=== PATIENT | male | born 1980 | race Caucasian/White ===

== ENCOUNTER 2016-02-22 19:29 | Inpatient (IN) | payer MEDICAID ==
[~2016-02-22] VITALS: Ht 185.4 cm; Wt 73.0 kg
[2016-02-22 20:27] VITALS: BP 139/97; PULSE 107; RESP 17; TEMP 98.5; O2SAT 98
[2016-02-22 22:38] LABS: HEMATOCRIT 38.1 % (36-54); HEMOGLOBIN 13.4 g/dL (14.0-18.0); MEAN CORPUSCULAR HGB CONC 35 % (32-36)
[2016-02-22 22:42] LABS: ANION GAP 9 (5-15); CALCIUM 8.5 mg/dL (8.4-11.0); CHLORIDE 88 mmol/L (98-107); CREATININE 0.55 mg/dL (0.55-1.30); GLUCOSE 119 mg/dL (70-99); SODIUM SERUM 132 mmol/L (136-145); UREA NITROGEN, BLOOD 2 mg/dL (8-21)
--- NOTE | 2016-02-22 22:45 | NUR ---
Pt ambulatory to bed 5. Report given to RODDY Marie.
[2016-02-22 22:50] LABS: MEAN CORPUSCULAR HEMOGLOBIN 34 pg (27-31); MEAN CORPUSCULAR VOLUME 96 fL (79.0-98.0); PLATELET COUNT (AUTO) 139 K/uL (130-430); RED BLOOD CELL COUNT(AUTO) 3.99 MIL/uL (4.2-6.2); RED CELL DISTRIBUTION WIDTH 22.4 % (9.0-15.0); WHITE BLOOD COUNT (AUTO) 13.4 K/uL (4.8-10.8)
[2016-02-22 22:55] LABS: ALANINE AMINOTRANSFERASE 89 U/L (12-78); ALBUMIN 2.8 g/dL (3.4-4.8); ALCOHOL, BLOOD 102 mg/dL (<10); ASPARTATE AMINOTRANSFERASE 254 U/L (10-37); LIPASE 228 U/L (73-393); TOTAL PROTEIN, SERUM 6.1 g/dL (6.4-8.3)
--- NOTE | 2016-02-22 22:55 | NUR ---
Pt came in for general weakness for the whole day. Pt states he could not walk a 100 feet without getting tired. Pt is nauseous and has been vomitting non stop. Pt has 6/10 body pain and shoots to a 9/10 when he moves. A and O x 4. Pt skins are warm, dry, and jaundiced. Pt is very itchy. Pt placed on cadiac monitor and will continue to monitor. No other injuries or complaints mentioned/noted.
[2016-02-22 23:10] LABS: GFR AFRICAN AMERICAN 217 mL/min (>90)
[2016-02-22 23:13] LABS: POTASSIUM 2.5 mmol/L (3.5-5.1)
[2016-02-22 23:14] LABS: SALICYLATE < 1 mg/dL (3-30)
[2016-02-22] MEDS ORDERED: NACL 0.9% 1,000 ML IV ONE (23:15)
--- NOTE | 2016-02-22 23:15 | NUR ---
ER Dr. Lam at bedside examining patient.
--- NOTE | 2016-02-22 23:30 | NUR ---
Pt meets sepsis protocol. made aware. No changes in orders at this time.
[2016-02-22] MEDS ORDERED: KCL 40 mEq in D5W 1000 mL 1,000 ML IV ONE (23:45)
[2016-02-22] MEDS ORDERED: LACTULOSE 20 GM/30 ML UDC PO ONE (23:45)
[2016-02-22 23:46] LABS: ACETAMINOPHEN < 1 ug/mL (1-30)
[2016-02-22 23:49] LABS: INR 1.6 (0.80-1.20); PROTHROMBIN TIME 17.8 SECS (9.5-12.5)
[2016-02-22 23:51] LABS: BAND % (MANUAL) 3 % (0-6); LYMPHOCYTES % (MANUAL) 15 % (20-46); MONOCYTES % (MANUAL) 17 % (0-11)
[2016-02-22 23:52] LABS: BASOPHILS % (MANUAL) 0 % (0-2); EOSINOPHILS % (MANUAL) 1 % (0-7)
[2016-02-23] VITALS (19 sets, daily range): BP systolic 95–135; BP diastolic 51–85; PULSE 89–111; RESP 15–25; TEMP 97.6–99.4; O2SAT 94–99
--- NOTE | 2016-02-23 | NUR ---
Medication reconciliation completed with information provided by patient. Any prior medication reconciliation on file was reviewed and corrected.
[2016-02-23] MEDS ORDERED: KCL 20 mEq in 100 mL (PREMIX) 200 ML IV ONE (00:08)
[2016-02-23 00:25] LABS: BARBITURATE, URINE NEGATIVE (NEG <=200); BENZODIAZEPINE, URINE NEGATIVE (NEG <=150); CANNABINOID, URINE NEGATIVE (NEG <=50); COCAINE, URINE NEGATIVE (NEG <=150); METHAMPHETAMINES SCREEN,URINE NEGATIVE (NEG <=500); OPIATE, URINE NEGATIVE (NEG <=100); PHENCYCLIDINE SCREEN,URINE NEGATIVE (NEG <=25); UR TRICYCLIC ANTIDEPRESSANTS NEGATIVE (NEG <=300); URINE AMPHETAMINE NEGATIVE (NEG <=500); URINE METHADONE NEGATIVE (NEG <=200); URINE OXYCODONE SCREEN NEGATIVE (NEG <=100); URINE PROPOXYPHENE SCREEN NEGATIVE (NEG <=300)
--- NOTE | 2016-02-23 00:25 | NUR ---
# 18 gauge angiocath placed to R AC. Use of asceptic technique. Opsite placed over site. Blood return noted. Flushed with 10 cc of normal saline. No evidence of infiltration noted. Patient tolerated well.
[2016-02-23] MEDS ORDERED: LORazepam 2 MG/ML VIAL (FOR ER USE) IVP ONE (02:00)
--- NOTE | 2016-02-23 02:25 | NUR ---
Pt is on ICU hold per adalid in ICU. They will follow up when a bed frees up.
--- NOTE | 2016-02-23 03:51 | NUR ---
Patient will be admitted to care of Dr. Mcbride. Admitted to ICU unit. Will go to room 127. Summary report printed. Report given to Karly PEREYRA.
--- NOTE | 2016-02-23 04:00 | NUR ---
ADMIT: Patient admitted to ICU bed 8 transported via gurney by 2 RNs. Patient is alert but lethargic, follows commands then dozes in and out. Breathing even and unlabored. Per report from Frank, patient was given Ativan in ER. IV access on the right ac G 18, patent and intact. No signs of redness or swelling on the IV site. Skin is jaundiced, warm and dry. 2 side rails up and bed in lowest level. Bed brakes locked. Placed call light within reach. All needs met. Will continue to monitor.
--- NOTE | 2016-02-23 06:33 | NUR ---
PT UPDATE: Patient in no acute distress or SOB at this time. Vital signs elevated but stable. BM x 1, loose and greenish in color. All needs met. Placed call light within reach. Will continue to monitor.
--- NOTE | 2016-02-23 07:20 | NUR ---
REPORT: Report given to RODDY Vines.
--- NOTE | 2016-02-23 07:30 | NUR ---
Am assessment: Patient is alert and oriented x4. Patient is on room air no signs of distress noted. IV started to right forearm 20 gauge. Is sinus rhythm on the monitor. Denies any nausea at this time. Is jaundice to sclera and upper chest. Call light in reach. Bed in lowest position. Will continue to monitor. Fall precautions in place.
[2016-02-23] MEDS: FOLIC ACID 1 MG, THIAMINE HCL 100 MG, MAGNESIUM SULFATE 1 GM, MVI 10 ML in NACL 0.9% 1,... IV SCH ×3 (08:00→21:00)
[2016-02-23] MEDS: chlordiazePOXIDE HCL 25 MG CAPSULE PO SCH ×3 (08:54→20:43)
--- NOTE | 2016-02-23 09:18 | NUR ---
Nutrition Update Daniel Scale 18 noted. Pt admitted for acute alcohol intoxication, hepatoencephalopathy. Diet: full liquid BMI: 21.2 kg/m2 RD to follow per nutrition care standards.
--- NOTE | 2016-02-23 10:00 | NUR ---
Update: Patient resting in bed. No signs of distress noted. Will continue to monitor.
--- NOTE | 2016-02-23 13:30 | NUR ---
round: Dr. Mcbride at bedside to examine patient.
--- NOTE | 2016-02-23 14:16 | NUR ---
Called Dr. Mane with a consult(Depression) spoke with Melinda from the exchange
[2016-02-23 14:28] LABS: CREATININE 0.71 mg/dL (0.55-1.30)
[2016-02-23 14:32] LABS: POTASSIUM 2.7 mmol/L (3.5-5.1)
[2016-02-23] MEDS ORDERED: POTASSIUM CHLORIDE 40 MEQ in 0.45% NS 250 ML IV ONE (14:45)
[2016-02-23] MEDS ORDERED: POTASSIUM CHLORIDE 20 MEQ TAB.PRT.SR PO ONE (14:45)
--- NOTE | 2016-02-23 15:50 | NUR ---
MD ROUND: Dr. Craven at bedside to examine patient.
--- NOTE | 2016-02-23 16:30 | NUR ---
Update: Patient is sitting up in bed. No denies any nausea. Call light in reach.
[2016-02-23] MEDS ORDERED: PANTOPRAZOLE SODIUM 40 MG/VIAL (PROTONIX) IVP ONE (17:15)
--- NOTE | 2016-02-23 19:28 | NUR ---
Report: Report given to Heidi PEREYRA.
--- NOTE | 2016-02-23 20:00 | NUR ---
Opening note Pt awake, alert and oriented x 4. Respirations even and unlabored. No distress noted. Skin warm and dry to touch. Skin and sclera jaundice. POC reviewed and discussed with pt. Pt acknowledged understanding. IV to right FA infusing Krider. Denies any pain or discomfort. Bed in lowest position and locked. Upx 2 side rails.
[2016-02-23] MEDS: PENTOXIFYLLINE 400 MG TABLET.SA (TRENtal) PO SCH (20:43)
[2016-02-23] MEDS: LORazepam 2 MG/ML VIAL IVP PRN (21:33)
--- NOTE | 2016-02-23 21:33 | NUR ---
Ativan given Pt restless in bed reports, "feeling anxious and feels uncomfortable." Requests something to help him sleep. Administered Ativan per physician order.
--- NOTE | 2016-02-23 22:00 | NUR ---
Rounds Pt resting in bed with visible chest rise and fall. Easily aroused to verbal or light tactile stimuli. Resume pt care.
[2016-02-24] VITALS (17 sets, daily range): BP systolic 100–125; BP diastolic 54–82; PULSE 82–102; RESP 11–25; TEMP 98.5–99.4; O2SAT 93–100
[2016-02-24] MEDS: FOLIC ACID 1 MG, THIAMINE HCL 100 MG, MAGNESIUM SULFATE 1 GM, MVI 10 ML in NACL 0.9% 1,... IV SCH ×2 (01:37→11:38)
[2016-02-24] MEDS: LORazepam 2 MG/ML VIAL IVP PRN (01:48)
--- NOTE | 2016-02-24 01:48 | NUR ---
Administered Ativan Pt restless in bed, fidgety unable to fall back asleep. ST on the monitor 103. Administered Ativan per physician order. Refer to EMAR.
--- NOTE | 2016-02-24 02:15 | NUR ---
Rounds Pt laying in bed awake, watching television. No distress noted. Ambulated to toilet without difficulty. Resume pt care.
--- NOTE | 2016-02-24 04:00 | NUR ---
Rounds Pt resting in bed with visible chest rise and fall. No distress noted. Anticipated and attended to pt needs. Able to self reposition. Able to make needs known. Resume pt care.
--- NOTE | 2016-02-24 05:00 | NUR ---
CHG Offered bed bath for this AM. Pt declined and stated, "I want to sleep, I'll do it later." Offered to assist with changing linen however, pt declined and stated "I'm sure I don't want to get up now."
--- NOTE | 2016-02-24 06:45 | NUR ---
Closing note Pt resting in bed with visible chest rise and fall. No distress noted. Skin warm and dry to touch. Skin and sclera jaundice. IV to right FA infusing IVF. Denies any pain or discomfort. Bed in lowest position and locked. Upx 2 side rails.
[2016-02-24 07:01] LABS: HEMATOCRIT 31.5 % (36-54); HEMOGLOBIN 11.1 g/dL (14.0-18.0); MEAN CORPUSCULAR HEMOGLOBIN 33 pg (27-31); MEAN CORPUSCULAR HGB CONC 35 % (32-36); MEAN CORPUSCULAR VOLUME 95 fL (79.0-98.0); PLATELET COUNT (AUTO) 115 K/uL (130-430); RED BLOOD CELL COUNT(AUTO) 3.33 MIL/uL (4.2-6.2); RED CELL DISTRIBUTION WIDTH 22.4 % (9.0-15.0)
[2016-02-24 07:06] LABS: WHITE BLOOD COUNT (AUTO) 14.4 K/uL (4.8-10.8)
[2016-02-24 07:13] LABS: ALBUMIN 2.1 g/dL (3.4-4.8); CALCIUM 7.8 mg/dL (8.4-11.0); CREATININE 0.5 mg/dL (0.55-1.30); PHOSPHORUS 1.2 mg/dL (2.7-4.5); POTASSIUM 3.1 mmol/L (3.5-5.1); TOTAL PROTEIN, SERUM 4.9 g/dL (6.4-8.3)
--- NOTE | 2016-02-24 07:15 | NUR ---
Nursing Asleep but arousable. Denies pain nor discomfort. Jaundice to sclera. NO SOB. Safe environment provided. Call light in reach.
--- NOTE | 2016-02-24 07:23 | NUR ---
consult for dr. meyers (dr. silva sales professional) recalled spoke to miguel dialed [phone]
[2016-02-24] MEDS: PENTOXIFYLLINE 400 MG TABLET.SA (TRENtal) PO SCH ×3 (08:06→20:20)
[2016-02-24] MEDS: PANTOPRAZOLE SODIUM 40 MG/VIAL (PROTONIX) IVP SCH (08:06)
[2016-02-24] MEDS: chlordiazePOXIDE HCL 25 MG CAPSULE PO SCH ×3 (08:06→20:20)
[2016-02-24 08:49] LABS: ATYPICAL LYMPHOCYTES % 0 % (0-0); BAND % (MANUAL) 0 % (0-6); EOSINOPHILS % (MANUAL) 1 % (0-7); LYMPHOCYTES % (MANUAL) 13 % (20-46); MONOCYTES % (MANUAL) 14 % (0-11)
[2016-02-24 08:50] LABS: BASOPHILS % (MANUAL) 0 % (0-2)
--- NOTE | 2016-02-24 11:30 | NUR ---
DR. CHAU, DR. CHAU RETURNED CALL REGARDING CONSULT. STATES DR CAMPOS WILL BE ROUNDING AT [place] TODAY.
--- NOTE | 2016-02-24 12:04 | NUR ---
Spoke with Dr. Mcbride Spoke with Dr. Mcbride and made MD aware that pt was complaining of 10/10 burning abdominal pain. Order for Pepcid given. Clarified order for the Banana bag - pt has been on it since 02/12 3:30 am. MD Alanis, jesse. Made aware pt's Potassium = 3.1, order for potassium given. Made MD aware that pt has temp 99.4 and WBC = 14.4, no new order for this. All orders noted and carried. Will help keep pt comfortable.
[2016-02-24] MEDS ORDERED: POTASSIUM CHLORIDE 20 MEQ TAB.PRT.SR PO ONE (12:15)
[2016-02-24] MEDS ORDERED: FAMOTIDINE 20 MG TABLET ONE (12:16)
--- NOTE | 2016-02-24 12:30 | NUR ---
Kvng Andres from Pharmacy said that pt cannot be with Pepcid since pt is already on protonix. Paged Dr. Bianchi to ask for orders for stomach pain.
[2016-02-24] MEDS ORDERED: FAMOTIDINE 20 MG TABLET PO ONE (13:45)
--- NOTE | 2016-02-24 14:14 | NUR ---
Nursing Pt removing monitor leads. Refused at this time. Educated re: risk and benefits.
[2016-02-24] MEDS ORDERED: COMMUNICATION ORDER XX ONE (14:15)
[2016-02-24] MEDS: MAG-AL HYDROX/SIMETH 30 ML UDC PO SCH ×2 (14:43→23:01)
[2016-02-24] MEDS: LIDOCAINE VISCOUS 2%, 15 ML UDC PO SCH ×2 (14:44→23:01)
[2016-02-24] MEDS: BELLADONNA ALKALOIDS/PHENOBARB 5 ML UDC PO SCH ×2 (14:45→23:01)
--- NOTE | 2016-02-24 14:45 | NUR ---
Stomach pain GI cocktail given for 10/10 burning abdominal pain. Will continue to monitor.
--- NOTE | 2016-02-24 15:15 | NUR ---
Transferred to [facility] Given report to RODDY Ba at bedside. Pt no SOB, denies pain/discomfort. Checked all belongings, with pt, and pt verified that he has all belongings with him. No acute distress at this time.
--- NOTE | 2016-02-24 15:30 | NUR ---
Nursing Appears to be asleep at this time. No sign of pain.
--- NOTE | 2016-02-24 16:23 | NUR ---
Transfer to [facility] Spoke with RODDY Ba from [facility] to give report. At this time RN is not ready to receive report. Awaiting RN to call back to give report.
--- NOTE | 2016-02-24 17:15 | NUR ---
INITIAL NOTES RECEIVED PATIENT FROM ICU ACCOMPANIED BY EX GF ALERT,AWAKE,ORIENTED.BREATHING EVEN AND UNLABORED.NO ACUTE DISTRESS.WITH IV SALINE LOCK INTACT AND PATENT;NO SIGNS AND SYMPTOMS OF INFILTRATION.SAFETY AND FALL PRECAUTION KEPT IN PLACE.CALL LIGHT WITHIN REACH.ORIENTED TO ROOM AND UNIT.
--- NOTE | 2016-02-24 18:38 | NUR ---
NOTES SEEN PATIENT AMBULATE TO THE RESTROOM WITHOUT ASSIST;WITH STEADY GAIT
--- NOTE | 2016-02-24 19:00 | NUR ---
NOTES PATIENT ON BED AWAKE.BREATHING EVEN AND UNLABORED.NO ACUTE DISTRESS.IV SALINE LOCK INTACT AND PATENT.SAFETY AND FALL PRECAUTIONS IN PLACE.CALL LIGHT WITHIN REACH.WILL ENDORSE TO NEXT SHIFT ACCORDINGLY
--- NOTE | 2016-02-24 20:05 | NUR ---
Initial Notes Received patient laying in bed with eyes closed, easily aroused to name, alert, oriented, slightly uncooperative to commands during assessment. Patient denies any acute distress or pain at this time. Breathing even and unlabored on room air. IV site patent/clean/dry. Educated patient on use of call light for assistance and fall precautions, patient verbalized understanding but seems uninterested. Fall precautions in place, bed lowest position, side rails up x2, bed alarm in use, room close to nursing station, call light in hand. Will continue to monitor for changes and safety.
[2016-02-24] MEDS ORDERED: FAMOTIDINE 20 MG TABLET PO SCH (21:00)
--- NOTE | 2016-02-24 22:15 | NUR ---
Rounds Patient resting in bed with eyes closed, easily aroused upon nurse entering room. Patient denies any acute distress or pain at this time. Needs addressed. Call light in hand, fall precautions in place. Will continue to monitor for changes and safety.
[2016-02-25] VITALS: BP 102/58; PULSE 68; RESP 17; TEMP 98.6; O2SAT 98
--- NOTE | 2016-02-25 | NUR ---
Rounds Patient resting in bed with eyes closed. No acute distress noted, breathing even and unlabored. Call light in hand, fall precautions in place. Will continue to monitor for changes and safety.
--- NOTE | 2016-02-25 02:00 | NUR ---
Rounds Patient resting in bed with eyes closed, easily aroused. Patient denies any acute distress or pain at this time. Needs addressed. Call light in hand, fall precautions in place. Will continue to monitor.
[2016-02-25 04:03] VITALS: BP 115/71; PULSE 89; RESP 20; TEMP 98; O2SAT 98
[2016-02-25] MEDS: MAG-AL HYDROX/SIMETH 30 ML UDC PO SCH ×4 (05:31→23:29)
[2016-02-25] MEDS: BELLADONNA ALKALOIDS/PHENOBARB 5 ML UDC PO SCH ×4 (05:31→23:30)
[2016-02-25] MEDS: LIDOCAINE VISCOUS 2%, 15 ML UDC PO SCH ×4 (05:31→23:29)
--- NOTE | 2016-02-25 06:46 | NUR ---
Closing Notes Patient resting in bed with eyes closed, easily aroused. Patient denies any acute distress or pain at this time. Breathing even and unlabored. Needs addressed throughout shift. Will continue to monitor for changes and safety, and endorse all patient care/needs to oncoming nurse.
[2016-02-25 07:19] LABS: HEMATOCRIT 33.1 % (36-54); HEMOGLOBIN 11.6 g/dL (14.0-18.0); MEAN CORPUSCULAR HEMOGLOBIN 33 pg (27-31); MEAN CORPUSCULAR HGB CONC 35 % (32-36); MEAN CORPUSCULAR VOLUME 96 fL (79.0-98.0); PLATELET COUNT (AUTO) 116 K/uL (130-430); RED BLOOD CELL COUNT(AUTO) 3.47 MIL/uL (4.2-6.2); WHITE BLOOD COUNT (AUTO) 18.4 K/uL (4.8-10.8)
[2016-02-25 07:30] LABS: CALCIUM 7.8 mg/dL (8.4-11.0); CREATININE 0.59 mg/dL (0.55-1.30)
[2016-02-25 07:45] VITALS: BP 114/68; PULSE 91; RESP 20; TEMP 98.4; O2SAT 98
--- NOTE | 2016-02-25 07:53 | NUR ---
INITIAL NOTES RECEIVED PATIENT ON BED ASLEEP.BREATHING EVEN AND UNLABORED.NO ACUTE DISTRESS.IV SALINE LOCK INTACT AND PATENT;NO SIGNS AND SYMPTOMS OF INFILTRATION.SAFETY AND FALL PRECAUTIONS IN PLACE.CALL LIGHT WITHIN REACH
[2016-02-25] MEDS: PENTOXIFYLLINE 400 MG TABLET.SA (TRENtal) PO SCH ×3 (08:43→21:01)
[2016-02-25] MEDS: chlordiazePOXIDE HCL 25 MG CAPSULE PO SCH ×3 (08:43→21:01)
[2016-02-25] MEDS: PANTOPRAZOLE SODIUM 40 MG/VIAL (PROTONIX) IVP SCH (08:43)
--- NOTE | 2016-02-25 09:20 | NUR ---
PAGED DR. KING REGARDING PATIENT'S LAB RESULTS;AWAITING FOR CALL BACK
[2016-02-25 10:04] LABS: ATYPICAL LYMPHOCYTES % 0 % (0-0); BAND % (MANUAL) 3 % (0-6); BASOPHILS % (MANUAL) 0 % (0-2); EOSINOPHILS % (MANUAL) 2 % (0-7); LYMPHOCYTES % (MANUAL) 11 % (20-46); MONOCYTES % (MANUAL) 15 % (0-11)
--- NOTE | 2016-02-25 11:00 | NUR ---
NOTES DR. KING CAME TO THE UNIT;INFORMED REGARDING PATIENT'S ABNORMAL LAB RESULTS:WBC=18.4,LC=063,POTASSIUM=3.0.AND ALSO PATIENT'S COMPLAIN OF SEVERE ABDOMINAL PAIN WITH ABDOMINAL DISTENTION AND NO BOWEL MOVEMENT FOR 3 DAYS SAID HE NEEDS TO SEE THE PATIENT FIRST
--- NOTE | 2016-02-25 11:21 | NUR ---
MEDS PATIENT REFUSED ORAL MEDS FOR 1200.PER PATIENT ITS MAKING HIS STOMACH HURTS MORE.EXPLAINED RISKS AND BENEFITS;STILL REFUSED.DR. KING MADE AWARE
--- NOTE | 2016-02-25 11:30 | NUR ---
NOTES DR. KING INFORMED REGARDING PATIENT'S REFUSING THE MEDICATION FOR 1200 SAID HE WILL TALK TO THE PATIENT
[2016-02-25 11:37] VITALS: BP 108/62; PULSE 92; RESP 19; TEMP 97.9; O2SAT 96
[2016-02-25] MEDS ORDERED: POTASSIUM CHLORIDE 20 MEQ TAB.PRT.SR PO ONE (12:45)
[2016-02-25] MEDS ORDERED: DIATR MEGLU/DIATRIZ SOD 30 ML SOLUTION PO ONE (13:47)
[2016-02-25] MEDS ORDERED: IOHEXOL 100 ML IV ONE (13:48)
[2016-02-25] MEDS: KCL 20 mEq in D5NS 1000 mL 1,000 ML IV SCH ×2 (14:39→21:04)
[2016-02-25 15:25] VITALS: BP 125/72; PULSE 89; RESP 19; TEMP 97.2; O2SAT 97
--- NOTE | 2016-02-25 15:30 | NUR ---
MEDS NOTES PATIENT IS VOMITING DUE TO THE CONTRAST THAT HE WAS TAKING FOR THE CT OF ABDOMEN;VOMITUS IS WHITE WITH YELLOWISH FOOD PARTICLES;MODERATE IN AMOUNT;REFUSED TO TAKE ORAL MEDS DUE AT 1500 AT THIS TIME.
--- NOTE | 2016-02-25 15:54 | NUR ---
NOTES PATIENT CAME BACK FROM RADIOLOGY DEPART
--- NOTE | 2016-02-25 17:58 | NUR ---
PAGED DR. KING REGARDING PATIENT'S CT OF ABDOMEN RESULT;AWAITING FOR CALL BACK
--- NOTE | 2016-02-25 18:05 | NUR ---
MD DR. KING CALLED BACK;INFORMED REGARDING RESULT OF CT SCAN;WITH ORDERS FOR FLAGYL 500 MG IV Q 8H AND DULCOLAX SUPP. 1 [place] DAILY ;CARRIED OUT
--- NOTE | 2016-02-25 18:50 | NUR ---
CLOSING NOTES PATIENT ON BED AWAKE.BREATHING EVEN AND UNLABORED.NO ACUTE DISTRESS.IVF INFUSING WELL;NO SIGNS AND SYMPTOMS OF INFILTRATION.SAFETY AND FALL PRECAUTIONS IN PLACE.CALL LIGHT WITHIN REACH.WILL ENDORSE TO NEXT SHIFT ACCORDINGLY
[2016-02-25] MEDS ORDERED: BISACODYL 10 MG/SUPPOSITORY RC ONE (19:15)
[2016-02-25 20:00] VITALS: BP 119/78; PULSE 90; RESP 18; TEMP 98.8; O2SAT 97
--- NOTE | 2016-02-25 20:00 | NUR ---
Initial Notes Received patient laying in bed, awake, alert, oriented. Patient denies any acute distress or pain. Breathing even and unlabored on room air. Vital signs stable. IV site patent/clean/dry. Patient refusing ordered Dulcolax suppository, states he doesn't want it. Educated patient on medication, patient continue to refuse. Educated patient on use of call light for assistance and fall precautions, patient verbalized understanding. Call light in hand, will continue to monitor for changes and safety.
[2016-02-25] MEDS ORDERED: metroNIDAZOLE 500 mg/NS 200 ML IV ONE (20:59)
[2016-02-25] MEDS: metroNIDAZOLE 500 mg/NS 100 ML IV SCH (21:02)
--- NOTE | 2016-02-25 22:14 | NUR ---
Rounds Rounds Patient resting in bed with eyes closed, easily aroused upon nurse entering room. Patient denies any acute distress or pain at this time. Breathing even and unlabored. IV site patent/clean/dry. Needs addressed. Call light in hand, fall precautions in place. Will continue to monitor for changes and safety.
--- NOTE | 2016-02-25 23:44 | NUR ---
Rounds Patient resting in bed, awake, watching TV. Patient denies any acute distress or pain at this time. Breathing even and unlabored. IV site patent/clean/dry. Needs addressed. Call light in hand, fall precautions in place. Will continue to monitor for changes and safety.
[2016-02-26] VITALS (7 sets, daily range): BP systolic 100–140; BP diastolic 58–82; PULSE 62–92; RESP 15–19; TEMP 96.6–98.6; O2SAT 93–98
[2016-02-26] MEDS: LORazepam 2 MG/ML VIAL IVP PRN
--- NOTE | 2016-02-26 04:10 | NUR ---
Rounds Patient resting in bed with eyes closed, easily aroused. Patient denies any acute distress or pain at this time. Breathing even and unlabored. Patient denies any needs. Call light in hand, fall precautions in place. Will continue to monitor.
[2016-02-26] MEDS: LIDOCAINE VISCOUS 2%, 15 ML UDC PO SCH ×4 (05:07→23:50)
[2016-02-26] MEDS: MAG-AL HYDROX/SIMETH 30 ML UDC PO SCH ×4 (05:07→23:50)
[2016-02-26] MEDS: BELLADONNA ALKALOIDS/PHENOBARB 5 ML UDC PO SCH ×4 (05:07→19:27)
[2016-02-26] MEDS: metroNIDAZOLE 500 mg/NS 100 ML IV SCH ×3 (05:08→21:32)
--- NOTE | 2016-02-26 06:29 | NUR ---
Closing Notes Patient resting in bed with eyes closed, easily aroused to name. Patient denies any acute distress or pain at this time. Breathing even and unlabored. IV site patent/clean/dry. Needs addressed throughout shift. Call light in hand, fall precautions in place. Will continue to monitor for changes and safety, and endorse all patient care/needs to oncoming nurse.
--- NOTE | 2016-02-26 07:35 | NUR ---
initial notes rec patient awake alert in bed with hob elevated. ivf infusing well on the r forearm and intact. no s/s of infiltration noted. no acute distress noted. resp easy and unlabored. ambulates with min assists to the br at intervals. bed alrm is on. will ocntinue to monitor patient.
[2016-02-26 07:40] LABS: HEMATOCRIT 30.4 % (36-54); HEMOGLOBIN 10.6 g/dL (14.0-18.0); MEAN CORPUSCULAR HEMOGLOBIN 33 pg (27-31); MEAN CORPUSCULAR HGB CONC 35 % (32-36); MEAN CORPUSCULAR VOLUME 96 fL (79.0-98.0); PLATELET COUNT (AUTO) 122 K/uL (130-430); RED BLOOD CELL COUNT(AUTO) 3.17 MIL/uL (4.2-6.2); RED CELL DISTRIBUTION WIDTH 23.7 % (9.0-15.0)
[2016-02-26 07:50] LABS: CALCIUM 7.8 mg/dL (8.4-11.0); CREATININE 0.57 mg/dL (0.55-1.30); PHOSPHORUS 1.6 mg/dL (2.7-4.5); POTASSIUM 3.1 mmol/L (3.5-5.1)
[2016-02-26] MEDS: PENTOXIFYLLINE 400 MG TABLET.SA (TRENtal) PO SCH ×3 (08:19→21:31)
[2016-02-26] MEDS: chlordiazePOXIDE HCL 25 MG CAPSULE PO SCH ×3 (08:19→21:31)
[2016-02-26] MEDS: PANTOPRAZOLE SODIUM 40 MG/VIAL (PROTONIX) IVP SCH (08:19)
[2016-02-26] MEDS: BISACODYL 10 MG/SUPPOSITORY RC SCH (08:20)
--- NOTE | 2016-02-26 10:00 | NUR ---
rounds due meds were given. no acute distress.
[2016-02-26 11:10] LABS: ATYPICAL LYMPHOCYTES % 3 % (0-0); BAND % (MANUAL) 3 % (0-6); LYMPHOCYTES % (MANUAL) 9 % (20-46)
[2016-02-26 11:11] LABS: BASOPHILS % (MANUAL) 0 % (0-2); EOSINOPHILS % (MANUAL) 1 % (0-7); MONOCYTES % (MANUAL) 8 % (0-11)
[2016-02-26] MEDS ORDERED: POTASSIUM CHLORIDE 20 MEQ TAB.PRT.SR PO ONE (11:30)
--- NOTE | 2016-02-26 12:00 | NUR ---
rounds assisted to the br with min assists and and jose well. no acute distress.
--- NOTE | 2016-02-26 14:00 | NUR ---
rounds sleeping and refused to be disturbed. no c/o pain.
[2016-02-26] MEDS ORDERED: MILK OF MAGNESIA 30 ML UDC PO ONE (15:00)
--- NOTE | 2016-02-26 16:00 | NUR ---
rounds seen by dr alamo and with orders. sleeps at intervals.
[2016-02-26] MEDS: KCL 20 mEq in D5NS 1000 mL 1,000 ML IV SCH (16:08)
[2016-02-26] MEDS ORDERED: POTASSIUM CHLORIDE 40 MEQ in NS 250 ML IV ONE (16:15)
--- NOTE | 2016-02-26 18:30 | NUR ---
ROUNDS DUE MEDS OFFERED AND REFUSED. FAMILY IN THE ROOM WITH PATIENT. NO SOB NOTED.
--- NOTE | 2016-02-26 19:30 | NUR ---
Bedside shift report at this time. Patient is stable. Sleeping with a friend. Easy to arouse.
--- NOTE | 2016-02-26 21:38 | NUR ---
PM assessment done at this time. Patient is feeling very weak at this time. NO SOB. Vitals stable. HR 92, 98.6 temp, 115/58, 97% on RA. Laying with a friend in bed. ADministered all medications. RFA IV patent. K-rider and flagyl infusing at this time.
--- NOTE | 2016-02-26 23:45 | NUR ---
Administered medications at this time. Patient is asleep, easy to arouse. Visitor is leaving at this time.
--- NOTE | 2016-02-27 00:24 | NUR ---
Notified patient that he is no longer to have anything by mouth. Removed all liquids from bedside. Patient asleep, easy to arouse. Stable
--- NOTE | 2016-02-27 01:20 | NUR ---
ROUNDS: Patient asleep easy to arouse. Stable.
--- NOTE | 2016-02-27 02:20 | NUR ---
Patient asleep. Stable.
[2016-02-27 04:00] VITALS: BP 107/51; PULSE 81; RESP 16; TEMP 90.7
--- NOTE | 2016-02-27 04:03 | NUR ---
Patient continues to sleep. RR 16. Stable. No distress.
[2016-02-27] MEDS: LIDOCAINE VISCOUS 2%, 15 ML UDC PO SCH ×4 (06:00→23:58)
[2016-02-27] MEDS: MAG-AL HYDROX/SIMETH 30 ML UDC PO SCH ×4 (06:00→23:58)
[2016-02-27] MEDS: BELLADONNA ALKALOIDS/PHENOBARB 5 ML UDC PO SCH ×5 (06:00→23:58)
[2016-02-27] MEDS: metroNIDAZOLE 500 mg/NS 100 ML IV SCH ×3 (06:13→22:17)
--- NOTE | 2016-02-27 06:39 | NUR ---
Patient had bowel movement this AM. soft/large/brown. Vitals stable.
[2016-02-27 07:35] LABS: HEMATOCRIT 29.7 % (36-54); HEMOGLOBIN 10.2 g/dL (14.0-18.0); MEAN CORPUSCULAR HEMOGLOBIN 33 pg (27-31); MEAN CORPUSCULAR HGB CONC 34 % (32-36); MEAN CORPUSCULAR VOLUME 96 fL (79.0-98.0); PLATELET COUNT (AUTO) 113 K/uL (130-430); RED CELL DISTRIBUTION WIDTH 24.8 % (9.0-15.0); WHITE BLOOD COUNT (AUTO) 18.8 K/uL (4.8-10.8)
[2016-02-27 07:44] LABS: ALBUMIN 1.9 g/dL (3.4-4.8); CALCIUM 7.9 mg/dL (8.4-11.0); CREATININE 0.6 mg/dL (0.55-1.30); POTASSIUM 3.2 mmol/L (3.5-5.1); TOTAL PROTEIN, SERUM 4.7 g/dL (6.4-8.3)
[2016-02-27 08:00] VITALS: BP 110/50; PULSE 82; RESP 18; TEMP 98; O2SAT 98
[2016-02-27 08:18] LABS: BAND % (MANUAL) 9 % (0-6); BASOPHILS % (MANUAL) 0 % (0-2); EOSINOPHILS % (MANUAL) 0 % (0-7); LYMPHOCYTES % (MANUAL) 4 % (20-46); MONOCYTES % (MANUAL) 3 % (0-11)
[2016-02-27] MEDS: PANTOPRAZOLE SODIUM 40 MG/VIAL (PROTONIX) IVP SCH (08:22)
--- NOTE | 2016-02-27 08:27 | NUR ---
initial notes rec patient asleep but arousable to stimuli.ivf infusing well on the r forearm. no infiltration noted. npo maintained for kub this am. resp easy and unlabored. ambulates with min assists to the br. bed in low position and side rails up and locked. bed alarm on and will continue to monitor patient. rachana from xray here and picked up patient for kub via wheelchair.
[2016-02-27] MEDS: BISACODYL 10 MG/SUPPOSITORY RC SCH (09:00)
[2016-02-27] MEDS: chlordiazePOXIDE HCL 25 MG CAPSULE PO SCH ×3 (10:24→20:29)
[2016-02-27] MEDS: PENTOXIFYLLINE 400 MG TABLET.SA (TRENtal) PO SCH ×3 (10:24→20:29)
--- NOTE | 2016-02-27 10:36 | NUR ---
rounds seen by dr dennis and aware of the bilirubin. due meds were given.
[2016-02-27] MEDS ORDERED: MINERAL OIL 30 ML UDC PO ONE (12:00)
[2016-02-27] MEDS: KCL 20 mEq in D5NS 1000 mL 1,000 ML IV SCH ×2 (12:19→15:00)
[2016-02-27 12:22] VITALS: BP 114/74; PULSE 56; RESP 16; TEMP 97; O2SAT 100
--- NOTE | 2016-02-27 12:27 | NUR ---
rounds pt was taken to the shower room and had a good bath. was aasisted back to his room. due meds for 12 noon were offered and ready to be given but refused. stated will checked how his body react since he feels better right now as quoted.
[2016-02-27] MEDS ORDERED: POTASSIUM CHLORIDE 40 MEQ in NS 250 ML IV ONE (13:30)
--- NOTE | 2016-02-27 14:00 | NUR ---
rounds sleeping at this time. no sob noted.
--- NOTE | 2016-02-27 15:05 | NUR ---
rounds seen by dr carrasquillo and with orders. due meds given as ordered otherwise asleep. no acute distress noted.
--- NOTE | 2016-02-27 16:00 | NUR ---
rounds ambulates to the br with steady gait. no sob noted.
[2016-02-27 16:05] VITALS: BP 120/71; PULSE 90; RESP 18; TEMP 98.2; O2SAT 97
--- NOTE | 2016-02-27 18:30 | NUR ---
closing notes took the 1800 meds . stable needs attended. able to ambulate to the br with steady gait. no sob noted..call light within reached.
--- NOTE | 2016-02-27 19:50 | NUR ---
RN ROUNDS PATIENT RESTING QUIETLY IN BED, NO DISTRESS NOTED, VITALS STABLE, DENIES ANY PAIN AT THIS TIME, IV LINE TO RIGHT FOREARM INTACT AND PATENT, K RIDER AND IVF INFUSING AT THIS TIME, POC DISCUSSED, COMPLIANT, ORIENTED TO USE CALL LIGHT FOR NURSE ASSISTANCE, SAFETY MEASURES IN PLACE, WILL CONTINUE TO MONITOR.
[2016-02-27 20:00] VITALS: BP 129/78; PULSE 98; RESP 20; TEMP 98.8; O2SAT 100
--- NOTE | 2016-02-27 21:30 | NUR ---
RN ROUNDS PATIENT AWAKE, DENIES ANY PAIN OR DISCOMFORT, DUE MEDICATIONS ADMINISTERED, EDUCATION PROVIDED ABOUT MEDICATIONS, SAFETY MEASURES IN PLACE, CALL LIGHT WITHIN REACH, WILL CONTINUE TO MONITOR.
--- NOTE | 2016-02-28 00:09 | NUR ---
RN ROUNDS PATIENT AWAKE AND SITTING UP IN BED, VITALS STABLE. DUE MEDICATIONS ADMINISTERED, EDUCATION PROVIDED ABOUT MEDICATIONS, VERBALIZED UNDERSTANDING. IVF INFUSING, SAFETY AND FALL MEASURES IN PLACE, CALL LIGHT REMAINS WITHIN REACH, WILL CONTINUE TO MONITOR.
[2016-02-28] MEDS: KCL 20 mEq in D5NS 1000 mL 1,000 ML IV SCH ×3 (00:41→16:52)
[2016-02-28 00:58] VITALS: BP 123/72; PULSE 88; RESP 15; TEMP 99.2; O2SAT 97
--- NOTE | 2016-02-28 02:48 | NUR ---
RN ROUNDS PATIENT AWAKE, AMBULATED TO BATHROOM, STEADY GAIT NOTED. IVF INFUSING, SAFETY AND FALL MEASURES IN PLACE, CALL LIGHT REMAINS WITHIN REACH, WILL CONTINUE TO MONITOR.
[2016-02-28 04:21] VITALS: BP 118/72; PULSE 91; RESP 16; TEMP 97.6; O2SAT 96
--- NOTE | 2016-02-28 04:45 | NUR ---
RN ROUNDS PATIENT RESTING QUIETLY, VITAL SIGNS STABLE, SAFETY AND FALL MEASURES IN PLACE, CALL LIGHT REMAINS WITHIN REACH, WILL CONTINUE TO MONITOR.
[2016-02-28] MEDS: metroNIDAZOLE 500 mg/NS 100 ML IV SCH ×3 (05:30→21:38)
[2016-02-28] MEDS: LIDOCAINE VISCOUS 2%, 15 ML UDC PO SCH ×4 (05:35→23:34)
[2016-02-28] MEDS: MAG-AL HYDROX/SIMETH 30 ML UDC PO SCH ×4 (05:35→23:34)
[2016-02-28] MEDS: BELLADONNA ALKALOIDS/PHENOBARB 5 ML UDC PO SCH ×4 (05:35→23:34)
--- NOTE | 2016-02-28 06:40 | NUR ---
RN ROUNDS PATIENT RESTING QUIETLY IN BED. IN STABLE CONDITION. DUE ANTIBIOTICS ADMINISTERED. REFUSED AM MEDICATIONS. STATES HE FEELS OK AT THIS TIME. PATIENT NEEDS ATTENDED TO. FALL AND SAFETY MEASURES MAINTAINED THROUGH OUT THE SHIFT, HOURLY ROUNDS MADE, WILL CONTINUE TO MONITOR UNTIL REPORT GIVEN TO AM NURSE.
[2016-02-28 08:00] VITALS: BP 123/69; PULSE 92; RESP 17; TEMP 97.4; O2SAT 97
--- NOTE | 2016-02-28 08:00 | NUR ---
INITIAL NOTES PT IN BE AWAKE, ALERT AND ORIENTED. ASKING IF HE IS IN PAIN. PT STATED NOT TO ASK HIM AGAIN ABOUT PAIN. ABDOMEN IS DISTENDED. IVF INFUSING WELL. NO ACUTE DISTRESS NOTED. AMBULATE TO THE BATHROOM WITH MIN ASSIST. SAFETY PRECAUTION OBSERVED. ENC. TO CALL FOR HELP NEEDED. PT DID NOT ANSWER BACK. WILL MONITOR.
[2016-02-28] MEDS: PANTOPRAZOLE SODIUM 40 MG/VIAL (PROTONIX) IVP SCH (08:37)
[2016-02-28] MEDS: chlordiazePOXIDE HCL 25 MG CAPSULE PO SCH ×3 (08:38→21:00)
[2016-02-28] MEDS: PENTOXIFYLLINE 400 MG TABLET.SA (TRENtal) PO SCH ×3 (08:38→21:38)
[2016-02-28 08:39] LABS: ALBUMIN 1.7 g/dL (3.4-4.8); BILIRUBIN,DIRECT 23.7 mg/dL (0.0-0.3); TOTAL PROTEIN, SERUM 4.6 g/dL (6.4-8.3)
[2016-02-28 08:54] LABS: TOTAL BILIRUBIN 27.7 mg/dL (0.0-1.0)
[2016-02-28] MEDS: MINERAL OIL 30 ML UDC PO SCH (09:00)
[2016-02-28] MEDS: BISACODYL 10 MG/SUPPOSITORY RC SCH (09:00)
--- NOTE | 2016-02-28 10:00 | NUR ---
REFUSED MEDS PT REFUSES DULCOLAX AND MINERAL OIL. PT STATED SHE IS BEEN HAVING BOWEL MOVEMENT.
--- NOTE | 2016-02-28 11:00 | NUR ---
SPOKE TO DR. KING ON THE PHONE AND STATED TO CALL THE GI FOR THE DIET.
--- NOTE | 2016-02-28 11:30 | NUR ---
PAGED PAGED GI DOCTOR RE: PT WANTS TO ADVANCE HIS DIET. PT STATED THAT SHE IS BEEN ON CLEAR LIQUID FOR A LONG TIME.
[2016-02-28 12:00] VITALS: BP 124/80; PULSE 77; RESP 17; TEMP 97.6; O2SAT 97
--- NOTE | 2016-02-28 12:15 | NUR ---
MEDS IN BED RESTING, WITH EYES CLOSED. REFUSING TO TAKE HIS 12 O'CLOCK MEDS AT THIS TIME. LUNCH TRAY GIVEN
--- NOTE | 2016-02-28 13:00 | NUR ---
MD CALLED SPOKE TO DR. GARG AND MADE AWARE OF LAB RESULTS, ALSO PT WANTS TO ADVANCE HIS DIET. PT REFUSES HIS MEDS. NO NEW ORDER AT THIS TIME.
--- NOTE | 2016-02-28 14:40 | NUR ---
REFUSE MEDS PT REFUSED THE TRENTAL AND LIBRIUM MEDICATIONS. EDUCATING PT THE USE AND IMPORTANCE OF MEDICATIONS BUT REFUSED TO LISTEN AT THIS TIME.
[2016-02-28 15:01] VITALS: Ht 185.4 cm; Wt 73.0 kg
--- NOTE | 2016-02-28 15:55 | NUR ---
Social Service Note: CAMPUS SECURITY DIRECTOR met with pt at bedside to discuss discharge plan. Pt states that he is homeless; pt has been staying near the [employer]. 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 Pt reports a heavy history of alcohol use for past 20 years; pt states that he started drinking at 14 years old, a 6 pack a day. Pt states that most recently he has been drinking 4 bottles of vodka a day. Pt states that his goal is to "stay sober"; pt does not appear to be very motivated to stay sober. Pt states that he sometimes stays with friends or his ex-girlfriend. Pt states that upon discharge he is not sure where he will go at this time. [facility] has provided pt with: homeless resources, cold weather shelters, substance abuse treatment programs, and outpatient mental health resources. [facility] has placed homeless waiver in chart. CAMPUS SECURITY DIRECTOR will remain available for support and will follow up as needed.
--- NOTE | 2016-02-28 18:55 | NUR ---
NOTES IN BED, PT UPSET BECAUSE OF HIS DIET. PT WANTS TO CHANGE HIS GI DOCTOR AND WANTS TO TALK TO MEDICAL UNDERWRITER. MEDICAL UNDERWRITER MADE AWARE. IVF INFUSING WELL. PT STATED, HE HAS SOME GAS AND LOOSE STOOLS. NO ACUTE DISTRESS NOTED. ALL NEEDS MEET. WILL ENDORSE
--- NOTE | 2016-02-28 19:15 | NUR ---
INITIAL NOTE: BEDSIDE REPORT RECEIVED FROM KENDAL MANZANARES RN IN SBAR FORMAT. PATIENT IN NO DISTRESS. IVF RUNNING ORDERED. PLAN OF CARE DISCUSSED WITH PATIENT. CALL LIGHT WITHIN REACH. SAFETY PRECAUTIONS IN PLACE. WILL CONTINUE TO MONITOR.
[2016-02-28 20:00] VITALS: BP 124/65; PULSE 89; RESP 16; TEMP 98.6; O2SAT 99
--- NOTE | 2016-02-28 21:30 | NUR ---
ROUNDS: PATIENT IN NO DISTRESS. GIRLFRIEND AT THE BEDSIDE. WILL CONTINUE TO MONITOR.
--- NOTE | 2016-02-28 23:37 | NUR ---
ROUNDS: PATIENT RESTING IN NO DISTRESS. DENIES PAIN OR DISCOMFORT AT THIS TIME. WILL CONTINUE TO MONITOR.
[2016-02-29 00:30] VITALS: BP 111/67; PULSE 86; RESP 18; TEMP 99; O2SAT 96
--- NOTE | 2016-02-29 01:15 | NUR ---
ROUNDS: PATIENT SOILED HIS UNDERWEAR, PROVIDED PATIENT WITH PANTS, GOWN, AND SOME WIPES. PATIENT IN NO DISTRESS. WILL CONTINUE TO MONITOR.
[2016-02-29] MEDS: KCL 20 mEq in D5NS 1000 mL 1,000 ML IV SCH ×2 (02:57→21:01)
--- NOTE | 2016-02-29 03:40 | NUR ---
ROUNDS: PATIENT RESTING IN NO DISTRESS. WILL CONTINUE TO MONITOR.
[2016-02-29 04:31] VITALS: BP 118/71; PULSE 86; RESP 16; TEMP 99; O2SAT 96
--- NOTE | 2016-02-29 04:46 | NUR ---
ROUNDS: PATIENT RESTING IN NO DISTRESS. WILL CONTINUE TO MONITOR.
[2016-02-29] MEDS: metroNIDAZOLE 500 mg/NS 100 ML IV SCH ×3 (05:01→21:01)
[2016-02-29] MEDS: BELLADONNA ALKALOIDS/PHENOBARB 5 ML UDC PO SCH ×3 (05:07→17:58)
[2016-02-29] MEDS: LIDOCAINE VISCOUS 2%, 15 ML UDC PO SCH ×3 (05:07→17:58)
[2016-02-29] MEDS: MAG-AL HYDROX/SIMETH 30 ML UDC PO SCH ×3 (05:07→17:58)
--- NOTE | 2016-02-29 06:22 | NUR ---
CLOSING NOTE: PATIENT RESTING IN NO DISTRESS. VITAL SIGNS REMAINED STABLE THROUGHOUT SHIFT. IVF RUNNING ORDERED. WILL ENDORSE CARE TO THE DAY SHIFT NURSE.
[2016-02-29 07:26] LABS: HEMATOCRIT 30.9 % (36-54); HEMOGLOBIN 10.4 g/dL (14.0-18.0); MEAN CORPUSCULAR HEMOGLOBIN 33 pg (27-31); MEAN CORPUSCULAR HGB CONC 34 % (32-36); MEAN CORPUSCULAR VOLUME 96 fL (79.0-98.0); PLATELET COUNT (AUTO) 131 K/uL (130-430); RED BLOOD CELL COUNT(AUTO) 3.21 MIL/uL (4.2-6.2); RED CELL DISTRIBUTION WIDTH 25.2 % (9.0-15.0)
[2016-02-29 07:33] LABS: INR 2.2 (0.80-1.20); PROTHROMBIN TIME 25.1 SECS (9.5-12.5)
--- NOTE | 2016-02-29 07:50 | NUR ---
INITIAL NOTES PT IN BED AWAKE, ALERT AND ORIENTED. DENIES ANY PAIN OR DISCOMFORT. IVF INFUSING WELL. REFUSED TO ASSESS HIS ABDOMEN BUT ITS BEEN DISTENDED. ON ROOM AIR. DENIES ANY SHORTNESS OF BREATH. AMBULATE TO THE BATHROOM WITH STEADY GAIT. SAFETY PRECAUTION OBSERVED. CALL LIGHT IN REACH. ENC. TO CALL FOR HELP NEEDED. WILL MONITOR
[2016-02-29 08:00] VITALS: BP 127/71; PULSE 81; RESP 17; TEMP 97.8; O2SAT 97
--- NOTE | 2016-02-29 08:02 | NUR ---
BREAKFAST PT HAS NO BREAKFAST. RE ORDERED TRAY FOR BREAKFAST.
[2016-02-29 08:13] LABS: ALBUMIN 1.8 g/dL (3.4-4.8); CREATININE 0.72 mg/dL (0.55-1.30)
--- NOTE | 2016-02-29 08:30 | NUR ---
REFUSED REFUSED BREAKFAST AT THIS TIME.
--- NOTE | 2016-02-29 08:52 | NUR ---
STOOL SAMPLE. PT IS HAVING LOOSE STOOL. TRYING TO GET STOOL SAMPLE FOR C DIFF PER PROTOCOL. PT REFUSING, PT STATED THAT HE ALWAYS HAS LOOSE STOOL FOR A LONG TIME.
--- NOTE | 2016-02-29 08:52 | NUR ---
AM MEDS PT REFUSED ALL HIS ORAL MEDS. PT ONLY WANTS ME TO GIVE HIS ANTIBIOTICS
[2016-02-29] MEDS: PENTOXIFYLLINE 400 MG TABLET.SA (TRENtal) PO SCH ×3 (09:00→21:01)
[2016-02-29] MEDS: BISACODYL 10 MG/SUPPOSITORY RC SCH (09:00)
[2016-02-29] MEDS: MINERAL OIL 30 ML UDC PO SCH (09:00)
[2016-02-29] MEDS: chlordiazePOXIDE HCL 25 MG CAPSULE PO SCH ×3 (09:00→21:04)
[2016-02-29] MEDS: PANTOPRAZOLE SODIUM 40 MG/VIAL (PROTONIX) IVP SCH (09:05)
[2016-02-29 09:10] LABS: POTASSIUM 2.6 mmol/L (3.5-5.1); TOTAL BILIRUBIN 30.2 mg/dL (0.0-1.0)
--- NOTE | 2016-02-29 09:20 | NUR ---
CRITICAL LABS PAGED DR. KING RE: CRITICAL LABS RESULT.
--- NOTE | 2016-02-29 09:24 | NUR ---
MD ROUNDS DR. POON HERE AND SEEN PT AT BEDSIDE.
--- NOTE | 2016-02-29 09:35 | NUR ---
MD CALLED SPOKE TO DR. KING AND MADE AWARE OF LABS RESULT. NEW ORDER RECEIVED.
[2016-02-29] MEDS ORDERED: POTASSIUM CHLORIDE 20 MEQ TAB.PRT.SR PO ONE (09:45)
--- NOTE | 2016-02-29 09:56 | NUR ---
Consult : Dr Jay office called, spoke to Yoly at the office
[2016-02-29] MEDS ORDERED: POTASSIUM CHLORIDE 40 MEQ in NS 250 ML IV ONE (10:30)
--- NOTE | 2016-02-29 11:00 | NUR ---
MD ROUNDS SEEN BY DR. ALEXANDER AT BEDSIDE.
[2016-02-29 11:51] LABS: ATYPICAL LYMPHOCYTES % 6 % (0-0); BAND % (MANUAL) 15 % (0-6); BASOPHILS % (MANUAL) 0 % (0-2); EOSINOPHILS % (MANUAL) 0 % (0-7); LYMPHOCYTES % (MANUAL) 5 % (20-46); MONOCYTES % (MANUAL) 6 % (0-11)
--- NOTE | 2016-02-29 12:47 | NUR ---
ROUNDS EATING HIS LUNCH AT THIS TIME. DENIES ANY PAIN OR DISCOMFORT. PT DOES NOT SEEMS UPSET AFTER HEY ADVANCED HIS DIET.
--- NOTE | 2016-02-29 13:00 | NUR ---
STOOL FOR C DIFF DR. ALEXANDER ORDERED FOR STOOL C DIFF. MADE PT AWARE THAT WE NEED STOOL SAMPLE
[2016-02-29] MEDS: NS IV SCH (13:58)
[2016-02-29] MEDS: GENTAMICIN SULFATE IV SCH (13:58)
--- NOTE | 2016-02-29 14:33 | NUR ---
ROUNDS PT IN BED RESTING, DENIES ANY PAIN OR DISCOMFORT. NO DISTRESS NOTED.
[2016-02-29 16:09] VITALS: BP 108/71; PULSE 80; RESP 17; TEMP 98.1; O2SAT 100
--- NOTE | 2016-02-29 16:10 | NUR ---
SHOWER PT HAD SHOWER. WALKING IN THE HALLWAY WITH HIS FRIEND AT THIS TIME.
--- NOTE | 2016-02-29 18:46 | NUR ---
CLOSING NOTES PT IN BED AWAKE, FRIEND AT BEDSIDE. DENIES ANY PAIN OR DISCOMFORT. ALL NEEDS MEET. WILL ENDORSE
--- NOTE | 2016-02-29 19:55 | NUR ---
PM SHIFT ASSESSMENT RECEIVED PATIENT AWAKE, RESTING QUIETLY IN BED, NO DISTRESS NOTED, VITALS STABLE, DENIES ANY PAIN AT THIS TIME, IV LINE TO RIGHT FOREARM INTACT AND PATENT, IVF INFUSING AT THIS TIME, POC DISCUSSED WITH PATIENT AND FRIEND AT BEDSIDE, BOTH COMPLIANT, ORIENTED TO USE CALL LIGHT FOR NURSE ASSISTANCE, SAFETY MEASURES IN PLACE, WILL CONTINUE TO MONITOR.
[2016-02-29 20:00] VITALS: BP 115/71; PULSE 94; RESP 21; TEMP 98.3; O2SAT 97
--- NOTE | 2016-02-29 21:35 | NUR ---
RN ROUNDS PATIENT'S DUE MEDICATIONS ADMINISTERED, TOLERATED WELL. DENIES ANY PAIN AT THIS TIME, PATIENT AMBULATED TO BATHROOM EARLIER, STEADY GAIT NOTED, REMINDED HIM WE NEED A STOOL SAMPLE FOR C DIFF, COMPLIANT AND VERBALIZED UNDERSTANDING.
--- NOTE | 2016-02-29 23:35 | NUR ---
RN ROUNDS PATIENT SITTING UP IN BED, STATES HIS FACE FEELS HOT, NO TEMPERATURE NOTED. ICE PACKS GIVEN. PATIENT IN NO DISTRESS. CALL LIGHT REMAINS WITHIN REACH, WILL CONTINUE TO MONITOR.
[2016-03-01] VITALS (7 sets, daily range): BP systolic 113–132; BP diastolic 67–84; PULSE 74–87; RESP 16–22; TEMP 97.6–98.1; O2SAT 96–100
--- NOTE | 2016-03-01 00:35 | NUR ---
RN ROUNDS PATIENT RESTING QUIETLY IN BED, DENIES ANY PAIN OR DISCOMFORT AT THIS TIME, VITAL STABLE. SAFETY MEASURES IN PLACE, CALL LIGHT WITHIN REACH, WILL CONTINUE TO MONITOR.
--- NOTE | 2016-03-01 02:04 | NUR ---
RN ROUNDS PATIENT AWAKE, NO DISTRESS NOTED, DENIES ANY PAIN AT THIS TIME, IVF ONGOING, SAFETY MEASURES IN PLACE CALL LIGHT WITHIN REACH, WILL CONTINUE TO MONITOR.
--- NOTE | 2016-03-01 04:18 | NUR ---
RN ROUNDS PATIENT AWAKE AND SITTING UP IN BED, NO DISTRESS NOTED, DENIES ANY PAIN AT THIS TIME, STATES HE HAVEN'T HAD A BOWEL MOVEMENT FOR C DIFF SAMPLE. IV LINE INTACT AND PATENT, IVF ONGOING, VITALS STABLE. SAFETY MEASURES IN PLACE CALL LIGHT WITHIN REACH, WILL CONTINUE TO MONITOR.
[2016-03-01] MEDS: metroNIDAZOLE 500 mg/NS 100 ML IV SCH ×3 (05:33→21:07)
[2016-03-01] MEDS: BELLADONNA ALKALOIDS/PHENOBARB 5 ML UDC PO SCH ×4 (06:00→18:00)
[2016-03-01] MEDS: LIDOCAINE VISCOUS 2%, 15 ML UDC PO SCH ×4 (06:00→18:00)
[2016-03-01] MEDS: MAG-AL HYDROX/SIMETH 30 ML UDC PO SCH ×4 (06:00→18:00)
--- NOTE | 2016-03-01 06:25 | NUR ---
RN ROUNDS PATIENT RESTING QUIETLY IN BED. NO DISTRESS NOTED. DUE ANTIBIOTICS ADMINISTERED. REFUSED AM MEDICATIONS. IV LINE INTACT AND PATENT, NO SIGNS OF INFILTRATION, IVF INFUSING. PATIENT NEEDS ATTENDED TO. FALL AND SAFETY MEASURES MAINTAINED THROUGH OUT THE SHIFT, HOURLY ROUNDS MADE, WILL CONTINUE TO MONITOR UNTIL REPORT GIVEN TO AM NURSE.
--- NOTE | 2016-03-01 07:20 | NUR ---
AM ROUNDS PATIENT RESTING IN BED, AWAKE, ALERT AND ORIENTED X4, DENIES PAIN, ASSESSMENT COMPLETE AT THIS TIME, EDUCATED THE PATIENT COMMERCIAL DRONE PILOT LIGHT SYSTEM AND TO CALL FOR ANY ASSISTANCE, PATIENT VERBALIZED UNDERSTANDING AT THIS TIME, CALL LIGHT PLACED IN THE PATIENT'S HAND, BED IN LOWEST POSITION, TWO SIDE RAILS UP, BED ALARM ON, FALL PRECAUTIONS IN PLACE, BED CLOSE TO NURSE'S STATION.
[2016-03-01 08:26] LABS: HEMOGLOBIN 10.2 g/dL (14.0-18.0); MEAN CORPUSCULAR HEMOGLOBIN 34 pg (27-31); MEAN CORPUSCULAR HGB CONC 35 % (32-36); MEAN CORPUSCULAR VOLUME 96 fL (79.0-98.0); PLATELET COUNT (AUTO) 126 K/uL (130-430); RED BLOOD CELL COUNT(AUTO) 3.01 MIL/uL (4.2-6.2); RED CELL DISTRIBUTION WIDTH 25.1 % (9.0-15.0)
[2016-03-01 08:31] LABS: WHITE BLOOD COUNT (AUTO) 22.8 K/uL (4.8-10.8)
[2016-03-01 08:36] LABS: INR 2.3 (0.80-1.20); PROTHROMBIN TIME 25.7 SECS (9.5-12.5)
[2016-03-01 08:49] LABS: ALBUMIN 1.8 g/dL (3.4-4.8); BILIRUBIN,DIRECT 24.6 mg/dL (0.0-0.3); GENTAMICIN,RANDOM 1.2 ug/mL
[2016-03-01] MEDS: BISACODYL 10 MG/SUPPOSITORY RC SCH (09:00)
[2016-03-01] MEDS: chlordiazePOXIDE HCL 25 MG CAPSULE PO SCH ×3 (09:00→21:03)
[2016-03-01] MEDS: KCL 20 mEq in D5NS 1000 mL 1,000 ML IV SCH ×2 (09:00→19:00)
[2016-03-01] MEDS: PENTOXIFYLLINE 400 MG TABLET.SA (TRENtal) PO SCH ×3 (09:00→21:04)
--- NOTE | 2016-03-01 09:00 | NUR ---
RN ROUNDS PATIENT RESTING IN BED, AWAKE, ALERT, DENIES PAIN, EDUCATED THE PATIENT ON MEDICATIONS AND POTENTIAL SIDE EFFECTS, PATIENT VERBALIZED UNDERSTANDING AT THIS TIME AND TOLERATED WELL, NO OTHER NEEDS AT THIS TIME, BED IN LOWEST POSITION, TWO SIDE RAILS UP, BED ALARM ON, CALL LIGHT IN THE PATIENT'S HAND, FALL PRECAUTIONS IN PLACE.
[2016-03-01] MEDS: PANTOPRAZOLE SODIUM 40 MG/VIAL (PROTONIX) IVP SCH (09:01)
[2016-03-01] MEDS: MINERAL OIL 30 ML UDC PO SCH (09:01)
[2016-03-01 09:03] LABS: CREATININE 1.29 mg/dL (0.55-1.30)
[2016-03-01 09:23] LABS: BAND % (MANUAL) 5 % (0-6); LYMPHOCYTES % (MANUAL) 6 % (20-46)
[2016-03-01 09:24] LABS: BASOPHILS % (MANUAL) 0 % (0-2); EOSINOPHILS % (MANUAL) 2 % (0-7); MONOCYTES % (MANUAL) 18 % (0-11)
[2016-03-01 09:31] LABS: POTASSIUM 2.9 mmol/L (3.5-5.1); TOTAL BILIRUBIN 29.5 mg/dL (0.0-1.0)
--- NOTE | 2016-03-01 10:05 | NUR ---
CALLED ATTENDING , DR KING, RE: CRITIC[facility]S. SPOKE TO OFFICE
[2016-03-01] MEDS ORDERED: POTASSIUM CHLORIDE 20 MEQ TAB.PRT.SR PO ONE (11:00)
[2016-03-01] MEDS ORDERED: POTASSIUM CHLORIDE 40 MEQ in NS 250 ML IV ONE (11:00)
--- NOTE | 2016-03-01 11:30 | NUR ---
RN ROUNDS PATIENT RESTING IN BED, AWAKE, ALERT, EDUCATED THE PATIENT ON NEED FOR POTASSIUM REPLACEMENT BY MOUTH AND IV AND POTENTIAL SIDE EFFECTS, PATIENT VERBALIZED UNDERSTANDING AND TOLERATED PO MEDICATION WELL, IV POTASSIUM HUNG AND INFUSING AT THIS TIME, IV SITE IS PATENT, NO SIGNS OF INFILTRATION, NO OTHER NEEDS AT THIS TIME, BED IN LOWEST POSITION, TWO SIDE RAILS UP, FALL PRECAUTIONS IN PLACE, BED CLOSE TO NURSE'S STATION, CALL LIGHT IN THE PATIENT'S HAND.
[2016-03-01] MEDS: GENTAMICIN SULFATE IV SCH (12:30)
[2016-03-01] MEDS: NS IV SCH (12:30)
--- NOTE | 2016-03-01 12:37 | NUR ---
RODDY ROUNDS PATIENT RESTING IN BED, DENIES PAIN, K RIDER RUNNING AT THIS TIME, AND IV ANTIBIOTIC HUNG AT THIS TIME, PATIENT HAS NO OTHER NEEDS AT THIS TIME, BED IN LOWEST POSITION, TWO SIDE RAILS UP, FALL PRECAUTIONS IN PLACE, CALL LIGHT IS NEXT TO THE PATIENT'S HAND. Addendum: 03/01/16 at 1238 by Mike Sarkar RN K RIDER RATE DECREASED TO REDUCE DISCOMFORT.
--- NOTE | 2016-03-01 13:56 | NUR ---
Nutrition F/U Admitting Diagnosis Acute alcohol intoxication, hepatoencephalopathy, alcoholic liver Dz Past Medical History Alcohol dependency, possible depression. Pt also admitted w/ abd pain, N/V, and gastritis per MD notes. Pertinent Medications gentamicin/NaCl IVF, gentamicin per pharmacy, mineral oil, dulcolax suppository, mylanta, protonix IV, ativan Current Diet Order Mechanical soft Height (Feet) 6 feet Height (Inches) 1.00 inches Weight (Pounds) 161 pounds (admission wt; no significant weight changes noted) Weight (Calculated Kilograms) 73.495996 kilograms Patient Weight 73.028 kg Body Mass Index 21.24 kg/m2 (normal) [place]/Adjusted Body Weight IBW: 184 lb, 84 kg. 87% of IBW Estimated Needs 8645-9559 kcal/day (25-30 kcal/kg IBW for gradual wt gain) Grams of Protein per Day 67-84 gm/day (0.8-1 gm/kg IBW for gradual wt gain) Fluid Intake Goal 2-2.5 L/day (1 ml/kcal/day for maintenance) Pertinent Labs Tbili 29.5 H (increased), AST 135 H (improved), ALP 276 H (increased) Na 137 (WNL), K 2.9 L (decreased), BUN 8 WNL (improved), ALB 1.8 L (improved), WBC 22.8 H (increased), Hgb 10.2 L, Hct 29 L (decreased), eGFR 67 L Other Subjective Data Pt seen resting in bed at time of RD assessment. Able to engage in verbal interview. Pt appeared adequately nourished for height and jaundiced. Pt has advanced to mechanical soft diet and reports appetite fine. Reports bloating. BM x1 per pt, loose stool. No reports of n/v/c. Pt reports that he hasn't eaten 3x/day in the last 5 months; likely r/t Hx of homelessness. fall intern/RD offered additional foods for snacks; pt declined. Per EMR: I/O: 1200/0 (+1200 ml) per 12 hours. BM x4 02/29/16. PO intakes 100% x2 records. Abdomen is soft, non-distended, active bowel sounds. Daniel score 19, jaundice, no open wounds noted. Per RN: pt is on potassium replacement therapy. Current diet is appropriate in meeting estimated nutrient requirements. DPt seems to be tolerating diet. Pt declined nutrition education at this time. Problem, Etiology, Signs/Symptoms Inadequate nutritional intakes related to maintenance as evidenced by lack of nutritional quality while on clear liquid diet and Hx of alcohol dependency. *no longer applicable GI complications related to possible Hx of alcohol dependency and alcoholic liver disease as evidenced by K 2.9, Tbili 29.5, Hgb 10.2, and pt report of loose bowel movements and bloating. Expected Outcomes or Goals - Monitor advancement of diet, appetite, and PO intakes w/ goal of pt meeting at least 75% of estimated nutritional needs, labs trending WNL, normal GI function, and skin integrity/weight maintenance. Dietitian Recommendations * Continue mechanical soft diet per MD. Follow Up Moderate Risk: F/U in 3-5 days Addendum: 03/01/16 at [address] I have read and approve of computer science intern's note.
--- NOTE | 2016-03-01 14:54 | NUR ---
RN ROUNDS PATIENT RESTING IN BED, DENIES PAIN AT THIS TIME, EDUCATED THE PATIENT ON ALL MEDICATIONS AND POTENTIAL SIDE EFFECTS, PATIENT VERBALIZED UNDERSTANDING AND TOLERATED BY MOUTH MEDICATIONS WELL, IV ANTIBIOTIC HUNG AND INFUSING WELL, IV SITE IS PATENT NO SIGNS OF INFILTRATION AT THIS TIME, NO OTHER NEEDS AT THIS TIME, BED IN LOWEST POSITION, TWO SIDE RAILS UP, CALL LIGHT IN THE PATIENT'S HAND, FALL PRECAUTIONS IN PLACE.
--- NOTE | 2016-03-01 16:00 | NUR ---
DR KING ROUNDS HERE TO SEE THE PATIENT, WILL FOLLOW UP WITH ANY NEW ORDERS.
--- NOTE | 2016-03-01 16:00 | NUR ---
RN ROUNDS PATIENT RESTING IN BED, IV PUMP ALARM SOUNDING AT THIS TIME, DENIES PAIN, NO OTHER NEEDS AT THIS TIME, BED IN LOWEST POSITION, TWO SIDE RAILS UP, CALL LIGHT IN THE PATIENT'S HAND, FALL PRECAUTIONS IN PLACE.
--- NOTE | 2016-03-01 18:03 | NUR ---
RN ROUNDS PATIENT OUT OF BED TO RESTROOM AT THIS TIME, STEADY GAIT, PATIENT DENIES PAIN, NO OTHER NEEDS AT THIS TIME, BED IN LOWEST POSITION, TWO SIDE RAILS UP, FALL PRECAUTIONS IN PLACE, CALL LIGHT IN THE PATIENT'S HAND, FALL PRECAUTIONS IN PLACE.
--- NOTE | 2016-03-01 18:49 | NUR ---
CLOSING NOTES PATIENT RESTING IN BED, EYES CLOSED, BREATHING IS EVEN AND UNLABORED, NO SIGNS OF DISTRESS AT THIS TIME, ALL NEEDS MET, BED IN LOWEST POSITION, TWO SIDE RAILS UP, FALL PRECAUTIONS IN PLACE, CALL LIGHT NEXT TO THE PATIENT'S HAND, WILL ENDORSE REPORT TO NOC SHIFT NURSE.
[2016-03-01] MEDS: VANCOMYCIN HCL 125 MG CAPSULE PO SCH (21:04)
[2016-03-02] VITALS (7 sets, daily range): BP systolic 104–132; BP diastolic 60–78; PULSE 61–87; RESP 17–20; TEMP 96.4–98.5; O2SAT 96–97
[2016-03-02] MEDS: LORazepam 2 MG/ML VIAL IVP PRN (02:48)
[2016-03-02] MEDS: KCL 20 mEq in D5NS 1000 mL 1,000 ML IV SCH ×2 (05:32→19:49)
[2016-03-02] MEDS: metroNIDAZOLE 500 mg/NS 100 ML IV SCH ×3 (05:33→23:15)
[2016-03-02] MEDS: LIDOCAINE VISCOUS 2%, 15 ML UDC PO SCH ×4 (05:35→18:00)
[2016-03-02] MEDS: BELLADONNA ALKALOIDS/PHENOBARB 5 ML UDC PO SCH ×4 (05:35→18:00)
[2016-03-02] MEDS: MAG-AL HYDROX/SIMETH 30 ML UDC PO SCH ×4 (05:35→18:00)
[2016-03-02 05:54] LABS: BASOPHILS % (AUTO) 0.2 % (0.0-2.0); EOSINOPHILS # (AUTO) 0.1 K/uL (0.0-0.4); EOSINOPHILS % (AUTO) 0.5 % (0.0-4.0); HEMATOCRIT 27.6 % (36-54); HEMOGLOBIN 9.5 g/dL (14.0-18.0); LYMPHOCYTES # (AUTO) 1.6 K/uL (1.0-5.5); LYMPHOCYTES % (AUTO) 7.8 % (20.5-51.5); MEAN CORPUSCULAR HEMOGLOBIN 34 pg (27-31); MEAN CORPUSCULAR HGB CONC 34 % (32-36); MEAN CORPUSCULAR VOLUME 98 fL (79.0-98.0); MONOCYTES # (AUTO) 1.9 K/uL (0.0-1.0); NEUTROPHILS % (AUTO) 82.5 % (40.0-70.0); PLATELET COUNT (AUTO) 114 K/uL (130-430); RED BLOOD CELL COUNT(AUTO) 2.83 MIL/uL (4.2-6.2); RED CELL DISTRIBUTION WIDTH 25.4 % (9.0-15.0); WHITE BLOOD COUNT (AUTO) 20.6 K/uL (4.8-10.8)
[2016-03-02 06:05] LABS: CREATININE 2.05 mg/dL (0.55-1.30); PHOSPHORUS 2.8 mg/dL (2.7-4.5)
[2016-03-02 06:13] LABS: POTASSIUM 2.9 mmol/L (3.5-5.1)
--- NOTE | 2016-03-02 07:40 | NUR ---
OPENING NOTES Received patient in bed. PT is lethargic. Complaining of abdominal comfort that comes and goes. All other needs met. Will continue to monitor
[2016-03-02] MEDS ORDERED: KCL 40 mEq in 100 mL (PREMIX) 100 ML IV ONE (07:45)
[2016-03-02] MEDS ORDERED: POTASSIUM CHLORIDE 20 MEQ TAB.PRT.SR PO ONE (07:45)
[2016-03-02] MEDS: chlordiazePOXIDE HCL 25 MG CAPSULE PO SCH ×3 (08:31→22:30)
[2016-03-02] MEDS: PENTOXIFYLLINE 400 MG TABLET.SA (TRENtal) PO SCH ×3 (08:31→22:30)
[2016-03-02] MEDS: VANCOMYCIN HCL 125 MG CAPSULE PO SCH ×4 (08:31→22:30)
--- NOTE | 2016-03-02 09:45 | NUR ---
UPDATE AM medication given, Tolerated well.
--- NOTE | 2016-03-02 11:45 | NUR ---
UPDATE Pt is resting in bed watching television. Will continue to monitor
[2016-03-02] MEDS: NS IV SCH (12:13)
[2016-03-02] MEDS: GENTAMICIN SULFATE IV SCH (12:13)
--- NOTE | 2016-03-02 13:14 | NUR ---
MEDICATION REFUSAL Pt is refusing medication. States that they upset his stomach. Educated the patient on the medication Vancomycin and the reason that it needed to be taken. The patient still refused. Will continue to monitor.
--- NOTE | 2016-03-02 13:45 | NUR ---
UPDATE Pt is resting in bed watching television. Pt is still refusing to take oral medication. Will continue to monitor.
--- NOTE | 2016-03-02 14:41 | NUR ---
NEPHROLOGY CONSULT Spoke with Connie regarding request for consultation with Dr. Ashby ([phone]) for reason: ARF. Dr. Cabrales is currently construction checker.
--- NOTE | 2016-03-02 15:28 | NUR ---
PATIENT RESTING: Patient resting quietly. No acute distress noted. Vital signs within normal range. Will continue to monitor
--- NOTE | 2016-03-02 19:00 | NUR ---
SEEN BY LOAN SPECIALIST LEAD JAVA SOFTWARE ENGINEER.
--- NOTE | 2016-03-02 19:10 | NUR ---
CLOSING Pt is in stable condition. Will endorse to the next shift.
[2016-03-02] MEDS: ALBUMIN HUMAN 25% 50 ML IV SCH (19:45)
--- NOTE | 2016-03-02 20:05 | NUR ---
INITIAL NOTES. PATIENT ALERT ORIENTED X4. AMBULATORY TO BATHROOM. IVF INFUSING WELL. BOTH SCLERAE AND GENERALIZED JAUNDICE. DENIES PAIN ,HAD N/V EARLIER PER PATIENT.SAFETY /FALL PRECAUTION IN PROCESS. NO SEIZURE. NO S/S ETOH WITHDRAWAL.ADMITS HAS LOOSE STOOL. WILL MONITOR CLOSELY.
--- NOTE | 2016-03-02 21:50 | NUR ---
REFUSES ALL PO MEDS .STATED IT MAKES HIS STOMACH UPSET AND CAUSES NAUSEA/VOMITING.
--- NOTE | 2016-03-02 23:00 | NUR ---
SEEN INSIDE BATHROOM HAVING BM .
[2016-03-03 00:16] VITALS: BP 109/65; PULSE 88; RESP 18; TEMP 97.8; O2SAT 97
[2016-03-03] MEDS: ALBUMIN HUMAN 25% 50 ML IV SCH ×2 (01:16→05:49)
--- NOTE | 2016-03-03 02:00 | NUR ---
RESTING WITH EYES CLOSE. NO DISTRESS.
[2016-03-03 04:10] VITALS: BP 111/68; PULSE 85; RESP 16; TEMP 97.7; O2SAT 98
--- NOTE | 2016-03-03 05:00 | NUR ---
PATIENT SAVED URINE SAMPLE INSTRUCTED, SENT TO LAB. HAD STOOL. B.
[2016-03-03] MEDS: KCL 20 mEq in D5NS 1000 mL 1,000 ML IV SCH ×3 (05:48→16:17)
[2016-03-03] MEDS: BELLADONNA ALKALOIDS/PHENOBARB 5 ML UDC PO SCH ×5 (05:53→23:07)
[2016-03-03] MEDS: metroNIDAZOLE 500 mg/NS 100 ML IV SCH ×3 (05:53→21:07)
[2016-03-03] MEDS: LIDOCAINE VISCOUS 2%, 15 ML UDC PO SCH ×5 (05:53→23:07)
[2016-03-03] MEDS: MAG-AL HYDROX/SIMETH 30 ML UDC PO SCH ×5 (05:54→23:07)
--- NOTE | 2016-03-03 07:00 | NUR ---
CLOSING: ALL NEEDS WERE ATTENDED.NO CARDIOPULMONARY DISTRESS HOURLY ROUNDS DONE. REMINDED ON FALL PRECAUTION. WITH UNDERSTANDING.
[2016-03-03 07:34] LABS: BASOPHILS # (AUTO) 0.3 K/uL (0.0-0.2); BASOPHILS % (AUTO) 1.4 % (0.0-2.0); EOSINOPHILS # (AUTO) 0.2 K/uL (0.0-0.4); HEMATOCRIT 25.7 % (36-54); HEMOGLOBIN 9.1 g/dL (14.0-18.0); LYMPHOCYTES # (AUTO) 1.1 K/uL (1.0-5.5); LYMPHOCYTES % (AUTO) 5.4 % (20.5-51.5); MEAN CORPUSCULAR HEMOGLOBIN 35 pg (27-31); MEAN CORPUSCULAR HGB CONC 35 % (32-36); MEAN CORPUSCULAR VOLUME 98 fL (79.0-98.0); MONOCYTES # (AUTO) 1.5 K/uL (0.0-1.0); MONOCYTES % (AUTO) 7.7 % (1.7-9.3); NEUTROPHILS # (AUTO) 16.8 K/uL (1.8-7.7); NEUTROPHILS % (AUTO) 84.5 % (40.0-70.0); PLATELET COUNT (AUTO) 111 K/uL (130-430); RED BLOOD CELL COUNT(AUTO) 2.62 MIL/uL (4.2-6.2); RED CELL DISTRIBUTION WIDTH 25.1 % (9.0-15.0); WHITE BLOOD COUNT (AUTO) 19.9 K/uL (4.8-10.8)
[2016-03-03 08:00] LABS: CALCIUM 8.2 mg/dL (8.4-11.0); CREATININE 3.04 mg/dL (0.55-1.30); PHOSPHORUS 2.5 mg/dL (2.7-4.5); POTASSIUM 3.2 mmol/L (3.5-5.1)
--- NOTE | 2016-03-03 08:00 | NUR ---
AM INITIAL NOTES PT AAOX4 WITH COMPLAINTS OF MILD ABDOMINAL PAIN WITH SUDDEN MOVEMENT. NO SOB, DIFFICULTY BREATHING OR DISTRESS NOTED. PATIENT IS VERY JAUNDICED IN COLOR. REFUSED TO EAT BREAKFAST. STATES "I WILL JUST DRINK MY HOT COCOA." ENCOURAGED TO EAT BUT CONTINUES TO REFUSE. EDUCATED ABOUT SAFETY AND FALL RISK PRECAUTIONS. ENCOURAGED TO CALL FOR ASSISTANCE. CALL LIGHT WITHIN REACH. WILL MONITOR.
[2016-03-03 08:09] VITALS: BP 127/78; PULSE 83; RESP 20; TEMP 99; O2SAT 98
[2016-03-03] MEDS: VANCOMYCIN HCL 125 MG CAPSULE PO SCH ×4 (09:00→21:00)
[2016-03-03] MEDS: chlordiazePOXIDE HCL 25 MG CAPSULE PO SCH ×2 (09:00→15:00)
[2016-03-03] MEDS: PENTOXIFYLLINE 400 MG TABLET.SA (TRENtal) PO SCH ×3 (09:00→21:00)
--- NOTE | 2016-03-03 09:15 | NUR ---
REFUSED MEDS PT REFUSED 0900 SCHEDULED MEDICATIONS. STATES "I WILL NOT TAKE ANY ORAL MEDICATIONS UNLESS IT WILL HELP MY LIVER AND KIDNEYS GET BETTER." EDUCATED ABOUT IMPORTANCE OF MEDICATIONS. PT CONTINUES TO REFUSE.
--- NOTE | 2016-03-03 10:00 | NUR ---
ROUNDS PT ASLEEP. NO SIGNS OF FACIAL GRIMACING FOR PAIN OR DISCOMFORT. NO DISTRESS NOTED. CALL LIGHT WITHIN REACH. WILL MONITOR.
[2016-03-03] MEDS ORDERED: POTASSIUM CHLORIDE 20 MEQ TAB.PRT.SR PO ONE (11:00)
--- NOTE | 2016-03-03 11:37 | NUR ---
DR. SCOTTY HUDSON INSIDE ROOM ASSESSING PATIENT. PLAN OF CARE DISCUSSED.
[2016-03-03 12:00] VITALS: BP 127/81; PULSE 87; RESP 16; TEMP 98.6; O2SAT 93
--- NOTE | 2016-03-03 12:00 | NUR ---
LUNCH PT REFUSED TO EAT LUNCH BUT JUST DRANK JUICE. COMPLAINTS OF MILD ABDOMINAL PAIN WITH MOVEMENT. NO DISTRESS NOTED. STATES HE WANTS TO WALK AROUND LATER BECAUSE HE FEELS BORED. ENCOURAGED TO CALL FOR ASSISTANCE. CALL LIGHT WITHIN REACH. WILL MONITOR.
--- NOTE | 2016-03-03 12:49 | NUR ---
DR. MICHAEL HUDSON INSIDE ROOM ASSESSING PATIENT.
--- NOTE | 2016-03-03 13:14 | NUR ---
REFUSED MED PT REFUSED SOME 1200 SCHEDULED MEDICATIONS. STATES "THOSE ARE NOT IMPORTANT MEDICATIONS." EDUCATED IMPORTANCE OF MEDICATIONS. PT GOT IRRITATED AND CONTINUED TO REFUSE MEDICATIONS.
--- NOTE | 2016-03-03 14:00 | NUR ---
ROUNDS PT WALKING IN HALLWAY. NO COMPLAINTS OF PAIN OR DISCOMFORT AT THIS TIME. NO DISTRESS NOTED. WILL MONITOR.
[2016-03-03 16:00] VITALS: BP 132/78; PULSE 92; RESP 18; TEMP 99.6; O2SAT 96
--- NOTE | 2016-03-03 16:00 | NUR ---
ROUNDS PT ASLEEP. NO SIGNIFICANT CHANGES NOTED. CALL LIGHT WITHIN REACH. WILL MONITOR.
--- NOTE | 2016-03-03 17:37 | NUR ---
REFUSED MEDS PT REFUSED SCHEDULED 1700 AND 1800 ORAL MEDICATIONS. EDUCATED ABOUT IMPORTANCE OF MEDICATIONS. PT CONTINUES TO REFUSE. CHARGE NURSE, ZACH MADE AWARE.
--- NOTE | 2016-03-03 18:30 | NUR ---
CLOSING NOTES PT ASLEEP. NO SIGNIFICANT CHANGES NOTED. WILL ENDORSE CARE TO INCOMING NURSE.
[2016-03-03 20:32] VITALS: BP 134/79; PULSE 89; RESP 18; TEMP 98.2; O2SAT 96
--- NOTE | 2016-03-03 21:00 | NUR ---
Patient Refuse 2100 medications , did explain importance of MD orders " Patient Refuse meds / .
--- NOTE | 2016-03-03 23:10 | NUR ---
Patient awake alert ambulatory assist to rest room no SOB noted back to bed tolerated / .
--- NOTE | 2016-03-03 23:11 | NUR ---
Hourly Rounding patient alert & awake this hour / .
[2016-03-04] VITALS: BP 127/71; PULSE 100; RESP 17; TEMP 99.2; O2SAT 96
[2016-03-04] MEDS: KCL 20 mEq in D5NS 1000 mL 1,000 ML IV SCH ×3 (01:38→21:40)
--- NOTE | 2016-03-04 01:41 | NUR ---
SAFETY measures patient resting this hour , call aldana with patient / .
[2016-03-04 04:00] VITALS: BP 128/80; PULSE 88; RESP 17; TEMP 98.2; O2SAT 97
--- NOTE | 2016-03-04 04:14 | NUR ---
Patient awake assist out of bed to rest room , ambulatory safety measures taken & helpful .
[2016-03-04] MEDS: LIDOCAINE VISCOUS 2%, 15 ML UDC PO SCH ×3 (05:58→18:00)
[2016-03-04] MEDS: BELLADONNA ALKALOIDS/PHENOBARB 5 ML UDC PO SCH ×3 (05:58→18:00)
[2016-03-04] MEDS: MAG-AL HYDROX/SIMETH 30 ML UDC PO SCH ×3 (05:58→18:00)
--- NOTE | 2016-03-04 06:00 | NUR ---
Patient Refusing po medication again for 0600 AM , verbalize he dont take Pills / .
[2016-03-04] MEDS: metroNIDAZOLE 500 mg/NS 100 ML IV SCH ×3 (06:36→21:40)
[2016-03-04 07:57] LABS: HEMATOCRIT 25.9 % (36-54); HEMOGLOBIN 9.3 g/dL (14.0-18.0); INR 1.8 (0.80-1.20); MEAN CORPUSCULAR HEMOGLOBIN 35 pg (27-31); MEAN CORPUSCULAR HGB CONC 36 % (32-36); MEAN CORPUSCULAR VOLUME 99 fL (79.0-98.0); PLATELET COUNT (AUTO) 113 K/uL (130-430); PROTHROMBIN TIME 20.2 SECS (9.5-12.5); RED BLOOD CELL COUNT(AUTO) 2.62 MIL/uL (4.2-6.2)
[2016-03-04 07:59] LABS: WHITE BLOOD COUNT (AUTO) 23.2 K/uL (4.8-10.8)
--- NOTE | 2016-03-04 08:00 | NUR ---
AM INITIAL NOTES PT AAOX4 WITH COMPLAINTS OF MILD ABDOMINAL PAIN WITH SUDDEN MOVEMENT. NO SOB, DIFFICULTY BREATHING OR DISTRESS NOTED. PATIENT IS VERY JAUNDICED IN COLOR. ABDOMEN APPEARS DISTENDED. EDUCATED ABOUT SAFETY AND FALL RISK PRECAUTIONS. REFUSED TO HAVE BED ALARM ARMED. ENCOURAGED TO CALL FOR ASSISTANCE. CALL LIGHT WITHIN REACH. WILL MONITOR.
[2016-03-04 08:15] VITALS: BP 126/73; PULSE 87; RESP 18; TEMP 98.2; O2SAT 99
[2016-03-04 08:33] LABS: ALBUMIN 1.9 g/dL (3.4-4.8); CALCIUM 8.2 mg/dL (8.4-11.0); CREATININE 3.56 mg/dL (0.55-1.30); POTASSIUM 3.3 mmol/L (3.5-5.1); TOTAL PROTEIN, SERUM 4.8 g/dL (6.4-8.3)
[2016-03-04] MEDS: PENTOXIFYLLINE 400 MG TABLET.SA (TRENtal) PO SCH ×2 (09:00→15:00)
[2016-03-04 09:29] LABS: TOTAL BILIRUBIN 31.9 mg/dL (0.0-1.0)
[2016-03-04] MEDS: VANCOMYCIN HCL 125 MG CAPSULE PO SCH ×4 (09:44→21:38)
--- NOTE | 2016-03-04 10:00 | NUR ---
SHOWER PT TOOK A SHOWER. NO COMPLAINTS OF PAIN OR DISCOMFORT. NO DISTRESS NOTED. ENCOURAGED TO CALL FOR ASSISTANCE AND PULL CALL [place] WHILE INSIDE BATHROOM. ASSISTED BACK TO ROOM AND KEPT COMFORTABLE. CALL LIGHT WITHIN REACH. WILL MONITOR.
[2016-03-04 10:22] LABS: ATYPICAL LYMPHOCYTES % 0 % (0-0); BAND % (MANUAL) 8 % (0-6); BASOPHILS % (MANUAL) 0 % (0-2); EOSINOPHILS % (MANUAL) 2 % (0-7); LYMPHOCYTES % (MANUAL) 7 % (20-46); MONOCYTES % (MANUAL) 7 % (0-11)
[2016-03-04 12:22] VITALS: BP 127/81; PULSE 92; RESP 18; TEMP 98.1; O2SAT 98
--- NOTE | 2016-03-04 12:30 | NUR ---
AMBULATE TO [place] PT AMBULATED TO [place] TAKING HIS TRAY WITH HIM. CHARGE NURSE, LB AND DIRECTOR, NAHID MADE AWARE.
--- NOTE | 2016-03-04 12:45 | NUR ---
WHEELED BACK PT WHEELED FROM [place] BACK TO HIS ROOM BY SECURITY. PATIENT WAS INFORMED THAT HE IS NOT ALLOWED TO EAT IN THE [place] FOR SAFETY AND HOSPITAL POLICY REASONS.
--- NOTE | 2016-03-04 14:00 | NUR ---
ROUNDS PT ASLEEP. NO SIGNS OF FACIAL GRIMACING FOR PAIN OR DISCOMFORT. NO DISTRESS NOTED. CALL LIGHT WITHIN REACH. WILL MONITOR.
--- NOTE | 2016-03-04 15:05 | NUR ---
REFUSED MED PT REFUSED 1500 SCHEDULED MEDICATION.
--- NOTE | 2016-03-04 16:00 | NUR ---
AMBULATE PT AMBULATING IN HALLWAY. STATES HE FEELS BORED INSIDE THE ROOM. COMPLAINTS OF HEMORRHOID PAIN. INFORMED PATIENT WE WILL INFORM DR. KING WHEN HE DOES HIS ROUNDS. NO DISTRESS NOTED.
[2016-03-04] MEDS ORDERED: PHYTONADIONE 5 MG TABLET PO ONE (16:45)
--- NOTE | 2016-03-04 18:30 | NUR ---
CLOSING NOTES PT ASLEEP. NO SIGNIFICANT CHANGES NOTED. WILL ENDORSE CARE TO INCOMING NURSE.
[2016-03-04 20:00] VITALS: BP 115/65; PULSE 85; RESP 18; TEMP 99.1; O2SAT 65
--- NOTE | 2016-03-04 20:05 | NUR ---
OPENING ASSESSMENT ALERT/ORIENTED, ANGRY AND ANXIOUS @ TIMES. DIDN'T WANT NURSE ASSIST WHEN AMBULATING TO BATHROOM. SHOUTED @ NURSE AND STATED GET OUT OF MY WAY. REFUSED BED ALARM. TOLERATING FLUIDS WELL. STATES HE HAS LOOSE STOOLS. REFUSED BEDSIDE COMMODE. ABDOMEN IS DISTENDED. CALL LIGHT WITHIN EASY ACCESS. INFORMED PATIENT TO CALL NURSE FOR ALL NEEDS AND NOT TO GET OUT OF BED WITHOUT ASSIST. .
--- NOTE | 2016-03-04 22:05 | NUR ---
ROUNDS NO CHANGES. SLEEPING INTERMITTENTLY.
--- NOTE | 2016-03-05 00:15 | NUR ---
REFUSED MEDS. PATIENT REFUSED PO. MEDS DUE @ THIS TIME.
--- NOTE | 2016-03-05 02:25 | NUR ---
ROUNDS PT. ASSISTED WITH CHANGING HIS PANTS. REFUSED GOWN TOP. PUT ON HIS OWN PERSONAL T-SHIRT.
[2016-03-05 04:00] VITALS: BP 119/68; PULSE 90; RESP 18; TEMP 98.9; O2SAT 98
--- NOTE | 2016-03-05 04:10 | NUR ---
PATIENT RESTING: Patient resting quietly. No acute distress noted. Vital signs within normal range.
[2016-03-05] MEDS: metroNIDAZOLE 500 mg/NS 100 ML IV SCH ×3 (05:02→21:48)
[2016-03-05] MEDS: KCL 20 mEq in D5NS 1000 mL 1,000 ML IV SCH ×3 (05:02→23:53)
[2016-03-05] MEDS: LIDOCAINE VISCOUS 2%, 15 ML UDC PO SCH ×5 (05:03→23:57)
[2016-03-05] MEDS: BELLADONNA ALKALOIDS/PHENOBARB 5 ML UDC PO SCH ×5 (05:03→23:57)
[2016-03-05] MEDS: MAG-AL HYDROX/SIMETH 30 ML UDC PO SCH ×5 (05:03→23:57)
--- NOTE | 2016-03-05 06:30 | NUR ---
CLOSING NOTES PT. APPEARS ASLEEP @ THIS TIME. REFUSING BED ALARM AND ASSIST TO BATHROOM . NO SEIZURES NOTED. CALL LIGHT WITHIN EASY ACCESS.FALL RISK. INFORMED PATIENT TO CALL NURSE FOR ALL NEEDS AND WHEN GETTING OUT OF BED.
[2016-03-05 06:51] LABS: HEMATOCRIT 28.8 % (36-54); HEMOGLOBIN 10.2 g/dL (14.0-18.0); MEAN CORPUSCULAR HEMOGLOBIN 36 pg (27-31); MEAN CORPUSCULAR HGB CONC 35 % (32-36); MEAN CORPUSCULAR VOLUME 101 fL (79.0-98.0); PLATELET COUNT (AUTO) 125 K/uL (130-430); RED BLOOD CELL COUNT(AUTO) 2.85 MIL/uL (4.2-6.2); RED CELL DISTRIBUTION WIDTH 23.8 % (9.0-15.0)
[2016-03-05 07:25] LABS: WHITE BLOOD COUNT (AUTO) 24.3 K/uL (4.8-10.8)
[2016-03-05 07:41] LABS: INR 1.7 (0.80-1.20); PROTHROMBIN TIME 18.9 SECS (9.5-12.5)
--- NOTE | 2016-03-05 08:00 | NUR ---
Initial note Pt sitting in bed resting, easy to arouse, a/o x4, patient appears anxious and is uncooperative, refuses bed alarm, reminded to ask for assistance to get out of bed, skin is jaundice, sclera of eyes are jaundice, patient complains of abdominal discomfort and several loose stools, IV to left forearm 20g infusing fluids at 100ml/hr, has Bedside commode encouraged to use it, pt reoriented to use of call light, call light within reach, bed in low position, side rails up x2, will follow up.
[2016-03-05 08:24] VITALS: BP 121/75; PULSE 86; RESP 18; TEMP 98.8
[2016-03-05] MEDS: PENTOXIFYLLINE 400 MG TABLET.SA (TRENtal) PO SCH (09:00)
--- NOTE | 2016-03-05 09:00 | NUR ---
Pt refused trental, educated pt regarding its use to increase blood flow especially when he is in bed for long periods of time, pt still refused. Pt agreed to take Vancomycin capsule. Addendum: 03/05/16 at 1256 by Bernie Vivas RN Pt also refused to be connected to IV Fluid stating that he wanted to walk around for a bit and did not want to walk with IV pole, educated regarding need for the fluids. Pt still refused and stated maybe later.
[2016-03-05 09:27] LABS: ATYPICAL LYMPHOCYTES % 0 % (0-0); BAND % (MANUAL) 4 % (0-6); BASOPHILS % (MANUAL) 0 % (0-2); EOSINOPHILS % (MANUAL) 3 % (0-7); LYMPHOCYTES % (MANUAL) 4 % (20-46); MONOCYTES % (MANUAL) 7 % (0-11)
[2016-03-05 09:28] LABS: CALCIUM 8.6 mg/dL (8.4-11.0); POTASSIUM 3.1 mmol/L (3.5-5.1)
[2016-03-05 09:29] LABS: BILIRUBIN,DIRECT 27.2 mg/dL (0.0-0.3); CREATININE 3.79 mg/dL (0.55-1.30); TOTAL BILIRUBIN 34.5 mg/dL (0.0-1.0)
--- NOTE | 2016-03-05 09:30 | NUR ---
IV Fluids Pt still refuse to be connected to IV fluids, "states you have to have working organs for medications to be effective". Explained the importance of replenishing his fluids due to how much he is voiding and BMs, pt still refused stated "later" .
[2016-03-05 09:31] LABS: TOTAL PROTEIN, SERUM 5.3 g/dL (6.4-8.3)
[2016-03-05] MEDS: VANCOMYCIN HCL 125 MG CAPSULE PO SCH ×4 (09:37→20:33)
[2016-03-05 12:39] VITALS: BP 123/77; PULSE 83; RESP 16; TEMP 98.2; O2SAT 99
--- NOTE | 2016-03-05 12:44 | NUR ---
Pt refused medications Pt refused all medications scheduled for this time, except the Vancomycin capsule. Educated regarding the use of the scheduled medications to decrease stomach discomfort, patient stated that the medication has not helped since he has been in hospital and refused. Walked outside to read.
--- NOTE | 2016-03-05 13:00 | NUR ---
IV Fluids Pt agreed to be IV Fluids, IV patent and infusing at 100ml/hr
--- NOTE | 2016-03-05 14:50 | NUR ---
Rounds Pt resting with fluids infusing at this time. Pt denies any needs at this time. Call light in reach.
--- NOTE | 2016-03-05 16:06 | NUR ---
paged dr Isma de la rosa.
[2016-03-05 16:48] VITALS: BP 125/71; PULSE 83; RESP 17; TEMP 98; O2SAT 98
--- NOTE | 2016-03-05 17:16 | NUR ---
Medication pass Pt took all medications for this time frame, IV infusing, pt sitting up in bed, bed alarm off per pt refusal, bed in low position, side rails up x2, will follow up.
--- NOTE | 2016-03-05 17:30 | NUR ---
DR FAJARDO MAKING ROUNDS, SPOKE WITH PATIENT
[2016-03-05] MEDS ORDERED: PHYTONADIONE 10 MG/ML AMP SUBCUT ONE (17:45)
[2016-03-05] MEDS ORDERED: PHYTONADIONE 5 MG TABLET PO ONE (17:45)
--- NOTE | 2016-03-05 18:38 | NUR ---
ROUNDS PT RESTING WITH FRIEND VISITING AT BEDSIDE. CALL LIGHT IN REACH. DENIES ANY NEED.
--- NOTE | 2016-03-05 18:52 | NUR ---
DR KING MAKING ROUNDS
--- NOTE | 2016-03-05 18:54 | NUR ---
CLOSING NOTE PT IN BED, FRIEND AT BEDSIDE, PATIENT COOPERATIVE, ABDOMEN DISTENDED, IV INFUSING, SKIN JAUNDICE, SCLERA OF EYES JAUNDICE, PT REFUSES BED ALARM, BED IN LOW POSITION, SIDE RAILS UP X2, CALL LIGHT WITHIN REACH, WILL GIVE REPORT TO ONCOMING NURSE.
[2016-03-05] MEDS ORDERED: POTASSIUM CHLORIDE 20 MEQ TAB.PRT.SR PO ONE (19:00)
[2016-03-05 20:00] VITALS: BP 116/64; PULSE 85; RESP 18; TEMP 99.3; O2SAT 99
--- NOTE | 2016-03-05 20:00 | NUR ---
PM Shift Assessment Received patient sitting up in bed, AAO x4, no acute distress noted, friend is at the bedside. Assessment complete, vital signs stable, no complain of pain at this time. IV noted to right forearm, IV fluids infusing well, no redness or swelling noted to IV site. Plan of care discussed with patient, he verbalized understanding. Patient is verbally able to make needs known and encouraged to do so. Education provided to call for assistance out of bed, he verbalized understanding, refusing bed alarm at this time. Call light is within reach, all fall and safety precautions in place, will continue to monitor for change in patient status.
--- NOTE | 2016-03-05 22:28 | NUR ---
RN Rounds Patient is resting quietly in bed, no acute distress noted, friend is at the bedside. Scheduled medications were administered as ordered per MD, patient tolerated well. Call light is within reach, all fall and safety precautions in place, will continue to monitor.
--- NOTE | 2016-03-06 00:19 | NUR ---
RN Rounds Patient is sleeping but easily arousable, no acute distress noted. Vital signs stable, no complain of pain at this time. Patient refused GI cocktail at this time, IV fluids infusing well. Reminded to call for assistance if he needs to get out of bed, he verbalized understanding. Call light is within reach, all fall and safety precautions in place, will continue to monitor.
[2016-03-06 00:27] VITALS: BP 109/64; PULSE 90; RESP 20; TEMP 98.8; O2SAT 99
--- NOTE | 2016-03-06 02:35 | NUR ---
RN Rounds Patient is sleeping, respirations are even and unlabored, no acute distress noted. IV fluids infusing well. No non-verbal signs of pain noted at this time. Call light is within reach, all fall and safety precautions in place, will continue to monitor.
[2016-03-06 04:20] VITALS: BP 113/69; PULSE 88; RESP 21; TEMP 97.5; O2SAT 98
--- NOTE | 2016-03-06 04:24 | NUR ---
RN Rounds Patient is sleeping but easily arousable, no acute distress noted. Assisted patient to restroom and safely back to bed, IV fluids infusing well. Call light is within reach, all fall and safety precautions in place, will continue to monitor.
[2016-03-06] MEDS: metroNIDAZOLE 500 mg/NS 100 ML IV SCH ×2 (05:22→13:54)
[2016-03-06] MEDS: BELLADONNA ALKALOIDS/PHENOBARB 5 ML UDC PO SCH ×3 (05:22→18:00)
[2016-03-06] MEDS: MAG-AL HYDROX/SIMETH 30 ML UDC PO SCH ×3 (05:23→18:00)
[2016-03-06] MEDS: LIDOCAINE VISCOUS 2%, 15 ML UDC PO SCH ×3 (05:23→18:00)
--- NOTE | 2016-03-06 07:32 | NUR ---
RN Rounds Patient is sleeping, respirations are even and unlabored, no acute distress noted. Patient is stable, all needs met throughout shift. SBAR report was endorsed to AM nurse at bedside.
[2016-03-06 07:34] LABS: INR 1.5 (0.80-1.20); PROTHROMBIN TIME 16.1 SECS (9.5-12.5)
[2016-03-06 07:35] LABS: HEMATOCRIT 26.1 % (36-54); HEMOGLOBIN 9.2 g/dL (14.0-18.0); MEAN CORPUSCULAR HEMOGLOBIN 36 pg (27-31); MEAN CORPUSCULAR HGB CONC 35 % (32-36); MEAN CORPUSCULAR VOLUME 102 fL (79.0-98.0); PLATELET COUNT (AUTO) 119 K/uL (130-430); RED BLOOD CELL COUNT(AUTO) 2.55 MIL/uL (4.2-6.2); RED CELL DISTRIBUTION WIDTH 22.1 % (9.0-15.0)
[2016-03-06 07:54] LABS: ALBUMIN 1.8 g/dL (3.4-4.8); CALCIUM 8.2 mg/dL (8.4-11.0); CREATININE 3.83 mg/dL (0.55-1.30); POTASSIUM 3.6 mmol/L (3.5-5.1); TOTAL PROTEIN, SERUM 4.9 g/dL (6.4-8.3)
[2016-03-06 08:00] LABS: TOTAL BILIRUBIN 30.6 mg/dL (0.0-1.0)
[2016-03-06 08:28] VITALS: BP 115/77; PULSE 89; RESP 20; TEMP 97.8; O2SAT 98
[2016-03-06] MEDS: PENTOXIFYLLINE 400 MG TABLET.SA (TRENtal) PO SCH (09:00)
[2016-03-06] MEDS: VANCOMYCIN HCL 125 MG CAPSULE PO SCH ×4 (09:00→20:19)
--- NOTE | 2016-03-06 09:13 | NUR ---
Patient refusing many items this am including vital signs and IV fluids. Allowed play writer to take after many trips back to room. Also would not allow to reconnect IV until takes shower. Patient wanted juice for breakfast. Provided patient juice for his tray.
--- NOTE | 2016-03-06 09:16 | NUR ---
Call from Uncle of patient, Russell, who mentions dialysis for patient. Wants to speak with social worker assistant before noon. Says that he overheard patient would receive dialysis. Noted no orders however, typewriter ribbon winder would check if providers had discussed with patient.
[2016-03-06 09:40] LABS: ATYPICAL LYMPHOCYTES % 0 % (0-0); BAND % (MANUAL) 11 % (0-6); BASOPHILS % (MANUAL) 0 % (0-2); EOSINOPHILS % (MANUAL) 0 % (0-7); LYMPHOCYTES % (MANUAL) 7 % (20-46); MONOCYTES % (MANUAL) 8 % (0-11)
--- NOTE | 2016-03-06 10:00 | NUR ---
ROUNDS TO PATIENT. NEEDS MET AT THIS TIME. WILL CONTINUE TO MONITOR. PATIENT SAYS HE WANTS TO SHOWER AND LEAVE HIM ALONE HE WILL TAKE A LONG TIME.
--- NOTE | 2016-03-06 11:44 | NUR ---
LIDAR SCIENTIST NOTE: Per request of pt's Nurse, Nathan, JAYLENE called and spoke with pt's Uncle, Russell ([phone]). Pt's uncle inquired about possible dialysis for pt. Pt's uncle states that he spoke with pt's Doctor and the Doctor states that pt may need dialysis. LOCKSMITH HELPER informed pt's uncle that if the Doctor writes an order for pt, the Case Management staff will assist with the order as needed. Pt's uncle did not express any other needs or concerns at this time. Supervisor Roller Printing will continue to remain available and follow up as needed.
[2016-03-06 11:57] VITALS: BP 104/54; PULSE 86; RESP 17; TEMP 98.7; O2SAT 99
--- NOTE | 2016-03-06 12:00 | NUR ---
PATIENT MD ROUNDS. PATIENT LEFT BUILDING AND DID NOT TELL NURSE. SECURITY CHAVEZ AND SHOLA BROUGHT PATIENT BACK TO ROOM.
[2016-03-06] MEDS: KCL 20 mEq in D5NS 1000 mL 1,000 ML IV SCH ×2 (13:19→20:21)
--- NOTE | 2016-03-06 14:00 | NUR ---
ROUNDS TO PATIENT. NEEDS MET AT THIS TIME.
--- NOTE | 2016-03-06 16:00 | NUR ---
ANTIBIOTIC COMPLETE. IV FLUID BAG CHANGE RUNNING WELL. NEEDS MET AT THIS TIME.
[2016-03-06 16:44] VITALS: BP 112/71; PULSE 93; RESP 17; TEMP 99.6; O2SAT 98
--- NOTE | 2016-03-06 18:05 | NUR ---
ROUNDS TO PATIENT. RESTING AT THIS TIME. NEEDS MET.
--- NOTE | 2016-03-06 18:31 | NUR ---
PATIENT SAYS HE DOES NOT WANT IV FLUIDS AT THIS TIME. REQUESTS HEP LOCK.
[2016-03-06 19:04] VITALS: BP 114/62; PULSE 87; RESP 19; TEMP 98.4; O2SAT 99
--- NOTE | 2016-03-06 19:04 | NUR ---
Rounds Pt is awake @ this time.Provided cranberry juice as requested.Call light within reach,will cont to monitor.
--- NOTE | 2016-03-06 19:04 | NUR ---
INITIAL NOTES Recvd pt in bed a/a/o x3 with @ bedside.No c/o pain and no sob noted.v/s 1114/62,98.4,87,19,99% RA.IV noted to R f/a g20 no infiltrate and with good blood return.All extremities are strong,ambulates with supervision.Discussed plan of care with pt and verbalized understanding.Call light within reach,will cont to monitor.
--- NOTE | 2016-03-06 21:04 | NUR ---
Rounds Pt is wake @ this time,no c/o pain and no respi distress noted.Call light within reach,will cont to monitor.
--- NOTE | 2016-03-06 23:04 | NUR ---
Pt is awake refused his IV ABT @ 10PM.explained to pt risk and benefits but insisted to refused.Respected pt's decision.Call light within reach,will cont to monitor.
--- NOTE | 2016-03-07 | NUR ---
Pt refused iv abt and po medications.Explained to pt risk and benefits 2x but still refused.respected pt's decision.
[2016-03-07] MEDS: metroNIDAZOLE 500 mg/NS 100 ML IV SCH ×4 (01:19→21:28)
--- NOTE | 2016-03-07 02:04 | NUR ---
ROUNDS PT IS SLEEPING COMFORTABLY @ THIS TIME.NO C/O PAIN AND NO SOB NOTED.CALL LIGHT WITHIN REACH,WILL CONT TO MONITOR.
[2016-03-07] MEDS: KCL 20 mEq in D5NS 1000 mL 1,000 ML IV SCH (03:00)
--- NOTE | 2016-03-07 03:04 | NUR ---
ROUNDS PT IS SLEEPING COMFORTABLY @ THIS TIME.NO C/O PAIN AND NO RESPI DISTRESS NOTED.CALL LIGHT WITHIN REACH,WILL CONT TO MONITOR.
--- NOTE | 2016-03-07 05:04 | NUR ---
ROUNDS PT IS ASLEEP@ THIS TIME.NO S/S PAIN AND NO SOB NOTED.CALL LIGHT WITHIN REACH,WILL CONT TO MONITOR.
[2016-03-07] MEDS: BELLADONNA ALKALOIDS/PHENOBARB 5 ML UDC PO SCH ×2 (06:00)
[2016-03-07] MEDS: LIDOCAINE VISCOUS 2%, 15 ML UDC PO SCH ×4 (06:00→18:00)
[2016-03-07] MEDS: MAG-AL HYDROX/SIMETH 30 ML UDC PO SCH ×4 (06:15→18:00)
--- NOTE | 2016-03-07 06:16 | NUR ---
PT REFUSED ALL 0600 MEDS.EXPLAINED TO PT RISK AND BENEFITS BUT ANGRILY REFUSED AND WAS TOLD TO LEAVE THE ROOM.RESPECTED PT DECISION.WILL CONT TO MONITOR.
[2016-03-07 07:20] LABS: HEMATOCRIT 25.5 % (36-54); MEAN CORPUSCULAR HEMOGLOBIN 36 pg (27-31); MEAN CORPUSCULAR HGB CONC 35 % (32-36); MEAN CORPUSCULAR VOLUME 102 fL (79.0-98.0); PLATELET COUNT (AUTO) 123 K/uL (130-430); RED BLOOD CELL COUNT(AUTO) 2.49 MIL/uL (4.2-6.2); RED CELL DISTRIBUTION WIDTH 21.4 % (9.0-15.0); WHITE BLOOD COUNT (AUTO) 22.9 K/uL (4.8-10.8)
[2016-03-07 07:25] LABS: INR 1.3 (0.80-1.20); PROTHROMBIN TIME 14.4 SECS (9.5-12.5)
--- NOTE | 2016-03-07 07:36 | NUR ---
FINAL NOTES PT IS AWAKE WAITING FOR BREAKFAST @ THIS TIME.NO S/S OF PAIN AND NO SOB NOTED.V/S ARE WNL.PT WAS NOT COMPLIANT AND CONTINUE TO REFUSED MEDS.ALL NEEDS MET AND ANTICIPATED BY NOC NURSES.CALL LIGHT WITHIN REACH,ENDORSED
[2016-03-07 07:44] LABS: ALBUMIN 1.8 g/dL (3.4-4.8); BILIRUBIN,DIRECT 22.7 mg/dL (0.0-0.3); CALCIUM 8.1 mg/dL (8.4-11.0); CREATININE 3.72 mg/dL (0.55-1.30); POTASSIUM 3.9 mmol/L (3.5-5.1)
[2016-03-07 08:00] VITALS: BP 111/69; PULSE 81; RESP 18; TEMP 98.2; O2SAT 98
--- NOTE | 2016-03-07 08:14 | NUR ---
Patient refuses am vital signs. Refuses am medication. Tolerated breakfast well. Says stomach feels distended.
[2016-03-07 08:35] LABS: TOTAL BILIRUBIN 29.8 mg/dL (0.0-1.0)
[2016-03-07] MEDS: VANCOMYCIN HCL 125 MG CAPSULE PO SCH ×4 (09:00→21:00)
[2016-03-07] MEDS: PENTOXIFYLLINE 400 MG TABLET.SA (TRENtal) PO SCH (09:00)
[2016-03-07] MEDS: SODIUM BICARBONATE 8.4% JECT 50 MEQ/50 ML SYRINGE IVP SCH ×3 (10:25→21:00)
--- NOTE | 2016-03-07 11:00 | NUR ---
ROUNDS TO PATIENT BEDSIDE. NEEDS MET AT THIS TIME.
[2016-03-07 11:40] LABS: ATYPICAL LYMPHOCYTES % 3 % (0-0); BAND % (MANUAL) 17 % (0-6); BASOPHILS % (MANUAL) 0 % (0-2); EOSINOPHILS % (MANUAL) 1 % (0-7); LYMPHOCYTES % (MANUAL) 4 % (20-46); MONOCYTES % (MANUAL) 6 % (0-11)
[2016-03-07] MEDS: FOLIC ACID 1 MG, THIAMINE HCL 100 MG, MAGNESIUM SULFATE 1 GM, MVI 10 ML in NACL 0.9% 1,... IV SCH (13:00)
--- NOTE | 2016-03-07 13:00 | NUR ---
ROUNDS TO PATIENT. REFUSED LUNCH. TOOK SHOWER AT THIS TIME INDEPENDENTLY.
--- NOTE | 2016-03-07 15:00 | NUR ---
ROUNDS TO PATIENT. COMPLETE ABDOMINAL PARACENTISIS WITH A TOTAL OF 1 LITER OF FLUID OUT. IV SITE NO LONGER WORKING.
[2016-03-07 16:00] VITALS: BP 104/64; PULSE 82; RESP 18; TEMP 98.3; O2SAT 99
--- NOTE | 2016-03-07 16:56 | NUR ---
Nutrition F/U Admitting Diagnosis Acute alcohol intoxication, hepatoencephalopathy, alcoholic liver Dz Past Medical History Alcohol dependency, possible depression. Pt also admitted w/ abd pain, N/V, and gastritis per MD notes. Pertinent Medications folic acid/thiamin/magnesium sulfate/MVI/minerals/NaCl IV, sodium bicarbonate, vancomycin HCl, [place] Current Diet Order Mechanical soft Height (Feet) 6 feet Height (Inches) 1.00 inches Weight (Pounds) 161 pounds (admission wt; no significant weight changes noted) Weight (Calculated Kilograms) 73.025013 kilograms Patient Weight 73.028 kg Body Mass Index 21.24 kg/m2 (normal) [place]/Adjusted Body Weight IBW: 184 lb, 84 kg. 87% of IBW Estimated Needs 4701-9805 kcal/day (25-30 kcal/kg IBW for gradual wt gain) Grams of Protein per Day 67-84 gm/day (0.8-1 gm/kg IBW for gradual wt gain) Fluid Intake Goal 2-2.5 L/day (1 ml/kcal/day for maintenance) Pertinent Labs Tbili 29.8 H, AST 88 H, ALP 192 H, K 3.9 WNL (improved), BUN 32 H, ALB 1.8 L, WBC 22.9 H, Hgb 9 L, Hct 25.5 L, eGFR 20 L Other Subjective Data Per RN notes, pt tolerated breakfast well, and pt voiced that stomach feels distended. Per EMR, PO Intakes: 53% average x15 meals, x2 refusals. Abd is distended w/ active bowel sounds. Last BM x11 03/06/16. Daniel scale: 22; jaundiced. I/O: 2300/0 (+2300 ml) per 12 hours. Current diet is appropriate to meet estimated nutrient requirements. Pt seems to be tolerating diet. Pt declined nutrition education. Problem, Etiology, Signs/Symptoms Inadequate nutritional intakes related to maintenance as evidenced by lack of nutritional quality while on clear liquid diet and Hx of alcohol dependency. *no longer applicable GI complications related to possible Hx of alcohol dependency and alcoholic liver disease as evidenced by K 2.9, Tbili 29.5, Hgb 10.2, and pt report of loose bowel movements and bloating. Expected Outcomes or Goals - Monitor advancement of diet, appetite, and PO intakes w/ goal of pt meeting at least 75% of estimated nutritional needs, labs trending WNL, normal GI function, and skin integrity/weight maintenance. Dietitian Recommendations * Continue mechanical soft diet per MD. Follow Up Moderate Risk: F/U in 3-5 days
--- NOTE | 2016-03-07 17:00 | NUR ---
PATIENT CONFUSION NOTED WHEN TALKING TO SUTURE WINDER HAND. SPEAKING ABOUT A WARRANT FOR HIS ARREST AND HAVING FEARFUL THOUGHTS AT THIS TIME.
--- NOTE | 2016-03-07 19:30 | NUR ---
HANDOFF REPORT AT BEDSIDE WITH NOC NURSE. PATIENT WITH INTACT IV AND INFUSING BANANA BAG FLUIDS. BICARB REFUSED BECAUSE OF ICE FEELING UPON ADMIN.
--- NOTE | 2016-03-07 19:35 | NUR ---
OPENING NOTE Late entry due to pt. care. Pt. and bedside report rec'd from day shift nurse. Pt. is AAO x 4 and resting in bed, watching tv. No s/s of acute distress. Safety measures in place. Safety measures explained to pt. and encouraged pt. to use call light for assistance. Pt. verbalized understanding and refused bed alarm to be turned off and stated "It hasn't been on since I've been here and I get up to go to the bathroom so I don't want it." Will continue to monitor.
[2016-03-07 20:00] VITALS: BP 115/75; PULSE 87; RESP 16; TEMP 98; O2SAT 92
--- NOTE | 2016-03-07 22:00 | NUR ---
REFUSING DUE MEDS Late entry due to pt. care. Pt. refusing Sodium Bicarbonate IVP and Vancomycin PO. Educated pt. regarding medication but pt. stated "I'm not going to have it, that Sodium Bicarb one is the thick one right? No thanks, it makes me sick. I'll take the antibiotic that goes through my IV but I don't want the pill." Will continue to monitor.
[2016-03-08] VITALS (7 sets, daily range): BP systolic 105–138; BP diastolic 55–78; PULSE 57–111; RESP 16–18; TEMP 97–98.4; O2SAT 97–99
--- NOTE | 2016-03-08 00:03 | NUR ---
REFUSING MEDICATION Explanation of medications with pt., but pt. refusing medications because "it makes me worse!." Safety measures in place. Refusing bed alarm. Encouraged pt. to use call light for assistance. Will cont. to monitor.
[2016-03-08 00:07] LABS: BF APPEARANCE UNSPUN CLEAR (CLEAR); BODY FLUID SOURCE/ TYPE PARACENTESIS; SOURCE/TYPE ,BODY FLUID PARACENTESIS
[2016-03-08 00:08] LABS: APPEARANCE,SPUN,BODY FLUID CLEAR (CLEAR); BODY FLUID COLOR YELLOW (LT YELLOW); BODY FLUID TOTAL VOLUME 900 mL; NEUTROPHIL, BODY FLUID 10 %; RBC, BODY FLUID 11 /uL; WBC, BODY FLUID 29 /uL
[2016-03-08 00:09] LABS: EOSINOPHIL, BODY FLUID 0 %; LYMPHOCYTES, BODY FLUID 10 %; MONOCYTES,BODY FLUID 80 %
--- NOTE | 2016-03-08 01:52 | NUR ---
ROUNDS Pt. is resting quietly in bed with eyes closed. Respirations are even and unlabored with visible chest rise and fall. No s/s of acute distress. Safety measures in place. Will continue to monitor.
--- NOTE | 2016-03-08 04:26 | NUR ---
REQUESTED WATER Pt. requested hot water; explained to him to take precautions. Pt. verbalized understanding and requested for IV line to be removed at this time for him to use the bathroom. Pt. denies any pain or discomfort at this time. Safety measures in place. Pt. cont. to refuse bed alarm. Will cont. to monitor.
[2016-03-08] MEDS: metroNIDAZOLE 500 mg/NS 100 ML IV SCH ×2 (05:35→21:13)
[2016-03-08] MEDS: MAG-AL HYDROX/SIMETH 30 ML UDC PO SCH ×4 (05:36→18:00)
[2016-03-08] MEDS: LIDOCAINE VISCOUS 2%, 15 ML UDC PO SCH ×4 (05:36→18:00)
--- NOTE | 2016-03-08 05:45 | NUR ---
REFUSED DUE MEDS Educated pt. regarding medications; Pt. refused due meds and stated "I don't want those, I want to talk to my doctor after I get my breakfast in me. I don't know how much poison is going in me." Pt. is also refusing his IV fluids; I encouraged him that it's almost finished infusing but he continued to state "Well I don't want to be connected anymore, I could trip and fall with that thing and !" Will make charge nurse, RODDY Austin also aware. Will cont. to monitor.
[2016-03-08 07:14] LABS: BASOPHILS # (AUTO) 0.2 K/uL (0.0-0.2); EOSINOPHILS # (AUTO) 0.2 K/uL (0.0-0.4); HEMATOCRIT 24.4 % (36-54); HEMOGLOBIN 8.5 g/dL (14.0-18.0); LYMPHOCYTES # (AUTO) 1.5 K/uL (1.0-5.5); LYMPHOCYTES % (AUTO) 6.2 % (20.5-51.5); MEAN CORPUSCULAR HEMOGLOBIN 36 pg (27-31); MEAN CORPUSCULAR HGB CONC 35 % (32-36); MEAN CORPUSCULAR VOLUME 104 fL (79.0-98.0); MONOCYTES # (AUTO) 1.7 K/uL (0.0-1.0); MONOCYTES % (AUTO) 6.7 % (1.7-9.3); NEUTROPHILS # (AUTO) 21.3 K/uL (1.8-7.7); NEUTROPHILS % (AUTO) 85.1 % (40.0-70.0); PLATELET COUNT (AUTO) 136 K/uL (130-430); RED BLOOD CELL COUNT(AUTO) 2.35 MIL/uL (4.2-6.2); RED CELL DISTRIBUTION WIDTH 19.8 % (9.0-15.0); WHITE BLOOD COUNT (AUTO) 24.9 K/uL (4.8-10.8)
[2016-03-08 07:22] LABS: INR 1.3 (0.80-1.20); PROTHROMBIN TIME 13.8 SECS (9.5-12.5)
[2016-03-08 07:47] LABS: ALBUMIN 1.7 g/dL (3.4-4.8); BILIRUBIN,DIRECT 22.3 mg/dL (0.0-0.3); CALCIUM 8.2 mg/dL (8.4-11.0); CREATININE 3.92 mg/dL (0.55-1.30); POTASSIUM 3.4 mmol/L (3.5-5.1); TOTAL PROTEIN, SERUM 4.8 g/dL (6.4-8.3)
--- NOTE | 2016-03-08 07:56 | NUR ---
CLOSING NOTES Pt. and report given to day shift nurse. Reported to RODDY Ji that pt. is requested to speak to MD when making rounds and that pt. is refusing medications. All needs met throughout shift. Pt. is stable with no s/s of acute distress. Safety measures in place. Endorsed care to day shift nurse.
[2016-03-08 08:00] LABS: TOTAL BILIRUBIN 26.8 mg/dL (0.0-1.0)
--- NOTE | 2016-03-08 08:00 | NUR ---
Opening Notes Patient A/O x4. Respirations even and unlabored. Abdomen distended, no discomfort to light touch. IV access patent. Skin and eyes jaundiced. Fall and safety precautions in place. Use of call light reviewed with patient. Bed in lowest and locked position.
[2016-03-08] MEDS: SODIUM BICARBONATE 8.4% JECT 50 MEQ/50 ML SYRINGE IVP SCH ×3 (09:00→21:00)
[2016-03-08] MEDS: PENTOXIFYLLINE 400 MG TABLET.SA (TRENtal) PO SCH (09:00)
[2016-03-08 10:00] LABS: BODY FLUID GLUCOSE 109 mg/dL; BODY FLUID TOTAL PROTEIN 0.6 g/dL
--- NOTE | 2016-03-08 10:00 | NUR ---
Notes Patient refusing all medications. Educated patient on importance to continue taking medications as prescribed in order to provide maximum health benefits. Patient still refused. Will continue to encourage to take medications as ordered.
--- NOTE | 2016-03-08 12:15 | NUR ---
Notes Assisted patient to restroom. Gait steady, but slight discomfort noted due to edematous bilateral lower extremities. Encouraged patient to call for assistance every time he needs to get up. Patient agreed.
[2016-03-08] MEDS: FOLIC ACID 1 MG, THIAMINE HCL 100 MG, MAGNESIUM SULFATE 1 GM, MVI 10 ML in NACL 0.9% 1,... IV SCH (13:45)
--- NOTE | 2016-03-08 18:00 | NUR ---
Notes Provided a second chair for patient's visitors. No acute distress noted.
--- NOTE | 2016-03-08 19:30 | NUR ---
Closing Note Patient needs met throughout shift. Hourly rounds completed. Patient remained free from injury. Patient care endorsed to oncoming shift nurse.
--- NOTE | 2016-03-08 19:37 | NUR ---
OPENING NOTE Pt. and bedside report received from day shift nurse. Pt. is resting quietly in bed with no s/s of acute distress. Respirations even and unlabored with visible chest rise and fall. IV fluids infusing as ordered. Safety measures in place. Bed alarm is off as requested by pt. Call light to right hand. Will continue to monitor.
[2016-03-08] MEDS ORDERED: POTASSIUM CHLORIDE 20 MEQ TAB.PRT.SR PO ONE (20:00)
[2016-03-08] MEDS: VANCOMYCIN HCL 125 MG CAPSULE PO SCH (21:00)
--- NOTE | 2016-03-08 22:00 | NUR ---
DUE MEDS Late entry due to pt. care. Pt. refusing medications; educated pt. regarding the need for potassium replacement as ordered for his potassium level this morning; pt. agreed but refused the rest of the medications and stated that he is "very frustrated that you guys keep giving me medications and I don't want it." Respirations are even and unlabored with visible chest rise and fall. No s/s of acute distress. Safety measures in place. Pt. refusing bed alarm at this time. Call light to right hand. Will continue to monitor.
--- NOTE | 2016-03-08 23:42 | NUR ---
REQUESTED CHICKEN BROTH Pt. is awake and requested chicken broth.
--- NOTE | 2016-03-09 00:30 | NUR ---
REFUSING DUE MEDS Late entry due to pt. care. Educated pt. regarding due medication but he is refusing them. Will continue to encourage pt. but does not appear motivated to learn due to disease process. Will cont. to encourage and monitor.
[2016-03-09 01:07] VITALS: BP 107/65; PULSE 86; RESP 17; TEMP 98.1; O2SAT 97
--- NOTE | 2016-03-09 01:15 | NUR ---
SHOWER Pt. requested to take a shower. Assisted pt. to shower/bathroom. He wanted to "let the water run down my back, it calms me down." Charge nurse, Ofelia RN also aware. Pt. tolerated well with no c/o dizziness. Assisted pt. back to bed and changed pt.'s bed linen. No s/s of acute distress. Safety measures in place. Encouraged pt. to use call light and turn bed alarm on for safety but still continues to refuse it. Will cont. to monitor.
--- NOTE | 2016-03-09 02:28 | NUR ---
ROUNDS Pt. is resting quietly in bed with eyes closed. Respirations are even and unlabored with visible chest rise and fall. No s/s of acute distress. Safety measures in place. Call light to right hand. Will continue to monitor.
[2016-03-09 04:00] VITALS: BP 114/75; PULSE 80; RESP 17; TEMP 96.9; O2SAT 98
--- NOTE | 2016-03-09 04:22 | NUR ---
ICE WATER Pt. requested ice water. Pt. denies any other needs at this time. Safety measures in place. Will cont. to monitor.
[2016-03-09] MEDS: MAG-AL HYDROX/SIMETH 30 ML UDC PO SCH ×4 (05:24→18:00)
[2016-03-09] MEDS: LIDOCAINE VISCOUS 2%, 15 ML UDC PO SCH ×4 (05:24→18:00)
[2016-03-09] MEDS: metroNIDAZOLE 500 mg/NS 100 ML IV SCH ×4 (05:24→23:05)
--- NOTE | 2016-03-09 05:54 | NUR ---
REFUSING MEDS Pt. refusing due meds. Denies any other needs at this time. Safety measures in place. Will continue to monitor.
[2016-03-09 06:38] LABS: BASOPHILS # (AUTO) 0.2 K/uL (0.0-0.2); BASOPHILS % (AUTO) 0.9 % (0.0-2.0); EOSINOPHILS # (AUTO) 0.2 K/uL (0.0-0.4); EOSINOPHILS % (AUTO) 0.8 % (0.0-4.0); HEMATOCRIT 23.6 % (36-54); HEMOGLOBIN 8.4 g/dL (14.0-18.0); LYMPHOCYTES % (AUTO) 7.9 % (20.5-51.5); MEAN CORPUSCULAR HEMOGLOBIN 37 pg (27-31); MEAN CORPUSCULAR HGB CONC 35 % (32-36); MEAN CORPUSCULAR VOLUME 105 fL (79.0-98.0); MONOCYTES # (AUTO) 0.9 K/uL (0.0-1.0); MONOCYTES % (AUTO) 3.5 % (1.7-9.3); NEUTROPHILS # (AUTO) 22.1 K/uL (1.8-7.7); PLATELET COUNT (AUTO) 153 K/uL (130-430); RED BLOOD CELL COUNT(AUTO) 2.25 MIL/uL (4.2-6.2); RED CELL DISTRIBUTION WIDTH 18.5 % (9.0-15.0); WHITE BLOOD COUNT (AUTO) 25.4 K/uL (4.8-10.8)
[2016-03-09 06:51] LABS: ALBUMIN 1.6 g/dL (3.4-4.8); CALCIUM 8.1 mg/dL (8.4-11.0); CREATININE 4.16 mg/dL (0.55-1.30); POTASSIUM 3.2 mmol/L (3.5-5.1); TOTAL PROTEIN, SERUM 4.9 g/dL (6.4-8.3)
[2016-03-09 07:00] LABS: NEUTROPHILS % (AUTO) 86.9 % (40.0-70.0)
[2016-03-09 07:10] LABS: TOTAL BILIRUBIN 24.8 mg/dL (0.0-1.0)
--- NOTE | 2016-03-09 07:30 | NUR ---
AM ROUNDS PATIENT RESTING IN BED, AWAKE, ALERT AND ORIENTED X4, DENIES PAIN, ASSESSMENT COMPLETE AT THIS TIME, EDUCATED THE PATIENT AGRICULTURAL PRODUCE PACKER LIGHT SYSTEM AND TO CALL FOR ANY ASSISTANCE, PATIENT VERBALIZED UNDERSTANDING AT THIS TIME, CALL LIGHT PLACED IN THE PATIENT'S HAND, BED IN LOWEST POSITION, TWO SIDE RAILS UP, PATIENT REFUSES BED ALARM, IS AMBULATORY WITH STEADY GAIT, FALL PRECAUTIONS IN PLACE, BED CLOSE TO NURSE'S STATION.
[2016-03-09] MEDS: PENTOXIFYLLINE 400 MG TABLET.SA (TRENtal) PO SCH (09:00)
[2016-03-09] MEDS: SODIUM BICARBONATE 8.4% JECT 50 MEQ/50 ML SYRINGE IVP SCH ×3 (09:00→21:00)
[2016-03-09] MEDS: VANCOMYCIN HCL 125 MG CAPSULE PO SCH ×4 (09:00→22:43)
--- NOTE | 2016-03-09 09:00 | NUR ---
RN ROUNDS PATIENT RESTING IN BED, AWAKE, ALERT, DENIES PAIN, EDUCATED THE PATIENT ON MEDICATIONS AND POTENTIAL SIDE EFFECTS, PATIENT VERBALIZED UNDERSTANDING AND REFUSED MEDICATIONS AT THIS TIME, EDUCATION GIVEN AND BENEFITS OF MEDICATION, NO OTHER NEEDS AT THIS TIME, BED IN LOWEST POSITION, TWO SIDE RAILS UP, BED ALARM ON, CALL LIGHT IN THE PATIENT'S HAND, FALL PRECAUTIONS IN PLACE.
--- NOTE | 2016-03-09 10:53 | NUR ---
RN ROUNDS PATIENT STATING THAT HE IS GOING OUTSIDE TO SIT IN THE SUN, EDUCATED THE PATIENT THAT NURSE OR CAREER CENTER ADVISOR NEEDS TO BE PRESENT WITH THE PATIENT FOR SAFETY, NURSE ESCORTED PATIENT OUTSIDE, PATIENT IS AMBULATORY WITH STEADY GAIT AT THIS TIME, NURSE ESCORTED THE PATIENT BACK TO PATIENT ROOM, STABLE CONDITION AT THIS TIME, DENIES PAIN, CALL LIGHT PLACED IN THE PATIENTS' HAND, BED IN LOWEST POSITION, TWO SIDE RAILS UP, PATIENT REFUSES BED ALARM, FALL PRECAUTIONS IN PLACE.
--- NOTE | 2016-03-09 12:12 | NUR ---
RN ROUNDS PATIENT RESTING IN BED, EYES CLOSED, BREATHING IS EVEN AND UNLABORED, NO SIGNS OF DISTRESS AT THIS TIME, BED IN LOWEST POSITION, TWO SIDE RAILS UP, FALL PRECAUTIONS IN PLACE, CALL LIGHT NEXT TO THE PATIENT'S HAND.
[2016-03-09 12:23] VITALS: BP 119/65; PULSE 82; RESP 16; TEMP 97.9; O2SAT 95
[2016-03-09] MEDS: FOLIC ACID 1 MG, THIAMINE HCL 100 MG, MAGNESIUM SULFATE 1 GM, MVI 10 ML in NACL 0.9% 1,... IV SCH ×2 (13:00→23:27)
--- NOTE | 2016-03-09 13:06 | NUR ---
RN ROUNDS PATIENT RESTING IN BED, ASKING FOR A CUP OF ICE, ICE GIVEN, PATIENT REFUSING IV FLUID MEDICATION AT THIS TIME, EDUCATED THE PATIENT ON BENEFIT OF THIS MEDICATION, PATIENT STILL REFUSED, PATIENT DENIES PAIN, NO OTHER NEEDS AT THIS TIME, BED IN LOWEST POSITION, TWO SIDE RAILS UP, CALL LIGHT NEXT TO THE PATIENT'S HAND, PATIENT IS STILL REFUSING BED ALARM AT THIS TIME.
[2016-03-09] MEDS ORDERED: POTASSIUM CHLORIDE 20 MEQ TAB.PRT.SR PO ONE (14:00)
--- NOTE | 2016-03-09 14:33 | NUR ---
RN ROUNDS PATIENT RESTING IN BED, AWAKE, DENIES PAIN AT THIS TIME, EDUCATED THE PATIENT ON NEED FOR POTASSIUM REPLACEMENT, PATIENT VERBALIZED UNDERSTANDING AT THIS TIME AND TOLERATED WELL, NO OTHER NEEDS AT THIS TIME, BED IN LOWEST POSITION, TWO SIDE RAILS UP, CALL LIGHT IN THE PATIENT'S HAND, FALL PRECAUTIONS IN PLACE, PATIENT REFUSES BED ALARM.
[2016-03-09 16:00] VITALS: BP 119/73; PULSE 89; RESP 21; TEMP 100.1; O2SAT 98
--- NOTE | 2016-03-09 16:05 | NUR ---
RN ROUNDS PATIENT RESTING IN BED, EYES CLOSED, BREATHING IS EVEN AND UNLABORED, NO SIGNS OF DISTRESS AT THIS TIME, BED IN LOWEST POSITION, TWO SIDE RAILS UP, FALL PRECAUTIONS IN PLACE, CALL LIGHT NEXT TO THE PATIENT'S HAND, PATIENT STILL REFUSING BED ALARM.
--- NOTE | 2016-03-09 16:59 | NUR ---
FEVER NOTIFIED BY HOWARD JARRETT THAT THE PATIENT HAS A TEMPERATURE OF 101.1 AT THIS TIME, PAGED DR KING FOR ORDERS.
--- NOTE | 2016-03-09 17:03 | NUR ---
DR KING CALL BACK ORDERS RECEIVED FOR MEDICATION AND STATED TO NOTIFY DR BALTAZAR.
[2016-03-09] MEDS ORDERED: ACETAMINOPHEN 325 MG TABLET PO PRN (17:15)
--- NOTE | 2016-03-09 17:45 | NUR ---
PATIENT OUT BED PATIENT OUT OF BED DID NOT NOTIFY NURSE OR PIPE ORGAN MECHANIC, PATIENT STATED HE WENT TO [place] TO GET MORE CHICKEN BROTH, EDUCATED THE PATIENT TO CALL FOR ASSISTANCE, AND PATIENTS ARE NOT ALLOWED IN THE [place] TO PREVENT INFECTION, PATIENT VERBALIZED UNDERSTANDING AT THIS TIME.
--- NOTE | 2016-03-09 18:15 | NUR ---
REFUSED TYLENOL PATIENT REFUSED TYLENOL EVEN THOUGH HE HAS A FEVER AT THIS TIME, EDUCATED THE PATIENT ON BENEFITS OF THIS MEDICATION AND PATIENT VERBALIZED UNDERSTANDING AND STILL REFUSED.
--- NOTE | 2016-03-09 18:27 | NUR ---
CLOSING NOTES PATIENT RESTING IN BED, DENIES PAIN, ALL NEEDS MET, NO CALL BACK YET FROM DR BALTAZAR, WILL ENDORSE FULL REPORT TO [facility] SHIFT NURSE. Addendum: 03/09/16 at 1828 by Mike Sarkar RN NO OTHER NEEDS AT THIS TIME, BED IN LOWEST POSITION, TWO SIDE RAILS UP, FALL PRECAUTIONS IN PLACE, CALL LIGHT NEXT TO THE PATIENT'S HAND, PATIENT STILL REFUSING BED ALARM AT THIS TIME.
[2016-03-09 20:00] VITALS: PULSE 88; RESP 20; TEMP 98.8; O2SAT 100
--- NOTE | 2016-03-09 20:00 | NUR ---
ASSESSMENT Pt alert/oriented to self, place and time. Abdomen firm and distended. Pt c/o. abdominal discomfort but will not take medication. Saline lock present left hand 22ga site with swelling. IV site discontinued. Swelling present bilateral lower extremities (non pitting). Pt ambulatory.
[2016-03-09] MEDS ORDERED: POTASSIUM CHLORIDE 40 MEQ in NS 250 ML IV ONE (21:45)
--- NOTE | 2016-03-09 22:45 | NUR ---
IV IV site in left hand with swelling, site discontinued. IV restarted after one attempt in left forearm with 20 ga angiocath. IV fluids resumed.
[2016-03-10 01:42] VITALS: BP 111/72; PULSE 89; RESP 18; TEMP 97; O2SAT 98
--- NOTE | 2016-03-10 02:00 | NUR ---
PAIN Pt c/o abdominal pain, but refuses to take pain medication ordered.
[2016-03-10 03:50] VITALS: BP 110/73; PULSE 94; RESP 18; TEMP 97.4; O2SAT 98
[2016-03-10] MEDS: metroNIDAZOLE 500 mg/NS 100 ML IV SCH ×3 (06:00→22:00)
[2016-03-10] MEDS: LIDOCAINE VISCOUS 2%, 15 ML UDC PO SCH ×4 (06:00→17:00)
[2016-03-10] MEDS: MAG-AL HYDROX/SIMETH 30 ML UDC PO SCH ×4 (06:00→17:01)
--- NOTE | 2016-03-10 06:00 | NUR ---
ASSESSMENT Pt requested to be disconnected from IVF, and refused morning IV antibiotics. Pt was importance of continuing IVF and medications, he continue to refuse medications.
[2016-03-10 06:40] LABS: HEMATOCRIT 25.2 % (36-54); HEMOGLOBIN 8.7 g/dL (14.0-18.0); MEAN CORPUSCULAR HEMOGLOBIN 37 pg (27-31); MEAN CORPUSCULAR HGB CONC 35 % (32-36); MEAN CORPUSCULAR VOLUME 106 fL (79.0-98.0); PLATELET COUNT (AUTO) 172 K/uL (130-430); RED BLOOD CELL COUNT(AUTO) 2.37 MIL/uL (4.2-6.2); RED CELL DISTRIBUTION WIDTH 17.9 % (9.0-15.0)
[2016-03-10 07:21] LABS: ALBUMIN 1.7 g/dL (3.4-4.8); CALCIUM 8.2 mg/dL (8.4-11.0); CREATININE 4.38 mg/dL (0.55-1.30); POTASSIUM 3.5 mmol/L (3.5-5.1); TOTAL PROTEIN, SERUM 5.1 g/dL (6.4-8.3)
--- NOTE | 2016-03-10 07:30 | NUR ---
AM ROUNDS PATIENT RESTING IN BED, AWAKE, ALERT AND ORIENTED X4, DENIES PAIN, ASSESSMENT COMPLETE AT THIS TIME, EDUCATED THE PATIENT FRANCHISE SALES DIRECTOR LIGHT SYSTEM AND TO CALL FOR ANY ASSISTANCE, PATIENT VERBALIZED UNDERSTANDING AT THIS TIME, CALL LIGHT PLACED IN THE PATIENT'S HAND, BED IN LOWEST POSITION, TWO SIDE RAILS UP, PATIENT REFUSES BED ALARM, IS AMBULATORY WITH STEADY GAIT, FALL PRECAUTIONS IN PLACE, BED CLOSE TO NURSE'S STATION.
--- NOTE | 2016-03-10 07:48 | NUR ---
DR LUCAS ROUNDS HERE TO SEE THE PATIENT, WILL FOLLOW UP WITH ANY NEW ORDERS.
[2016-03-10 08:07] VITALS: BP 116/71; PULSE 86; RESP 16; TEMP 98; O2SAT 98
[2016-03-10 08:47] LABS: BAND % (MANUAL) 9 % (0-6); BASOPHILS % (MANUAL) 0 % (0-2); EOSINOPHILS % (MANUAL) 2 % (0-7); LYMPHOCYTES % (MANUAL) 6 % (20-46); METAMYELOCYTES % 1 % (0-0); MONOCYTES % (MANUAL) 5 % (0-11)
[2016-03-10] MEDS: VANCOMYCIN HCL 125 MG CAPSULE PO SCH ×4 (09:00→20:56)
[2016-03-10] MEDS: SODIUM BICARBONATE 8.4% JECT 50 MEQ/50 ML SYRINGE IVP SCH ×3 (09:00→20:56)
[2016-03-10] MEDS: PENTOXIFYLLINE 400 MG TABLET.SA (TRENtal) PO SCH (09:00)
--- NOTE | 2016-03-10 09:30 | NUR ---
RN ROUNDS PATIENT RESTING IN BED, EDUCATED THE PATIENT ON MEDICATIONS AND BENEFITS OF TAKING MEDICATIONS, PATIENT STATES THE DOCTOR TOLD HIM HE DOESN'T HAVE TO TAKE SOME OF THE MEDICATIONS ANYMORE, INFORMED THE PATIENT THAT ORDERS ARE NOT PRESENT AT THIS TIME TO DISCONTINUE THE MEDICATIONS, PATIENT VERBALIZED UNDERSTANDING AND STILL REFUSED THAT THIS TIME, BED IN LOWEST POSITION, TWO SIDE RAILS UP, CALL LIGHT NEXT TO THE PATIENT'S HAND, FALL PRECAUTIONS IN PLACE, PATIENT REFUSES BED ALARM, BED CLOSE TO NURSE'S STATION.
--- NOTE | 2016-03-10 10:30 | NUR ---
NOTE PATIENT STATES HE WOULD LIKE TO GO OUTSIDE HE PLEASES, NOTIFIED THE CHARGE NURSE AND CHARGE NURSE STATED PATIENT MAY GO LONG HE INFORMS NURSING STAFF AND THAT HE ONLY GOES OUTSIDE FOR 15-20 MINUTES MAXIMUM, CHARGE NURSE TO NOTIFY THE PATIENT.
[2016-03-10 12:00] VITALS: BP 117/63; PULSE 88; RESP 21; TEMP 98.4; O2SAT 99
--- NOTE | 2016-03-10 12:55 | NUR ---
RN ROUNDS PATIENT RESTING IN BED, REQUESTING PARTICULAR ITEMS FROM DIETARY, ASSISTED THE PATIENT, PATIENT ASLO REFUSING MEDICATIONS AT THIS TIME, EDUCATED THE PATIENT ON BENEFITS OF THESE MEDICATIONS AT THIS TIME, PATIENT STILL REFUSED, NO OTHER NEEDS AT THIS TIME, BED IN LOWEST POSITION, TWO SIDE RAILS UP, FALL PRECAUTIONS IN PLACE, CALL LIGHT NEXT TO THE PATIENT'S HAND.
--- NOTE | 2016-03-10 14:20 | NUR ---
RN ROUNDS PATIENT RESTING IN BED, AWAKE, PATIENT REFUSING IV ANTIBIOTIC AT THIS TIME, EDUCATED THE PATIENT ON BENEFITS OF THIS MEDICATION AND RISK FOR NOT TAKING MEDICATION, PATIENT VERBALIZED UNDERSTANDING AT THIS TIME, STILL REFUSED, NO OTHER NEEDS AT THIS TIME, BED IN LOWEST POSITION, TWO SIDE RAILS UP, FALL PRECAUTIONS IN PLACE, CALL LIGHT NEXT TO THE PATIENT.
--- NOTE | 2016-03-10 15:01 | NUR ---
DR NEWSOME (NEPHRO) HERE TO SEE THE PATIENT AT THIS TIME, WILL FOLLOW UP WITH ANY NEW ORDERS.
[2016-03-10 15:26] VITALS: BP 112/73; PULSE 82; RESP 19; TEMP 97; O2SAT 99
--- NOTE | 2016-03-10 16:43 | NUR ---
RN ROUNDS PATIENT RESTING IN BED, DENIES PAIN, ASKING FOR ICE WATER, ICE WATER GIVEN, NO OTHER NEEDS AT THIS TIME, BED IN LOWEST POSITION, TWO SIDE RAILS UP, FALL PRECAUTIONS IN PLACE, CALL LIGHT NEXT TO THE PATIENT'S HAND.
--- NOTE | 2016-03-10 17:30 | NUR ---
RN ROUNDS PATIENT RESTING IN BED, PATIENT REFUSED 1700 AND 1800 MEDICATIONS AT THIS TIME, EDUCATED THE PATIENT BENEFITS OF MEDICATION AND RISKS OF REFUSING AT THIS TIME, PATIENT VERBALIZED UNDERSTANDING AND STILL REFUSED, NO OTHER NEEDS AT THIS TIME, BED IN LOWEST POSITION, TWO SIDE RAILS UP, FALL PRECAUTIONS IN PLACE, CALL LIGHT NEXT TO THE PATIENT'S HAND, PATIENT STILL REFUSING BED ALARM.
--- NOTE | 2016-03-10 18:19 | NUR ---
CLOSING NOTES PATIENT RESTING IN BED, AWAKE, DENIES PAIN, ALL NEEDS MET, BED IN LOWEST POSITION, TWO SIDE RAILS UP, CALL LIGHT NEXT TO THE PATIENT'S HAND, FALL PRECAUTIONS IN PLACE, VISITORS AT THE BEDSIDE AT THIS TIME, WILL ENDORSE REPORT TO NOC SHIFT NURSE.
--- NOTE | 2016-03-10 19:20 | NUR ---
INITIAL NOTE: BEDSIDE REPORT RECEIVED MARIEL SHAVER RN IN SB[place] FORMAT. PATIENT IN NO DISTRESS, FRIENDS AT THE BEDSIDE. PLAN OF CARE DISCUSSED WITH PATIENT. CALL LIGHT WITHIN REACH. SAFETY PRECAUTIONS IN PLACE. ADVISED PATIENT TO CALL FOR ASSISTANCE OUT OF BED. WILL CONTINUE TO MONITOR.
[2016-03-10 20:00] VITALS: BP 102/66; PULSE 92; RESP 16; TEMP 99.5; O2SAT 97
--- NOTE | 2016-03-10 22:30 | NUR ---
IV LEAKING: IV FOUND TO BE LEAKING, DISCONTINUED IV. PATIENT REFUSED TO HAVE IV REINSERTED, AND REFUSED IV ANTIBIOTIC. EDUCATED THE PATIENT ON THE IMPORTANCE OF CONTINUING ANTIBIOTIC THERAPY, BUT PATIENT STILL REFUSED. WILL CONTINUE TO MONITOR.
--- NOTE | 2016-03-10 23:00 | NUR ---
VOMITING: PATIENT FOUND SITTING ON CHAIR IN THE BATHROOM AND EMESIS NOTED IN THE SINK. PATIENT DENIES NAUSEA, BUT VERBALIZES THAT HE HAS BEEN COUGHING, WHICH MAKES HIM VOMIT. PATIENT REFUSED TO GO BACK TO BED AT THIS TIME.
--- NOTE | 2016-03-10 23:20 | NUR ---
PATIENT CRAWLING ON FLOOR: WALKED INTO THE ROOM AND FOUND PATIENT CRAWLING ON THE FLOOR. PATIENT WAS TOLD ON MANY OCCASIONS TO CALL FOR ASSISTANCE OUT OF BED. PATIENT DENIES HAVING FALLEN, BUT VERBALIZED THAT HE FEELS WEAK TO GET UP AND WALK BACK TO BED. AN ATTEMPT TO HELP PATIENT BACK UP ON HIS FEET WAS MADE BY LEO PERERYA AND MYSELF, BUT PATIENT REFUSED THE HELP AND CONTINUED CRAWLING BACK TO BED. ONCE PATIENT WAS BY THE BED LEO POWERS, AND MYSELF HELPED PATIENT UP IN BED. PATIENT NOTED TO BE COUGHING, AND EMESIS NOTED IN THE SINK. WILL CALL MD TO NOTIFY. WILL CONTINUE TO MONITOR.
--- NOTE | 2016-03-10 23:30 | NUR ---
PAGE WENT OUT TO DR. KING.
--- NOTE | 2016-03-10 23:52 | NUR ---
MD COMMUNICATION: NOTIFIED MD THAT PATIENT FOUND ON FLOOR CRAWLING, NO INJURIES NOTED. ALSO NOTIFIED MD THAT PATIENT IS COUGHING, WHICH IS MAKING HIM VOMIT. PER DOCTOR, START XOPENEX VIA NEB. NO CHEST XRAYS AT THIS TIME. WILL CARRY OUT ORDERS.
--- NOTE | 2016-03-10 23:55 | NUR ---
PATIENT GOT OUT OF BED: BED ALARM SOUND HEARD COMING FROM PATIENT'S ROOM. PATIENT FOUND WALKING TO THE BATHROOM. REPEATEDLY ADVISED THAT HE NEEDS TO CALL FOR ASSISTANCE OUT OF BED, HE REFUSES. WAITED FOR PATIENT OUTSIDE THE BATHROOM AND ASSISTED BACK TO BED. WILL CONTINUE TO MONITOR.
[2016-03-11] VITALS (7 sets, daily range): BP systolic 100–132; BP diastolic 50–82; PULSE 70–123; RESP 16–19; TEMP 97.8–103.5; O2SAT 92–99
[2016-03-11] MEDS: LevALBUTEROL HCL 1.25 MG/0.5 ML *CONC.* VIAL.NEB (XOPENEX CONC.) INH SCH ×4 (01:50→19:00)
--- NOTE | 2016-03-11 01:51 | NUR ---
ROUNDS: PATIENT RESTING IN NO DISTRESS. RT AT THE BEDSIDE ADMINISTERING BREATHING TREATMENT. WILL CONTINUE TO MONITOR.
--- NOTE | 2016-03-11 03:41 | NUR ---
ROUNDS: PATIENT IN NO DISTRESS. PATIENT CONTINUES TO REFUSE IV PLACEMENT. EDUCATED ON THE REASON FOR IV PLACEMENT. WILL CONTINUE TO MONITOR.
--- NOTE | 2016-03-11 04:00 | NUR ---
OUT OF BED: BED ALAR HEARD COMING FROM PATIENT'S ROOM. PATIENT OUT OF BED GOING TO THE BATHROOM. RE-EDUCATED PATIENT ON THE IMPORTANCE TO CALL FOR ASSISTANCE OUT OF BED. WAITED FOR PATIENT TO COME OUT OF THE BATHROOM AND ASSISTED PATIENT BACK TO BED. WILL CONTINUE TO MONITOR.
--- NOTE | 2016-03-11 05:16 | NUR ---
OUT OF BED: BED ALAR HEARD COMING FROM PATIENT'S ROOM. PATIENT OUT OF BED GOING TO THE BATHROOM. EDUCATED PATIENT MULTIPLE TIMES ON THE IMPORTANCE TO CALL FOR ASSISTANCE OUT OF BED. WAITED FOR PATIENT TO COME OUT OF THE BATHROOM AND ASSISTED PATIENT BACK TO BED. WILL CONTINUE TO MONITOR.
[2016-03-11] MEDS: metroNIDAZOLE 500 mg/NS 100 ML IV SCH ×3 (06:00→22:00)
[2016-03-11] MEDS: MAG-AL HYDROX/SIMETH 30 ML UDC PO SCH ×4 (06:00→18:00)
[2016-03-11] MEDS: LIDOCAINE VISCOUS 2%, 15 ML UDC PO SCH ×4 (06:00→18:00)
--- NOTE | 2016-03-11 06:28 | NUR ---
REFUSED IV PLACEMENT: PATIENT CONTINUES TO REFUSE IV PLACEMENT. UNABLE TO ADMINISTER IV ANTIBIOTIC. PATIENT ALSO REFUSED HIS OTHER MORNING MEDS. EDUCATED ON THE IMPORTANCE TO CONTINUE ANTIBIOTIC THERAPY. WILL CONTINUE TO MONITOR.
--- NOTE | 2016-03-11 06:40 | NUR ---
CLOSING NOTE: PATIENT IN NO DISTRESS. VITAL SIGNS REMAINED STABLE THROUGHOUT SHIFT. PATIENT EDUCATED ON MANY OCCASIONS TO CALL FOR ASSISTANCE OUT OF BED, BED ALARM ON. WILL ENDORSE CARE TO THE DAY SHIFT NURSE.
--- NOTE | 2016-03-11 06:49 | NUR ---
PATIENT REQUESTING TO TAKE A SHOWER: NOTIFIED PATIENT THAT WE ARE CHANGING SHIFT AND IT WOULD BE BEST FOR HIM TO WAIT UNTIL AFTER WE ARE DONE DOING SO. PATIENT IS WEAK AND IS UNSAFE TO LEAVE UNATTENDED.
--- NOTE | 2016-03-11 08:00 | NUR ---
OPENING NOTE RECEIVED REPORT FROM NIGHT NURSE, PATIENT IS RESTING COMFORTABLY IN BED WITH NO NOTED DISTRESS, DISCOMFORT OR SOB. BED IS IN LOWEST POSITION AND IS EDUCATED NOT TO GET UP WITHOUT ASSISTANCE. CALL LIGHT IS WITHIN REACH AND WILL CONTINUE TO MONITOR.
[2016-03-11] MEDS: PENTOXIFYLLINE 400 MG TABLET.SA (TRENtal) PO SCH (09:00)
[2016-03-11] MEDS: VANCOMYCIN HCL 125 MG CAPSULE PO SCH ×4 (09:00→21:07)
[2016-03-11] MEDS: SODIUM BICARBONATE 8.4% JECT 50 MEQ/50 ML SYRINGE IVP SCH ×3 (09:00→21:00)
--- NOTE | 2016-03-11 09:00 | NUR ---
NOTE PATIENT REFUSED TO TAKE MEDICATIONS, I EDUCATED THE PATIENT THAT THEY ARE NEEDED TO HELP HIM AND HE STATED THAT HE HAS A COUGH AND NEEDS AN X RAY BECAUSE HE MIGHT HAVE PNA. I ASKED IF I COULD START AN IV AND THE PATIENT SAID NO BECAUSE IT IS JUST GOING TO GET BAD IN 4 HOURS. I INFORMED THE PATIENT THAT HE HAS ATB THAT COULD HELP IF HE HAD PNA AND HE STATED THAT HE DID NOT WANT THEM. DR KING IS AWARE.
--- NOTE | 2016-03-11 09:35 | NUR ---
NOTE SPOKE TO DR KING BECAUSE PATIENT WAS COMPLAINING OF COUGH AND NEW ORDER FOR ROBITUSSIN 10ML PO Q6HRS PRN WAS NOTED AND CARRIED OUT. GAVE REPORT TO YI WHO WILL BE THE NURSE NOW.
--- NOTE | 2016-03-11 09:40 | NUR ---
ASSUMPTION OF CARE RECEIVED PATIENT SOUND ASLEEP. NO SIGNS OF FACIAL GRIMACING FOR PAIN OR DISCOMFORT. NO DISTRESS NOTED. PT HAS NO IV LINE. CALL LIGHT WITHIN REACH. WILL MONITOR.
--- NOTE | 2016-03-11 10:55 | NUR ---
PEDRITO PT COMPLAINTS OF CONSTANT COUGHING AND WANTS MEDICATION. MEDICATED WITH ROBITUSSIN.
--- NOTE | 2016-03-11 11:30 | NUR ---
ROUNDS PT AWAKE RESTING IN BED COMPLAINTS OF HAVING DIFFICULTY BREATHING. PT VERY IRRITABLE AND IMPATIENT. TRIED TO REPOSITION BUT STATES HE ALREADY DID WHAT HE CAN TO BE COMFORTABLE. OFFERED TO PLACE O2 VIA NASAL CANULA @ 2L. PT AGREED. PT REFUSED TO HAVE NEW IV PUT IN. WILL MONITOR.
--- NOTE | 2016-03-11 12:46 | NUR ---
REFUSED TO EAT PT ASLEEP BUT EASILY AWAKENED. REFUSED TO EAT AND STATES HE DOES NOT LIKE THE SMELL OF FOOD AND HAS NO APPETITE. NO DISTRESS NOTED. ENCOURAGED TO CALL FOR ASSISTANCE. WILL MONITOR.
[2016-03-11] MEDS: FOLIC ACID 1 MG, THIAMINE HCL 100 MG, MAGNESIUM SULFATE 1 GM, MVI 10 ML in NACL 0.9% 1,... IV SCH (13:00)
--- NOTE | 2016-03-11 14:00 | NUR ---
DR. FERNANDO HUDSON DOING ROUNDS. PLAN OF CARE DISCUSSED WITH PATIENT.
--- NOTE | 2016-03-11 14:30 | NUR ---
RESTING PT ASLEEP. NO SIGNIFICANT CHANGES NOTED. CALL LIGHT WITHIN REACH. WILL MONITOR.
[2016-03-11 15:46] LABS: INR 1.3 (0.80-1.20); PROTHROMBIN TIME 13.9 SECS (9.5-12.5)
--- NOTE | 2016-03-11 16:30 | NUR ---
ROUNDS PT ASLEEP. NO SIGNS OF FACIAL GRIMACING FOR PAIN OR DISCOMFORT. NO DISTRESS NOTED. CALL LIGHT WITHIN REACH. WILL MONITOR.
--- NOTE | 2016-03-11 18:30 | NUR ---
CLOSING NOTES PT ASLEEP BUT EASILY AWAKENED. REFUSED TO EAT DINNER AT THIS TIME. STATES HE IS NOT HUNGRY AND HAS NO APPETITE. ENCOURAGED TO EAT OR DRINK. PT UNCERTAIN ABOUT HAVING PICC LINE PLACED. NO CONSENT HAS BEEN SIGNED. ENCOURAGED TO CALL FOR ASSISTANCE. WILL ENDORSE CARE TO INCOMING NURSE.
--- NOTE | 2016-03-11 19:45 | NUR ---
initial nursing notes: Patient in bed. Patient is covered with blanket from head to toe. Patient does not want to answer any assessment questions at this time. Will come back to reassess patient.
--- NOTE | 2016-03-11 21:43 | NUR ---
nursing rounds: Notified Dr. Mcbride regarding patient's fever, Temp.= 103.5. Tylenol PO PRN provide. No new orders from
--- NOTE | 2016-03-11 22:15 | NUR ---
nursing rounds: Rechecked patient's Temp.= 100.2. Tylenol PO effective. Will continue to monitor patient's temperature.
--- NOTE | 2016-03-12 00:15 | NUR ---
nursing rounds: Patient is sleeping in bed. No shortness of breath noted.
[2016-03-12] MEDS: LevALBUTEROL HCL 1.25 MG/0.5 ML *CONC.* VIAL.NEB (XOPENEX CONC.) INH SCH ×4 (00:24→19:00)
[2016-03-12 01:49] VITALS: BP 126/63; PULSE 111; RESP 18; TEMP 99; O2SAT 94
--- NOTE | 2016-03-12 02:15 | NUR ---
nursing rounds: Patient is asleep in bed. No falls and no injuries noted.
--- NOTE | 2016-03-12 04:15 | NUR ---
nursing rounds: Patient is asleep in bed.
[2016-03-12 04:47] VITALS: BP 136/67; PULSE 101; RESP 17; TEMP 98.7; O2SAT 95
--- NOTE | 2016-03-12 06:15 | NUR ---
nursing rounds: Patient is resting in bed.
--- NOTE | 2016-03-12 08:00 | NUR ---
OPENING NOTE: RECEIVED REPORT FROM NIGHT NURSE. PATIENT IS RESTING COMFORTABLY IN BED. NO S/S OF DISTRESS OR SOB. PATIENT IS ALERT AND ORIENTED, ABLE TO EXPRESS NEEDS, AND ASK FOR ASSISTANCE. PATIENT REFUSED VITAL SIGNS AND ASSESSMENT BEING DONE AT THE MOMENT. WILL TRY AGAIN LATER. CALL LIGHT IN REACH, BED IN LOWEST POSITION, AND WILL CONTINUE TO MONITOR.
--- NOTE | 2016-03-12 08:02 | NUR ---
closing nursing notes: Patient calmly resting in bed. Patient is in no acute respiratory distress. No episodes of fall and no injuries throughout the film processing shift supervisor. Provided nursing report to incoming morning shift nurse at patient's bedside.
[2016-03-12] MEDS: PENTOXIFYLLINE 400 MG TABLET.SA (TRENtal) PO SCH (09:00)
[2016-03-12] MEDS: VANCOMYCIN HCL 125 MG CAPSULE PO SCH ×4 (09:00→21:12)
[2016-03-12] MEDS: SODIUM BICARBONATE 8.4% JECT 50 MEQ/50 ML SYRINGE IVP SCH ×3 (09:00→21:00)
--- NOTE | 2016-03-12 09:56 | NUR ---
NOTE: PATIENT IS STILL SLEEPING. PATIENT REFUSED TO TAKE AM MEDICATIONS. PATIENT EDUCATION ON MEDICATIONS AND IMPORTANCE OF ANTIBIOTIC BUT PATIENT STATES HE DOES NOT WANT THEM AND WANTS TO KEEP SLEEPING. PATIENT STILL REFUSING VITAL SIGNS AT THIS POINT.
--- NOTE | 2016-03-12 10:39 | NUR ---
Surgical consult Order received for a consult with Dr Alas for Dannie placement. Spoke with Dr Alas, he stated to have the consent signed. Updated charge nurse.
[2016-03-12] MEDS: MAG-AL HYDROX/SIMETH 30 ML UDC PO SCH ×3 (12:00→18:00)
[2016-03-12] MEDS: LIDOCAINE VISCOUS 2%, 15 ML UDC PO SCH ×3 (12:00→18:00)
--- NOTE | 2016-03-12 12:00 | NUR ---
NOTE: PATIENT IS RESTING COMFORTABLY IN BED. NO S/S OF DISTRESS OR SOB. PATIENT IS ALERT AND ORIENTED, ABLE TO EXPRESS NEEDS, AND ASK FOR ASSISTANCE. CALL LIGHT IN REACH, BED IN LOWEST POSITION, AND WILL CONTINUE TO MONITOR.
[2016-03-12 12:17] VITALS: BP 89/55; PULSE 99; RESP 16; TEMP 97.2; O2SAT 96
[2016-03-12 12:45] VITALS: BP 119/71; PULSE 99
[2016-03-12] MEDS: FOLIC ACID 1 MG, THIAMINE HCL 100 MG, MAGNESIUM SULFATE 1 GM, MVI 10 ML in NACL 0.9% 1,... IV SCH (13:00)
[2016-03-12] MEDS: metroNIDAZOLE 500 mg/NS 100 ML IV SCH ×2 (14:00→21:14)
[2016-03-12] MEDS ORDERED: HEPARIN SODIUM,PORCINE 5000 UNITS/ML VIAL MC ONE (15:30)
--- NOTE | 2016-03-12 16:10 | NUR ---
DR. OLMSTEAD PROCEDURE DR. OLMSTEAD IN TO SEE PATIENT. EARLE CATH. PORT PLACEMENT WAS DONE AT BEDSIDE. RN ASSISTED. STERILE PROCEDURE FOLLOWED. PATIENT TOLERATED WELL.
--- NOTE | 2016-03-12 17:07 | NUR ---
Nutrition F/U Admitting Diagnosis Acute alcohol intoxication, hepatoencephalopathy, alcoholic liver Dz Past Medical History Alcohol dependency, possible depression. Pt also admitted w/ abd pain, N/V, and gastritis per MD notes. Pertinent Medications folic acid/thiamin/magnesium sulfate/MVI/minerals/NaCl IV, sodium bicarbonate, vancomycin HCl, [place] Current Diet Order Mechanical soft, Boost Plus TID Height (Feet) 6 feet Height (Inches) 1.00 inches Weight (Pounds) 161 pounds (admission wt; no significant weight changes noted) Weight (Calculated Kilograms) 73.217776 kilograms Patient Weight 73.028 kg Body Mass Index 21.24 kg/m2 (normal) [place]/Adjusted Body Weight IBW: 184 lb, 84 kg. 87% of IBW Estimated Needs 9141-0364 kcal/day (25-30 kcal/kg IBW for gradual wt gain) Grams of Protein per Day 67-84 gm/day (0.8-1 gm/kg IBW for gradual wt gain) Fluid Intake Goal 2-2.5 L/day (1 ml/kcal/day for maintenance) Pertinent Labs Tbili 25 H (improved), AST 89 H, ALP 170 H (improved), BUN 36 H, ALB 1.7 L, WBC 26.8 H, Hgb 8.7 L, Hct 25.2 L, eGFR 16 L, Na 134 L, CRE 4.38 H Other Subjective Data Physical: Pt seen resting in bed at time of RD assessment. Pt appeared thin. Bedscale weight reads 180 lb, which pt reports is his UBW. GI: Pt reports diarrhea, multiple BMs of loose/watery stool today. Pt also reports vomiting. Per EMR abdomen is distended. PO: Pt reports poor appetite for the past 4 days and vomiting after eating. PO intakes average 51% x9 meals. Previously requested mostly liquid foods on trays d/t vomiting. Pt has been getting Boost Plus TID, but has not tried drinking them. Pt reports no problems chewing/swallowing. Current diet is appropriate to meet estimated nutritional requirements, but pt is not tolerating well. Integumentary: Per EMR, Daniel score 18, jaundiced. No other skin issues noted. Plans/Procedures: Dannie catheter placement today and dialysis. Problem, Etiology, Signs/Symptoms Inadequate nutritional intakes related to maintenance as evidenced by lack of nutritional quality while on clear liquid diet and Hx of alcohol dependency. *no longer applicable GI complications related to possible Hx of alcohol dependency and alcoholic liver disease as evidenced by Tbili 25, Hgb 8.7, and pt report of loose bowel movements and vomiting. Expected Outcomes or Goals - Monitor advancement of diet, appetite, and PO intakes w/ goal of pt meeting at least 75% of estimated nutritional needs, labs trending WNL, normal GI function, and skin integrity/weight maintenance. Dietitian Recommendations * Continue mechanical soft diet per MD. * Continue Boost Plus TID, which provides an additional 1080 kcal and 42 g of protein per day. Follow Up Moderate Risk: F/U in 3-5 days
[2016-03-12 17:08] VITALS: BP 108/65; PULSE 76; RESP 18; TEMP 97.6; O2SAT 91
--- NOTE | 2016-03-12 18:49 | NUR ---
CLOSING NOTE: PATIENT IS RECEIVING DIALYSIS. NO S/S OF DISTRESS OR SOB. PATIENT IS ALERT AND ORIENTED, ABLE TO EXPRESS NEEDS, AND ASK FOR ASSISTANCE. CALL LIGHT IN REACH, BED IN LOWEST POSITION, AND WILL GIVE REPORT TO NIGHT NURSE.
--- NOTE | 2016-03-12 19:36 | NUR ---
OPENING NOTE Pt. and bedside report received from day shift nurse. Pt. is awake and resting in bed receiving hemodialysis at this time; dialysis nurse, Claire at bedside. Pt. denies any needs at this time. Plan of care discussed. Safety measures in place. Educated pt. on how to use call light for assistance. Pt. refusing bed alarm at this time, will continue to encourage. Will continue to monitor.
[2016-03-12 20:00] VITALS: BP 107/78; PULSE 108; RESP 20; TEMP 97; O2SAT 92
--- NOTE | 2016-03-12 20:20 | NUR ---
PAGED/SPOKE TO DR. ALAS Reported to Dr. Alas that pt.'s aliya cath site is bleeding profusely after being reinforced with dressing by Dialysis nurse. Dr. Alas ordered for 2lb sandbag to be placed and for pressure to be applied continuously for 10 minutes and for stat PT with INR/PTT labs to be drawn. Will carry out.
--- NOTE | 2016-03-12 21:00 | NUR ---
2LB SANDBAG Late entry due to pt. care. 2 (1lb) sandbags obtained from [facility]. Pt. was encouraged to place them to stop bleeding from left chest central line site but pt. refused. Charge nurse, RODYD White also continued to encourage pt. but he still refused after being educated about its importance. Pt. states "I don't care!" Will continue to encourage and monitor.
[2016-03-12 21:55] LABS: HEMATOCRIT 24.3 % (36-54); HEMOGLOBIN 8.4 g/dL (14.0-18.0); MEAN CORPUSCULAR HEMOGLOBIN 36 pg (27-31); MEAN CORPUSCULAR HGB CONC 35 % (32-36); MEAN CORPUSCULAR VOLUME 105 fL (79.0-98.0); PLATELET COUNT (AUTO) 218 K/uL (130-430); RED BLOOD CELL COUNT(AUTO) 2.32 MIL/uL (4.2-6.2); RED CELL DISTRIBUTION WIDTH 17.2 % (9.0-15.0)
[2016-03-12 22:06] LABS: INR 1.5 (0.80-1.20); PROTHROMBIN TIME 16.8 SECS (9.5-12.5)
[2016-03-12 22:07] LABS: ALBUMIN 1.5 g/dL (3.4-4.8); CALCIUM 7.7 mg/dL (8.4-11.0); CREATININE 4.5 mg/dL (0.55-1.30); POTASSIUM 3.5 mmol/L (3.5-5.1); TOTAL PROTEIN, SERUM 4.8 g/dL (6.4-8.3)
[2016-03-12 22:09] LABS: WHITE BLOOD COUNT (AUTO) 33.3 K/uL (4.8-10.8)
[2016-03-12 22:19] LABS: ATYPICAL LYMPHOCYTES % 0 % (0-0); BAND % (MANUAL) 3 % (0-6); BASOPHILS % (MANUAL) 0 % (0-2); EOSINOPHILS % (MANUAL) 0 % (0-7); LYMPHOCYTES % (MANUAL) 4 % (20-46); MONOCYTES % (MANUAL) 6 % (0-11)
[2016-03-12 22:37] LABS: TOTAL BILIRUBIN 22.3 mg/dL (0.0-1.0)
--- NOTE | 2016-03-12 22:43 | NUR ---
REPORTED CRITICAL LABS/SEPSIS RISK TO DR. ASHBY Late entry due to pt. care. Reported critical lab values of WBC 33.3 and Total Bili 22.3; including PT 16.8, INR 1.5, PTT 61.1 and that pt. meets sepsis protocol. Dr. Ashby ordered stat lactic acids to be drawn if pt. complies. He also asked if pt. was on antibiotics; I reported that pt. is but has had a history of refusing them. Charge nurse, RODDY White also made aware.
--- NOTE | 2016-03-12 23:46 | NUR ---
SPOKE TO DR. ALAS Spoke to Dr. Alas to report that pt. is refusing 2lb weights to be applied to left chest central line site. I also reported to Dr. Alas that constant encouragement has been done including, charge nurse, RODDY White, but pt. is noncompliant and shouting "NO! I've been through alot today and I want to lay on my side." I also reported recent PT 16.8, INR 1.5, PTT 61.[address] Alas gave no new orders. Will cont. to monitor. pt.
--- NOTE | 2016-03-12 23:57 | NUR ---
LACTIC ACID Spoke to Patti from lab who stated pt. refused for his lactic acid to be drawn.
[2016-03-13] VITALS (7 sets, daily range): BP systolic 92–114; BP diastolic 55–75; PULSE 93–104; RESP 14–22; TEMP 97–98.9; O2SAT 90–98
--- NOTE | 2016-03-13 00:01 | NUR ---
REFUSAL pt refused to check his vital signs@ 12 midnight. RODDY Dover is aware.
--- NOTE | 2016-03-13 00:17 | NUR ---
VITAL SIGNS Pt. is refusing to have his vital signs taken by MANAGER ER. Will continue to encourage.
--- NOTE | 2016-03-13 00:34 | NUR ---
ENCOURAGED VITAL SIGNS/REFUSED DUE MEDS Encouraged pt. to have vital signs taken, he said "OK man! just hurry up! it's so fucking cold" Vital signs stable. See chart. Pt. still refusing 2lb sandbag weights to be placed on left chest central line site, educated pt. that he will continue bleeding and I asked if I can at least change the dressing but he stated "NO! I don't fucking care. I hate this place." Educated and encouraged pt. on due medications but he is refusing. Pt. coughing and was offered PRN medication for cough but he stated he wanted a snack instead. Safety measures in place. Call light to right hand. Pt. refusing bed alarm as well. Will continue to monitor.
[2016-03-13] MEDS: LevALBUTEROL HCL 1.25 MG/0.5 ML *CONC.* VIAL.NEB (XOPENEX CONC.) INH SCH ×4 (01:00→19:00)
--- NOTE | 2016-03-13 02:51 | NUR ---
ROUNDS/ASSISTED PT. TO VOID Hourly rounds done; encouraged pt. to place 2lb sandbag weights on left chest central line site but pt. still refusing; stated he needed to get up and use the bathroom. Assisted pt. to bathroom to void; his gait steady and denies any dizziness at this time. Pt. requested warm blankets. Safety measures in place. Will continue to monitor.
--- NOTE | 2016-03-13 04:25 | NUR ---
PICC LINE - PENDING INSERTION Late entry due to pt. care. Charge nurse, RODDY White reported to me that PICC line nurse, Ramirez, , called and said pt. will need clearance from buffer copper. Will follow up.
--- NOTE | 2016-03-13 05:11 | NUR ---
ASSISTED PT. TO BATHROOM TO VOID/[facility] CALLED Assisted pt. to bathroom to void; gait is steady with no s/s of acute distress, pt. denies any dizziness. [facility] called for roll of toilet paper. Will cont. to monitor.
[2016-03-13] MEDS: metroNIDAZOLE 500 mg/NS 100 ML IV SCH ×3 (05:40→21:32)
[2016-03-13] MEDS: LIDOCAINE VISCOUS 2%, 15 ML UDC PO SCH ×4 (05:40→18:00)
[2016-03-13] MEDS: MAG-AL HYDROX/SIMETH 30 ML UDC PO SCH ×4 (05:41→18:00)
--- NOTE | 2016-03-13 06:12 | NUR ---
LAB/ROUNDS Encouraged pt. to have AM labs drawn; he agreed. I also educated significance of cleaning the dried blood/dressing on his upper chest from central line but he stated "I just had my labs drawn and my blood pressure checked! I need to rest!" Will continue to encourage.
--- NOTE | 2016-03-13 06:42 | NUR ---
CLOSING NOTES Due meds not administered due to pt. refusal; respirations are even and unlabored with visible chest rise and fall. No s/s of acute distress. All needs met throughout shift. Dressing to left chest and dried blood not cleaned also due to pt. refusal even after numerous attempts of encouragement and education. Safety measures in place. Will endorse care to oncoming day shift nurse.
[2016-03-13 07:27] LABS: INR 1.4 (0.80-1.20); PROTHROMBIN TIME 15.6 SECS (9.5-12.5)
--- NOTE | 2016-03-13 07:30 | NUR ---
initial notes: pt on bed. awake, alert and oriented. refused dressing changed. no i.v. access. call light within reach. report given at bedside.
[2016-03-13 07:52] LABS: ALBUMIN 1.4 g/dL (3.4-4.8); BILIRUBIN,DIRECT 17.9 mg/dL (0.0-0.3); TOTAL PROTEIN, SERUM 4.6 g/dL (6.4-8.3)
[2016-03-13 08:08] LABS: TOTAL BILIRUBIN 20.7 mg/dL (0.0-1.0)
[2016-03-13] MEDS: SODIUM BICARBONATE 8.4% JECT 50 MEQ/50 ML SYRINGE IVP SCH ×3 (09:00→20:43)
[2016-03-13] MEDS: PENTOXIFYLLINE 400 MG TABLET.SA (TRENtal) PO SCH (09:12)
[2016-03-13] MEDS: VANCOMYCIN HCL 125 MG CAPSULE PO SCH ×4 (09:13→20:40)
--- NOTE | 2016-03-13 09:16 | NUR ---
med pass; medication given thru P.O. patient compliant. No I.V. access. Still waiting for PICC line to be in placed.
--- NOTE | 2016-03-13 10:16 | NUR ---
Sandra rounds: seen by Dr. Ashby.
--- NOTE | 2016-03-13 10:30 | NUR ---
PICC line: per Dr. Ashby placing picc line will increase the bleeding.
--- NOTE | 2016-03-13 10:40 | NUR ---
rounds: pt requested to go out, went out with escort.
[2016-03-13] MEDS: FOLIC ACID 1 MG, THIAMINE HCL 100 MG, MAGNESIUM SULFATE 1 GM, MVI 10 ML in NACL 0.9% 1,... IV SCH (12:11)
--- NOTE | 2016-03-13 12:12 | NUR ---
medication: pt refused medication. refused dressing changed or reinforce dressing.
--- NOTE | 2016-03-13 13:27 | NUR ---
rounds: pt on bed resting. no SOB observed.
--- NOTE | 2016-03-13 17:00 | NUR ---
rounds: pt on bed. angry and refused other medication. He said he will only take the vancomycin and given to him.
--- NOTE | 2016-03-13 19:30 | NUR ---
INITIAL NOTES; Pt is a/ox4, resting in bed. Vital signs 98.7,20, 103/62,93,V2DOD=75% R/A. Pt is c/o generalized pain, 10 out 10. Asked if want to ask MD for a stronger pain medication. Quinthon site is saturated with old blood stained and pt refused to changed and to be touch- DR. Mcbride is informed and awared-no further order this time. Pt stated that he doesn't want to and refused to ask MD for pain medication this time. No IV access-pt refused and Md awares. Lung sounds clear throughout except diminished sawyer lower lobes. Abdomen soft & distended, bs present. Sawyer lower pedis present upon palp. All safety measures in place. Fall precaution in place. All safety measures in place. Discussed poc,all safety measures, or if experiencing chest pain, pain,sob, or any acute distress to use call light for assistance, pt verbalized understanding. Call light w/in reach. Continue to monitor pt.
--- NOTE | 2016-03-13 20:41 | NUR ---
NOTES; ASKED PT IF WANT TO GET ANTIBOTIC OR IVPB MECIATION VIA QUINTHON CATH ADN WILL ASK DR. FAJARDO FOR QUINTHON CATH ACCESS. PT YELLED AND STATED, ''I DON'T WANT ANYTHING EXCEPT VANCOMYCIN PO AND GET OUT OFF HERE!"" PT REFUSED TO RECEIVE IVPB OR ANYTHING IV-DR. KING IS INFORMED AND AWARED AT NURSES'S STATION-NO FURTHER ORDER THIS TIME. - All safety measures in place. Fall precaution in place. All safety measures in place. . Call light w/in reach. Continue to monitor pt.
--- NOTE | 2016-03-13 22:06 | NUR ---
ROUNDS; -Pt is resting in bed. Asked pt if okay and needs anything. Pt verbalized,"no" this time. No s/s any acute distress noted. All safety measures in place. Fall precaution in place. All safety measures in place. . Call light w/in reach. Continue to monitor
--- NOTE | 2016-03-13 22:53 | NUR ---
NOTES; PT IS SCREAMING,YELLING,AGITATING. -PT is screaming, yelling, agitating because he wanted a window to open at night. Told pt that we don't open window. Offered if patient is too hot or too cold, can call security to adjust the temperature. Patient yelled and cuzzing bad words. Charge Nurse and House House awared and attended at patient's room explained the rules and regulation of hospital policies, pt is not happy with the responses that Production Staff Worker-Zackary. Room seem warmer inside the room. Told security to adjust temperature little cool.
[2016-03-14 00:42] VITALS: BP 98/68; PULSE 91; RESP 19; TEMP 98.2; O2SAT 98
[2016-03-14] MEDS: LevALBUTEROL HCL 1.25 MG/0.5 ML *CONC.* VIAL.NEB (XOPENEX CONC.) INH SCH ×4 (00:45→19:00)
--- NOTE | 2016-03-14 02:13 | NUR ---
MD ZHANG CALLED GI DOCTOR AT [phone]SIDHOM BALES [facility] EDUCATION DIRECTOR.
--- NOTE | 2016-03-14 02:16 | NUR ---
NOTES; NOTIFIED DR. GARG REGARDING PT VOMITED DARK GROUND COFFEE EMESIS 2 LITER -VITAL SIGNS 98.1, 20, 99/67,105,N2MOC=67% R/A. Pt just returned from bathroom vomited dark ground coffee emesis 2 Liter. Keep pt NPO, protonix 80mg iv bolus now, then continue protonix drip 8mg/hr; Sandostatin bolus now, then Sandostatin drip @ 50mcg/hr; STAT CBC, and CBC q 6 hrs (if H/H is less than 7.5, then transfuse 2 units PRBC), and EGD consent per . Dr. Duffy informed and awared that pt refused any IV or IVPB. stated,"If he doesn't want it, then it's his problem."
[2016-03-14] MEDS ORDERED: OCTREOTIDE ACETATE 100 MCG/ML AMP IV ONE (02:30)
[2016-03-14] MEDS ORDERED: PANTOPRAZOLE SODIUM 40 MG in NS 50 ML IV SCH (02:30)
[2016-03-14] MEDS ORDERED: PANTOPRAZOLE SODIUM 80 MG in NS 100 ML IV ONE (02:30)
[2016-03-14] MEDS: OCTREOTIDE ACETATE 1,250 MCG in NS 243.75 ML IV SCH (02:30)
--- NOTE | 2016-03-14 02:50 | NUR ---
NOTES: PT REFUSED ALL DR. FERNÁNDEZ' ORDERS AFTER EXPLAINED RISKS/ BENEFITS OF BLEEDING, MEDICATIONS, LAB TEST, DIET STATUS, AND WHAT PROCEDURE THAT MD ORDERED MENTIONED EARLIER NOTES. -PT REFUSED, SCREAMED, AND CUSSED BAD WORDS TO NURSES AND SINGLE RESOURCE BOSS.
--- NOTE | 2016-03-14 02:50 | NUR ---
ADDITIONAL NOTES; -AGAIN ASKED PT IF WANT TO USE QUINTHON CATH FOR BLOOD DRAW (CBC), MEDICATIONS DRIP, THEN WILL PAGE MD TO GET AN ORDER TO ACCESS. PT YELLED AND SAID, ''YOU JUST CALLED ME,''RETARD AND STUPID! DON'T WANT TO,GET OUT OFF HERE!"" PT REFUSED TO RECEIVE ALL DR. FERNÁNDEZ'S ORDERS EVEN AFTER EXPLAINED RISKS/BENEFITS OF MEDICATIONS, NPO STATUS, AND LAB DRAW ORDERS. WILL ATTEMPT TO TALK AND ENCOURAGE AGAIN AND WILL NOTIFY MD IN AM IF PT WILL REFUSE.
[2016-03-14] MEDS: metroNIDAZOLE 500 mg/NS 100 ML IV SCH ×3 (06:00→22:00)
[2016-03-14] MEDS: LIDOCAINE VISCOUS 2%, 15 ML UDC PO SCH ×4 (06:00→18:00)
[2016-03-14] MEDS: MAG-AL HYDROX/SIMETH 30 ML UDC PO SCH ×4 (06:00→18:00)
--- NOTE | 2016-03-14 06:21 | NUR ---
ADDITIONAL NOTES; -ASKED PT IF WANT TO USE QUINTHON CATH FOR BLOOD DRAW (CBC), MEDICATIONS DRIP, THEN WILL PAGE MD TO GET AN ORDER TO ACCESS. PT YELLED AND SAID, ''I DON'T WANT TO,GET OUT OFF HERE!"" PT REFUSED TO RECEIVE ALL DR. FERNÁNDEZ'S ORDERS EVEN AFTER EXPLAINED RISKS/BENEFITS OF MEDICATIONS, NPO STATUS, AND LAB DRAW ORDERS.
--- NOTE | 2016-03-14 06:21 | NUR ---
NOTES; Paged Dr. Fernández to inform pt that refused all his previous orders. Now, waiting for MD to return callback -Pt is still refused to follow Dr. Craven's previous orders with attempted x2 with encouragement and again explained risks and benefits of NPO status, protonix 80mg drip, Sandostatin drip, lab draw for CBC, and EGD procedure. Pt yelled and cuzzed with many uses of bad words. He said,'' We don't know how to start IV and he won't let us do it." I told him that he doesn't give us a chance to start IV. Patient just started to scream and yell again. I told patient that I will inform Dr. Craven that he refused everything. He yelled," I have the right to refuse anything I want and give me the f----- water now!" Addendum: 03/14/16 at 0639 by Sagar Salas RN CORRECTION- PAGED DR. FERNÁNDEZ TO INFORM THAT PT REFUSED ALL PREVIOUS ORDERS.
--- NOTE | 2016-03-14 06:45 | NUR ---
NOTES; Notified Dr. Duffy that pt refused all his previous orders-no further order per md.
[2016-03-14] MEDS: PANTOPRAZOLE SODIUM 40 MG in NS 50 ML IV SCH ×4 (07:04→22:04)
--- NOTE | 2016-03-14 07:20 | NUR ---
initial notes: pt on bed sleeping. no distress noted. no i.v. access. refused to be npo for the EDG. call light within reach.
--- NOTE | 2016-03-14 07:25 | NUR ---
CLOSING NOTES; Pt is resting in bed. Pt refused all orders from Dr. Duffy and Dr. Craven is informed and awared. Quinthon site left chest wall-is saturated with old blood stained and pt refused to change drsg. Fall precaution in place. All safety measures in place. Call light w/in reach. Pt will have dialysis today and supervisor feed house is informed and awared.
[2016-03-14 08:00] VITALS: BP 96/65; PULSE 99; RESP 18; TEMP 98.4; O2SAT 95
[2016-03-14 08:47] LABS: MEAN CORPUSCULAR HEMOGLOBIN 37 pg (27-31); MEAN CORPUSCULAR HGB CONC 35 % (32-36); MEAN CORPUSCULAR VOLUME 105 fL (79.0-98.0); PLATELET COUNT (AUTO) 181 K/uL (130-430); RED BLOOD CELL COUNT(AUTO) 2.03 MIL/uL (4.2-6.2); RED CELL DISTRIBUTION WIDTH 16.7 % (9.0-15.0); WHITE BLOOD COUNT (AUTO) 24.8 K/uL (4.8-10.8)
[2016-03-14] MEDS: PENTOXIFYLLINE 400 MG TABLET.SA (TRENtal) PO SCH (09:00)
[2016-03-14] MEDS: SODIUM BICARBONATE 8.4% JECT 50 MEQ/50 ML SYRINGE IVP SCH ×3 (09:00→21:00)
[2016-03-14 09:10] LABS: HEPATITIS A AB, IgM Negative (Negative); HEPATITIS B CORE AB, IgM Negative (Negative); HEPATITIS B SURFACE AG Negative (Negative)
[2016-03-14] MEDS: VANCOMYCIN HCL 125 MG CAPSULE PO SCH (09:11)
--- NOTE | 2016-03-14 09:18 | NUR ---
med pass: refused medication except for vancomycin.
[2016-03-14 09:41] LABS: HEMATOCRIT 21.2 % (36-54); HEMOGLOBIN 7.4 g/dL (14.0-18.0)
--- NOTE | 2016-03-14 09:59 | NUR ---
Social Service Note: ASSISTANT CORPORATION COUNSEL received a call from pt's uncleRussell ([phone]); ASSISTANT [employer]PORATION COUNSEL allowed pt's uncle to express concerns and ask questions; ASSISTANT [employer]ATION COUNSEL validated pt's uncle's concerns and answered questions as appropriate. Pt's uncle states that he will speak with pt and encourage pt to comply with treatments as ordered by physicians. ASSISTANT [employer]ATION COUNSEL will remain available for support and will follow up as needed.
[2016-03-14 10:31] LABS: BAND % (MANUAL) 10 % (0-6); BASOPHILS % (MANUAL) 0 % (0-2); EOSINOPHILS % (MANUAL) 0 % (0-7); LYMPHOCYTES % (MANUAL) 7 % (20-46); MONOCYTES % (MANUAL) 3 % (0-11)
[2016-03-14 12:24] LABS: CALCIUM 7.4 mg/dL (8.4-11.0); CREATININE 6.65 mg/dL (0.55-1.30)
[2016-03-14 12:34] LABS: ALBUMIN 1.4 g/dL (3.4-4.8); TOTAL PROTEIN, SERUM 4.5 g/dL (6.4-8.3)
[2016-03-14 12:39] VITALS: BP 91/55; PULSE 94; RESP 17; TEMP 98.3; O2SAT 99
[2016-03-14 12:39] LABS: POTASSIUM 2.9 mmol/L (3.5-5.1)
[2016-03-14 12:42] LABS: TOTAL BILIRUBIN 19.6 mg/dL (0.0-1.0)
[2016-03-14] MEDS: FOLIC ACID 1 MG, THIAMINE HCL 100 MG, MAGNESIUM SULFATE 1 GM, MVI 10 ML in NACL 0.9% 1,... IV SCH (13:00)
--- NOTE | 2016-03-14 13:00 | NUR ---
blood transfusion: pt on dialysis and blood transfusion done with dialysis nurse.
--- NOTE | 2016-03-14 15:13 | NUR ---
rounds: pt still on dialysis.
[2016-03-14 16:00] VITALS: BP 104/98; PULSE 109; RESP 18; TEMP 98.8; O2SAT 98
--- NOTE | 2016-03-14 17:00 | NUR ---
medication: pt refused medication.
--- NOTE | 2016-03-14 18:30 | NUR ---
closing notes" pt on bed with friend at bedside. no distress noted. call light within reach. report will bed given to incoming nurse.
[2016-03-14 19:45] VITALS: BP 136/84; PULSE 105; RESP 18; TEMP 98.4; O2SAT 94
[2016-03-14] MEDS ORDERED: POTASSIUM CHLORIDE 40 MEQ in NS 250 ML IV ONE (20:00)
--- NOTE | 2016-03-14 20:00 | NUR ---
NOTES; PT is in bed, lying in supine position. Pt appeared to be jaundiced. No acute distress noted. Vital signs stable, afebrile. Denies any SOB. Bruised noted to the left upper arm. Abdomen big, and distended with hyperactive bowel sounds. Dannie cath to the left chest wall with dressing clean,dry, and intact. Pt has no iv assess. Dr mejias at nurses station informed. MD stated " i know". 2+ edema to Sawyer lower ext. Pedal pulses palpable. Pt refused legs to be elevated. Pt refused his back side to be assessed. Pt is noncompliant. Pt refused bed alarm and 3 side rails to raised up. Pt only agree on x2 side rails to be raised up. Informed pt about the importance of 3X side rails to be raised up and bed alarm. Pt stated " i don't F care". Bed locked and in low position. Side rails up x2 per Pt request. call light for within reach. Pt refused to hear the teaching of the use of call light. charge nurse and RN covering informed. Call light w/in reach. Continue to monitor pt.
[2016-03-14] MEDS ORDERED: POTASSIUM CHLORIDE 20 MEQ TAB.PRT.SR PO ONE (20:30)
--- NOTE | 2016-03-14 21:30 | NUR ---
NOTES; ORDERED POTASSIUM 40 K-DUR 2 TABS PO ADMINISTERED.
--- NOTE | 2016-03-15 00:03 | NUR ---
REFUSAL pt refused the midnight vital signs. pt stated that he doesn't want his vital signs to be checked. MICHAEL Lozano is aware.
[2016-03-15] MEDS: LevALBUTEROL HCL 1.25 MG/0.5 ML *CONC.* VIAL.NEB (XOPENEX CONC.) INH SCH ×4 (01:00→19:00)
--- NOTE | 2016-03-15 01:30 | NUR ---
NOTES; PT REFUSED ORDERED CBC LAB DRAW. TRIED TO EXPLAIN THE IMPORTANCE THE CBC DRAW. PT STATED " I DON'T WANT TO F HERE ANY THING".
[2016-03-15] MEDS: OCTREOTIDE ACETATE 1,250 MCG in NS 243.75 ML IV SCH (02:30)
[2016-03-15] MEDS: PANTOPRAZOLE SODIUM 40 MG in NS 50 ML IV SCH ×2 (03:04→21:55)
--- NOTE | 2016-03-15 04:00 | NUR ---
NOTES; PT IS RESTING QUIETLY, RESPIRATION EVEN AND UNLABORED. CALL LIGHT WITHIN REACH.
--- NOTE | 2016-03-15 04:55 | NUR ---
REFUSAL When I asked the pt, if I can check his vital signs @ 4 a.m., pt said "no". pt also said when I asked if how many times did he go to the bathroom, pt said "642". I reported it to IMCHAEL Lozano. MICHAEL Lozano went to the pt room and asked the pt again, how many times did he go to the bathroom, pt said "everytime he goes to the bathroom, he pass out from front and back".
--- NOTE | 2016-03-15 06:50 | NUR ---
NOTES; IN BED RESTING QUIETLY, RESPIRATION EVEN AND UNLABORED. CALL LIGHT WITHIN REACH. PT IS NONCOMPLIANT. DENIES ANY PAIN AT THIS TIME. CALL LIGHT WITHIN REACH.
--- NOTE | 2016-03-15 07:00 | NUR ---
HANDOFF REPORT. NOC NURSE NOTES REFUSAL OF LABS AFTER PRBC ADMINISTRATION. ALLOWING PATIENT INDEPENDENCE. ENCOURAGING EXPRESSION OF FEELING.
[2016-03-15 07:17] LABS: INR 1.1 (0.80-1.20); PROTHROMBIN TIME 12.1 SECS (9.5-12.5)
[2016-03-15 07:20] LABS: HEMATOCRIT 25.6 % (36-54); HEMOGLOBIN 8.9 g/dL (14.0-18.0); MEAN CORPUSCULAR HEMOGLOBIN 34 pg (27-31); MEAN CORPUSCULAR HGB CONC 35 % (32-36); MEAN CORPUSCULAR VOLUME 98 fL (79.0-98.0); PLATELET COUNT (AUTO) 135 K/uL (130-430); RED BLOOD CELL COUNT(AUTO) 2.62 MIL/uL (4.2-6.2); RED CELL DISTRIBUTION WIDTH 20.7 % (9.0-15.0)
[2016-03-15 07:24] LABS: WHITE BLOOD COUNT (AUTO) 22.8 K/uL (4.8-10.8)
[2016-03-15 07:40] VITALS: BP 136/84; PULSE 91
[2016-03-15 07:43] LABS: ALBUMIN 1.4 g/dL (3.4-4.8); BILIRUBIN,DIRECT 13.5 mg/dL (0.0-0.3); CALCIUM 7.7 mg/dL (8.4-11.0); CREATININE 5.24 mg/dL (0.55-1.30); POTASSIUM 3.1 mmol/L (3.5-5.1); TOTAL PROTEIN, SERUM 4.9 g/dL (6.4-8.3)
--- NOTE | 2016-03-15 09:00 | NUR ---
ROUNDS TO PATIENT. DECLINES MEDS, VITAL SIGNS, ASSESSMENT.
[2016-03-15 09:43] LABS: ATYPICAL LYMPHOCYTES % 0 % (0-0); BAND % (MANUAL) 7 % (0-6); BASOPHILS % (MANUAL) 0 % (0-2); EOSINOPHILS % (MANUAL) 2 % (0-7); LYMPHOCYTES % (MANUAL) 6 % (20-46); MONOCYTES % (MANUAL) 6 % (0-11)
--- NOTE | 2016-03-15 11:00 | NUR ---
ROUNDS TO PATIENT. DECLINES NEEDS AT THIS TIME. SAYS HE DOES NOT WANT TO BATHE. SAYS CATHETER IS NOT SUPPOSED TO GET WET.
--- NOTE | 2016-03-15 12:55 | NUR ---
Nutrition Update Daniel Scale 18 noted. Pt admitted for acute alcohol intoxity, hepatoencephalopathy. Diet: mechanical soft BMI: 21.2 kg/m2 RD to follow per nutrition care standards.
--- NOTE | 2016-03-15 14:09 | NUR ---
VITAL SIGNS PT REFUSED TO HAVE HIS 1200 VITAL SIGNS TAKEN.
[2016-03-15] MEDS ORDERED: POTASSIUM CHLORIDE 20 MEQ TAB.PRT.SR PO ONE (14:15)
--- NOTE | 2016-03-15 14:15 | NUR ---
NON ADMIN POTASSIUM, PATIENT REFUSED MED.
--- NOTE | 2016-03-15 16:21 | NUR ---
REFUSAL PT REFUSED TO HAVE HIS 1600 V/S TAKEN.
--- NOTE | 2016-03-15 18:49 | NUR ---
PATIENT IN BED TODAY. DECLINES NEEDS AT THIS TIME.
[2016-03-15 20:00] VITALS: BP 113/73; PULSE 73; RESP 18; TEMP 97.8; O2SAT 98
--- NOTE | 2016-03-15 20:00 | NUR ---
NOTES; PT is awake, in bed. family at bedside with good support. Pt is jaundiced. No acute distress noted. Vital signs stable, afebrile. Denies any SOB. Bruised noted to the left upper arm. Abdomen big, and distended with hyperactive bowel sounds. Dannie cath to the left chest wall with dressing clean,dry, and intact. Pt has no iv assess. 2+ edema to Sawyer lower ext. Pedal pulses palpable. Pt refused legs to be elevated. Pt refused his back side to be assessed. Pt is noncompliant. Pt refused bed alarm, 3 side rails to raised up. Pt only agree on x2 side rails to be raised up. Informed pt about the importance of 3X side rails to be raised up and bed alarm. Pt stated pt still refused. . Bed locked and in low position. Side rails up x2 per Pt request. call light for within reach. Pt refused to hear the teaching of the use of call light. charge nurse and RN covering informed. Call light w/in reach. Continue to monitor pt.
[2016-03-15] MEDS: SODIUM BICARBONATE 8.4% JECT 50 MEQ/50 ML SYRINGE IVP SCH (21:00)
[2016-03-15] MEDS: metroNIDAZOLE 500 mg/NS 100 ML IV SCH (21:55)
--- NOTE | 2016-03-15 22:00 | NUR ---
NOTES; PT REFUSED ALL SCHEDULED MEDICATION, PT REFUSED IV INSERTION;
[2016-03-15 23:55] VITALS: BP 114/68; PULSE 87; RESP 20; TEMP 97.6; O2SAT 96
[2016-03-16] MEDS: LevALBUTEROL HCL 1.25 MG/0.5 ML *CONC.* VIAL.NEB (XOPENEX CONC.) INH SCH ×3 (00:05→13:00)
--- NOTE | 2016-03-16 00:10 | NUR ---
NOTES; PT IS RESTING QUIETLY, RESPIRATION EVEN AND UNLABORED. CALL LIGHT WITHIN REACH. BED LOCKED AND IN LOW POSITION, SIDE RAILS UP X2 PER PT REQUEST.
--- NOTE | 2016-03-16 02:00 | NUR ---
NOTES; PT IS RESTING QUIETLY, RESPIRATION EVEN AND UNLABORED. CALL LIGHT WITHIN REACH.
[2016-03-16] MEDS: OCTREOTIDE ACETATE 1,250 MCG in NS 243.75 ML IV SCH (02:30)
--- NOTE | 2016-03-16 04:00 | NUR ---
NOTES; PT IS RESTING QUIETLY, RESPIRATION EVEN AND UNLABORED. CALL LIGHT WITHIN REACH.
[2016-03-16] MEDS: PANTOPRAZOLE SODIUM 40 MG in NS 50 ML IV SCH ×4 (04:04→19:04)
[2016-03-16 04:29] VITALS: BP 118/68; PULSE 65; RESP 20; TEMP 98.4; O2SAT 96
[2016-03-16] MEDS: LIDOCAINE VISCOUS 2%, 15 ML UDC PO SCH ×4 (06:00→18:00)
[2016-03-16] MEDS: metroNIDAZOLE 500 mg/NS 100 ML IV SCH ×3 (06:00→21:56)
[2016-03-16] MEDS: MAG-AL HYDROX/SIMETH 30 ML UDC PO SCH ×5 (06:00→18:07)
--- NOTE | 2016-03-16 06:50 | NUR ---
NOTES; IN BED, RESTING QUIETLY, RESPIRATION EVEN AND UNLABORED. CALL LIGHT WITHIN REACH. PT IS NONCOMPLIANT. REFUSED ALMOST EVERYTHING . DENIES ANY PAIN AT THIS TIME. CALL LIGHT WITHIN REACH.
[2016-03-16 07:31] LABS: WHITE BLOOD COUNT (AUTO) 22.3 K/uL (4.8-10.8)
[2016-03-16 07:32] LABS: HEMATOCRIT 23.8 % (36-54); HEMOGLOBIN 8.4 g/dL (14.0-18.0); MEAN CORPUSCULAR HEMOGLOBIN 35 pg (27-31); MEAN CORPUSCULAR HGB CONC 35 % (32-36); MEAN CORPUSCULAR VOLUME 99 fL (79.0-98.0); PLATELET COUNT (AUTO) 114 K/uL (130-430); RED CELL DISTRIBUTION WIDTH 20.5 % (9.0-15.0)
--- NOTE | 2016-03-16 08:00 | NUR ---
OPENING NOTE: RECEIVED REPORT FROM NIGHT NURSE. PATIENT IS RESTING COMFORTABLY IN BED. NO S/S OF DISTRESS OR SOB. PATIENT IS ALERT AND ORIENTED, ABLE TO EXPRESS NEEDS, AND ASK FOR ASSISTANCE. PATIENT REFUSED VITAL SIGNS AT THIS TIME. CALL LIGHT IN REACH, BED IN LOWEST POSITION, AND WILL CONTINUE TO MONITOR.
[2016-03-16 08:49] LABS: BAND % (MANUAL) 8 % (0-6); BASOPHILS % (MANUAL) 0 % (0-2); EOSINOPHILS % (MANUAL) 1 % (0-7); LYMPHOCYTES % (MANUAL) 1 % (20-46); METAMYELOCYTES % 1 % (0-0); MONOCYTES % (MANUAL) 2 % (0-11)
[2016-03-16] MEDS: SODIUM BICARBONATE 8.4% JECT 50 MEQ/50 ML SYRINGE IVP SCH ×3 (09:00→21:00)
[2016-03-16] MEDS: PENTOXIFYLLINE 400 MG TABLET.SA (TRENtal) PO SCH (09:00)
--- NOTE | 2016-03-16 10:00 | NUR ---
NOTE: PATIENT IS RESTING COMFORTABLY IN BED. NO S/S OF DISTRESS OR SOB. PATIENT IS ALERT AND ORIENTED, ABLE TO EXPRESS NEEDS, AND ASK FOR ASSISTANCE. PATIENT REFUSED ALL AM MEDS. PATIENT IS NONCOMPLIANT. CALL LIGHT IN REACH, BED IN LOWEST POSITION, AND WILL CONTINUE TO MONITOR.
[2016-03-16 12:00] VITALS: BP 110/79; PULSE 96; RESP 18; TEMP 98.1; O2SAT 98
[2016-03-16] MEDS: FOLIC ACID 1 MG, THIAMINE HCL 100 MG, MAGNESIUM SULFATE 1 GM, MVI 10 ML in NACL 0.9% 1,... IV SCH (13:00)
--- NOTE | 2016-03-16 16:00 | NUR ---
NOTE: PATIENT IS RESTING COMFORTABLY IN BED. NO S/S OF DISTRESS OR SOB. PATIENT IS AWAKE AND ALERT. FAMILY AT BEDSIDE. CALL LIGHT IN REACH, BED IN LOWEST POSITION, AND WILL CONTINUE TO MONITOR.
[2016-03-16 17:20] VITALS: BP 106/75; PULSE 98; RESP 18; TEMP 96.4; O2SAT 99
--- NOTE | 2016-03-16 18:27 | NUR ---
CLOSING NOTE: PATIENT IS RESTING COMFORTABLY IN BED. NO S/S OF DISTRESS OR SOB. PATIENT IS ALERT AND ORIENTED. PATIENT WAS NONCOMPLIANT WITH MEDICATIONS ALL DAY. THE ONLY THING HE WILL TAKE IS MYLANTA. CALL LIGHT IN REACH, BED IN LOWEST POSITION, AND WILL GIVE REPORT TO NIGHT NURSE.
--- NOTE | 2016-03-16 19:55 | NUR ---
NOTES; PT is awake, in bed. family at bedside with good support. Pt is jaundiced. No acute distress noted. Vital signs stable, afebrile. Denies any SOB. Bruised noted to the left upper arm. Abdomen big, and distended with hyperactive bowel sounds. Dannie cath to the left chest wall with dressing clean,dry, and intact. Pt has no iv assess. 2+ edema to Sawyer lower ext. Pedal pulses palpable. Pt refused legs to be elevated. Pt refused his back side to be assessed. Pt is noncompliant. Pt refused bed alarm, 3 side rails to raised up. Pt only agree on x2 side rails to be raised up. Informed pt about the importance of 3X side rails to be raised up and bed alarm. pt still refused. . Bed locked and in low position. Side rails up x2 per Pt request. call light within reach. Pt refused to hear the teaching of the use of call light. charge nurse and RN covering informed. Call light w/in reach. Continue to monitor pt.
--- NOTE | 2016-03-16 21:30 | NUR ---
NOTES; DIALYSIS STARTED BY CHAUNCEY PEREYRA AT BEDSIDE . PT IS A/A/O X4. BP 107/74, HR 95, TEMP 99.2, AFEBRILE. WILL CONTINUE TO MONITOR.
--- NOTE | 2016-03-16 22:50 | NUR ---
NOTES; DIALYSIS ON GOING. NO ACUTE DISTRESS NOTED. DIALYSIS NURSE AT BEDSIDE AT ALL TIMES.
[2016-03-16 23:52] VITALS: BP 111/69; PULSE 95; RESP 18; TEMP 97; O2SAT 98
[2016-03-17] MEDS: PANTOPRAZOLE SODIUM 40 MG in NS 50 ML IV SCH ×5 (00:04→22:56)
--- NOTE | 2016-03-17 00:37 | NUR ---
NOTES; DIALYSIS IS COMPLETED, 2000ML OUT PUT. BP 109/73, HR 99. WHEN NURSE ASKED PT IS HE WAS IN PAIN. PT STATED " LEAVE ME THE FUCK ALONE". WILL CHECK ON PT.
--- NOTE | 2016-03-17 02:00 | NUR ---
NOTES; PT IS RESTING QUIETLY, RESPIRATION EVEN AND UNLABORED. CALL LIGHT WITHIN REACH.
[2016-03-17] MEDS: OCTREOTIDE ACETATE 1,250 MCG in NS 243.75 ML IV SCH (02:30)
--- NOTE | 2016-03-17 04:00 | NUR ---
NOTES; PT IS RESTING QUIETLY, RESPIRATION EVEN AND UNLABORED. CALL LIGHT WITHIN REACH.
[2016-03-17 04:55] VITALS: BP 111/70; PULSE 92; RESP 18; TEMP 98.8; O2SAT 96
[2016-03-17] MEDS: MAG-AL HYDROX/SIMETH 30 ML UDC PO SCH ×5 (06:00→22:59)
[2016-03-17] MEDS: metroNIDAZOLE 500 mg/NS 100 ML IV SCH ×3 (06:00→22:00)
[2016-03-17] MEDS: LIDOCAINE VISCOUS 2%, 15 ML UDC PO SCH ×5 (06:00→22:59)
[2016-03-17 06:28] LABS: HEMATOCRIT 25.3 % (36-54); HEMOGLOBIN 8.8 g/dL (14.0-18.0); MEAN CORPUSCULAR HEMOGLOBIN 34 pg (27-31); MEAN CORPUSCULAR HGB CONC 35 % (32-36); MEAN CORPUSCULAR VOLUME 99 fL (79.0-98.0); PLATELET COUNT (AUTO) 108 K/uL (130-430); RED BLOOD CELL COUNT(AUTO) 2.57 MIL/uL (4.2-6.2); RED CELL DISTRIBUTION WIDTH 19.8 % (9.0-15.0); WHITE BLOOD COUNT (AUTO) 21.6 K/uL (4.8-10.8)
[2016-03-17 06:59] LABS: ALBUMIN 1.5 g/dL (3.4-4.8); CALCIUM 7.9 mg/dL (8.4-11.0); CREATININE 5.06 mg/dL (0.55-1.30); TOTAL BILIRUBIN 14.4 mg/dL (0.0-1.0); TOTAL PROTEIN, SERUM 5.1 g/dL (6.4-8.3)
--- NOTE | 2016-03-17 07:14 | NUR ---
NOTES; PT IS RESTING QUIETLY, RESPIRATION EVEN AND UNLABORED. CALL LIGHT WITHIN REACH.
[2016-03-17 07:18] LABS: POTASSIUM 2.8 mmol/L (3.5-5.1)
[2016-03-17 08:19] VITALS: BP 111/70; PULSE 90
[2016-03-17] MEDS: LevALBUTEROL HCL 1.25 MG/0.5 ML *CONC.* VIAL.NEB (XOPENEX CONC.) INH SCH ×3 (08:19→19:00)
[2016-03-17 08:27] LABS: ATYPICAL LYMPHOCYTES % 2 % (0-0); BAND % (MANUAL) 2 % (0-6); LYMPHOCYTES % (MANUAL) 4 % (20-46)
[2016-03-17 08:28] LABS: BASOPHILS % (MANUAL) 0 % (0-2); EOSINOPHILS % (MANUAL) 0 % (0-7)
[2016-03-17] MEDS: SODIUM BICARBONATE 8.4% JECT 50 MEQ/50 ML SYRINGE IVP SCH ×3 (09:00→21:00)
--- NOTE | 2016-03-17 09:00 | NUR ---
Patient resting quietly in bed. He does refuse vs this morning, and refuses IV, and some blood drawls. No co on initial assessment. He is jaundice, He does not allow for complete physical assessment. Jose Rafael Bowser RN
[2016-03-17] MEDS: PENTOXIFYLLINE 400 MG TABLET.SA (TRENtal) PO SCH (10:27)
[2016-03-17 12:00] VITALS: BP 100/70; PULSE 87; RESP 20; TEMP 97.8; O2SAT 100
[2016-03-17] MEDS ORDERED: POTASSIUM CHLORIDE 20 MEQ TAB.PRT.SR PO ONE ×2 (12:30→18:00)
--- NOTE | 2016-03-17 13:00 | NUR ---
Patient only eats small part of lunch, less than 25%. He says that he does not like most of the food here. He does request some other food from the public service officer. Jose Rafael Bowser RN
[2016-03-17] MEDS: FOLIC ACID 1 MG, THIAMINE HCL 100 MG, MAGNESIUM SULFATE 1 GM, MVI 10 ML in NACL 0.9% 1,... IV SCH (13:01)
--- NOTE | 2016-03-17 18:00 | NUR ---
Patient taking PO meds mylanta every six hours, and does take his potassium supplement two times today per do. He does refuse some care, and usually rather have the asset analyst taking care of his personal needs. He is pleasant, yet will refuse care at times. Jose Rafael Bowser RN
[2016-03-17 20:32] VITALS: BP 112/68; PULSE 82; RESP 20; TEMP 97.5; O2SAT 96
--- NOTE | 2016-03-17 21:15 | NUR ---
Patient awake alert ambulating , verbally indicative fall measures implemented / .
--- NOTE | 2016-03-17 22:25 | NUR ---
patient Refuse IV re - insertion MD DR Mcbride aware / .
--- NOTE | 2016-03-17 23:39 | NUR ---
Patient REFUSE po medications / .
--- NOTE | 2016-03-17 23:40 | NUR ---
Patient resting this hour call aldana with patient frequent visual monitor for safety / .
--- NOTE | 2016-03-18 00:45 | NUR ---
REFUSAL PT REFUSED TO HAVE HIS MIDNIGHT V/S TAKEN. RODDY Lopez is aware.
[2016-03-18] MEDS: LevALBUTEROL HCL 1.25 MG/0.5 ML *CONC.* VIAL.NEB (XOPENEX CONC.) INH SCH ×4 (01:00→19:00)
[2016-03-18] MEDS: PANTOPRAZOLE SODIUM 40 MG in NS 50 ML IV SCH ×5 (01:04→21:04)
--- NOTE | 2016-03-18 02:11 | NUR ---
Patient awake alert this hour Refusing bedside care no acute distress noted / .
[2016-03-18] MEDS: OCTREOTIDE ACETATE 1,250 MCG in NS 243.75 ML IV SCH (02:13)
--- NOTE | 2016-03-18 05:00 | NUR ---
REFUSAL When asked if I can check his vital signs@ 4 a.m. , pt stated "no". RODDY Lopez is aware.
--- NOTE | 2016-03-18 05:42 | NUR ---
Refuse IV Re Insertion DR Mcbride aware / .
--- NOTE | 2016-03-18 05:43 | NUR ---
Patient Refuse AM medications awake & alert this hour / .
[2016-03-18] MEDS: metroNIDAZOLE 500 mg/NS 100 ML IV SCH ×3 (05:44→21:37)
[2016-03-18] MEDS: LIDOCAINE VISCOUS 2%, 15 ML UDC PO SCH ×3 (05:44→18:00)
[2016-03-18] MEDS: MAG-AL HYDROX/SIMETH 30 ML UDC PO SCH ×3 (05:45→18:00)
[2016-03-18 07:25] LABS: CREATININE 5.84 mg/dL (0.55-1.30)
[2016-03-18 07:32] LABS: HEMATOCRIT 24.3 % (36-54); HEMOGLOBIN 8.5 g/dL (14.0-18.0); MEAN CORPUSCULAR HEMOGLOBIN 35 pg (27-31); MEAN CORPUSCULAR HGB CONC 35 % (32-36); MEAN CORPUSCULAR VOLUME 100 fL (79.0-98.0); PLATELET COUNT (AUTO) 109 K/uL (130-430); RED BLOOD CELL COUNT(AUTO) 2.45 MIL/uL (4.2-6.2); RED CELL DISTRIBUTION WIDTH 19.7 % (9.0-15.0)
[2016-03-18 07:54] LABS: WHITE BLOOD COUNT (AUTO) 19.1 K/uL (4.8-10.8)
--- NOTE | 2016-03-18 08:10 | NUR ---
INITIAL NOTES RECEIVED PATIENT ON BED AWAKE.BREATHING EVEN AND UNLABORED.NO ACUTE DISTRESS.NO IV LINE.SAFETY AND FALL PRECAUTIONS IN PLACE.CALL LIGHT WITHIN REACH
--- NOTE | 2016-03-18 08:40 | NUR ---
NOTES PATIENT REFUSED VITAL SIGNS TAKING STATED "NO NOT RIGHT NOW".TRIED TO CONVINCE AND EXPLAINED RISKS AND BENEFITS;STILL REFUSED
[2016-03-18] MEDS: SODIUM BICARBONATE 8.4% JECT 50 MEQ/50 ML SYRINGE IVP SCH ×3 (09:00→21:00)
[2016-03-18] MEDS: PENTOXIFYLLINE 400 MG TABLET.SA (TRENtal) PO SCH (09:00)
--- NOTE | 2016-03-18 09:05 | NUR ---
NOTES PATIENT REFUSES DUE MEDS STATED "I DON'T WANT TO TAKE ANY MEDS".EXPLAINED RISKS AND BENEFITS STILL REFUSED
--- NOTE | 2016-03-18 10:20 | NUR ---
NOTES UNABLE TO CONVINCE IV RE-INSERTION.EXPLAINED RISKS AND BENEFITS STILL REFUSED STATED "NO I DON'T WANT WANT IT"
[2016-03-18 10:27] LABS: ATYPICAL LYMPHOCYTES % 0 % (0-0); BAND % (MANUAL) 5 % (0-6); BASOPHILS % (MANUAL) 0 % (0-2); EOSINOPHILS % (MANUAL) 0 % (0-7); LYMPHOCYTES % (MANUAL) 9 % (20-46); MONOCYTES % (MANUAL) 2 % (0-11)
--- NOTE | 2016-03-18 10:44 | NUR ---
bertha informed patient that i will assess Bertha catheter. Pt verbalized " Not now, maybe later. "
[2016-03-18] MEDS: FOLIC ACID 1 MG, THIAMINE HCL 100 MG, MAGNESIUM SULFATE 1 GM, MVI 10 ML in NACL 0.9% 1,... IV SCH (13:01)
[2016-03-18] MEDS ORDERED: POTASSIUM CHLORIDE 20 MEQ TAB.PRT.SR PO ONE (15:00)
--- NOTE | 2016-03-18 15:51 | NUR ---
Nutrition F/U Admitting Diagnosis Acute alcohol intoxication, hepatoencephalopathy, alcoholic liver Dz Past Medical History Alcohol dependency, possible depression. Pt also admitted w/ abd pain, N/V, and gastritis per MD notes. Pertinent Medications folic acid/thiamin/magnesium sulfate/MVI/minerals/NaCl IV, sodium bicarbonate, vancomycin HCl, mylanta Current Diet Order Mechanical soft x4 days Height (Feet) 6 feet Height (Inches) 1.00 inches Weight (Pounds) 161 pounds (admission wt; no significant weight changes noted) Weight (Calculated Kilograms) 73.567441 kilograms Patient Weight 73.028 kg Body Mass Index 21.24 kg/m2 (normal) [place]/Adjusted Body Weight IBW: 184 lb, 84 kg. 87% of IBW Estimated Needs 4582-8675 kcal/day (25-30 kcal/kg IBW for gradual wt gain) Grams of Protein per Day 101-118 gm/day (1.2-1.4 gm/kg IBW for dialysis) Fluid Intake Goal Per MD for dialysis status Pertinent Labs BUN 36 H, K 3 L, WBC 19.1 H, Hgb 8.5 L, Hct 24.3 L, eGFR 12 L, Na 135 L, CRE 5.84 H 03/17/16: Tbili 14.4 H (improved), AST 251 H, ALP 135 H (improved), ALB 1.5 L, Other Subjective Data Physical: Pt seen resting in bed while covered in blankets, appears jaundiced Appetite: ate well at breakfast, reports eating close to 100% of eggs and [place] toast; 39% average PO intakes x12 meals, x2 refusals; pt reports that he has been receiving Boost Plus, and drinks them at breakfast some times GI: reports heart burn and emesis x1 after breakfast, and continues w/ ongoing diarrhea; emesis: 2000 ml 03/14/16 Integumentary: Daniel scale: 22; jaundiced Plans/Procedures: N/A Pt is not meeting optimal nutritional needs. Pt declined nutrition education at previous RD visit. Problem, Etiology, Signs/Symptoms Inadequate nutritional intakes related to maintenance as evidenced by lack of nutritional quality while on clear liquid diet and Hx of alcohol dependency. *no longer applicable GI complications related to possible Hx of alcohol dependency and alcoholic liver disease as evidenced by Tbili 14.4, Hgb 8.5, and pt report of loose bowel movements and vomiting. Expected Outcomes or Goals - Monitor advancement of diet, appetite, and PO intakes w/ goal of pt meeting at least 75% of estimated nutritional needs, labs trending WNL, normal GI function, and skin integrity/weight maintenance. Dietitian Recommendations * Recommend mechanical soft diet, Boost Plus TID (additional 1080 kcal/day and 42 gm of protein/day) Follow Up Moderate Risk: F/U in 3-5 days
--- NOTE | 2016-03-18 18:15 | NUR ---
NOTES PATIENT NOTED WITH EPISODES OF NONPRODUCTIVE COUGH Addendum: 03/18/16 at 1910 by Jesenia Cary RN REFUSED ASSESSMENT.NO SOB
--- NOTE | 2016-03-18 19:00 | NUR ---
CLOSING NOTES PATIENT ON BED AWAKE.BREATHING EVEN AND UNLABORED.NO ACUTE DISTRESS.NO IV SITE.SAFETY AND FALL PRECAUTIONS IN PLACE.CALL LIGHT WITHIN REACH.WILL ENDORSE TO NEXT SHIFT ACCORDINGLY
--- NOTE | 2016-03-18 19:30 | NUR ---
initial nursing notes: Patient is awake. Patient refuses to be assessed. Patient covers himself with blanket. Encouraged patient to call for assistance as needed. Reminded patient regarding proper use of call light when asking for assistance.
--- NOTE | 2016-03-18 21:50 | NUR ---
nursing rounds: Patient refuses to take medications. Explained to patient the actions of the medications.
--- NOTE | 2016-03-18 23:50 | NUR ---
nursing rounds: Patient is awake. Patient denies of having pain.
[2016-03-19] VITALS: BP 107/64; PULSE 84; RESP 17; TEMP 98.9; O2SAT 98
[2016-03-19] MEDS: LevALBUTEROL HCL 1.25 MG/0.5 ML *CONC.* VIAL.NEB (XOPENEX CONC.) INH SCH ×4 (01:00→19:00)
--- NOTE | 2016-03-19 01:50 | NUR ---
nursing rounds: Patient sleeping in bed. No shortness of breath noted.
[2016-03-19] MEDS: PANTOPRAZOLE SODIUM 40 MG in NS 50 ML IV SCH ×5 (02:04→22:04)
[2016-03-19] MEDS: OCTREOTIDE ACETATE 1,250 MCG in NS 243.75 ML IV SCH (02:20)
--- NOTE | 2016-03-19 03:50 | NUR ---
nursing rounds: Patient calmly resting in bed. Patient has no respiratory distress.
[2016-03-19] MEDS: metroNIDAZOLE 500 mg/NS 100 ML IV SCH ×3 (05:29→22:00)
[2016-03-19] MEDS: LIDOCAINE VISCOUS 2%, 15 ML UDC PO SCH ×4 (05:30→17:42)
[2016-03-19] MEDS: MAG-AL HYDROX/SIMETH 30 ML UDC PO SCH ×4 (05:30→17:42)
--- NOTE | 2016-03-19 05:50 | NUR ---
nursing rounds: Patient sleeping in bed. No falls and no injuries noted.
--- NOTE | 2016-03-19 07:26 | NUR ---
closing nursing notes: Patient calmly resting in bed. Patient is in no acute respiratory distress. No episodes of fall and no injuries throughout the maintenance technician 2nd shift. Provided nursing report to incoming morning shift nurse at patient's bedside.
--- NOTE | 2016-03-19 07:39 | NUR ---
INITIAL NOTES RECEIVED PATIENT ON BED ASLEEP.BREATHING EVEN AND UNLABORED.NO IV LINE.PATIENT REFUSED RE-INSERTION.MD AWARE.SAFETY AND FALL PRECAUTIONS IN PLACE.CALL LIGHT WITHIN REACH
--- NOTE | 2016-03-19 08:45 | NUR ---
NOTES OFFERED 9 AM MEDS BUT REFUSED.EXPLAINED RISKS AND BENEFITS;STILL REFUSED STATED "I DON'T WANT TO TAKE ANY OF THOSE CRAP"
[2016-03-19] MEDS: PENTOXIFYLLINE 400 MG TABLET.SA (TRENtal) PO SCH (09:00)
[2016-03-19] MEDS: SODIUM BICARBONATE 8.4% JECT 50 MEQ/50 ML SYRINGE IVP SCH ×3 (09:00→21:00)
[2016-03-19 09:07] LABS: ALBUMIN 1.7 g/dL (3.4-4.8); BILIRUBIN,DIRECT 12.7 mg/dL (0.0-0.3); TOTAL PROTEIN, SERUM 6.2 g/dL (6.4-8.3)
[2016-03-19 09:10] LABS: TOTAL BILIRUBIN 15.7 mg/dL (0.0-1.0)
--- NOTE | 2016-03-19 09:25 | NUR ---
NOTES CHECKED PATIENT;WITH COMPLAIN OF HEADACHE;REFUSED ASSESSMENT;OFFERED TYLENOL BUT REFUSED STATED "I NEED SOMETHING TO MAKE ME SLEEP MAN ,EVERYTHING HERE IS CRAP".LOOKS UPSET REFUSED TO ANSWER MORE QUESTIONS AND ASKED THE NURSE TO LEAVE
[2016-03-19 11:32] VITALS: BP 111/63; PULSE 81; RESP 19; TEMP 97.7; O2SAT 99
--- NOTE | 2016-03-19 12:35 | NUR ---
NOTES ABLE TO EAT WELL AT LUNCH TIME.NO ACUTE DISTRESS
[2016-03-19] MEDS: FOLIC ACID 1 MG, THIAMINE HCL 100 MG, MAGNESIUM SULFATE 1 GM, MVI 10 ML in NACL 0.9% 1,... IV SCH (13:01)
--- NOTE | 2016-03-19 14:50 | NUR ---
NOTES PATIENT ON BED AWAKE;STABLE
--- NOTE | 2016-03-19 16:45 | NUR ---
NOTES DR. FAJARDO CAME AND EXAMINED THE PATIENT;WITH ORDER FOR ANOTHER HEMODIALYSIS TOMORROW;CARRIED OUT
[2016-03-19] MEDS: EPOETIN ALFA 10,000 UNITS/ML VIAL SUBCUT SCH (17:42)
--- NOTE | 2016-03-19 19:00 | NUR ---
CLOSING NOTES PATIENT ON BED AWAKE.BREATHING EVEN AND UNLABORED.NO ACUTE DISTRESS.NO IV SITE.SAFETY AND FALL PRECAUTIONS IN PLACE.CALL LIGHT WITHIN REACH.WILL ENDORSE TO NEXT SHIFT ACCORDINGLY
[2016-03-19 20:30] VITALS: BP 116/79; PULSE 88; RESP 17; TEMP 99; O2SAT 96
--- NOTE | 2016-03-19 20:30 | NUR ---
OPENING NOTE PATIENT IS A/OX4. BREATHING IS NON LABORED. NO SIGNS OF DISTRESS. NO IV ACCESS. IV ACCESS WAS SUGGESTED TO THE PATIENT. PATIENT WAS EDUCATED ON THE IMPORTANCE OF HAVING IV ACCESS. PATIENT REFUSED. VITAL SIGNS ARE STABLE. EARLE CATH IS NOTED AND IS CLEAN DRY AND INTACT. PATIENT INSTRUCTED TO CALL FOR ASSISTANCE. PATIENT REFUSED BED ALARM. CALL LIGHT IS WITHIN REACH. SAFETY MEASURES ARE IN PLACE. WILL CONTINUE TO MONITOR.
--- NOTE | 2016-03-19 21:30 | NUR ---
PATIENT REFUSED MEDICATION 2100 AND 2200 MEDICATION COULD NOT BED ADMINISTERED. PATIENT HAS NO IV ACCESS AND PATIENT REFUSED TO HAVE IV ACCESS INSERT.PATIENT WAS EDUCATED ON THE IMPORTANCE OF MEDICATION AND IV ACCESS. PATIENT REFUSED.
--- NOTE | 2016-03-19 23:00 | NUR ---
ROUNDS PATIENT IS IN BED SLEEPING. NO SIGNS OF DISTRESS. BREATHING IS NON LABORED. CALL LIGHT IS WITHIN REACH. PATIENT REFUSED BED ALARM. WILL CONTINUE TO MONITOR.
--- NOTE | 2016-03-20 00:15 | NUR ---
PATIENT REFUSED ALL 0000 MEDICATIONS. PATIENT WAS EDUCATED ON THE MEDICATION. PATIENT REFUSED.
[2016-03-20] MEDS: LevALBUTEROL HCL 1.25 MG/0.5 ML *CONC.* VIAL.NEB (XOPENEX CONC.) INH SCH ×4 (00:33→19:00)
--- NOTE | 2016-03-20 02:00 | NUR ---
PATIENT REFUSED 0230 MEDICATIONS. PATIENT REFUSED IV ACCESS. PATIENT EDUCATED THE IMPORTANCE OF MEDICATION AND IV ACCESS. PATIENT REFUSED.
[2016-03-20] MEDS: OCTREOTIDE ACETATE 1,250 MCG in NS 243.75 ML IV SCH (02:30)
[2016-03-20] MEDS: PANTOPRAZOLE SODIUM 40 MG in NS 50 ML IV SCH ×3 (03:04→13:04)
--- NOTE | 2016-03-20 03:30 | NUR ---
SPOKE TO MANAGER RESIDENTIAL REGARDING PATIENT'S HEMODIALYSIS SCHEDULED FOR 03-20-2016 AT 0600. MANAGER RESIDENTIAL STATED THAT DR. FAJARDO NEEDS TO GET APPROVAL FROM DR. BRANDEN COE TO THE FACT THAT PATIENT HAD HEMODIALYSIS ON 03-19-2016. WILL CALL DR. FAJARDO AND INFORM HIM.
--- NOTE | 2016-03-20 05:10 | NUR ---
ROUNDS PATIENT IS IN SLEEPING. NO SIGNS OF DISTRESS. BREATHING IS NON LABORED. WILL CONTINUE TO MONITOR.
[2016-03-20] MEDS: LIDOCAINE VISCOUS 2%, 15 ML UDC PO SCH ×4 (06:00→18:00)
[2016-03-20] MEDS: metroNIDAZOLE 500 mg/NS 100 ML IV SCH (06:00)
[2016-03-20] MEDS: MAG-AL HYDROX/SIMETH 30 ML UDC PO SCH ×3 (06:00→11:52)
--- NOTE | 2016-03-20 06:07 | NUR ---
PATIENT REFUSED ALL 0600 MEDICATION. PATIENT WAS EDUCATED ON THE MEDICATIONS. PATIENT REFUSED.
--- NOTE | 2016-03-20 07:00 | NUR ---
SPOKE TO DOCTOR FAJARDO REGARDING PATIENT HEMODIALYSIS SCHEDULE FOR TODAY. STATED THAT HEMODIALYSIS ORDER FOR TODAY WAS PUT INPUTTED INCORRECTLY. STATED TO CANCEL CURRENT ORDER AND THAT HE WILL INPUT NEW ORDER.
--- NOTE | 2016-03-20 07:25 | NUR ---
rn notes: patient is aaox 4 has left permacath/bertha cath in placed for dialysis. refused to have vitals signs taken. he said i am stable. no fever and no pain. physical assessment refused too. call lights within reach. safety measures maintained. informed patient to call for assistance. no dialysis schedule today.
--- NOTE | 2016-03-20 08:05 | NUR ---
CLOSING NOTES PATIENT IS IN BED WATCHING TV AND EATING. NO SIGNS OF DISTRESS. BREATHING IS NON LABORED. SAFETY MEASURES ARE IN PLACE. REPORT GIVEN TO MORNING NURSE.
--- NOTE | 2016-03-20 08:19 | NUR ---
REFUSED TO HAVE VITAL SIGNS TAKEN. REFUSED OTHER PROCEDURE TO BE DONE.
[2016-03-20] MEDS: SODIUM BICARBONATE 8.4% JECT 50 MEQ/50 ML SYRINGE IVP SCH ×2 (09:00→15:00)
[2016-03-20] MEDS: PENTOXIFYLLINE 400 MG TABLET.SA (TRENtal) PO SCH (09:00)
--- NOTE | 2016-03-20 09:00 | NUR ---
watching tv. no pain nor distress noted.
[2016-03-20 09:11] LABS: INR 1.1 (0.80-1.20); PROTHROMBIN TIME 12.3 SECS (9.5-12.5)
[2016-03-20 09:20] LABS: ALBUMIN 1.6 g/dL (3.4-4.8); BILIRUBIN,DIRECT 10.1 mg/dL (0.0-0.3); TOTAL BILIRUBIN 12.5 mg/dL (0.0-1.0); TOTAL PROTEIN, SERUM 5.5 g/dL (6.4-8.3)
--- NOTE | 2016-03-20 10:00 | NUR ---
has due meds but refused. aware.
--- NOTE | 2016-03-20 11:00 | NUR ---
no dialysis scheduled today. it should be for tomorrow.
--- NOTE | 2016-03-20 12:00 | NUR ---
had lunch. no pain nor distress noted.
[2016-03-20 13:00] VITALS: BP 116/79; PULSE 88
[2016-03-20] MEDS: FOLIC ACID 1 MG, THIAMINE HCL 100 MG, MAGNESIUM SULFATE 1 GM, MVI 10 ML in NACL 0.9% 1,... IV SCH (13:01)
--- NOTE | 2016-03-20 14:00 | NUR ---
watching tv. stable no pain. said get out of my room. i dont need you.
--- NOTE | 2016-03-20 16:00 | NUR ---
sleep most of the time. no pain nor distress noted.
--- NOTE | 2016-03-20 18:00 | NUR ---
had eaten dinner. no pain nor distress noted.
--- NOTE | 2016-03-20 19:25 | NUR ---
sbar report given to incoming nurse Ignacio Murguia
--- NOTE | 2016-03-20 19:30 | NUR ---
notes received the pt from the day nurse,pt refusing vs and said get the f..... out.
--- NOTE | 2016-03-20 21:51 | NUR ---
notes pt sleeping, call light within reach.
--- NOTE | 2016-03-20 23:30 | NUR ---
notes pt sleeping,call light within reach.continue to monitor.
--- NOTE | 2016-03-21 00:14 | NUR ---
notes pt refusing mylanta.
[2016-03-21] MEDS: LevALBUTEROL HCL 1.25 MG/0.5 ML *CONC.* VIAL.NEB (XOPENEX CONC.) INH SCH ×4 (01:00→19:00)
--- NOTE | 2016-03-21 01:13 | NUR ---
notes pt sleeping,call light within reach.continue to monitor
[2016-03-21] MEDS: OCTREOTIDE ACETATE 1,250 MCG in NS 243.75 ML IV SCH (02:30)
--- NOTE | 2016-03-21 03:19 | NUR ---
notes pt remains asleep.no distress noted.continue to monitor.
--- NOTE | 2016-03-21 05:10 | NUR ---
notes pt remains asleep call light within reach.continue to monitor.
[2016-03-21] MEDS: MAG-AL HYDROX/SIMETH 30 ML UDC PO SCH ×3 (05:30→12:00)
--- NOTE | 2016-03-21 06:12 | NUR ---
closing notes pt remains asleep,will endorse the care of the pt to the day nurse.
--- NOTE | 2016-03-21 07:25 | NUR ---
rn notes: patient is aaox 4. but refused to hav vitals signs taken. and assess the left bertha cath in placed.
--- NOTE | 2016-03-21 07:30 | NUR ---
rn notes: patient is stable no pain nor distress noted, but refused to be bothered at this time. call lights within reach. safety measures maintained. informed to call for assistance.
--- NOTE | 2016-03-21 08:00 | NUR ---
refused vital signs taken. refused to assists on adls.
[2016-03-21] MEDS: PENTOXIFYLLINE 400 MG TABLET.SA (TRENtal) PO SCH (09:00)
--- NOTE | 2016-03-21 09:00 | NUR ---
refused to eat and said later and later.
--- NOTE | 2016-03-21 10:00 | NUR ---
refused to take medication as ordered.
--- NOTE | 2016-03-21 12:00 | NUR ---
pt refused 1200 v/s. Rn is notified and aware. pt stated that he was going to have dialysis today so get it from them.
--- NOTE | 2016-03-21 15:00 | NUR ---
refused to talked to the family members.
--- NOTE | 2016-03-21 15:34 | NUR ---
INFORMED PATIENT REGARDING THE DIALYSIS NURSE WILL COME AT 1900PM [facility].
--- NOTE | 2016-03-21 16:34 | NUR ---
PT REFUSED 1600 V/S RN IS NOTIFIED AND AWARE.
[2016-03-21] MEDS: EPOETIN ALFA 10,000 UNITS/ML VIAL SUBCUT SCH (17:00)
--- NOTE | 2016-03-21 18:08 | NUR ---
Dr Ashby came and informed RODDY Harmon. no available nurse to do tonite. so he ordered dialysis tomorrow. please follow up.
--- NOTE | 2016-03-21 18:20 | NUR ---
refused any assistance.
--- NOTE | 2016-03-21 19:20 | NUR ---
sbar report given to incoming nurse Ignacio RODRIGUEZ
--- NOTE | 2016-03-21 19:30 | NUR ---
notes received the pt from the day nurse.pt sleeping was awaken for vs but refused.call light within reach safety measures in progress.continue to monitor.
--- NOTE | 2016-03-21 21:41 | NUR ---
notes pt got up to the bathroom then back to bed with no complaints.
--- NOTE | 2016-03-21 22:12 | NUR ---
notes pt standing at the nurses station asking to go to the v[facility] [employer],security called to take the pt.
--- NOTE | 2016-03-21 23:30 | NUR ---
notes pt sleeping call light within reach.continue to monitor.
[2016-03-22] MEDS: LevALBUTEROL HCL 1.25 MG/0.5 ML *CONC.* VIAL.NEB (XOPENEX CONC.) INH SCH (01:00)
--- NOTE | 2016-03-22 01:29 | NUR ---
notes pt remains asleep,no distress notes continue to monitor.
--- NOTE | 2016-03-22 03:20 | NUR ---
notes pt remains asleep,call light within reach.continue to monitor.
--- NOTE | 2016-03-22 06:22 | NUR ---
closing notes pt remains asleep,call light within reach.will endorse the care of the pt to the day nurse.
--- NOTE | 2016-03-22 07:20 | NUR ---
rn notes: patient is aaox 4. refused vital signs taken. has central line bertha cath with pigtail. dry/intact. refused to be assessed. call lights within reach safety measures maintained. informed patient to call for assistance. still all over jaundiced. no iv access noted.
[2016-03-22 07:22] LABS: HEMATOCRIT 23.1 % (36-54); MEAN CORPUSCULAR HEMOGLOBIN 35 pg (27-31); MEAN CORPUSCULAR HGB CONC 35 % (32-36); MEAN CORPUSCULAR VOLUME 101 fL (79.0-98.0); PLATELET COUNT (AUTO) 141 K/uL (130-430)
[2016-03-22 07:24] LABS: ALBUMIN 1.5 g/dL (3.4-4.8); CREATININE 5.65 mg/dL (0.55-1.30); TOTAL BILIRUBIN 10.8 mg/dL (0.0-1.0); TOTAL PROTEIN, SERUM 5.3 g/dL (6.4-8.3)
[2016-03-22 07:48] LABS: WHITE BLOOD COUNT (AUTO) 18.5 K/uL (4.8-10.8)
[2016-03-22] MEDS: PENTOXIFYLLINE 400 MG TABLET.SA (TRENtal) PO SCH (09:00)
--- NOTE | 2016-03-22 09:00 | NUR ---
refused medication due. assists on adls. but still refused.
--- NOTE | 2016-03-22 10:15 | NUR ---
DIALYSIS STARTED AT THIS TIME. REFUSED FOR ANY ASSISTANCE NOW.
[2016-03-22 11:24] LABS: ATYPICAL LYMPHOCYTES % 0 % (0-0); BAND % (MANUAL) 2 % (0-6); BASOPHILS % (MANUAL) 0 % (0-2); EOSINOPHILS % (MANUAL) 2 % (0-7); LYMPHOCYTES % (MANUAL) 7 % (20-46); MONOCYTES % (MANUAL) 6 % (0-11)
--- NOTE | 2016-03-22 12:00 | NUR ---
requested to have popsicle. called the kitchen
[2016-03-22 12:50] VITALS: BP 113/72; PULSE 86; RESP 17
--- NOTE | 2016-03-22 14:00 | NUR ---
dialysis output is 2 liters total. patient is stable.
[2016-03-22] MEDS ORDERED: POTASSIUM CHLORIDE 20 MEQ TAB.PRT.SR PO ONE (15:30)
--- NOTE | 2016-03-22 16:00 | NUR ---
watching tv. no pain nor distress noted.
--- NOTE | 2016-03-22 17:12 | NUR ---
PATIENT TOOK K DUR 40 MEQ PO WITH WATER. ASSISTS
--- NOTE | 2016-03-22 18:00 | NUR ---
refused to have assistance. but stable. still jaundiced.
[2016-03-22 19:10] VITALS: BP 114/69; PULSE 73; RESP 18; TEMP 98; O2SAT 100
--- NOTE | 2016-03-22 19:10 | NUR ---
INITIAL NOTES RECVD PT IN BED,A/A/X4 WITH LADY FRIEND @ BEDSIDE.V/S 114/69,98.0,73,19,100%RA.NOTED EARLE CATH TO L CHEST WITH GOOD BLOOD RETURN.ALL EXTREMITIES ARE STRONG,AMBULATORY.DISCUSSED PLAN OF CARE WITH PT AND VERBALIZED UNDERSTANDING.CALL LIGHT WITHIN REACH,WILL CONT TO MONITOR.
--- NOTE | 2016-03-22 19:30 | NUR ---
sbar report given to incoming nurse John Rn for Ramón Stapleton
[2016-03-22] MEDS: SODIUM BICARBONATE 8.4% JECT 50 MEQ/50 ML SYRINGE IVP SCH (21:00)
--- NOTE | 2016-03-22 21:10 | NUR ---
ROUNDS PT SLEEPING AND REFUSED ALL DUE MEDS.HE SAID "DONT DISTURB ME".RESPECTED PT'S REQUEST.
--- NOTE | 2016-03-22 23:10 | NUR ---
ROUNDS PT IS SLEEPING @ THIS TIME.NO S/S OF PAIN AND NO RESPI DISTRESS NOTED.CALL LIGHT WITHIN REACH,WILL CONT TO MONITOR.
--- NOTE | 2016-03-23 01:10 | NUR ---
ROUNDS PT IS SLEEPING COMFORTABLY @ THIS TIME.NO S/S OF PAIN AND NO RESPI DISTRESS NOTED.CALL LIGHT WITHIN REACH,WILL CONT TO MONITOR.
--- NOTE | 2016-03-23 02:48 | NUR ---
ROUNDS PT IS SLEEPING @ THIS TIME.NO S/S OF PAIN AND NO RESPI DISTRESS NOTED.CALL LIGHT WITHIN REACH,WILL CONT TO MONITOR.
--- NOTE | 2016-03-23 02:51 | NUR ---
ROUNDS PT IS SLEEPING @ THIS TIME.NO C/O PAIN AND NO SOB NOTED.CALL LIGHT WITHIN REACH,WILL CONT OT MONITOR.
--- NOTE | 2016-03-23 03:10 | NUR ---
ROUNDS PT IS SLEEPING COMFORTABLY@ THIS TIME.NO S/S OF PAIN AND NO RESPI DISTRESS NOTED.CALL LIGHT WITHIN REACH,WILL CONT TO MONITOR.
--- NOTE | 2016-03-23 03:10 | NUR ---
ROUNDS PT IS SLEEPING COMFORTABLY @ THIS TIME.NO S/S OF PAIN AND NO RESPI DISTRESS NOTED.CALL LIGHT WITHIN REACH,WILL CONT TO MONITOR.
--- NOTE | 2016-03-23 05:10 | NUR ---
ROUNDS PT IS SLEEPING @ THIS TIME.NO S/S OF PAIN AND NO RESPI DISTRESS NOTED.CALL LIGHT WITHIN REACH,WILL CONT TO MONITOR.
--- NOTE | 2016-03-23 06:54 | NUR ---
FINAL NOTES PT IS SLEEPING @ THIS TIME.PT REFUSED ALL MEDS DURING NOC SHIFT.PT REQUESTED NOT TO BE BOTHERED AND ASKED NURSES TO "LEAVE ME ALONE".RESPECTED PT'S DECISION.V/S ARE WNL.ALL NEEDS MET AND ANTICIPATED BY [facility] NURSES.CALL LIGHT WITHIN REACH,WILL CONT TO MONITOR.
[2016-03-23] MEDS: LevALBUTEROL HCL 1.25 MG/0.5 ML *CONC.* VIAL.NEB (XOPENEX CONC.) INH SCH ×3 (07:00→19:00)
--- NOTE | 2016-03-23 08:05 | NUR ---
INITIAL NOTES RECEIVED PATIENT ON BED ASLEEP.BREATHING EVEN AND UNLABORED.NO ACUTE DISTRESS.WITH EARLE CATH INTACT;REFUSED ASSESSMENT OF THE SITE.SAFETY AND FALL PRECAUTIONS IN PLACE.CALL LIGHT WITHIN REACH
--- NOTE | 2016-03-23 08:30 | NUR ---
NOTES PATIENT ON BED AWAKE;REFUSED VITAL SIGNS AND PHYSICAL ASSESSMENT STATED "I DON"T WANT IT RIGHT NOW" WITH AN ANGRY FACE
[2016-03-23] MEDS: SODIUM BICARBONATE 8.4% JECT 50 MEQ/50 ML SYRINGE IVP SCH ×3 (09:00→21:00)
[2016-03-23] MEDS: PENTOXIFYLLINE 400 MG TABLET.SA (TRENtal) PO SCH (09:00)
[2016-03-23] MEDS: POTASSIUM CHLORIDE 20 MEQ TAB.PRT.SR PO SCH (09:00)
--- NOTE | 2016-03-23 09:02 | NUR ---
NOTES OFFERED DUE MEDS;REFUSED;EXPLAINED RISKS AND BENEFITS STILL REFUSED
[2016-03-23 11:45] VITALS: BP 114/69; PULSE 73
--- NOTE | 2016-03-23 12:45 | NUR ---
NOTES PATIENT ON BED EATING;WITH GOOD APPETITE
--- NOTE | 2016-03-23 15:39 | NUR ---
Nutrition F/U Admitting Diagnosis Acute alcohol intoxication, hepatoencephalopathy, alcoholic liver Dz Per operative notes 03/12/16: post-op diagnoses: acute renal failure, cirrhosis of the liver, ascites, hyperbilirubinemia Past Medical History Alcohol dependency, possible depression. Pt also admitted w/ abd pain, N/V, and gastritis per MD notes. Pertinent Medications folic acid/thiamin/magnesium sulfate/MVI/minerals/NaCl IV, sodium bicarbonate, mylanta, K-Dur, procrit, pantoprazol Na/NaCl, octreotide acetate/Na Cl Current Diet Order Mechanical soft, Boost Plus TID Height (Feet) 6 feet Height (Inches) 1.00 inches Weight (Pounds) 161 pounds (admission wt); 03/18/16: no significant weight changes noted; 03/23/16: bed scale read 158.5 lbs, noted 2.5 lb loss); noted pt underwent paracentesis on 03/12/16; wt may be inflated d/t fluids Weight (Calculated Kilograms) 73.416068 kilograms Patient Weight 73.028 kg Body Mass Index 21.24 kg/m2 [place]/Adjusted Body Weight IBW: 184 lb, 84 kg. 87% of IBW Estimated Needs (modified) 2087 kcal/day (BEE x 1.2 for liver cirrhosis) Grams of Protein per Day 101-118 gm/day (1.2-1.4 gm/kg IBW for dialysis) Fluid Intake Goal Per MD for acute renal failure Pertinent Labs 03/22/16: WBC 18.5 H, H/H 8 L/23.1 L, K 3.0 L, BUN 33 H, CRE 5.65 H, eGFR 12 L, tbili 10.8 H, AST 166 H, ALT 94 H, ALP 254 H, ALB 1.5 L, Na 139 WNL (improved) Other Subjective Data Patient seen resting in bed at time of visit, covered in blankets and refusing to engage in verbal interview. Per RN, pt has been unwilling to talk to other staff as well. RN stated that pt has a good appetite and has still been eating his meals, but was unaware if pt has been drinking Boost Plus supplements. RN stated that pt has not complained of nausea and was unsure if pt has had BM yet today. No planned procedures today. Noted per operative notes 03/12/16: post-op diagnoses: acute renal failure, cirrhosis of the liver, ascites, hyperbilirubinemia. Per EMR, average PO intake is 37% x 5 days (noted pt refused meal x 3). Daniel scale: 18 (03/22/16); jaundiced. I/Os (03/23/16): 800/0 (+800 ml); 1 BM recorded yesterday. Noted no records of emesis since 03/14/16. Pt is not yet meeting optimal nutritional requirements. Recommend encouraging PO intakes as tolerated. Noted pt is receiving Boost Plus TID with meals, providing additional 1080 kcal and 42 gm protein daily. Recommend consideration of Novasource Renal oral supplement BID instead of Boost for more renal-friendly option (would provide 950 kcals and 43 gm protein daily). RD left note with recommendations for MD to sign. Pt declined nutrition education at previous RD visit. Problem, Etiology, Signs/Symptoms (modified) Altered GI function related to liver cirrhosis as evidenced by abnormal tbili lab values and liver enzymes, post-op diagnosis, and pt reports of loose bowel movements and vomiting. Expected Outcomes or Goals - Monitor advancement of diet, appetite, and PO intakes w/ goal of pt meeting at least 75% of estimated nutritional needs, labs trending WNL, normal GI function, and skin integrity/weight maintenance. Dietitian Recommendations * Continue mechanical soft diet, Boost Plus TID * Recommend Novasource Renal oral supplement BID (instead of Boost) * Encourage PO intakes as tolerated Follow Up Moderate Risk: F/U in 3-5 days
--- NOTE | 2016-03-23 17:00 | NUR ---
NOTES CHECKED PATIENT;ASKED IF HE NEEDS SOMETHING STATED "PLEASE LEAVE AND DON'T BOTHER ME" WITH AN ANGRY TONE
--- NOTE | 2016-03-23 18:44 | NUR ---
CLOSING NOTES PATIENT ON BED AWAKE WATCHING T.V.BREATHING EVEN AND UNLABORED.NO ACUTE DISTRESS.EARLE CATH INTACT.SAFETY AND FALL PRECAUTIONS IN PLACE.CALL LIGHT WITHIN REACH.WILL ENDORSE TO NEXT SHIFT ACCORDINGLY
--- NOTE | 2016-03-23 19:10 | NUR ---
INITIAL NOTES RECVD PT IN BED,A/A/X3.REFUSED HIS V/S TAKEN.NOTED EARLE CATH TO L CHEST WITH GOOD BLOOD RETURN.ALL EXTREMITIES ARE STRONG,AMBULATORY.DISCUSSED PLAN OF CARE WITH PT AND VERBALIZED UNDERSTANDING.CALL LIGHT WITHIN REACH,WILL CONT TO MONITOR.
--- NOTE | 2016-03-23 21:10 | NUR ---
Rounds Pt is sleeping @ this time.No s/s of any pain and no sob noted.Call light within reach,will cont to monitor.
--- NOTE | 2016-03-23 21:50 | NUR ---
PT REFUSED Na bicarb,explained risk and benefits.
--- NOTE | 2016-03-23 23:10 | NUR ---
ROUNDS PT IS SLEEPING @ THIS TIME.NO C/O PAIN AND NO SOB NOTED.CALL LIGHT WITHIN REACH,WILL CONT OT MONITOR.
--- NOTE | 2016-03-24 01:10 | NUR ---
ROUNDS PT IS COMFORTABLY SLEEPING @ THIS TIME.NO S/S OF PAIN AND NO DISTRESS NOTED.CALL LIGHT WITHIN REACH,WILL CONT TO MONITOR.
[2016-03-24] MEDS: LevALBUTEROL HCL 1.25 MG/0.5 ML *CONC.* VIAL.NEB (XOPENEX CONC.) INH SCH ×4 (01:30→19:35)
--- NOTE | 2016-03-24 03:10 | NUR ---
ROUNDS PT IS SLEEPING @ THIS TIME.NO C/O PAIN AND NO SOB NOTED.CALL LIGHT WITHIN REACH,WILL CONT TO MONITOR.
--- NOTE | 2016-03-24 05:10 | NUR ---
ROUNDS PT SLEPT ALL NIGHT.REFUSED ALL MEDS AND V/S CHECK."DONT BOTHER ME" HE ANGRILY SAID.RESPECTED PT'S DECISION.
--- NOTE | 2016-03-24 06:56 | NUR ---
FINAL NOTES PT IS SLEEPING @ THIS TIME.NO C/O PAIN AND NO DISTRESS NOTED.V/S ARE WNL.ALL NEEDS MET AND ANTICIPATED BY NOC NURSES.CALL LIGHT WITHIN REACH,WILL CONT TO MONITOR.
--- NOTE | 2016-03-24 07:57 | NUR ---
INITIAL NOTES RECEIVED PATIENT ON BED ASLEEP.BREATHING EVEN AND UNLABORED.NO ACUTE DISTRESS.EARLE CATH INTACT.SAFETY AND FALL PRECAUTIONS IN PLACE.CALL LIGHT WITHIN REACH
[2016-03-24] MEDS: POTASSIUM CHLORIDE 20 MEQ TAB.PRT.SR PO SCH (09:00)
[2016-03-24] MEDS: SODIUM BICARBONATE 8.4% JECT 50 MEQ/50 ML SYRINGE IVP SCH ×2 (09:00→15:00)
[2016-03-24] MEDS: PENTOXIFYLLINE 400 MG TABLET.SA (TRENtal) PO SCH (09:00)
--- NOTE | 2016-03-24 09:07 | NUR ---
NOTES OFFERED DUE MEDS;REFUSED STATED "I DON'T WANT IT".EXPLAINED RISKS AND BENEFITS STATED "I WILL CALL YOU IF I WANT TO TAKE IT LATER".ALSO REFUSED ASSESSMENT
--- NOTE | 2016-03-24 11:30 | NUR ---
NOTES SEEN PATIENT AMBULATING IN THE HALLWAY;TOLERATING ACTIVITY WELL
--- NOTE | 2016-03-24 14:55 | NUR ---
NOTES CHECKED PATIENT;ASLEEP.NO ACUTE DISTRESS
[2016-03-24] MEDS: EPOETIN ALFA 10,000 UNITS/ML VIAL SUBCUT SCH (17:00)
--- NOTE | 2016-03-24 18:09 | NUR ---
NOTES PATIENT ON BED AWAKE EATING.BREATHING EVEN AND UNLABORED.NO ACUTE DISTRESS.EARLE CATH INTACT.SAFETY AND FALL PRECAUTIONS IN PLACE.CALL LIGHT WITHIN REACH.WILL ENDORSE TO NEXT SHIFT ACCORDINGLY
--- NOTE | 2016-03-24 20:00 | NUR ---
INITIAL NOTES; Pt is resting in bed. Pt refused to assessment including take Vital signs even after explaining risks/benefits of taking Vital signs and assessment, pt is still refused. Fall precaution in place. All safety measures in place. PT refused to be discuss poc,pt yelled and swore,"Get ...out of here and leave me alone!" Call light w/in reach. Continue to monitor pt.
--- NOTE | 2016-03-24 20:50 | NUR ---
DR. KING IS INFORMED AND AWARED THAT PT REFUSED EVERYTHING INCLUDING VITAL SIGNS, NO FURTHER ORDER PER
--- NOTE | 2016-03-25 04:26 | NUR ---
ROUNDS; -Pt is resting. No s/s any acute distress noted. All safety measures in place. Fall precaution in place. All safety measures in place. . Call light w/in reach. Continue to monitor pt.
--- NOTE | 2016-03-25 06:56 | NUR ---
CLOSING NOTES; -Pt is resting in bed. No s/s any acute distress noted. Refused assessment, all Vital signs, and lab draws entire shift. Fall precaution in place. All safety measures in place. Call light w/in reach.
[2016-03-25 07:32] LABS: HEMATOCRIT 25.6 % (36-54); HEMOGLOBIN 8.6 g/dL (14.0-18.0); MEAN CORPUSCULAR HEMOGLOBIN 33 pg (27-31); MEAN CORPUSCULAR HGB CONC 34 % (32-36); MEAN CORPUSCULAR VOLUME 100 fL (79.0-98.0); PLATELET COUNT (AUTO) 143 K/uL (130-430); RED BLOOD CELL COUNT(AUTO) 2.57 MIL/uL (4.2-6.2); RED CELL DISTRIBUTION WIDTH 16.9 % (9.0-15.0); WHITE BLOOD COUNT (AUTO) 17.2 K/uL (4.8-10.8)
[2016-03-25 07:57] LABS: BAND % (MANUAL) 0 % (0-6); BASOPHILS % (MANUAL) 0 % (0-2); EOSINOPHILS % (MANUAL) 1 % (0-7); LYMPHOCYTES % (MANUAL) 5 % (20-46); MONOCYTES % (MANUAL) 3 % (0-11)
[2016-03-25 08:01] LABS: ALBUMIN 1.5 g/dL (3.4-4.8); CALCIUM 8.1 mg/dL (8.4-11.0); CREATININE 5.01 mg/dL (0.55-1.30); POTASSIUM 3.3 mmol/L (3.5-5.1); TOTAL BILIRUBIN 9.3 mg/dL (0.0-1.0); TOTAL PROTEIN, SERUM 5.5 g/dL (6.4-8.3)
--- NOTE | 2016-03-25 08:09 | NUR ---
OPENING NOTE RECEIVED REPORT FROM NIGHT NURSE, PATIENT IS RESTING COMFORTABLY IN BED WITH NO COMPLAINTS OF PAIN, NO NOTED DISTRESS, DISCOMFORT OR SOB. PATIENT IS ALERT AND ORIENTED AND ABLE TO COMMUNICATE NEEDS TO STAFF. PATIENT IS AMBULATORY. BED IS IN LOWEST POSITION AND CALL LIGHT IS WITHIN REACH AND WILL CONTINUE TO MONITOR. PATIENT REFUSED VITAL SIGNS.
[2016-03-25] MEDS: PENTOXIFYLLINE 400 MG TABLET.SA (TRENtal) PO SCH (09:00)
[2016-03-25] MEDS: POTASSIUM CHLORIDE 20 MEQ TAB.PRT.SR PO SCH (09:00)
--- NOTE | 2016-03-25 10:28 | NUR ---
NOTE PATIENT IS RESTING IN BED COMFORTABLY WITH NO COMPLAINTS OF PAIN, NO NOTED DISTRESS, DISCOMFORT OR SOB. PATIENT REFUSED ALL MEDICATIONS THIS AM, WAS EDUCATED THAT HE NEEDS MEDICATIONS AND HE STILL REFUSED. CALL LIGHT IS WITHIN REACH AND WILL CONTINUE TO MONITOR.
--- NOTE | 2016-03-25 12:08 | NUR ---
NOTE PATIENT IS RESTING COMFORTABLY IN BED WITH NO COMPLAINTS OF PAIN, NO NOTED DISTRESS, DISCOMFORT OR SOB. BED IS IN LOWEST POSITION AND CALL LIGHT IS WITHIN REACH AND WILL CONTINUE TO MONITOR.
--- NOTE | 2016-03-25 14:49 | NUR ---
NOTE PATIENT IS RESTING COMFORTABLY IN BED WITH NO COMPLAINTS OF PAIN, NO NOTED DISTRESS, DISCOMFORT OR SOB. BED IS IN LOWEST POSITION AND CALL LIGHT IS WITHIN REACH. WILL CONTINUE TO MONITOR.
[2016-03-25] MEDS ORDERED: POTASSIUM CHLORIDE 20 MEQ TAB.PRT.SR PO ONE (16:00)
--- NOTE | 2016-03-25 16:19 | NUR ---
NOTE PATIENT IS RESTING IN BED COMFORTABLY WITH NO COMPLAINTS OF PAIN, NO NOTED DISTRESS, DISCOMFORT OR SOB. DR KING WAS HERE TO SEE THE PATIENT AND IS AWARE THAT THE PATIENT CONTINUES TO REFUSE EVERYTHING. CALL LIGHT IS WITHIN REACH AND WILL CONTINUE TO MONITOR.
--- NOTE | 2016-03-25 18:33 | NUR ---
CLOSING NOTE PATIENT IS RESTING IN BED COMFORTABLY WITH NO COMPLAINTS OF PAIN, NO NOTED DISTRESS, DISCOMFORT OR SOB. PATIENT IS RECEIVING DIALYSIS RIGHT NOW. CALL LIGHT IS WITHIN REACH AND WILL GIVE REPORT TO NIGHT NURSE.
[2016-03-25] MEDS: LevALBUTEROL HCL 1.25 MG/0.5 ML *CONC.* VIAL.NEB (XOPENEX CONC.) INH SCH (19:00)
--- NOTE | 2016-03-25 19:40 | NUR ---
INITIAL NOTES; Dialysis is in progress, Nubia-biochemical development engineer is at bedside with patient Pt is resting in bed. Pt denies any pain,sob, or acute distress this time. Visitor is at bedside with patient. Fall precaution in place. All safety measures in place. Call light w/in reach. Continue to monitor pt.
--- NOTE | 2016-03-25 21:00 | NUR ---
Hemodialysis Completed-Removed 1.6 Liter -Pt refused to Vital signs and to perfume assessment. Pt is resting in bed. Pt denies any pain,sob, or acute distress this time. Fall precaution in place. All safety measures in place. Call light w/in reach. Continue to monitor pt
--- NOTE | 2016-03-25 21:39 | NUR ---
NOTES; -Pt walked out and heading to quiet room. Attempted to tell pt not go there, pt is noncompliance and unable to stop pt from going to quiet room this time. Luis Antonio PEREYRA informed and awared.
--- NOTE | 2016-03-25 21:43 | NUR ---
NOTES; PT JUST RETURNED FROM QUIET ROOM TO HIS OWN ROOM.
[2016-03-25 23:56] VITALS: BP 142/80; PULSE 74; RESP 18; TEMP 99.2; O2SAT 100
[2016-03-26] MEDS: LevALBUTEROL HCL 1.25 MG/0.5 ML *CONC.* VIAL.NEB (XOPENEX CONC.) INH SCH ×2 (00:40→19:00)
--- NOTE | 2016-03-26 04:08 | NUR ---
ROUNDS; Pt is resting in bed. No s/s any pain,sob,or any acute distress noted. Fall precaution in place. All safety measures in place. Call light w/in reach. Continue to monitor pt.
--- NOTE | 2016-03-26 06:45 | NUR ---
CLOSING NOTES; -Pt is resting in bed. No s/s any acute distress noted. Refused assessment and all Vital signs entire shift. Fall precaution in place. All safety measures in place. Call light w/in reach.
[2016-03-26 08:29] VITALS: RESP 18
--- NOTE | 2016-03-26 08:35 | NUR ---
Pt in room in bed resting @ this time pt refused V/S @ this respiration are 18 Bpm nurse continue to monitor pt for comfort & safety
--- NOTE | 2016-03-26 09:00 | NUR ---
Patient awake and alert but refused to be examined, vitals sign and said his ok ill tell you if there is something wrong with me , you go out and let me sleep.
--- NOTE | 2016-03-26 10:00 | NUR ---
pt off the unit @ this time
[2016-03-26] MEDS: POTASSIUM CHLORIDE 20 MEQ TAB.PRT.SR PO SCH (10:41)
[2016-03-26] MEDS: PENTOXIFYLLINE 400 MG TABLET.SA (TRENtal) PO SCH (10:41)
--- NOTE | 2016-03-26 12:20 | NUR ---
Pt in room in bed awake @ this time pt denies any pain or discomfort @ this time time nurse continue to monitor pt
--- NOTE | 2016-03-26 14:00 | NUR ---
Pt awake @ this time pacing the unit nurse continue to monitor pt
--- NOTE | 2016-03-26 15:30 | NUR ---
ROUNDS Patient refused to be touch , physical examination , vitals sign even after explaining the need but still refused.
--- NOTE | 2016-03-26 16:00 | NUR ---
pt in room in bed resting @ this time pt denies any pain @ this time
[2016-03-26] MEDS: EPOETIN ALFA 10,000 UNITS/ML VIAL SUBCUT SCH (17:00)
--- NOTE | 2016-03-26 18:20 | NUR ---
Pt alert orientate this shift pt refused 1700 medication pt took AM medication pt refused V/S this time pt pt remain isolated & appear to show signs of depression nurse continue to monitor pt
--- NOTE | 2016-03-26 19:40 | NUR ---
INITIAL NOTES; Pt is resting in bed. Pt refused to assessment including take Vital signs even after explaining risks/benefits of taking Vital signs and assessment, pt is still refused. Fall precaution in place. All safety measures in place. Call light w/in reach. Continue to monitor pt.
--- NOTE | 2016-03-26 23:36 | NUR ---
ROUNDS; -Pt is resting. No s/s any acute distress noted. Refused to have Susan- MEDICARE INTERVIEWER taking Vital Signs. All safety measures in place. Fall precaution in place. All safety measures in place. . Call light w/in reach. Continue to monitor pt.
--- NOTE | 2016-03-27 00:10 | NUR ---
REFUSAL PT REFUSED TO HAVE HIS MIDNIGHT V/S TAKEN. RODDY Mosley is aware.
[2016-03-27] MEDS: LevALBUTEROL HCL 1.25 MG/0.5 ML *CONC.* VIAL.NEB (XOPENEX CONC.) INH SCH ×4 (01:00→20:00)
--- NOTE | 2016-03-27 01:52 | NUR ---
ROUNDS; -Pt is resting. No s/s any acute distress noted. Refused to have Susan- HEDDLER TIER taking Vital Signs. All safety measures in place. Fall precaution in place. All safety measures in place. . Call light w/in reach. Continue to monitor pt.
--- NOTE | 2016-03-27 03:43 | NUR ---
ROUNDS; -Pt is resting. No s/s any acute distress noted. All safety measures in place. Fall precaution in place. All safety measures in place.. Call light w/in reach. Continue to monitor pt.
--- NOTE | 2016-03-27 07:25 | NUR ---
rn notes: patient is aaox 4. but refused to have vitals signs taken. and refused to assessed bertha cath on the left chest. assists on adls. but refused other things to be done to the patient. call lights within reach. safety measures maintained. informed patient to call for assistance. refused to have physical assessment to be done at this time.
--- NOTE | 2016-03-27 07:30 | NUR ---
still jaundiced all over. no pain noted
--- NOTE | 2016-03-27 08:00 | NUR ---
refused some adls. at this time.
[2016-03-27] MEDS: PENTOXIFYLLINE 400 MG TABLET.SA (TRENtal) PO SCH (09:00)
[2016-03-27] MEDS: POTASSIUM CHLORIDE 20 MEQ TAB.PRT.SR PO SCH (09:00)
--- NOTE | 2016-03-27 09:43 | NUR ---
refused due medication said later. after dialysis
--- NOTE | 2016-03-27 10:30 | NUR ---
walks on the hallway. no pain nor distress noted.
[2016-03-27 11:29] VITALS: BP 106/68; PULSE 83; RESP 19; TEMP 98.9; O2SAT 97
[2016-03-27 11:49] LABS: HEMATOCRIT 25.7 % (36-54); HEMOGLOBIN 8.7 g/dL (14.0-18.0); MEAN CORPUSCULAR HEMOGLOBIN 34 pg (27-31); MEAN CORPUSCULAR HGB CONC 34 % (32-36); MEAN CORPUSCULAR VOLUME 101 fL (79.0-98.0); PLATELET COUNT (AUTO) 133 K/uL (130-430); RED BLOOD CELL COUNT(AUTO) 2.55 MIL/uL (4.2-6.2); RED CELL DISTRIBUTION WIDTH 16.4 % (9.0-15.0); WHITE BLOOD COUNT (AUTO) 14.4 K/uL (4.8-10.8)
[2016-03-27 11:58] LABS: INR 1.1 (0.80-1.20); PROTHROMBIN TIME 11.7 SECS (9.5-12.5)
[2016-03-27 12:00] LABS: ALBUMIN 1.7 g/dL (3.4-4.8); BILIRUBIN,DIRECT 6.8 mg/dL (0.0-0.3); CALCIUM 7.7 mg/dL (8.4-11.0); CREATININE 4.36 mg/dL (0.55-1.30); TOTAL BILIRUBIN 8.4 mg/dL (0.0-1.0); TOTAL PROTEIN, SERUM 5.8 g/dL (6.4-8.3)
--- NOTE | 2016-03-27 12:00 | NUR ---
vitals signs taken by edd perrin
--- NOTE | 2016-03-27 12:00 | NUR ---
resting at this time. stable.
[2016-03-27 13:00] VITALS: BP 106/68; PULSE 83
[2016-03-27 13:08] LABS: ATYPICAL LYMPHOCYTES % 0 % (0-0); BAND % (MANUAL) 0 % (0-6); BASOPHILS % (MANUAL) 0 % (0-2); EOSINOPHILS % (MANUAL) 1 % (0-7); LYMPHOCYTES % (MANUAL) 8 % (20-46); MONOCYTES % (MANUAL) 12 % (0-11)
--- NOTE | 2016-03-27 13:28 | NUR ---
had lunch. no distress noted.
--- NOTE | 2016-03-27 15:44 | NUR ---
awaiting for dialysis to come and do the procedure.
--- NOTE | 2016-03-27 16:19 | NUR ---
Social Service Note: SIGNAL MAINTENANCE TECHNICIAN met with pt at bedside per CM Director's request; pt's [facility] was un-active; pt states that he has met with [employer] enrollment eligibility representative to re-instate [employer]. SIGNAL MAINTENANCE TECHNICIAN spoke with pt about Social Security benefits; pt states that [employer] enrollment eligibility representative did discuss with pt about social security. SIGNAL MAINTENANCE TECHNICIAN encouraged pt to make phone calls to social security; SIGNAL MAINTENANCE TECHNICIAN offered to bring in a lap top for pt to use to apply for benefits; pt states that he can use his cell phone to complete the application. SIGNAL MAINTENANCE TECHNICIAN encouraged pt to reach out to SIGNAL MAINTENANCE TECHNICIAN should pt need further assistance with applying for benefits. SIGNAL MAINTENANCE TECHNICIAN spoke with pt about discharge plans; pt states that he has no where to go at this time; SIGNAL MAINTENANCE TECHNICIAN spoke with pt about SNF, sober living, and jail placements. Pt states that he will think about it. SIGNAL MAINTENANCE TECHNICIAN will follow up with pt as needed.
--- NOTE | 2016-03-27 16:30 | NUR ---
informed Reynaldo nursing pump servicer supervisor regarding dialysis schedule for today. will follow up.
--- NOTE | 2016-03-27 17:00 | NUR ---
informed charge nurse cely gong regarding dialysis procedure.
--- NOTE | 2016-03-27 18:32 | NUR ---
eating dinner at this time.
--- NOTE | 2016-03-27 18:41 | NUR ---
informed patient regarding dialysis tonite. dialysis nurse is in [facility] unit.
--- NOTE | 2016-03-27 19:31 | NUR ---
sbar report given to incoming nurse Jesus PEREYRA
--- NOTE | 2016-03-27 20:00 | NUR ---
Initial Notes Received patient laying in bed, awake, alert, oriented, watching TV. Patient seems irritable, and uncooperative at times. Patient denies any acute distress or pain at this time. Breathing even and unlabored on room air. Patient allowing nurse to perform only limited physical assessment. Educated patient on use of call light for assistance and fall precautions, patient verbalized understanding. Call light in hand, will continue to monitor.
--- NOTE | 2016-03-27 21:00 | NUR ---
Patient Refusing Ordered Medication Patient refusing all ordered medication. Attempted to educate patient on importance of medication, patient became hostile saying "I don't take any of them!" Patient in no acute distress. Will continue to monitor.
--- NOTE | 2016-03-27 22:25 | NUR ---
Patient Refusing Ordered Dialysis For Tonight Patient refusing ordered hemodialysis ordered for tonight, stating he wants it done in the morning. Paged Dr. Ashby; Dr Cabrales called back, covering for Isma, doctor made aware. Patient in no distress. Will continue to monitor.
--- NOTE | 2016-03-28 | NUR ---
Rounds Patient resting in bed with eyes closed, easily aroused upon nurse entering room. Patient continue to refuse ordered medication, stating he doesn't want to take any medication tonight. Patient denies any acute distress or pain. Breathing is even and unlabored. Call light in hand, will continue to monitor.
[2016-03-28] MEDS: LevALBUTEROL HCL 1.25 MG/0.5 ML *CONC.* VIAL.NEB (XOPENEX CONC.) INH SCH ×3 (01:00→13:00)
--- NOTE | 2016-03-28 02:00 | NUR ---
Rounds Patient resting in bed with eyes closed. No acute distress noted, breathing even and unlabored. Call light in hand, will continue to monitor for changes and safety.
--- NOTE | 2016-03-28 04:15 | NUR ---
Rounds Patient resting in bed with eyes closed. No acute distress noted, breathing even and unlabored. Call light in hand, will continue to monitor.
--- NOTE | 2016-03-28 06:25 | NUR ---
Closing Notes Patient laying in bed with eyes closed, easily aroused. Patient denies any acute distress or pain at this time. Breathing even and unlabored. Patient continue to refuse morning ordered medication. Patient continue to refuse vital signs. Needs addressed throughout shift. Call light in hand, fall precautions in place. Will continue to monitor for changes and safety, and endorse all patient care/needs to oncoming nurse.
--- NOTE | 2016-03-28 07:25 | NUR ---
rn notes: patient is aaox 4. afebrile vss stable. and documented. agreed to have vitals signs taken. assists on adls. has bertha cath on the left chest. refused to have it assessed. call lights within reach. safety measures maintained. informed patient to call for assistance. has iv access on the left ac #20. will continue to monitor patients status.
[2016-03-28 07:50] VITALS: BP 113/78; PULSE 64; RESP 18; TEMP 98.4; O2SAT 94
[2016-03-28] MEDS: POTASSIUM CHLORIDE 20 MEQ TAB.PRT.SR PO SCH (09:00)
--- NOTE | 2016-03-28 09:00 | NUR ---
still asleep at this time. refuses any help at this time.
--- NOTE | 2016-03-28 10:00 | NUR ---
refused medication due. wants ice chips
--- NOTE | 2016-03-28 11:55 | NUR ---
having dialysis procedure. but called Dr Ashby. megan dialysis nurse okay to use
[2016-03-28] MEDS ORDERED: ALTEPLASE 2 MG VIAL MC ONE ×2 (12:00→12:15)
[2016-03-28 12:41] VITALS: BP 114/76; PULSE 89; RESP 16; TEMP 98; O2SAT 96
--- NOTE | 2016-03-28 13:46 | NUR ---
DR FAJRADO IS AWARE NO DIALYSIS CATH NOT WORKING.
[2016-03-28] MEDS: PENTOXIFYLLINE 400 MG TABLET.SA (TRENtal) PO SCH (13:59)
--- NOTE | 2016-03-28 14:01 | NUR ---
DR BARBOSA AWARE TO USED EARLE CATH ON FRIDAY DIALYSIS. PATIENT TOOK KDUR PO AND TRENTAL TABLET WITH WATER.
--- NOTE | 2016-03-28 15:00 | NUR ---
afebrile. vitals signs stable. bp is 117/68. temp 98. heart rate is 85. O2 sat is 95%. no sob noted.
--- NOTE | 2016-03-28 15:00 | NUR ---
patient becomes short of breath after the dialysis procedure. placed on 3lnc of oxygen. O2 sat is 88%. and afterwards O2 sat goes up to 95%. verbalized i feel better. and he removed the oxygen.
--- NOTE | 2016-03-28 16:00 | NUR ---
Dr Ashby came and informed regarding the patient wants to take shower and without covering the bertha cath. informed patient that it is very important to cover for prevention of infection. but refused to be covered. " said will cover it by himself.
[2016-03-28 16:16] VITALS: BP 137/91; PULSE 99; RESP 17; TEMP 98.6; O2SAT 97
[2016-03-28] MEDS: EPOETIN ALFA 10,000 UNITS/ML VIAL SUBCUT SCH (17:00)
--- NOTE | 2016-03-28 18:00 | NUR ---
had eaten dinner. stable no pain nor distress noted.
--- NOTE | 2016-03-28 19:30 | NUR ---
sbar report given to incoming nurse Jesus Stapleton
--- NOTE | 2016-03-28 20:00 | NUR ---
Initial Notes Received patient resting in bed with eyes closed, easily aroused. Patient hostile and uncooperative, yelling at nurse that he does not want his vitals taken and refusing physical assessment. Nurse requested to assess Dannie's dressing, patient refused. Patient stated he did not shower earlier and dressing is still clean/dry. Patient denies any acute distress or pain. Breathing even and unlabored on room air. Patient able to ambulate without assistance. Attempted to educate patient operations processor light for assistance and fall precautions, patient refused. Call light in hand, will continue to monitor.
--- NOTE | 2016-03-28 21:00 | NUR ---
Patient Refusing Ordered Medication Patient refusing ordered medication when offered. Attempted to educate patient on importance of medication and compliance, patient refused, yelling, "I don't want it! Get out of my room!". Patient in no apparent distress, will continue to monitor.
--- NOTE | 2016-03-28 22:00 | NUR ---
Rounds Patient resting in bed. Patient continue to be irritable. Patient denies any distress or pain. Breathing even and unlabored. States he wants to be left alone.
--- NOTE | 2016-03-29 | NUR ---
Rounds Patient resting in bed with eyes closed. No distress noted, breathing even and unlabored. Will continue to monitor.
--- NOTE | 2016-03-29 02:00 | NUR ---
Rounds Patient resting in bed with eyes closed. No distress noted, breathing even and unlabored. Will continue to monitor.
--- NOTE | 2016-03-29 04:00 | NUR ---
Rounds Patient resting in bed with eyes closed. Breathing even and unlabored, no distress noted. Call light in hand, fall precautions in place. Will continue to monitor.
--- NOTE | 2016-03-29 06:22 | NUR ---
Closing Notes Patient resting in bed with eyes closed, easily aroused to name. Patient denies any acute distress or pain. Breathing even and unlabored. Patient continue to refuse ordered medication. Needs addressed throughout shift. Call light in hand, fall precautions in place. Will continue to monitor for changes and safety, and endorse all patient care/needs to oncoming nurse.
[2016-03-29] MEDS: LevALBUTEROL HCL 1.25 MG/0.5 ML *CONC.* VIAL.NEB (XOPENEX CONC.) INH SCH ×2 (07:00→14:00)
--- NOTE | 2016-03-29 07:24 | NUR ---
Patient took shower 2 days ago. Afterward refused dialysis. Upon dialysis attempt in am patient catheter was non functional. Flushed with activase and possible for dialysis today.
[2016-03-29 08:05] VITALS: BP 125/84; RESP 18; TEMP 97.3; O2SAT 100
--- NOTE | 2016-03-29 09:00 | NUR ---
Rounds by student, Aisha, at this time.
[2016-03-29] MEDS: PENTOXIFYLLINE 400 MG TABLET.SA (TRENtal) PO SCH (10:04)
[2016-03-29] MEDS: PANTOPRAZOLE SODIUM 40 MG TAB PO SCH (10:05)
[2016-03-29] MEDS: POTASSIUM CHLORIDE 20 MEQ TAB.PRT.SR PO SCH (10:05)
--- NOTE | 2016-03-29 11:00 | NUR ---
Rounds by student nurse. Needs met for patient.
--- NOTE | 2016-03-29 11:54 | NUR ---
DISCHARGE PLANNING Spoke with Kyrie in admitting at [facility] facility unable to accept patient that is non-compliant with plan of care for group home placement. ROOSEVELT Galindo made aware.
[2016-03-29 12:35] VITALS: BP 121/80; PULSE 88; RESP 16; TEMP 97.8; O2SAT 99
--- NOTE | 2016-03-29 12:59 | NUR ---
Social Service Note: IT SECURITY MANAGER met with pt at bedside; pt states that he has not yet contacted social security; IT SECURITY MANAGER asked if pt needed assistance; pt stated no that he would do it on his own. Pt states that there have been "problems with his dialysis site" and pt has not had energy to call social security. IT SECURITY MANAGER encouraged pt to complete social security application and reach out to IT SECURITY MANAGER should he need assistance.
--- NOTE | 2016-03-29 15:00 | NUR ---
Rounds to noc nurse. Patient needs addressed. Nephrology rounds by Doctor Ashby.
[2016-03-29 16:10] VITALS: BP 122/74; PULSE 75; RESP 18; TEMP 98.6; O2SAT 100
--- NOTE | 2016-03-29 17:00 | NUR ---
Patient pending dialysis. Denies needs at this time.
--- NOTE | 2016-03-29 19:26 | NUR ---
Handoff report for noc nurse.
--- NOTE | 2016-03-29 19:35 | NUR ---
initial nursing notes: Patient is awake. Patient is covered with blanket. Patient refuses to be assessed. Will come back to obtain patient's vital signs.
[2016-03-29 20:39] VITALS: BP 109/69; PULSE 76; RESP 15; TEMP 97.3; O2SAT 99
--- NOTE | 2016-03-29 21:35 | NUR ---
nursing rounds: Patient is awake. Able to obtain patient's vital signs. Patient still refuses to be assessed.
--- NOTE | 2016-03-29 23:35 | NUR ---
nursing rounds: Patient is asleep in bed. Patient has no shortness of breath.
--- NOTE | 2016-03-30 01:35 | NUR ---
nursing rounds: Patient is sleeping in bed. Patient has no respiratory distress.
--- NOTE | 2016-03-30 03:35 | NUR ---
nursing rounds: Patient calmly resting in bed. No episode of falls and no injuries noted.
--- NOTE | 2016-03-30 05:35 | NUR ---
nursing rounds: Patient is sleeping in bed. Patient has no shortness of breath.
[2016-03-30] MEDS: LevALBUTEROL HCL 1.25 MG/0.5 ML *CONC.* VIAL.NEB (XOPENEX CONC.) INH SCH ×3 (07:00→19:00)
--- NOTE | 2016-03-30 07:28 | NUR ---
closing nursing notes: Patient is awake, alert and oriented X 4. Patient is ambulatory. Patient is in no acute respiratory distress. No episodes of fall and no injuries throughout the assistant spa director. Provided nursing report to incoming morning shift nurse, RODDY Evans, at patient's bedside.
--- NOTE | 2016-03-30 08:00 | NUR ---
Patient refuses am vital signs. Eating breakfast. Says, "No I'm fine."
[2016-03-30] MEDS: POTASSIUM CHLORIDE 20 MEQ TAB.PRT.SR PO SCH (08:24)
[2016-03-30] MEDS: PANTOPRAZOLE SODIUM 40 MG TAB PO SCH (08:24)
[2016-03-30] MEDS: PENTOXIFYLLINE 400 MG TABLET.SA (TRENtal) PO SCH (08:24)
[2016-03-30 09:24] LABS: ALBUMIN 1.6 g/dL (3.4-4.8); CALCIUM 7.5 mg/dL (8.4-11.0); CREATININE 3.89 mg/dL (0.55-1.30); POTASSIUM 3.3 mmol/L (3.5-5.1); TOTAL BILIRUBIN 6.2 mg/dL (0.0-1.0); TOTAL PROTEIN, SERUM 5.6 g/dL (6.4-8.3)
[2016-03-30 09:25] LABS: HEMATOCRIT 23.1 % (36-54); HEMOGLOBIN 7.7 g/dL (14.0-18.0); MEAN CORPUSCULAR HEMOGLOBIN 33 pg (27-31); MEAN CORPUSCULAR HGB CONC 34 % (32-36); MEAN CORPUSCULAR VOLUME 100 fL (79.0-98.0); PLATELET COUNT (AUTO) 109 K/uL (130-430); RED BLOOD CELL COUNT(AUTO) 2.32 MIL/uL (4.2-6.2); RED CELL DISTRIBUTION WIDTH 15.2 % (9.0-15.0); WHITE BLOOD COUNT (AUTO) 5.2 K/uL (4.8-10.8)
[2016-03-30 09:28] LABS: BAND % (MANUAL) 2 % (0-6); BASOPHILS % (MANUAL) 0 % (0-2); EOSINOPHILS % (MANUAL) 1 % (0-7); LYMPHOCYTES % (MANUAL) 19 % (20-46); MONOCYTES % (MANUAL) 2 % (0-11)
--- NOTE | 2016-03-30 10:00 | NUR ---
Patient labwork resulted from dialysis nurse draw and underwriter delivery. Within normal limits. Patient says he would be willing to take erythropoetin injection.
--- NOTE | 2016-03-30 12:14 | NUR ---
Patient finishing round of dialysis. Nurses requesting central line kit. Patient not in system. Removed kit for patient.
[2016-03-30] MEDS: EPOETIN ALFA 10,000 UNITS/ML VIAL SUBCUT SCH (12:53)
--- NOTE | 2016-03-30 12:54 | NUR ---
Attempt to give patient procrit. Says, "No I dont want anything right now. "
--- NOTE | 2016-03-30 14:23 | NUR ---
Nutrition F/U Admitting Diagnosis Acute alcohol intoxication, hepatoencephalopathy, alcoholic liver Dz Per operative notes 03/12/16: post-op diagnoses: acute renal failure, cirrhosis of the liver, ascites, hyperbilirubinemia Past Medical History Alcohol dependency, possible depression. Pt also admitted w/ abd pain, N/V, and gastritis per MD notes. Pertinent Medications folic acid/thiamin/magnesium sulfate/MVI/minerals/NaCl IV, sodium bicarbonate, mylanta, K-Dur, procrit, protonix Current Diet Order Mechanical soft, Novasource Renal BID Height (Feet) 6 feet Height (Inches) 1.00 inches Weight (Pounds) 161 pounds (admission wt); 03/18/16: no significant weight changes noted; 03/23/16: bed scale read 158.5 lbs, noted 2.5 lb loss); noted pt underwent paracentesis on 03/12/16; wt may be inflated d/t fluids Weight (Calculated Kilograms) 73.551791 kilograms Patient Weight 73.028 kg Body Mass Index 21.24 kg/m2 [place]/Adjusted Body Weight IBW: 184 lb, 84 kg. 87% of IBW Estimated Needs (modified) 2087 kcal/day (BEE x 1.2 for liver cirrhosis) Grams of Protein per Day 101-118 gm/day (1.2-1.4 gm/kg IBW for dialysis) Fluid Intake Goal Per MD for acute renal failure Pertinent Labs WBC 5.2 WNL (improved), H/H 7.7 L/23.1 L, K 3.3 L, BUN 33 H, CRE 3.89 H, eGFR 23 L, tbili 6.2 H, AST 136 H, ALT 67 WNL (improved), ALP 269 H, ALB 1.6 L, Na 134 L Other Subjective Data Patient seen sitting up on bed, eating lunch at time of visit. Pt stated that he has been eating fine and denied nausea/vomiting (endorsed some bloating). Reported a few BMs this morning (diarrhea). Pt reported that he is "tired of" the oral supplements and has not been drinking them. Per RN, pt ate all of his breakfast this morning and has been tolerating his diet. RN reported dialysis today. Per EMR, average PO intake is 54% x 7 days (noted 75-100% recently). Daniel: 21; jaundiced. I/Os (03/30/16): 1320/0 (+1320 ml), 2 BMs recorded 2/3. Current diet is adequate and appropriate. Recommend continuing to encourage PO intake as tolerated, as pt is not yet meeting optimal nutritional needs. Pt declined nutrition education at previous RD visit. Problem, Etiology, Signs/Symptoms Altered GI function related to liver cirrhosis as evidenced by abnormal tbili lab values and liver enzymes, post-op diagnosis, and pt reports of loose bowel movements and vomiting. *slightly improving Expected Outcomes or Goals - Monitor advancement of diet, appetite, and PO intakes w/ goal of pt meeting at least 50% of estimated nutritional needs, labs trending WNL, normal GI function, and skin integrity/weight maintenance. Dietitian Recommendations * Continue mechanical soft diet, Novasource Renal BID * Encourage PO intakes as tolerated Follow Up Moderate Risk: F/U in 3-5 days Addendum: 03/30/16 at [address] *CORRECTION Dietitian Recommendations * Continue mechanical soft diet, Novasource Renal BID * Encourage PO intakes as tolerated * Consider Imodium or other antidiarrheal RD left note w/ recommendations for .
[2016-03-30 16:26] VITALS: BP 109/69; PULSE 76
--- NOTE | 2016-03-30 17:20 | NUR ---
Spoke with patient about headache. Says he tried walking. Says he tried drinking soda. Says he wants half tylenol dose but says he was told not to take tylenol. Offered ice pack. Says it started at the end of dialysis. Wants to have erythropoetin. Pharmacist will not release additional dose because patient would be outside fda recommended weekly dosing. Patient verbalizes understanding.
--- NOTE | 2016-03-30 19:50 | NUR ---
INITIAL NOTES: PATIENT IN BED RESTING QUITELY,APPEARS SLEEPING. TOLD PATIENT WILL DO VITAL SIGNS. SAID NO,I DON NOT NEED ALL THOSE CRAPS. LEAVE ME ALONE.NOTED WINDOW IS 2INCHES OPEN. CLOSED IT. GOT UPSET.SAID I FEEL WARM AND GET ITCHY. SAID LEAVE ME ALONE.
--- NOTE | 2016-03-30 21:00 | NUR ---
REFUSES DUE PO MEDS. I DO NOT NEED ALL THOSE. NOTED WINDOW IS HALF OPEN. CLOSED IT. PATIENT RESTING QUITELY.
--- NOTE | 2016-03-30 22:00 | NUR ---
ROUNDS: PATIENT IN BED,COVERED SELF WITH BLANKET.
--- NOTE | 2016-03-30 23:10 | NUR ---
ROUNDS: WINDOW AGAIN 1/2 OPEN. TOLD HIM NOT SUPPOSE TO BE OPENED BECAUSE OF DUST/INSECTS/OTHER UNUSUAL THINGS. PATIENT STARTED BAD MOUTHING ,USING F WORDS. SAID I NEED FRESH AIR ,NEEDS TO FEEL CLOD ,GET ITCHY IF WARM. SAID, YOU ARE THE ONLY ONE WHO MAKING A PROBLEM. THE STUDY SPECIALIST. DIRECTOR.DYEHOUSE WORKER KNOWS ABOUT IT. LEAVE ME ALONE. AND GET OUTRN CLOSED THE WINDOW. OF THIS ROOM.
--- NOTE | 2016-03-30 23:20 | NUR ---
ESCROW CLOSER LAKISHA VARGAS.DIESEL FITTER MECHANIC LOGAN BAUTISTA AWARE.REQUESTED TO TALK TO PATIENT. SECURITY SHAINA NOTIFIED AND CAME. BOTH SECURITY AND RN WENT TO SEE PATIENT. SECURITY ADVISED PATIENT NOT TO OPEN ANYMORE WINDOW PATIENT ANSWERED BACK IN A LOUD VOICE,DEFENDING WHAT HE WANTS. SECURITY WAS FIRM IN TALKING TO HIM. SAID IF HE CONTINUE OPENING WINDOWS AND BAD MOUTHING TO STAFF WILL CALL POLICE.TOLD PATIENT WILL ADJUST ROOM TEMP TO COLD TEMP. AND WAS DONE.
[2016-03-31] MEDS: LevALBUTEROL HCL 1.25 MG/0.5 ML *CONC.* VIAL.NEB (XOPENEX CONC.) INH SCH ×2 (01:00→19:00)
--- NOTE | 2016-03-31 01:00 | NUR ---
PATIENT CALLED. CAN NOT BREATH .NOTED WINDOW AGAIN 1S 2 INCH, OPEN, CLOSED AND ADVISED NO MORE OPENING WINDOW. BAD MOUTHING. NOTIFIED SECURITY.
--- NOTE | 2016-03-31 02:00 | NUR ---
PATIENT NOT IN HIS ROOM. OTHER STAFF SAW HIM WALKING TOWARD LOB. NOTIFIED SECURITY. RN WENT TOWAR AMRIK THEN SAW HIM CAME OUT FROM THE [place] HOLDING A PITCHER., BACK TO HIS ROOM.
--- NOTE | 2016-03-31 03:00 | NUR ---
PATIENT IN BED RESTING. WINDOW CLOSED.
--- NOTE | 2016-03-31 03:35 | NUR ---
REFUSE VITAL SIGNS TAKING BY LUIZA RODRIGUEZ
--- NOTE | 2016-03-31 04:00 | NUR ---
PATIENT IN BED. WINDOW CLOSE.
--- NOTE | 2016-03-31 05:00 | NUR ---
[id number].PATIENT IN BED RESTING. WINDOW CLOSED.
--- NOTE | 2016-03-31 07:00 | NUR ---
SEEN PATIENT WALKING ON THE [address] WAY HOLDING A PITCHER. NO VITAL SIGNS AND MEDS DURING THE SHIFT.
[2016-03-31] MEDS: PENTOXIFYLLINE 400 MG TABLET.SA (TRENtal) PO SCH (09:00)
[2016-03-31] MEDS: POTASSIUM CHLORIDE 20 MEQ TAB.PRT.SR PO SCH (09:00)
[2016-03-31] MEDS: PANTOPRAZOLE SODIUM 40 MG TAB PO SCH (09:00)
--- NOTE | 2016-03-31 09:05 | NUR ---
Rounds to patient by student. Refusing vital signs. Refuses student assist with adl's. Refuses blood draw per supervisor laboratory animal facility. Patient call to dietary for more eggs but dietary staff could not understand what patient needed.
--- NOTE | 2016-03-31 11:10 | NUR ---
Rounds to patient. Refuses intervention at this time.
--- NOTE | 2016-03-31 13:00 | NUR ---
Needs met at this time.
--- NOTE | 2016-03-31 16:20 | NUR ---
MD rounds. Needs and requests from patient at this time are met.
[2016-03-31] MEDS: EPOETIN ALFA 10,000 UNITS/ML VIAL SUBCUT SCH (17:00)
--- NOTE | 2016-03-31 18:24 | NUR ---
Assist for water for patient. Patient ambulating hallway. Prepared handoff report for noc nurse.
--- NOTE | 2016-03-31 20:05 | NUR ---
ROUNDS WITH DISTRICT SERVICE MANAGER FOR VITAL SIGNS .PATIENT IN BED WITH BLANKET.TOLD PATIENT WILL DO VITAL SIGNS.REFUSE. SAID I DONT NEED IT.
--- NOTE | 2016-03-31 21:25 | NUR ---
TOLD PATIENT HAS TO TAKE HIS MEDS. REFUSE. SAID I DONT NEED THOSE.
--- NOTE | 2016-04-01 | NUR ---
PATIENT IN BED,COVERED SELF WITH BLANKETS.
[2016-04-01] MEDS: LevALBUTEROL HCL 1.25 MG/0.5 ML *CONC.* VIAL.NEB (XOPENEX CONC.) INH SCH ×4 (01:00→19:05)
--- NOTE | 2016-04-01 02:00 | NUR ---
PATIENT CONTINUE SLEEPING DURING THIS ROUND WITH SOUND WAVES FROM CELLPHONE ON.
--- NOTE | 2016-04-01 04:40 | NUR ---
WOKE PATIENT UP FOR VITAL SIGNS ,SAID NO.
--- NOTE | 2016-04-01 07:20 | NUR ---
BEDSIDE REPORT DONE. ASKED IF HAD A GOOD NIGHT ,NO ANSWER.
--- NOTE | 2016-04-01 08:30 | NUR ---
AM ROUNDS: Patient refused assessment and medication. scow captain, Malka, is aware.
[2016-04-01] MEDS: PANTOPRAZOLE SODIUM 40 MG TAB PO SCH (08:32)
[2016-04-01] MEDS: POTASSIUM CHLORIDE 20 MEQ TAB.PRT.SR PO SCH (08:32)
[2016-04-01] MEDS: PENTOXIFYLLINE 400 MG TABLET.SA (TRENtal) PO SCH (08:32)
[2016-04-01] MEDS: SODIUM BICARBONATE 8.4% JECT 50 MEQ/50 ML SYRINGE IVP SCH ×3 (09:00→21:00)
--- NOTE | 2016-04-01 10:02 | NUR ---
PATIENT RESTING: Patient resting quietly. No acute distress noted. Vital signs within normal range.
[2016-04-01] MEDS: LIDOCAINE VISCOUS 2%, 15 ML UDC PO SCH ×3 (11:03→23:09)
[2016-04-01] MEDS: MAG-AL HYDROX/SIMETH 30 ML UDC PO SCH ×3 (11:05→23:09)
[2016-04-01] MEDS: FOLIC ACID 1 MG, THIAMINE HCL 100 MG, MAGNESIUM SULFATE 1 GM, MVI 10 ML in NACL 0.9% 1,... IV SCH (12:22)
--- NOTE | 2016-04-01 12:25 | NUR ---
PATIENT RESTING: Patient resting quietly. No acute distress noted. Vital signs within normal range.
--- NOTE | 2016-04-01 14:30 | NUR ---
PATIENT RESTING: Patient resting quietly. No acute distress noted.
--- NOTE | 2016-04-01 16:11 | NUR ---
PATIENT RESTING: Patient resting quietly. No acute distress noted.
--- NOTE | 2016-04-01 18:53 | NUR ---
CLOSING NOTE: Patient continue to refuse all care and medication. Will endorse to NOC shift nurse.
--- NOTE | 2016-04-01 20:00 | NUR ---
PM Shift Assessment Received patient lying in bed, no acute distress noted. Patient is refusing physical assessment at this time, states "I don't want to be touched or moved." Education provided on the importance of obtaining a baseline assessment, patient is silent at this time. Plan of care updated on board. Patient is verbally able to make needs known and encouraged to do so. Call light is within reach, all fall and safety precautions in place, will continue to monitor.
--- NOTE | 2016-04-01 22:19 | NUR ---
RN Rounds Patient is resting quietly in bed, no acute distress noted. Patient refusing scheduled medications at this time. Tried to educate patient on the importance of medications, he refused. Also continues to refuse physical assessment. Encouraged patient to call for assistance as needed. Call light is within reach, all fall and safety precautions in place, will continue to monitor.
--- NOTE | 2016-04-02 00:28 | NUR ---
RN Rounds Patient is sleeping, respirations are even and unlabored, no acute distress noted. Patient continues to refuse assessment at this time. Also refusing scheduled medications, states "I don't want anything, just leave me alone." Education provided on the importance of assessment and medication administration, patient adamantly refused. Call light is within reach, encouraged to call for assistance as needed. All fall and safety precautions in place, will continue to monitor.
[2016-04-02] MEDS: LevALBUTEROL HCL 1.25 MG/0.5 ML *CONC.* VIAL.NEB (XOPENEX CONC.) INH SCH ×4 (01:00→19:50)
--- NOTE | 2016-04-02 02:25 | NUR ---
RN Rounds Patient is sleeping, respirations are even and unlabored, no acute distress noted. No non-verbal signs of pain noted at this time. Call light is within reach, all fall and safety precautions in place, will continue to monitor.
--- NOTE | 2016-04-02 04:37 | NUR ---
RN Rounds Patient noted up to restroom and safely back to bed. Continues to refuse vital signs at this time, education provided, patient adamantly refusing. Encouraged to call with any needs, verbalized understanding. Call light is within reach, all fall and safety precautions in place, will continue to monitor.
[2016-04-02] MEDS: LIDOCAINE VISCOUS 2%, 15 ML UDC PO SCH ×3 (05:08→17:23)
[2016-04-02] MEDS: MAG-AL HYDROX/SIMETH 30 ML UDC PO SCH ×3 (05:08→17:23)
--- NOTE | 2016-04-02 06:41 | NUR ---
Closing Notes Patient is resting quietly in bed, no acute distress noted. Patient refusing AM medications this morning. Patient is stable, all needs met throughout shift. Will continue to monitor until endorsed to AM nurse at bedside.
--- NOTE | 2016-04-02 07:41 | NUR ---
AM ROUNDS: Patient refused assessment.
[2016-04-02] MEDS: SODIUM BICARBONATE 8.4% JECT 50 MEQ/50 ML SYRINGE IVP SCH ×3 (08:53→21:00)
[2016-04-02] MEDS: POTASSIUM CHLORIDE 20 MEQ TAB.PRT.SR PO SCH (08:53)
[2016-04-02] MEDS: PANTOPRAZOLE SODIUM 40 MG TAB PO SCH (08:54)
[2016-04-02] MEDS: PENTOXIFYLLINE 400 MG TABLET.SA (TRENtal) PO SCH (08:54)
--- NOTE | 2016-04-02 09:50 | NUR ---
PAGED: Dr. Ashby paged regarding hemodialysis.
--- NOTE | 2016-04-02 10:09 | NUR ---
PATIENT RESTING: Patient resting quietly. No acute distress noted. Vital signs within normal range.
[2016-04-02 11:07] LABS: BASOPHILS % (AUTO) 0.4 % (0.0-2.0); EOSINOPHILS # (AUTO) 0.1 K/uL (0.0-0.4); EOSINOPHILS % (AUTO) 1.1 % (0.0-4.0); LYMPHOCYTES # (AUTO) 1.1 K/uL (1.0-5.5); LYMPHOCYTES % (AUTO) 11.3 % (20.5-51.5); MEAN CORPUSCULAR HEMOGLOBIN 34 pg (27-31); MEAN CORPUSCULAR HGB CONC 34 % (32-36); MEAN CORPUSCULAR VOLUME 100 fL (79.0-98.0); MONOCYTES # (AUTO) 0.8 K/uL (0.0-1.0); NEUTROPHILS # (AUTO) 7.8 K/uL (1.8-7.7); NEUTROPHILS % (AUTO) 79.2 % (40.0-70.0); RED BLOOD CELL COUNT(AUTO) 2.41 MIL/uL (4.2-6.2); RED CELL DISTRIBUTION WIDTH 14.2 % (9.0-15.0); WHITE BLOOD COUNT (AUTO) 9.8 K/uL (4.8-10.8)
[2016-04-02 11:10] LABS: HEMOGLOBIN 8.1 g/dL (14.0-18.0); PLATELET COUNT (AUTO) 121 K/uL (130-430)
[2016-04-02 11:12] LABS: CALCIUM 8.1 mg/dL (8.4-11.0); CREATININE 3.87 mg/dL (0.55-1.30); POTASSIUM 3.7 mmol/L (3.5-5.1)
[2016-04-02] MEDS: FOLIC ACID 1 MG, THIAMINE HCL 100 MG, MAGNESIUM SULFATE 1 GM, MVI 10 ML in NACL 0.9% 1,... IV SCH (12:21)
--- NOTE | 2016-04-02 12:27 | NUR ---
PATIENT RESTING: Patient resting quietly. No acute distress noted. Vital signs within normal range.
--- NOTE | 2016-04-02 14:00 | NUR ---
PATIENT RESTING: Patient resting quietly. No acute distress noted. Vital signs within normal range.
--- NOTE | 2016-04-02 16:02 | NUR ---
Social Service Note: TITLE DEPARTMENT MANAGER met with pt at bedside to see if pt has contacted Social Security to start benefits; pt stated "no". TITLE DEPARTMENT MANAGER asked if pt needed assistance; pt stated "no". TITLE DEPARTMENT MANAGER offered to bring a computer into pt's room to assist pt with completing the social security application; pt stated "no". TITLE DEPARTMENT MANAGER spoke with pt about him refusing all treatments/medications; pt states that he only needs dialysis. TITLE DEPARTMENT MANAGER encouraged pt to apply for social security benefits so that pt can find housing in a sober living or room and board and outpatient dialysis could be set up. TITLE DEPARTMENT MANAGER has alerted CM director.
[2016-04-02] MEDS: EPOETIN ALFA 10,000 UNITS/ML VIAL SUBCUT SCH (17:00)
--- NOTE | 2016-04-02 18:23 | NUR ---
REFUSED TREATMENT: Patient refused hemodialysis. Paged Dr. Ashby.
--- NOTE | 2016-04-02 18:25 | NUR ---
PAGED PAGED MAO ROMANO AT [phone] SPOKE WITH CHANELLE.
--- NOTE | 2016-04-02 18:31 | NUR ---
COMMUNICATION: Dr. Ashby made aware that patient refused hemodialysis.
--- NOTE | 2016-04-02 18:31 | NUR ---
CLOSING NOTE: Patient continues to refuse assessment, medication and treatment. Will endorse to NOC shift nurse.
[2016-04-02 19:30] VITALS: TEMP 97
--- NOTE | 2016-04-02 19:30 | NUR ---
INITIAL NOTE Patient resting on the bed covered with blanket. No acute distress. Patient refused assessment and VS, only allowed to check temp=97.0. Patient also refused the Dannie catheter. Explained the risk and benefit for assessment but Patient still refused. Discussed the refused of hemodialysis today, per patient he doesn't like to do it in the afternoon, he wants to do it in the intervention analyst. Will notify MD. Also discussed the safety issue, use call light when need help, and plan of care, verbally understanding. Safety measure maintained. Bed alarm on, side rails up. Call light within reached. Will continue to monitor.
--- NOTE | 2016-04-02 20:48 | NUR ---
MD ZHANG CALLED MAO ROMANO AT [phone] SPOKE WITH CHANELLE.
--- NOTE | 2016-04-02 21:50 | NUR ---
INFORMED MAO LUZ REGARDING PATIENT REFUSED HEMODIALYSIS TODAY Informed Isma Fonseca regarding patient refused hemodialysis today, per patient because he doesn't like to do it in the afternoon, he wants in the air saw operator. stated " Okay. I will put the order into computer later."
--- NOTE | 2016-04-02 22:05 | NUR ---
PATIENT REFUSED MEDICATION Patient refused 2100 medication. Patient allow to monitor the Dannie catheter at this time. Dannie catheter intact to ALYSSA with dressing on but dry blood noted on the dressing and covered with transparent dressing, no active bleeding noted. Informed patient MD will order hemodialysis for tomorrow morning. Patient stated "That should be the way is."
--- NOTE | 2016-04-02 23:25 | NUR ---
ROUND Patient sleeping at this time. No acute distress. Bed in low position, side rails up, bed alarm on. Call light within reached. Safety measure maintained. Continue to monitor.
--- NOTE | 2016-04-03 00:21 | NUR ---
REFUSAL When I asked the pt if I can check his vital signs for midnight, pt said in a loud voice, "No, no, I thought I already get rid of everybody, I just want to sleep". RN Siena is notified.
--- NOTE | 2016-04-03 01:00 | NUR ---
ROUND Patient resting on the bed with eyes closed. No acute distress. Safety measure maintained. Call light within reached. Bed in low position, be alarm on, side rails up. Continue to monitor.
[2016-04-03] MEDS: LevALBUTEROL HCL 1.25 MG/0.5 ML *CONC.* VIAL.NEB (XOPENEX CONC.) INH SCH ×4 (01:30→19:00)
--- NOTE | 2016-04-03 02:26 | NUR ---
ROUND Patient sleeping at this time. No acute distress. Safety measure maintained. Call light within reached. Bed in low position, be alarm on, side rails up. Continue to monitor.
--- NOTE | 2016-04-03 03:29 | NUR ---
ROUND Patient resting on the bed with eyes closed. No acute distress. Safety measure maintained. Call light within reached. Bed in low position, bed alarm on, side rails up. Continue to monitor.
--- NOTE | 2016-04-03 04:59 | NUR ---
ROUND Patient resting on the bed with eyes closed. No acute distress. Call light within reached. Bed in low position, bed alarm on, side rails up. Continue to monitor.
--- NOTE | 2016-04-03 05:30 | NUR ---
REFUSAL PT REFUSED TO HAVE HIS MORNING V/S TAKEN. RODDY Wren is aware.
[2016-04-03] MEDS: LIDOCAINE VISCOUS 2%, 15 ML UDC PO SCH ×4 (06:00→18:00)
[2016-04-03] MEDS: MAG-AL HYDROX/SIMETH 30 ML UDC PO SCH ×4 (06:00→18:00)
--- NOTE | 2016-04-03 06:43 | NUR ---
CLOSING NOTE Patient resting on the bed covered with blanket. No acute distress. Patient refused physical assessment, VS, and medication during shift. Explained the risk and benefit but patient still refused. Patient just wanted not to be bother him at night time when he is sleeping. Hourly rounding during shift. Safety measure maintained. Bed alarm on, side rails up. Call light within reached. Will endorse to morning shift nurse.
--- NOTE | 2016-04-03 08:00 | NUR ---
OPENING NOTE: RECEIVED REPORT FROM NIGHT NURSE. PATIENT IS SLEEPING. NO S/S OF DISTRESS OR SOB. PATIENT IS ALERT AND ORIENTED, ABLE TO EXPRESS NEEDS, AND ASK FOR ASSISTANCE. PATIENT REFUSED VITAL SIGNS TO BE TAKEN AT THIS TIME. CALL LIGHT IN REACH, BED IN LOWEST POSITION, AND WILL CONTINUE TO MONITOR.
[2016-04-03] MEDS: SODIUM BICARBONATE 8.4% JECT 50 MEQ/50 ML SYRINGE IVP SCH ×3 (09:00→21:00)
[2016-04-03] MEDS: POTASSIUM CHLORIDE 20 MEQ TAB.PRT.SR PO SCH (09:00)
[2016-04-03] MEDS: PENTOXIFYLLINE 400 MG TABLET.SA (TRENtal) PO SCH (09:00)
[2016-04-03] MEDS: PANTOPRAZOLE SODIUM 40 MG TAB PO SCH (09:00)
[2016-04-03] MEDS ORDERED: TUBERCULIN,PURIF.PROT.DERIV. 0.1 ML SYR ID ONE (10:00)
--- NOTE | 2016-04-03 10:07 | NUR ---
NOTE: PATIENT IS RECEIVED DIALYSIS.
[2016-04-03 11:34] VITALS: BP 131/85; PULSE 87; RESP 16; TEMP 97.5; O2SAT 100
--- NOTE | 2016-04-03 12:08 | NUR ---
Nutrition F/U Admitting Diagnosis Acute Alcohol Intoxication, Hepatoencephalopathy, Alcoholic Liver Disease Per operative notes 03/12/16: post-op diagnoses: acute renal failure, cirrhosis of the liver, ascites, hyperbilirubinemia 03/28/16 GI Consult MD: Acute alcoholic hepatitis, moderate to severe, ascites s/p paracentesis, renal failure, anemia, abd pain Past Medical History Alcohol dependency, possible depression. Pt also admitted w/ abd pain, N/V, and gastritis per MD notes. Pertinent Medications Folic acid/thiamin/magnesium sulfate/MVI/minerals/NaCl IV at 100 ml/hr, sodium bicarbonate, mylanta, K-Dur, procrit, protonix Current Diet Order Regular Height (Feet) 6 feet Height (Inches) 1.00 inches Weight (Pounds) Admission Weight: 161 lb, 73 kg 03/18/16: No significant weight changes noted 03/23/16: Bedscale weight 158.5 lb (noted 2.5 lb loss - Pt underwent paracentesis on 03/12/16, weight inflated d/t fluids) 04/03/16: No significant weight changes noted (Pt undergoing dialysis) Weight (Calculated Kilograms) 73.206873 kilograms Patient Weight 73.028 kg Body Mass Index 21.24 kg/m2 [place]/Adjusted Body Weight IBW: 184 lb, 84 kg. 87% of IBW Estimated Needs (modified) 2087 kcal/day (BEE x 1.2 for liver cirrhosis) Grams of Protein per Day 101-118 gm/day (1.2-1.4 gm/kg IBW for dialysis) Fluid Intake Goal Per MD for acute renal failure on dialysis Pertinent Labs (04/02) H/H 8.1/24 L, BUN 31 H, CRE 3.87 H, eGFR 19 L, BG 115 H (2/) ALB 1.6 L, AST 136 H, ALP 269 H -- Note liver labs improving Other Subjective Data Pt was seen resting in bed, abd appears distended, playing with phone, undergoing dialysis at this time. Boost Plus oral supplement x2 seen untouched at bedside. Pt appeared uninterested in participating in RD verbal interview, reported that his appetite is "here and there", and stated that he eats when he wants to, stated that he is feeling bloated all the time, no matter what he eats. Spoke with INFORMATION SYSTEMS OPERATOR, reported pt's appetite is good now, ate well for breakfast, even requesting food at certain times. Spoke with RN, verified that pt is refusing medications, and did refuse dialysis 04/02 due to vest baster arriving too late in the afternoon. PO Intakes: (04/02) B: 50%, L: 100%, D: 100%; (04/03) B: 75% Skin: Jaundiced. Daniel 21. Edema: Unable to obtain. Pt covered in blankets GI: Abd distended. Last BM x1 04/02. I/O: 400/0 (+400 ml) Current Appetite: Good Problem with: N: None: V: None. D: None. C: None. Problem, Etiology, Signs/Symptoms 1. Altered GI function related to liver cirrhosis as evidenced by abnormal Tbili lab values and liver enzymes, post-op diagnosis, and pt reports of loose bowel movements and vomiting -- *Ongoing, liver labs improving 2. Limited adherence to diet/lifestyle related to possible non-compliance to diet and medications as evidenced by pt refusing medications, declining nutrition education Expected Outcomes or Goals Goal: PO intakes to meet at least 75% of estimated needs with tolerance Monitor: PO intakes, tolerance to diet, labs (renal and liver), GI function, skin integrity, weights Dietitian Recommendations 1. Recommend 2 gm Na diet. Note that pt is on dialysis, PO intakes improved, abd is distended. 2. Consider Renal diet if good PO intakes continue. 3. Consider Nephro-edgar daily. Follow Up Moderate Risk: F/U in 3-5 days
--- NOTE | 2016-04-03 12:55 | NUR ---
DIALYSIS 2 LITERS WERE REMOVED TODAY.
[2016-04-03] MEDS: FOLIC ACID 1 MG, THIAMINE HCL 100 MG, MAGNESIUM SULFATE 1 GM, MVI 10 ML in NACL 0.9% 1,... IV SCH (13:01)
--- NOTE | 2016-04-03 14:00 | NUR ---
NOTE: PATIENT IS UP AND AMBULATORY IN HALLWAY. NO S/S OF DISTRESS OR SOB. PATIENT IS ALERT AND ORIENTED, ABLE TO EXPRESS NEEDS, AND ASK FOR ASSISTANCE. CALL LIGHT IN REACH, BED IN LOWEST POSITION, AND WILL CONTINUE TO MONITOR.
--- NOTE | 2016-04-03 15:21 | NUR ---
Social Service Note: JAYLENE met with pt at bedside; JAYLENE Angelo was also present. Pt states that he has contacted social security and is in the process of trying to apply; pt states that he does not have an address and phone number for social security to contact him. Pt states that he is half way through the application and will try to finish today. MEDICAL ASSEMBLY spoke wit pt about discharge options; MEDICAL ASSEMBLY talked with pt about DC to a retirement; pt states that he will not go to a retirement; pt states that he has been to shelters in the past and does not like him; pt states that he would live on the streets before going to a retirement. Pt states that he would try to get to HD if it was arranged. JAYLENE will continue to research alternative dc options for pt. JAYLENE has spoken to administration and CM director about possible options for discharge for pt.
--- NOTE | 2016-04-03 16:11 | NUR ---
ORDERS SPOKE WITH DR. FAJARDO FOR ORDER FOR OUTPATIENT DIALYSIS SO THAT CASE MANAGEMENT CAN START WORKING ON THAT. ALSO INFORMED THAT PATIENT REFUSED TO GET TB SHOT/TEST DONE AND GOT ORDER FOR A CHEST XRAY TO RULE OUT TB. ORDERS NOTED AND CARRIED OUT.
--- NOTE | 2016-04-03 18:19 | NUR ---
CLOSING NOTE: PATIENT IS RESTING COMFORTABLY IN BED. NO S/S OF DISTRESS OR SOB. PATIENT IS ALERT AND ORIENTED, ABLE TO EXPRESS NEEDS, AND ASK FOR ASSISTANCE. CALL LIGHT IN REACH, BED IN LOWEST POSITION, AND WILL GIVE REPORT TO NIGHT NURSE.
--- NOTE | 2016-04-03 19:35 | NUR ---
INITIAL NOTE Patient resting on the bed comfortable. No acute distress. Denied of pain. Dannie cath intact to left upper chest, covered with transparent dressing, no bleeding. Refused other physical assessment. Discussed the safety issue, use call light when need help, and plan of care, verbally understanding. Safety measure maintained. Call light within reached. Bed in low position, side rails up, bed alarm on. Continue to monitor.
[2016-04-03 20:00] VITALS: BP 132/88; PULSE 92; RESP 18; TEMP 97.4; O2SAT 100
--- NOTE | 2016-04-03 21:30 | NUR ---
ROUND Patient resting on the bed with eyes closed. No acute distress. Safety measure maintained. Call light within reached. Bed alarm on, bed in low position, side rails up. Continue to monitor.
--- NOTE | 2016-04-04 00:59 | NUR ---
REFUSAL pt refused the midnight v/s taken, pt stated that not to disturb him if he is sleeping. . RN Siena is notified.
[2016-04-04] MEDS: LevALBUTEROL HCL 1.25 MG/0.5 ML *CONC.* VIAL.NEB (XOPENEX CONC.) INH SCH ×4 (01:00→19:00)
--- NOTE | 2016-04-04 02:12 | NUR ---
ROUND Patient sleeping comfortable. No acute distress. Call light within reached. Safety measure maintained. Side rails up, bed in low position. Continue to monitor.
--- NOTE | 2016-04-04 04:09 | NUR ---
ROUND Patient sleeping at this time. Respiration even and unlabored noted. Call light within reached. Safety measure maintained. Continue to monitor.
--- NOTE | 2016-04-04 05:30 | NUR ---
ROUND Patient resting on the bed with eyes closed. Respiration even and unlabored noted. Safety measure maintained. Call light within reached. Side rails up, bed in low position. Continue to monitor.
[2016-04-04] MEDS: LIDOCAINE VISCOUS 2%, 15 ML UDC PO SCH ×4 (06:00→18:00)
[2016-04-04] MEDS: MAG-AL HYDROX/SIMETH 30 ML UDC PO SCH ×4 (06:00→18:00)
--- NOTE | 2016-04-04 06:30 | NUR ---
INITIAL NOTE Patient resting on the bed and talking on the phone. No acute distress. Denied of pain. All needs met. Hourly rounding during shift. Refused the medication during shift. Safety measure maintained. Call light within reached. Bed in low position, side rails up, bed alarm on. Will endorse to morning shift nurse.
--- NOTE | 2016-04-04 08:00 | NUR ---
OPENING NOTE: RECEIVED REPORT FROM NIGHT NURSE. PATIENT IS RESTING COMFORTABLY IN BED. NO S/S OF DISTRESS OR SOB. PATIENT IS ALERT AND ORIENTED, ABLE TO EXPRESS NEEDS, AND ASK FOR ASSISTANCE. PATIENT REFUSED ASSESSMENT AND VITAL SIGNS AT THIS TIME. CALL LIGHT IN REACH, BED IN LOWEST POSITION, AND WILL CONTINUE TO MONITOR.
[2016-04-04] MEDS: PENTOXIFYLLINE 400 MG TABLET.SA (TRENtal) PO SCH (09:00)
[2016-04-04] MEDS: POTASSIUM CHLORIDE 20 MEQ TAB.PRT.SR PO SCH (09:00)
[2016-04-04] MEDS: SODIUM BICARBONATE 8.4% JECT 50 MEQ/50 ML SYRINGE IVP SCH ×3 (09:00→21:00)
[2016-04-04] MEDS: PANTOPRAZOLE SODIUM 40 MG TAB PO SCH (09:00)
--- NOTE | 2016-04-04 12:35 | NUR ---
HCP/PA: Made BLANCA Barraza aware of discharge order to [facility]. Per Christi patient accepted at [facility] pending bed assignment. RN to report . [facility] ambulance on will call [phone]. Christi made aware of order for CPM. Christi stated CPM on order with [facility] and will have ETA upon bed assignment at [facility]. Addendum: 04/04/16 at 1354 by Imani SPENCE DISREGARD NOTE ABOVE, WRONG PT.
[2016-04-04 12:50] VITALS: BP 107/65; PULSE 90; RESP 18; TEMP 98; O2SAT 98
[2016-04-04] MEDS: FOLIC ACID 1 MG, THIAMINE HCL 100 MG, MAGNESIUM SULFATE 1 GM, MVI 10 ML in NACL 0.9% 1,... IV SCH (13:01)
--- NOTE | 2016-04-04 13:54 | NUR ---
DISCHARGE PLANNING Faxed referral to [facility] . Will follow up. Addendum: 04/04/16 at 1453 by Imani Kirk DP Called [facility] spoke with Denise who confirmed referral received and currently under review. Denise will return call to DCP with decision and chair availability.
[2016-04-04 16:31] VITALS: BP 110/68; PULSE 88; RESP 18; TEMP 97.8; O2SAT 98
[2016-04-04 17:33] VITALS: BP 110/68; PULSE 88
--- NOTE | 2016-04-04 20:00 | NUR ---
PM round pt awake alert oriented x 4. Clear speech. Non labored breathing, symmetrically. Pt noted no IV insertion. Jaundiced bilateral eyes, and abdomen distended. Pt denied SOB at the time. Asked pt the reason for refusing IV insertion. Pt stated, " I do not need extra medication that does not help me." Reeducated pt the importance of having IV access. pt still refused. Dannie cath noted on the left chest, clean and intact. educated pt to use call light for assistance. verbalized understanding. Ensured call light is within reach. Bed in the lowest positioned lock. will continue to monitor.
--- NOTE | 2016-04-04 23:30 | NUR ---
Pt noted ambulating in the hallway. steady gait noted.
--- NOTE | 2016-04-05 | NUR ---
Pt refused to take vital signs. educated pt, but still refused
[2016-04-05] MEDS: LevALBUTEROL HCL 1.25 MG/0.5 ML *CONC.* VIAL.NEB (XOPENEX CONC.) INH SCH ×4 (01:00→19:00)
--- NOTE | 2016-04-05 02:00 | NUR ---
Rounds eyes closed. No distress noted. No facial grimacing noted. Comfortable.
[2016-04-05] MEDS: LIDOCAINE VISCOUS 2%, 15 ML UDC PO SCH ×4 (05:08→17:20)
[2016-04-05] MEDS: MAG-AL HYDROX/SIMETH 30 ML UDC PO SCH ×4 (05:08→17:20)
--- NOTE | 2016-04-05 06:30 | NUR ---
Closing note pt awake alert. hourly rounds done throughout the shift, comfort needs met. educated to use call light for assistance and educated regarding medication per MD. verbalized understanding. Pt refused lab to be drawn, requested when dialysis is being done for the lab to be drawn. will endorsed to the day shift nurse to continue care.
--- NOTE | 2016-04-05 07:51 | NUR ---
AM ROUNDS PATIENT OUT OF BED TO WALK AROUND, AMBULATORY WITH STEADY GAIT, REFUSED VITAL SIGNS AT THIS TIME, WILL CONTINUE TO MONITOR THE PATIENT.
[2016-04-05] MEDS: SODIUM BICARBONATE 8.4% JECT 50 MEQ/50 ML SYRINGE IVP SCH ×3 (09:00→21:00)
[2016-04-05] MEDS: PENTOXIFYLLINE 400 MG TABLET.SA (TRENtal) PO SCH (09:00)
[2016-04-05] MEDS: PANTOPRAZOLE SODIUM 40 MG TAB PO SCH (09:00)
[2016-04-05] MEDS: POTASSIUM CHLORIDE 20 MEQ TAB.PRT.SR PO SCH (09:00)
--- NOTE | 2016-04-05 09:20 | NUR ---
HEMODIALYSIS NURSE HERE AT THIS TIME, INFORMED THAT PATIENT NEEDS BLOOD DRAWN FOR LABS, DIALYSIS NURSE TO DRAW BLOOD, WILL CONTINUE TO MONITOR THE PATIENT.
--- NOTE | 2016-04-05 09:25 | NUR ---
REFUSED MEDS PATIENT RESTING IN BED, REFUSED MEDICATIONS AT THIS TIME, EXPLAINED BENEFITS OF THESE MEDICATIONS, PATIENT STILL REFUSED, WILL CONTINUE TO MONITOR THE PATIENT.
[2016-04-05 10:17] LABS: BASOPHILS # (AUTO) 0.3 K/uL (0.0-0.2); BASOPHILS % (AUTO) 2.3 % (0.0-2.0); EOSINOPHILS # (AUTO) 0.1 K/uL (0.0-0.4); EOSINOPHILS % (AUTO) 0.7 % (0.0-4.0); HEMATOCRIT 23.4 % (36-54); HEMOGLOBIN 7.8 g/dL (14.0-18.0); LYMPHOCYTES # (AUTO) 0.8 K/uL (1.0-5.5); LYMPHOCYTES % (AUTO) 6.9 % (20.5-51.5); MEAN CORPUSCULAR HEMOGLOBIN 33 pg (27-31); MEAN CORPUSCULAR HGB CONC 33 % (32-36); MEAN CORPUSCULAR VOLUME 100 fL (79.0-98.0); MONOCYTES # (AUTO) 0.2 K/uL (0.0-1.0); MONOCYTES % (AUTO) 1.6 % (1.7-9.3); NEUTROPHILS % (AUTO) 88.5 % (40.0-70.0); PLATELET COUNT (AUTO) 114 K/uL (130-430); RED BLOOD CELL COUNT(AUTO) 2.33 MIL/uL (4.2-6.2); RED CELL DISTRIBUTION WIDTH 14.2 % (9.0-15.0); WHITE BLOOD COUNT (AUTO) 11.4 K/uL (4.8-10.8)
[2016-04-05 10:24] LABS: ALBUMIN 1.8 g/dL (3.4-4.8); CALCIUM 7.8 mg/dL (8.4-11.0); CREATININE 2.43 mg/dL (0.55-1.30); POTASSIUM 3.4 mmol/L (3.5-5.1); TOTAL BILIRUBIN 4.5 mg/dL (0.0-1.0); TOTAL PROTEIN, SERUM 5.9 g/dL (6.4-8.3)
--- NOTE | 2016-04-05 10:33 | NUR ---
Social Service Note: Pt's nurse stated that pt was asking to speak to CARGO INSPECTOR; CARGO INSPECTOR met with pt at bedside; pt undergoing dialysis currently. Pt states that he is "anxious" about being discharged; pt states that he does not want to go to a intermediate. Pt stated that he was able to get his cellphone turned back on. Pt states that he is currently waiting for social security to call back for a phone interview; pt states that it should happen Friday or Friday. Pt states that he if is discharged he feels "too weak" and will just go to a local shopping center and stay there. CARGO INSPECTOR alerted pt that the DC production planner scheduler is working on arranging outpatient dialysis then we would talk further about pt's discharge. CARGO INSPECTOR reminded pt about winter shelters available until April 24, 2016; pt again stated that he would not go to a intermediate. CARGO INSPECTOR will remain available for support and will continue to assist with pt's discharge.
--- NOTE | 2016-04-05 10:46 | NUR ---
DISCHARGE PLANNING Called [facility] spoke with Denise who stated referral still under review. DCP will continue to follow up.
--- NOTE | 2016-04-05 11:12 | NUR ---
RN ROUNDS PATIENT RESTING IN BED, DENIES PAIN, DR KING WAS PAGED FOR REGULAR DIET ORDER PER PATIENT REQUEST, ORDERS RECEIVED FOR REGULAR DIET THROUGH REMOTE ORDER, WAITING ASSEMBLY LINE SUPERVISOR BACK FROM DR KING REGARDING PATIENT'S HEMOGLOBIN LEVEL, WILL FOLLOW UP, PATIENT IS TOLERATING HEMODIALYSIS WELL, NO OTHER NEEDS AT THIS TIME, BED IN LOWEST POSITION, TWO SIDE RAILS UP, FALL PRECAUTIONS IN PLACE, CALL LIGHT NEXT TO THE PATIENT'S HAND.
--- NOTE | 2016-04-05 12:00 | NUR ---
REFUSED MEDICATIONS REFUSED MEDICATIONS AND STATES HE WILL NOT TAKE ANY FOR THE REST OF THE DAY TODAY, EDUCATED ON BENEFITS OF MEDICATIONS, PATIENT STILL REFUSED, MD AWARE OF PATIENT REFUSAL.
[2016-04-05 12:33] VITALS: BP 118/80; PULSE 97; RESP 18; TEMP 98.9; O2SAT 98
--- NOTE | 2016-04-05 13:45 | NUR ---
RN ROUNDS PATIENT RESTING IN BED, EYES CLOSED, BREATHING IS EVEN AND UNLABORED, NO SIGNS OF DISTRESS AT THIS TIME, BED IN LOWEST POSITION, THREE SIDE RAILS UP, FALL PRECAUTIONS IN PLACE, PATIENT REFUSES BED ALARM, CALL LIGHT NEXT TO THE PATIENT'S HAND.
--- NOTE | 2016-04-05 14:41 | NUR ---
DR FERNANDO POPE NOTIFIED OF HEMOGLOBIN LEVEL, STATED TO CONTINUE TO MONITOR AT THIS TIME, WILL FOLLOW UP.
--- NOTE | 2016-04-05 15:54 | NUR ---
DISCHARGE PLANNING NOTE: WIRELESS SALES REPRESENTATIVE faxed pt's information to [facility] (fax- [phone]/ phone- [phone]). WIRELESS SALES REPRESENTATIVE called [facility] to follow up and spoke with Eva. Marilee neville that she will review pt's information and will call back later regarding status of accepting pt. WIRELESS SALES REPRESENTATIVE updated Spooling SupervisorImani.
--- NOTE | 2016-04-05 16:30 | NUR ---
RN ROUNDS PATIENT OUT OF BED, WALKING AROUND THE UNIT AT THIS TIME, STEADY GAIT, NO OTHER NEEDS AT THIS TIME, PATIENT DENIES PAIN.
[2016-04-05 16:58] VITALS: BP 116/72; PULSE 92; RESP 18; TEMP 98.6; O2SAT 97
--- NOTE | 2016-04-05 17:41 | NUR ---
RN ROUNDS PATIENT RESTING IN BED, REFUSED 1800 MEDICATIONS, EDUCATION GIVEN TO THE PATIENT, PATIENT STILL REFUSED, NO OTHER NEEDS AT THIS TIME, BED IN LOWEST POSITION, TWO SIDE RAILS UP, ASPIRATION PRECAUTIONS IN PLACE, PATIENT REFUSES BED ALARM, FALL PRECAUTIONS IN PLACE, CALL LIGHT NEXT TO THE PATIENT'S HAND.
--- NOTE | 2016-04-05 18:21 | NUR ---
CLOSING NOTES PATIENT RESTING IN BED, EYES CLOSED, BREATHING IS EVEN AND UNLABORED, NO SIGNS OF DISTRESS AT THIS TIME, ALL NEEDS MET, WILL ENDORSE REPORT TO NOC SHIFT NURSE, BED IN LOWEST POSITION, THREE SIDE RAILS UP, BED ALARM ON, BED CLOSE TO NURSE'S STATION, FALL PRECAUTIONS IN PLACE, CALL LIGHT NEXT TO THE PATIENT'S HAND.
--- NOTE | 2016-04-05 20:03 | NUR ---
initial nursing notes: Patient in bed. Patient is covered with blanket from head to toe. Patient declines to have his vital signs to be taken. Patient denies of having pain. Patient refuses to be assessed.
--- NOTE | 2016-04-05 22:00 | NUR ---
nursing rounds: Patient is getting ready to sleep. Patient denies of having pain.
--- NOTE | 2016-04-06 | NUR ---
nursing rounds: Patient is asleep. Patient has no shortness of breath.
[2016-04-06 00:31] VITALS: BP 107/58; PULSE 65; RESP 20; TEMP 97.6; O2SAT 99
--- NOTE | 2016-04-06 02:00 | NUR ---
nursing rounds: Patient is sleeping in bed. Patient has no respiratory distress.
--- NOTE | 2016-04-06 04:00 | NUR ---
nursing rounds: Patient calmly resting in bed. Call light within patient's reach.
[2016-04-06] MEDS: LIDOCAINE VISCOUS 2%, 15 ML UDC PO SCH ×4 (06:00→17:32)
[2016-04-06] MEDS: MAG-AL HYDROX/SIMETH 30 ML UDC PO SCH ×4 (06:00→17:32)
--- NOTE | 2016-04-06 06:00 | NUR ---
nursing rounds: Patient calmly resting in bed. No falls and no injuries noted.
[2016-04-06] MEDS: LevALBUTEROL HCL 1.25 MG/0.5 ML *CONC.* VIAL.NEB (XOPENEX CONC.) INH SCH ×3 (07:00→19:45)
--- NOTE | 2016-04-06 07:24 | NUR ---
Handoff report. No changes for plan of care.
--- NOTE | 2016-04-06 07:46 | NUR ---
closing nursing notes: Patient is awake, alert and oriented X 4. Patient is ambulatory. Patient is in no acute respiratory distress. No episodes of fall and no injuries throughout the digital media manager. Provided nursing report to incoming morning shift nurse, RODDY Evans, at patient's bedside.
[2016-04-06] MEDS: PANTOPRAZOLE SODIUM 40 MG TAB PO SCH (09:00)
[2016-04-06] MEDS: POTASSIUM CHLORIDE 20 MEQ TAB.PRT.SR PO SCH (09:00)
[2016-04-06] MEDS: SODIUM BICARBONATE 8.4% JECT 50 MEQ/50 ML SYRINGE IVP SCH ×3 (09:00→21:00)
[2016-04-06] MEDS: PENTOXIFYLLINE 400 MG TABLET.SA (TRENtal) PO SCH (09:00)
--- NOTE | 2016-04-06 09:10 | NUR ---
PATIENT REFUSAL OF CARE FOR AM , VITAL SIGNS AND ASSESSMENT. LISTENING TO MUSIC. WILL OFFER PRN INTERVENTION DESIRED BY PATIENT.
--- NOTE | 2016-04-06 11:03 | NUR ---
PATIENT ROUNDS. NO NEW NEEDS. WILL CONTINUE TO ASSESS FOR FURTHER INTERVENTION.
--- NOTE | 2016-04-06 13:01 | NUR ---
PATIENT REFUSES CARE OF ADLS OR ANY MEDS AT THIS TIME.
--- NOTE | 2016-04-06 15:49 | NUR ---
ROUNDS TO PATIENT. NEEDS MET AT THIS TIME.
--- NOTE | 2016-04-06 17:40 | NUR ---
ROUNDS TO PATIENT. NEEDS MET AT THIS TIME.
--- NOTE | 2016-04-06 19:16 | NUR ---
Handoff rounds to patient. No change in plan of care.
--- NOTE | 2016-04-06 19:50 | NUR ---
initial nursing notes: Patient awake in bed. Patient is covered with blanket from neck to toe. Patient declines to have his vital signs to be taken. Patient denies of having pain. Patient refuses to be assessed.
--- NOTE | 2016-04-06 21:50 | NUR ---
nursing rounds: Patient is watching television.
--- NOTE | 2016-04-06 23:50 | NUR ---
nursing rounds: Patient is asleep in bed. Call light within patient's reach.
[2016-04-07] MEDS: LevALBUTEROL HCL 1.25 MG/0.5 ML *CONC.* VIAL.NEB (XOPENEX CONC.) INH SCH ×4 (01:30→19:30)
--- NOTE | 2016-04-07 01:50 | NUR ---
nursing rounds: Patient is asleep. Patient has no shortness of breath.
--- NOTE | 2016-04-07 03:50 | NUR ---
nursing rounds: Patient is sleeping in bed. Patient has no respiratory distress.
[2016-04-07] MEDS: MAG-AL HYDROX/SIMETH 30 ML UDC PO SCH ×4 (05:34→18:00)
[2016-04-07] MEDS: LIDOCAINE VISCOUS 2%, 15 ML UDC PO SCH ×4 (05:34→18:00)
--- NOTE | 2016-04-07 05:50 | NUR ---
nursing rounds: Patient calmly resting in bed.
--- NOTE | 2016-04-07 07:21 | NUR ---
closing nursing notes: Patient is awake, alert and oriented X 4. Patient is ambulatory. Patient is in no acute respiratory distress. No episodes of fall and no injuries throughout the career services assistant. Provided nursing report to incoming morning shift nurse, RODDY Ji, at patient's bedside.
[2016-04-07 08:00] VITALS: BP 122/81; PULSE 84; RESP 18; TEMP 97.8; O2SAT 100
--- NOTE | 2016-04-07 08:00 | NUR ---
Initial Note Patient A/O x4. Respirations even and unlabored on room air. Denies shortness of breath and difficulty breathing at this time. Denies discomfort at this time. Stated "I do not need any medicine right now". Use of call light reviewed with patient, he acknowledged understanding. Fall and safety precautions in place. Encouraged patient to call for assistance when needed. Bed in lowest and locked position.
[2016-04-07] MEDS: PENTOXIFYLLINE 400 MG TABLET.SA (TRENtal) PO SCH (09:00)
[2016-04-07] MEDS: POTASSIUM CHLORIDE 20 MEQ TAB.PRT.SR PO SCH (09:00)
[2016-04-07] MEDS: SODIUM BICARBONATE 8.4% JECT 50 MEQ/50 ML SYRINGE IVP SCH ×3 (09:00→21:00)
[2016-04-07] MEDS: PANTOPRAZOLE SODIUM 40 MG TAB PO SCH (09:00)
[2016-04-07 09:17] LABS: ALBUMIN 2.1 g/dL (3.4-4.8); CALCIUM 8.5 mg/dL (8.4-11.0); CREATININE 3.06 mg/dL (0.55-1.30); POTASSIUM 3.6 mmol/L (3.5-5.1); TOTAL BILIRUBIN 4.6 mg/dL (0.0-1.0); TOTAL PROTEIN, SERUM 6.9 g/dL (6.4-8.3)
--- NOTE | 2016-04-07 12:00 | NUR ---
Notes Patient refused to have noon vitals. Will reattempt later. Lunch tray provided. Patient having phone conversation.
--- NOTE | 2016-04-07 14:41 | NUR ---
Notes Spoke with Dr. Ashby at nurses station. He stated "no improvement in labs, continue dialysis".
--- NOTE | 2016-04-07 16:00 | NUR ---
Notes Patient refused noon and 1600 vitals.
--- NOTE | 2016-04-07 18:36 | NUR ---
Closing Note Patient needs met throughout shift. Hourly rounds completed. Patient denies discomfort throughout shift. Patient very independent, uses personal phone throughout day. Was able to make needs known throughout shift. Refused all medications throughout shift. Will continue to monitor until patient care is endorsed to oncoming shift nurse.
--- NOTE | 2016-04-07 19:25 | NUR ---
OPENING NOTE PATIENT IS BED SLEEPING. NO SIGNS OF DISTRESS. BREATHING IS NON LABORED. PATIENT REFUSED VITAL SIGNS ASSESSMENT AND PHYSICAL ASSESSMENT. PATIENT STATED, "LEAVE ME ALONE. I DON'T WANT ANYONE IN MY ROOM." PATIENT WAS EDUCATED ON THE IMPORTANCE OF ASSESSMENT. PATIENT REFUSED. PATIENT REFUSES IV ACCESS. PATIENT EDUCATED ON THE IMPORTANCE. PATIENT REFUSED. CALL LIGHT IS WITHIN REACH. SAFETY MEASURES ARE IN PLACE. PATIENT REFUSES BED ALARM. WILL CONTINUE TO MONITOR.
--- NOTE | 2016-04-07 21:00 | NUR ---
PATIENT REFUSED 2100 MEDICATION.
--- NOTE | 2016-04-07 23:15 | NUR ---
ROUNDS PATIENT IS IN BED SLEEPING. NO SIGNS OF DISTRESS. BREATHING IS NON LABORED. PATIENT UPSET THAT ANYONE ENTER THE ROOM. PATIENT WAS EDUCATED ON THE IMPORTANCE OF PATIENT BEING MONITORED. WILL CONTINUE TO MONITOR PATIENT.
--- NOTE | 2016-04-08 | NUR ---
ROUNDS PATIENT IS IN BED SLEEPING. NO SIGNS OF DISTRESS. BREATHING IS NON LABORED. PATIENT REFUSES 0000 MEDICATIONS. WILL CONTINUE TO MONITOR. CALL LIGHT IS WITHIN REACH. SAFETY MEASURES ARE IN PLACE. WILL CONTINUE TO MONITOR. Addendum: 04/08/16 at 0430 by Phylicia Clark RN PATIENT REFUSED VITAL SIGNS. PATIENT EDUCATED ON THE IMPORTANCE OF VITAL SIGNS. PATIENT REFUSED.
[2016-04-08] MEDS: LevALBUTEROL HCL 1.25 MG/0.5 ML *CONC.* VIAL.NEB (XOPENEX CONC.) INH SCH ×3 (01:15→13:00)
--- NOTE | 2016-04-08 02:20 | NUR ---
ROUNDS PATIENT APPEARS TO BE IN BED SLEEPING. NO SIGNS OF DISTRESS. BREATHING IS NON LABORED. CALL LIGHT IS WITHIN REACH. SAFETY MEASURES ARE IN PLACE. WILL CONTINUE TO MONITOR.
--- NOTE | 2016-04-08 04:25 | NUR ---
ROUNDS PATIENT IS IN BED SLEEPING. NO SIGNS OF DISTRESS. BREATHING IS NON LABORED. PATIENT REFUSES VITALS TO BE TAKEN. EDUCATED PATIENT ON THE IMPORTANCE OF VITAL SIGNS TO BE TAKEN. PATIENT REFUSED. CALL LIGHT IS WITHIN REACH. SAFETY MEASURES ARE IN PLACE. WILL CONTINUE TO MONITOR.
[2016-04-08] MEDS: MAG-AL HYDROX/SIMETH 30 ML UDC PO SCH ×5 (06:00→23:01)
[2016-04-08] MEDS: LIDOCAINE VISCOUS 2%, 15 ML UDC PO SCH ×5 (06:00→23:01)
--- NOTE | 2016-04-08 06:33 | NUR ---
CLOSING NOTES PATIENT IS IN BED SLEEPING. BREATHING IS NON LABORED. NO SIGNS OF DISTRESS. PATIENT HAS NO IV ACCESS, PATIENT REFUSED. SAFETY MEASURES ARE IN PLACE. CALL LIGHT IS WITHIN REACH. PATIENT REFUSED BED ALARM. WILL ENDORSE CARE TO THE MORNING NURSE.
[2016-04-08] MEDS: SODIUM BICARBONATE 8.4% JECT 50 MEQ/50 ML SYRINGE IVP SCH ×3 (07:43→20:46)
[2016-04-08 08:00] VITALS: BP 119/86; PULSE 86; RESP 18; TEMP 98.6; O2SAT 100
--- NOTE | 2016-04-08 08:00 | NUR ---
OPENING NOTE PATIENT IS AWAKE, STATES HE DOES NOT WANT TO BE BOTHERED. PERFORMED ASSESSMENT, OBTAINED VITALS. PT STATES HE HAS CHRONIC ABDOMINAL PAIN. PT ALSO STATES HE PLANS TO REFUSE ALL AM MEDICATIONS TODAY.
[2016-04-08] MEDS: PANTOPRAZOLE SODIUM 40 MG TAB PO SCH (09:00)
[2016-04-08] MEDS: POTASSIUM CHLORIDE 20 MEQ TAB.PRT.SR PO SCH (09:00)
[2016-04-08] MEDS: PENTOXIFYLLINE 400 MG TABLET.SA (TRENtal) PO SCH (09:00)
--- NOTE | 2016-04-08 09:30 | NUR ---
PATIENT REFUSED ALL MEDICATIONS. VISITED BY VOLUNTEER STAFF WHO OFFERED BOOKS OR CHAPSTICK. PATIENT BARKED AT VOLUNTEER TO LEAVE HIM ALONE. PT IS REFUSING INTERACTION WITH STAFF AT THIS TIME. NO SIGNS OF DISTRESS.
--- NOTE | 2016-04-08 10:50 | NUR ---
DISCHARGE PLANNING Called [facility] left voice message requesting return call back. Addendum: 04/08/16 at 1441 by Imani Kirk DP Spoke with Marilee in intake dept at [facility] who stated still under review. Marilee stated needed discharge address so that she can proceed with arranging outpt dialysis. Will follow up. Addendum: 04/08/16 at 1552 by Imani Kirk DP Spoke with Marilee at [facility] who was made aware of patient address and cell number which was confirmed with patient. Marilee stated she would call patient to confirm.
--- NOTE | 2016-04-08 11:00 | NUR ---
patient lying in bed, no signs of distress. denies any distress. reporting mild diffuse abdominal pain.
--- NOTE | 2016-04-08 14:00 | NUR ---
pat ambulated outside for fresh air at 1300. now back in bed. pt is refusing all medications stating he is only here to receive dialysis.
--- NOTE | 2016-04-08 15:42 | NUR ---
Social Service/Discharge Planning Note: SPOT REMOVER and DC raw material planner met with pt at bedside; SPOT REMOVER updated pt that outpatient dialysis cannot be set up without a address. Pt states that the address on his facesheet can be used; that is where pt last lived. SPOT REMOVER asked pt about his cellphone for a contact number; pt states that his phone should be good "for the next year"; [phone]. SPOT REMOVER [place] pt about [place]; pt states that the shelters are only open a couple more weeks; SPOT REMOVER confirmed local winter shelters are open till April 24, 2016. Pt continues to state that he does not want to go to a [place]. SPOT REMOVER asked pt what his plan is once he is discharged; pt stated "I don't know". Pt states that he is "weak, and cannot walk well". SPOT REMOVER has asked administration if a bus pass could be provided to pt to assist in pt getting to and from dialysis once discharged. Pt states that he has no yet heard back form social security to see if his benefits have been approved. SPOT REMOVER will remain available for support and will continue to assist with pt's discharge.
--- NOTE | 2016-04-08 16:15 | NUR ---
pt continues to refuse IV, medications. ambulating in halls. pt stopped at nurses station asking when his dialysis was scheduled. explained to patient that there was no order for dialysis today.
[2016-04-08 16:35] VITALS: BP 115/70; PULSE 90; RESP 16; TEMP 98.3; O2SAT 95
--- NOTE | 2016-04-08 17:30 | NUR ---
dr mejias in to see patient
--- NOTE | 2016-04-08 19:50 | NUR ---
Initial Note Late entry due to patient care. Patient in bed at this time resting, respirations even and unlabored. No acute distress noted at this time. Patient is quiet and withdrawn, laying in bed. Vital signs stable. Call light in hand. Educated patient on using call light for assistance. Fall and safety precautions in place. Will continue to monitor.
[2016-04-08 20:00] VITALS: BP 117/71; PULSE 95; RESP 17; TEMP 98.5; O2SAT 95
--- NOTE | 2016-04-08 21:00 | NUR ---
Medications. Patient refused 2100 medication.
--- NOTE | 2016-04-08 22:14 | NUR ---
RN ROUNDS Patient in bed at this time resting. Respirations even and unlabored. No acute distress noted at this time. Call light in hand. Fall and safety precautions in place. Will continue to monitor.
--- NOTE | 2016-04-09 00:21 | NUR ---
RN ROUNDS Patient in bed at this time resting, respirations even and unlabored. No acute distress noted at this time. Patient refused vitals signs, and told MILL CONTROL OPERATOR he does not want to be bothers. Call light in hand. Fall and safety precautions in place. Will continue to monitor.
[2016-04-09] MEDS: LevALBUTEROL HCL 1.25 MG/0.5 ML *CONC.* VIAL.NEB (XOPENEX CONC.) INH SCH ×4 (00:33→19:00)
--- NOTE | 2016-04-09 02:11 | NUR ---
RN ROUNDS Patient in bed resting.
--- NOTE | 2016-04-09 04:59 | NUR ---
RN ROUNDS Patient in bed at this time resting, respirations even and unlabored. No acute distress noted at this time. Will continue to monitor. Addendum: 04/09/16 at 0502 by Eugenie Booth RN Patient refused vitals.
[2016-04-09] MEDS: LIDOCAINE VISCOUS 2%, 15 ML UDC PO SCH ×4 (05:42→23:46)
[2016-04-09] MEDS: MAG-AL HYDROX/SIMETH 30 ML UDC PO SCH ×4 (05:43→23:46)
--- NOTE | 2016-04-09 06:58 | NUR ---
Closing Note Patient in bed at this time resting. Patient refused all medications and care throughout the night. Patient appears to be stable with no signs or symptoms of infiltration noted. Call light in hand. Fall and safety precautions in place. Will endorse to day shift nurse.
--- NOTE | 2016-04-09 08:00 | NUR ---
initial notes rec patient asleep after eating his breakfast. requested for vital signs to be taken and stated what for? resp easy and unlabored , jaundice and with abdominal distention. bed in low position and side rails up and locked. call light within reached.
[2016-04-09] MEDS: POTASSIUM CHLORIDE 20 MEQ TAB.PRT.SR PO SCH (09:00)
[2016-04-09] MEDS: PANTOPRAZOLE SODIUM 40 MG TAB PO SCH (09:00)
[2016-04-09] MEDS: SODIUM BICARBONATE 8.4% JECT 50 MEQ/50 ML SYRINGE IVP SCH ×3 (09:00→21:00)
[2016-04-09] MEDS: PENTOXIFYLLINE 400 MG TABLET.SA (TRENtal) PO SCH (09:00)
--- NOTE | 2016-04-09 09:07 | NUR ---
Social Service Note: Pt left a message for MARKETING PROFESSOR stating that he cannot use the address listed on his facesheet. MARKETING PROFESSOR and DC meeting planner met with pt at bedside; pt states that he cannot use the address listed on his facesheet because the people living at that address have a restraining order against him. Pt states that he has spoken to his aunt but does not have her address and does not know how long she is going to be at her current house. Pt states that he does not have another address; pt states he is just "homeless". MARKETING PROFESSOR alerted pt that outpatient dialysis would not be able to set up unless a address was provided. Pt stated that he did speak to social security and they encouraged him to reach out to the local [place] social security office; pt states that he will try and call social security later today to see if his benefits are going to be approved. JAYLENE has updated CM director and administration on progress for pt's discharge.
--- NOTE | 2016-04-09 09:24 | NUR ---
DISCHARGE PLANNING Called [facility] spoke with Delon who stated Marilee was in meeting and will have Marilee return call with status update. DCP will continue to follow up. Addendum: 04/09/16 at 1002 by Imani Kirk DP Spoke with Claire in intake dept at [facility] who denied patient due to patient being homeless and not having address of his residency. SSW made aware.
--- NOTE | 2016-04-09 10:00 | NUR ---
rounds seen by dr oconnor and with orders.
--- NOTE | 2016-04-09 10:20 | NUR ---
DC planning: Met w/pt at bedside-Pt had angry demeanor upon my entering the room and introducing myself. I explained that our social security specialist had given me an update that he is not allowing us to use address on facesheet in order to proceed with setting up outpt HD for him, and that he mentioned he had an aunt, but didn't want to use her address. He loudly and angrily said he can't use the address on face sheet because that's his ex's house, and his aunt might be moving, and she has lots of kids in her house and he can't reach her on the phone. I explained we need a valid address in order to arrange HD for him, and perhaps he could use his aunt's address temporarily. I also asked status of his social security application-Pt said "They can't help me and there's going to be issues with that too!" I asked if he had been able to open a case with social security-he said "yes, I talked to them and it's being processed and now you're trying to kick me out when I have a bad catheter and nowhere to go!" I explained we are trying to assist him with discharge planning, and again, we need an address in order to arrange HD outpt for him. Nurse Naty entered the room, and I asked him to explain the "bad catheter". Naty then explained to me and pt Dr. Goldstein, his kidney doctor, said he needs a permacath placement and removal of the Dannie, so that there's less chance of infection, and that Dr. Alas, surgeon, will be seeing pt to explain the procedure. The patient was agitated, saying we can't kick him out of the hospital when he has nowhere to go, and that he can only walk 50yards, went down on the floor of the cafeteria last weekend because he's weak. Naty had to leave the room for another pt matter. I explained to pt he should not be in the cafeteria, and that he can call nurse if he is hungry. He started yelling, "I can go in there if I want to because I use the vending machines!" I explained we do not want our patients in the cafeteria due to infection control reasons. Pt continued to loudly voice his anger saying "He's going to call the [employer] media and facebook and tell them the hospital is trying to kick him out!" I again explained we need his cooperation with discharge planning, as he cannot live at the hospital and therefore we need an address in order to arrange HD for him. I requested him to please call his aunt again to perhaps use her address temporarily so that we can proceed with arranging HD for him. Pt requested to speak to administration and began pacing in the room-- LJ Knox made aware. DAYNA PEREYRA
--- NOTE | 2016-04-09 11:00 | NUR ---
rounds dialysis nurse in the room and started dialysis . dr mendiola in the room to talk re putting a perma cath as per dr oconnor and was very upset.
[2016-04-09 12:49] LABS: CALCIUM 8.5 mg/dL (8.4-11.0); CREATININE 3.17 mg/dL (0.55-1.30); POTASSIUM 3.9 mmol/L (3.5-5.1)
[2016-04-09 12:59] LABS: BASOPHILS % (AUTO) 0.3 % (0.0-2.0); EOSINOPHILS # (AUTO) 0.1 K/uL (0.0-0.4); EOSINOPHILS % (AUTO) 1.5 % (0.0-4.0); HEMATOCRIT 25.8 % (36-54); HEMOGLOBIN 8.6 g/dL (14.0-18.0); LYMPHOCYTES # (AUTO) 0.9 K/uL (1.0-5.5); MEAN CORPUSCULAR HEMOGLOBIN 33 pg (27-31); MEAN CORPUSCULAR HGB CONC 33 % (32-36); MEAN CORPUSCULAR VOLUME 100 fL (79.0-98.0); MONOCYTES # (AUTO) 0.5 K/uL (0.0-1.0); MONOCYTES % (AUTO) 6.2 % (1.7-9.3); NEUTROPHILS # (AUTO) 6.7 K/uL (1.8-7.7); PLATELET COUNT (AUTO) 144 K/uL (130-430); RED BLOOD CELL COUNT(AUTO) 2.59 MIL/uL (4.2-6.2); RED CELL DISTRIBUTION WIDTH 13.5 % (9.0-15.0); WHITE BLOOD COUNT (AUTO) 8.2 K/uL (4.8-10.8)
--- NOTE | 2016-04-09 13:30 | NUR ---
rounds 1 unit of packed cell given during dialysis by dialysis nurse. checked with him the the room prior to blood transfusion. no untoward reaction noted.
--- NOTE | 2016-04-09 14:00 | NUR ---
rounds dialysis completed and no reaction noted.
--- NOTE | 2016-04-09 15:00 | NUR ---
Nutrition F/U Admitting Diagnosis Acute Alcohol Intoxication, Hepatoencephalopathy, Alcoholic Liver Disease Per operative notes 03/12/16: post-op diagnoses: acute renal failure, cirrhosis of the liver, ascites, hyperbilirubinemia 03/28/16 GI Consult MD: Acute alcoholic hepatitis, moderate to severe, ascites s/p paracentesis, renal failure, anemia, abd pain Past Medical History Alcohol dependency, possible depression. Pt also admitted w/ abd pain, N/V, and gastritis per MD notes. Pertinent Medications sodium bicarbonate, mylanta, k-Dur, protonix Current Diet Order Regular x4 days Height (Feet) 6 feet Height (Inches) 1.00 inches Weight (Pounds) Admission Weight: 161 lb, 73 kg 03/18/16: No significant weight changes noted 03/23/16: Bedscale weight 158.5 lb (noted 2.5 lb loss - Pt underwent paracentesis on 03/12/16, weight inflated d/t fluids) 04/03/16: No significant weight changes noted (Pt undergoing dialysis) 04/09/16: No significant weight changes noted (pt undergoing dialysis) Weight (Calculated Kilograms) 73.122319 kilograms Patient Weight 73.028 kg Body Mass Index 21.24 kg/m2 [place]/Adjusted Body Weight IBW: 184 lb, 84 kg. 87% of IBW Estimated Needs (modified) 2087 kcal/day (BEE x 1.2 for liver cirrhosis) Grams of Protein per Day 101-118 gm/day (1.2-1.4 gm/kg IBW for dialysis) Fluid Intake Goal Per MD for acute renal failure on dialysis Pertinent Labs Hgb 8.6 L, Hct 25.8 L, BUN 30 H, CRE 3.17 H, eGFR 24 L, BG 89 WNL (improved) 04/07/16: ALB 2.1 , AST 90 H, ALP 236 H Other Subjective Data Pt seen resting in bed w/ dialysis ongoing and dialysis nurse at bedside providing care. Pt reports good/improving appetite. Pt noted food preferences. RD to note in [employer]. PO Intakes: 96% average x14 meals Skin: Jaundiced; Daniel 23 Edema: Unable to obtain. Pt covered in blankets GI: Abd distended w/ active bowel sounds. Last BM x1 04/07/16. Current Appetite: Good I/O: 800/0 (+800 ml) per 12 hours Problem with: N: None: V: None. D: None. C: None. RD inquired w/ pt regarding modification of diet to potentially improve renal function labs; pt stated he is not interested and would like to continue regular diet. Pt declined nutrition education. Problem, Etiology, Signs/Symptoms 1. Altered GI function related to liver cirrhosis as evidenced by abnormal Tbili lab values and liver enzymes, post-op diagnosis, and pt reports of loose bowel movements and vomiting -- *Ongoing, liver labs improving 2. Limited adherence to diet/lifestyle related to possible non-compliance to diet and medications as evidenced by pt refusing medications, declining nutrition education Expected Outcomes or Goals Goal: PO intakes to meet at least 75% of estimated needs with tolerance Monitor: PO intakes, tolerance to diet, labs (renal and liver), GI function, skin integrity, weights Dietitian Recommendations * Recommend continuing regular diet Follow Up Low Risk: F/U in 7 days
[2016-04-09 15:43] VITALS: BP 121/81; PULSE 87; RESP 19; TEMP 97.4; O2SAT 93
--- NOTE | 2016-04-09 16:00 | NUR ---
rounds was seen ambulating on the hallway .no c/o pain.
[2016-04-09 16:57] VITALS: BP 121/81; PULSE 87
--- NOTE | 2016-04-09 18:05 | NUR ---
rounds eating dinner at this time. no c/o pain.
--- NOTE | 2016-04-09 19:00 | NUR ---
rounds seen by dr alamo . no acute distress noted. bed in low position and side rails up and locked.
--- NOTE | 2016-04-09 19:45 | NUR ---
PM ASSESSMENT PT. A/OX4, PT. REFUSED VITAL SIGNS, EDUCATION PROVIDED BUT PT. STILL REFUSED VITAL SIGNS AND STATED "I DON'T WANT THEM TAKEN RIGHT." PT. IS EATING DINNER AT THIS TIME, ENCOURAGED PT. TO USE CALL LIGHT FOR ASSISTANCE, CALL LIGHT WITHIN REACH, WILL CONTINUE TO MONITOR. Addendum: 04/09/16 at 2127 by Shameka Han RN AMEND NOTE: PT. STATED, "I DON'T WANT THEM TAKEN ALRIGHT."
[2016-04-09 20:00] VITALS: BP 121/81; PULSE 87; RESP 19; TEMP 97.4; O2SAT 93
--- NOTE | 2016-04-09 21:25 | NUR ---
ENDORSED CARE TO JOSE G, RODDY. Addendum: 04/10/16 at 0551 by Six kennel technician 04/09/2016 2100 Receveid patient awake, alert and oriented times four lying in bed in low dacosta's position. Able to follow commands. Able to verbalize wishes and concerns. Vital signs taken and recorded-all parameters were within normal limits. Bedside care done. Physical assessment done and completed. Due meds-refused. Not in any acute distress or pain. Will continue to monitor. 0030 Resting with eyes closed.Siderails up times two. Call light in reach. Will continue to monitor.
[2016-04-10] VITALS: BP 116/75; PULSE 80; RESP 20; TEMP 98.2; O2SAT 95
[2016-04-10] MEDS: LevALBUTEROL HCL 1.25 MG/0.5 ML *CONC.* VIAL.NEB (XOPENEX CONC.) INH SCH ×3 (01:00→13:00)
[2016-04-10 04:00] VITALS: BP 114/74; PULSE 78; RESP 24; TEMP 97.5; O2SAT 95
[2016-04-10] MEDS: LIDOCAINE VISCOUS 2%, 15 ML UDC PO SCH ×2 (05:37→12:00)
[2016-04-10] MEDS: MAG-AL HYDROX/SIMETH 30 ML UDC PO SCH ×2 (05:38→12:00)
--- NOTE | 2016-04-10 07:25 | NUR ---
rn notes: patient aaox 4 refused vitals sign taken.. has no iv access and has bertha cath with pigtail on the left upper chest. refused to be assessed. refused other patients needs to be met at this time. call lights within reach. safety measures maintained. ambulatory. bed in low position. informed patient to call for assistance.
[2016-04-10 07:33] VITALS: BP 114/74; PULSE 90
--- NOTE | 2016-04-10 08:00 | NUR ---
eating breakfast at this time. assists on adls.
[2016-04-10] MEDS: PENTOXIFYLLINE 400 MG TABLET.SA (TRENtal) PO SCH (09:00)
[2016-04-10] MEDS: SODIUM BICARBONATE 8.4% JECT 50 MEQ/50 ML SYRINGE IVP SCH (09:00)
[2016-04-10] MEDS: PANTOPRAZOLE SODIUM 40 MG TAB PO SCH (09:00)
[2016-04-10] MEDS: POTASSIUM CHLORIDE 20 MEQ TAB.PRT.SR PO SCH (09:00)
--- NOTE | 2016-04-10 09:00 | NUR ---
refused to take due medication at this time.
--- NOTE | 2016-04-10 10:00 | NUR ---
DUE MEDICATION REFUSED.
--- NOTE | 2016-04-10 11:50 | NUR ---
call dietary department for food and salad dressing at this time.
--- NOTE | 2016-04-10 12:00 | NUR ---
refused due medication at this time.
--- NOTE | 2016-04-10 12:18 | NUR ---
Social Service/Discharge Planning Note: CLOTH SHRINKER, [place] naval surface fire support planner, and CM Director met with pt at bedside. Pt states that he does not have an address to provide for his discharge planning. CLOTH SHRINKER explained again that outpatient dialysis can not be set up without an address. Pt states that he has no one to help him out. Pt states that he was speaking to a Ms. Arango at the [facility]; pt states that he needs to send them verification of when he started dialysis. CLOTH SHRINKER offered to fax dialysis record; pt agreeable. CLOTH SHRINKER provided pt with authorization and disclosure of health information form; pt completed form and signed it; CLOTH SHRINKER has placed signed form in the chart. CLOTH SHRINKER has faxed renal physician's progress notes and dialysis record to [facility] ([phone]). CLOTH SHRINKER will follow up with pt as needed for DC planning.
--- NOTE | 2016-04-10 13:49 | NUR ---
PATIENT AGREED TO SIGNED THE CONSENT FOR PERMACATH PLACEMENT TOMORROW.
--- NOTE | 2016-04-10 15:47 | NUR ---
refused vital signs taken at this time. assists on adls.
--- NOTE | 2016-04-10 17:44 | NUR ---
still asleep. stable no distress noted.
--- NOTE | 2016-04-10 18:05 | NUR ---
still eating dinner at this time. and explained to him NPO post midnite for the procedure in am.
--- NOTE | 2016-04-10 20:00 | NUR ---
pt.assessd.pt.refused v/s assessment.pt.stes he may not submit 2 procedure in am if it is the same drAnsleywho palced the last central line.call light w/in pt's reach.
--- NOTE | 2016-04-10 22:00 | NUR ---
pt.assessed.pt.asleep.no distress.no request.call light w/in pt's reach.
[2016-04-11] VITALS (7 sets, daily range): BP systolic 116–138; BP diastolic 72–87; PULSE 80–93; RESP 17–18; TEMP 97.1–98; O2SAT 98–100
--- NOTE | 2016-04-11 | NUR ---
pt.presents aggressive affect:pt.refusing medications/pt.npo for central line placement.
--- NOTE | 2016-04-11 02:00 | NUR ---
pt.asleep.no request.no distress.call marni w/in pt's reach.
--- NOTE | 2016-04-11 04:00 | NUR ---
pt.assessed.pt.asleep.no request.no distress.call light w/in pt's reach.
[2016-04-11] MEDS: LIDOCAINE VISCOUS 2%, 15 ML UDC PO SCH ×5 (05:42→23:06)
[2016-04-11] MEDS: MAG-AL HYDROX/SIMETH 30 ML UDC PO SCH ×5 (05:43→23:05)
--- NOTE | 2016-04-11 06:00 | NUR ---
pt.assessed.pt.resting.no request.call light w/in pt's reach. Addendum: 04/11/16 at 0743 by Terry Regan RN i have reviewed the previous who placed the central line and it is .pt.stated he did not want the previous who placed the last central line.it is . Addendum: 04/11/16 at 0745 by Terry Regan RN i have reviewed the previous who placed the last central line and it is pt.stated he did not want the previous dr who placed the central line:it is .will apprise the pt.who is asleep @this hour.
--- NOTE | 2016-04-11 07:25 | NUR ---
rn notes: patient is aaox 4. afebrile. vss stable agreed to have perma cath placement today. consent signed and preop checklist completed. has bertha cath with pigtail left upper chest dry/intact. but not working. no dialysis today. ambulatory. on npo status. no pain nor distress noted. call lights within reach. safety measures maintained. will continue to monitor patients status.
--- NOTE | 2016-04-11 08:00 | NUR ---
patient agreed to have vital signs taken and agreed to assessed. the bertha cath with pigtail on it. dressing dry and intact.
--- NOTE | 2016-04-11 09:22 | NUR ---
due medication given at this time. patient is stable. Addendum: 04/11/16 at 0925 by Eden Hardy RN patient is npo status for procedure today. no medication given at this time. patient agreed to have perma cath placement by Dr Alas
--- NOTE | 2016-04-11 10:00 | NUR ---
EXPLAINED THE IMPORTANCE OF CHG BATH BEFORE THE PROCEDURE. BUT STILL REFUSED.
--- NOTE | 2016-04-11 10:10 | NUR ---
PATIENT AGREED TO HAVE THE PROCEDURE TODAY. STILL ON NPO STATUS.
--- NOTE | 2016-04-11 10:29 | NUR ---
CALLED SURGEON DR OLMSTEAD, RE: INFORMED THAT PT AGREED TO THE PERMA CATH.
--- NOTE | 2016-04-11 10:57 | NUR ---
STILL REFUSING TO HAVE CHG BATH AT THIS TIME.
[2016-04-11] MEDS ORDERED: NS 100 ML BAG IV ONE (14:00)
[2016-04-11] MEDS ORDERED: HEPARIN SODIUM, PORCINE 10,000 UNITS/ 10 ML VIAL ONE (14:00)
[2016-04-11] MEDS ORDERED: MIDAZOLAM HCL 5 MG/5 ML VIAL ONE (14:00)
[2016-04-11] MEDS ORDERED: CEFAZOLIN 1 GM IVPB PREMIX 50 ML IV ONE (14:00)
[2016-04-11] MEDS ORDERED: NS 1000 ML BAG IV ONE (14:00)
[2016-04-11] MEDS ORDERED: PROPOFOL 200MG/ 20ML VIAL (DIPRIVAN) IV ONE (14:00)
[2016-04-11] MEDS ORDERED: LIDOCAINE 1% 10 MG/ML, 20 ML MDV ONE (14:00)
[2016-04-11] MEDS ORDERED: NACL 0.9% 1,000 ML IV SCH (14:26)
[2016-04-11] MEDS ORDERED: ONDANSETRON HCL 4 MG/2 ML VIAL IVP PRN (14:30)
--- NOTE | 2016-04-11 14:57 | NUR ---
PATIENT REFUSE VITALS FOR 1200 .
[2016-04-11] MEDS ORDERED: LORazepam 2 MG/ML VIAL IVP PRN (15:00)
[2016-04-11] MEDS: BELLADONNA ALKALOIDS/PHENOBARB 5 ML UDC PO SCH ×3 (15:00→23:07)
[2016-04-11] MEDS ORDERED: PANTOPRAZOLE SODIUM 40 MG/VIAL (PROTONIX) IVP ONE ×2 (15:15→15:30)
--- NOTE | 2016-04-11 15:30 | NUR ---
PATIENT HAS PERMA CATH PLACED ON THE LEFT UPPER ARM. REPLACING THE OLD EARLE CATH WITH PIGTAIL. HAS IV ACCESS ON THE RT HAND #22. SALINE LOCK. REFUSED THE IV FLUIDS FROM OR.
--- NOTE | 2016-04-11 15:38 | NUR ---
patient came from recovery unit. patient is stable afebrile vss stable.
--- NOTE | 2016-04-11 16:00 | NUR ---
Dr Alas called for okay to used the perma cath line for dialysis. said okay. And Dr oconnor called for dialysis order. but patient refused to have dialysis now. perhaps in am
--- NOTE | 2016-04-11 16:03 | NUR ---
CALLED CREPE MAKER, DR FAJARDO, RE: INFORMED PT'S REFUSAL FOR HD TODAY. (REASON STRESSFUL DAY FOR HIM DUE TO PERMACATH INSERTION TODAY)
[2016-04-11] MEDS ORDERED: HYDROcodone/ACETAMIN 10-325 MG TAB PO ONE (16:15)
[2016-04-11] MEDS: PENTOXIFYLLINE 400 MG TABLET.SA (TRENtal) PO SCH (16:21)
[2016-04-11] MEDS: chlordiazePOXIDE HCL 25 MG CAPSULE PO SCH ×2 (16:21→20:36)
[2016-04-11] MEDS: POTASSIUM CHLORIDE 20 MEQ TAB.PRT.SR PO SCH (16:21)
[2016-04-11] MEDS: HYDROcodone/ACETAMIN 10-325 MG TAB PO PRN ×2 (16:29→23:07)
--- NOTE | 2016-04-11 18:00 | NUR ---
REFUSED MEDICATION AT THIS TIME. SAID WANTS TO SLEEP NOW. VERY TIRED FROM THE PROCEDURE.
--- NOTE | 2016-04-11 18:56 | NUR ---
DR FAJARDO CAME TO SEE THE PATIENT.
--- NOTE | 2016-04-11 19:47 | NUR ---
SBAR ENDORSED TO INCOMING NURSE ALBERTO RODRIGUEZ
--- NOTE | 2016-04-11 20:10 | NUR ---
pt in room sitting on bedside pt c/o abdomen pain pain medication not due @ this time pt informed that when medication is due nurse will bring medication to pt
--- NOTE | 2016-04-11 22:30 | NUR ---
Pt awake @ this time pacing the unit pt denies any discomfort @ this time nurse continue to monitor pt
[2016-04-12] VITALS (8 sets, daily range): BP systolic 94–132; BP diastolic 67–88; PULSE 83–97; RESP 16–20; TEMP 96.9–99.2; O2SAT 99–100
--- NOTE | 2016-04-12 00:15 | NUR ---
Pt in room in bed resting with eyes closed pt respiration are 16 Bpm no signs of any discomfort notice @ this time nurse continue to monitor pt
--- NOTE | 2016-04-12 02:00 | NUR ---
Pt resting with both eyes closed no signs of any discomfort notice @ this time respiration are 16 Bpm nurse continue to monitor pt
--- NOTE | 2016-04-12 04:00 | NUR ---
Pt sleeping @ this time respiration are 16 Bpm no signs of any discomfort notice @ this time nurse continue to monitor pt
[2016-04-12] MEDS: MAG-AL HYDROX/SIMETH 30 ML UDC PO SCH ×3 (05:56→17:35)
[2016-04-12] MEDS: LIDOCAINE VISCOUS 2%, 15 ML UDC PO SCH ×3 (05:56→17:37)
[2016-04-12] MEDS: BELLADONNA ALKALOIDS/PHENOBARB 5 ML UDC PO SCH ×3 (05:57→17:37)
--- NOTE | 2016-04-12 06:19 | NUR ---
Pt slept for about 8 hours this shift pt took AM Mylanta refused others medication pt teaching done @ this time on medication pt still refused medication nurse continue to monitor pt
--- NOTE | 2016-04-12 08:00 | NUR ---
Received pt a/o, pt in no distress, comfortable, HD in progress, no a.m meds given due to HD until afterwards, HD access to left chest wall, pat with abd distension and parathensis was done previously, continue to monitor.
[2016-04-12] MEDS ORDERED: PANTOPRAZOLE SODIUM 40 MG/VIAL (PROTONIX) IVP SCH (09:00)
[2016-04-12] MEDS: chlordiazePOXIDE HCL 25 MG CAPSULE PO SCH ×3 (11:48→20:44)
[2016-04-12] MEDS: PENTOXIFYLLINE 400 MG TABLET.SA (TRENtal) PO SCH (11:48)
[2016-04-12] MEDS: POTASSIUM CHLORIDE 20 MEQ TAB.PRT.SR PO SCH (11:49)
[2016-04-12] MEDS: HYDROcodone/ACETAMIN 10-325 MG TAB PO PRN ×2 (13:07→20:43)
--- NOTE | 2016-04-12 14:00 | NUR ---
Pt's iv line leaked and painful, it was removed, pt refused another line be inserted and Dr. Talbot aware and allowed it to be off.
--- NOTE | 2016-04-12 15:00 | NUR ---
Social Service Note: COMPUTER OPERATOR received a call from Ms. Garvey with social security ([phone] ext.[phone]); she states that she received the paperwork that was faxed over for pt's social security application. Ms. Garvey asked for COMPUTER OPERATOR to assist pt in completing Medicare/ESRD form 2351. COMPUTER OPERATOR has printed form and placed in pt's chart for Dr. Ashby to complete. [facility] will fax form to Ms. Garvey once competed.
--- NOTE | 2016-04-12 18:35 | NUR ---
Pt had a good shift, no issues, pt had HD completed today in a.m and 2L removed, pt was medicated for pain and was comfortable and slept, refused the rest of the librium that he no longer needs it, pt stable, continue to monitor.
--- NOTE | 2016-04-12 19:15 | NUR ---
change of shift.pt's initial assessment.pt's affect;aggressive.pt's report:data/info pt.presents no iv access.pt.submitted 2 perma cath placement:04/11/16./.pt.dialized:04/12/16.call light w/in pt's reach.
--- NOTE | 2016-04-12 19:45 | NUR ---
pt.assessed.v/s assessed.values w/in normal limits.no c/o pain,nausea.nor sob upon excertion.pt.independent. call ligth w/in pt's reach.
--- NOTE | 2016-04-12 20:00 | NUR ---
pt.assessed.no requests @this hour.call light w/in pt's reach.
--- NOTE | 2016-04-12 21:00 | NUR ---
pt.requested medication;pain.i have administered norco:10/325mg po 1 tab.2 f/u re:medication efficacy per pain protocol.no toehr request.call light w/in pt's reach.
--- NOTE | 2016-04-12 22:00 | NUR ---
pt.assessed.pt.conversing via telephone.no requests@this hour.stable.call light w/in pt's reach.
[2016-04-13] VITALS: BP 121/66; PULSE 88; RESP 17; TEMP 99; O2SAT 97
--- NOTE | 2016-04-13 | NUR ---
pt.assessed.apprised pt.that the cocktail:constituents:belladonna,maalox,lidocaine is due.pt.refused. pt.requested cup:hot water;4 consumme,crackers.snacks provided.call light w/in pt's reach.
--- NOTE | 2016-04-13 02:00 | NUR ---
pt.assessed.pt.presents quiescent affect;calm,asleep.no distress.discomfort manifested.call light w/in pt's reach.
[2016-04-13 04:00] VITALS: BP 117/72; PULSE 83; RESP 16; TEMP 98; O2SAT 97
--- NOTE | 2016-04-13 04:00 | NUR ---
pt.assessed.pt.presents quiescent affect;calm,asleep.call light w/in pt's reach.no distress/discomfort manifested.
[2016-04-13] MEDS: BELLADONNA ALKALOIDS/PHENOBARB 5 ML UDC PO SCH ×4 (06:00→18:00)
[2016-04-13] MEDS: LIDOCAINE VISCOUS 2%, 15 ML UDC PO SCH ×4 (06:00→18:00)
[2016-04-13] MEDS: MAG-AL HYDROX/SIMETH 30 ML UDC PO SCH ×4 (06:00→18:00)
--- NOTE | 2016-04-13 06:36 | NUR ---
pt.assessed.pt.presents quiescent affect;calm,asleep.pt.refused the 0600a cocktail:,maalox,lidocaine. call light placed w/in pt's reach.
--- NOTE | 2016-04-13 08:14 | NUR ---
OPENING NOTE: RECEIVED REPORT FROM NIGHT NURSE. PATIENT IS RESTING COMFORTABLY IN BED. NO S/S OF DISTRESS OR SOB. PATIENT IS SLEEPING AND DOES NOT WANT TO BE BOTHERED AT THIS TIME. WILL ATTEMPT VITAL SIGNS AND ASSESSMENT AT A LATER TIME. CALL LIGHT IN REACH, BED IN LOWEST POSITION, AND WILL CONTINUE TO MONITOR.
[2016-04-13] MEDS: chlordiazePOXIDE HCL 25 MG CAPSULE PO SCH ×3 (09:00→21:00)
[2016-04-13] MEDS: PANTOPRAZOLE SODIUM 40 MG TAB PO SCH (09:00)
[2016-04-13] MEDS: SODIUM BICARBONATE 8.4% JECT 50 MEQ/50 ML SYRINGE IVP SCH ×3 (09:00→21:00)
[2016-04-13] MEDS: PENTOXIFYLLINE 400 MG TABLET.SA (TRENtal) PO SCH (09:52)
[2016-04-13] MEDS: POTASSIUM CHLORIDE 20 MEQ TAB.PRT.SR PO SCH (09:52)
--- NOTE | 2016-04-13 19:10 | NUR ---
INITIAL NOTE: BEDSIDE REPORT RECEIVED FROM MARGIE PEREYRA IN SBAR FORMAT. PATIENT IN NO VISIBLE SIGNS OF DISTRESS. PATIENT NOTED TO BE RESTING QUIETLY. PLAN OF CARE DISCUSSED WITH PATIENT. SAFETY PRECAUTIONS IN PLACE. WILL CONTINUE TO MONITOR.
[2016-04-13 20:00] VITALS: BP 108/58; PULSE 92; RESP 16; TEMP 98.9; O2SAT 96
--- NOTE | 2016-04-13 21:20 | NUR ---
ROUNDS: PATIENT RESTING IN NO DISTRESS. WILL CONTINUE TO MONITOR.
--- NOTE | 2016-04-13 22:00 | NUR ---
PHARMACIST: PHARMACIST REVIEWED PROTONIX INFO WITH PATIENT. PROTONIX PACKET AT THE BEDSIDE.
--- NOTE | 2016-04-13 23:20 | NUR ---
ROUNDS: PATIENT IN NO DISTRESS. WILL CONTINUE TO MONITOR.
--- NOTE | 2016-04-14 00:56 | NUR ---
ROUNDS: PATIENT RESTING IN NO VISIBLE SIGNS OF DISTRESS. DENIES PAIN OR DISCOMFORT. PATIENT CONTINUES TO REFUSE MEDS DESPITE EDUCATION. WILL CONTINUE TO MONITOR.
--- NOTE | 2016-04-14 02:57 | NUR ---
ROUNDS: PATIENT RESTING IN NO DISTRESS. WILL CONTINUE TO MONITOR.
[2016-04-14] MEDS: HYDROcodone/ACETAMIN 10-325 MG TAB PO PRN (03:35)
--- NOTE | 2016-04-14 04:21 | NUR ---
ROUNDS: PATIENT RESTING IN NO DISTRESS. WILL CONTINUE TO MONITOR.
[2016-04-14] MEDS: BELLADONNA ALKALOIDS/PHENOBARB 5 ML UDC PO SCH ×4 (05:57→17:52)
[2016-04-14] MEDS: LIDOCAINE VISCOUS 2%, 15 ML UDC PO SCH ×4 (05:58→17:52)
[2016-04-14] MEDS: MAG-AL HYDROX/SIMETH 30 ML UDC PO SCH ×4 (06:35→17:51)
--- NOTE | 2016-04-14 06:47 | NUR ---
CLOSING NOTE: PATIENT IN NO VISIBLE SIGNS OF DISTRESS. VITAL SIGNS REMAINED STABLE THROUGHOUT SHIFT. WILL ENDORSE CARE TO THE DAY SHIFT NURSE.
[2016-04-14 08:00] VITALS: BP 130/79; PULSE 80; RESP 17; TEMP 97.8; O2SAT 94
--- NOTE | 2016-04-14 08:00 | NUR ---
INITIAL NOTE PT SITTING IN BED, AWAKE, ALERT AND ORIENTED X4, NO S/S OF DISTRESS NOTED, NO COMPLAINT OF PAIN, VSS, NOTED JAUNDICE APPEARANCE OF SKIN AND EYES, PT REORIENTED TO USE OF CALL LIGHT AND IT IS PLACED WITHIN REACH, SAFETY MEASURES IN PLACE, BED IN LOW POSITION AND LOCKED, WILL FOLLOW UP.
[2016-04-14] MEDS: chlordiazePOXIDE HCL 25 MG CAPSULE PO SCH ×3 (09:00→20:40)
[2016-04-14] MEDS: PENTOXIFYLLINE 400 MG TABLET.SA (TRENtal) PO SCH (09:00)
[2016-04-14] MEDS: PANTOPRAZOLE SODIUM 40 MG TAB PO SCH (09:00)
[2016-04-14] MEDS: POTASSIUM CHLORIDE 20 MEQ TAB.PRT.SR PO SCH (09:00)
[2016-04-14] MEDS: SODIUM BICARBONATE 8.4% JECT 50 MEQ/50 ML SYRINGE IVP SCH ×3 (09:00→20:40)
--- NOTE | 2016-04-14 09:00 | NUR ---
PATIENT REFUSED KDUR AND LIBRIUM MEDICATIONS, PT EDUCATED REGARDING IMPORTANCE OF MEDICATION, STILL REFUSED.
[2016-04-14 11:38] VITALS: BP 106/61; PULSE 85; RESP 18; TEMP 98.5; O2SAT 98
--- NOTE | 2016-04-14 11:42 | NUR ---
PATIENT REFUSED AND LIDOCAINE MOUTH WASH, PATIENT PROVIDED EDUCATION REGARDING PRESCRIBED MEDICATION, DESPITE EDUCATION PT STILL REFUSED.
[2016-04-14 12:00] VITALS: BP 126/65; PULSE 80; RESP 17; TEMP 98.2; O2SAT 96
--- NOTE | 2016-04-14 14:00 | NUR ---
PT NOTED WALKING AROUND FACILITY, NO S/S OF DISTRESS, STEADY GAIT.
[2016-04-14 16:00] VITALS: BP 117/67; PULSE 83; RESP 17; TEMP 98; O2SAT 97
--- NOTE | 2016-04-14 16:14 | NUR ---
patient refuse afternoon vitals 1500 pm
--- NOTE | 2016-04-14 16:30 | NUR ---
PT SITTING IN BED, LISTENING TO MUSIC, STATES HE HAS NO NEEDS AT THIS TIME, SAFETY MEASURES IN PLACE, WILL FOLLOW UP.
--- NOTE | 2016-04-14 18:45 | NUR ---
CLOSING NOTE PATIENT SITTING IN BED,WATCHING TV, NO S/S OF DISTRESS OR PAIN NOTED, PT REFUSED SEVERAL MEDICATIONS AND CARE DURING SHIFT DESPITE EDUCATION, NEEDS ATTENDED TOO, SAFETY MEASURES IN PLACE, CALL LIGHT WITHIN REACH, WILL GIVE REPORT TO FOLLOWING SHIFT.
[2016-04-14 19:00] VITALS: BP 122/73; PULSE 85; RESP 16; TEMP 98.6; O2SAT 100
--- NOTE | 2016-04-14 19:15 | NUR ---
change of shift.pt's initial assessment.pt.presents quiescent affect;calm.no iv access:rised.up-dated white board w/ current data.removed dinner tray:apprised pt.that i can provide snacks throughout the shift if he has request snacks.
--- NOTE | 2016-04-14 19:45 | NUR ---
pt.assessed.pt.allowed v/s assessment.:values w/in normal limits.pt.apprised he [id number]medications nor v/s assessment.pt.presents perma-catheter:location:lt.svc.
[2016-04-14 20:00] VITALS: BP 122/73; PULSE 85; RESP 16; TEMP 98.6; O2SAT 100
--- NOTE | 2016-04-14 20:00 | NUR ---
pt.assessed.no requests@this hour.call light w/in pt's reach.
--- NOTE | 2016-04-14 22:00 | NUR ---
pt.assessed.pt.conversing via telephone.no requests @this hour.call light w/in pt's reach.
--- NOTE | 2016-04-15 | NUR ---
pt.assessed.pt.refused v/s assessment.medication cocktail:,lidocaine,maalox:midnite dose refused. call light w/in pt's reach.
--- NOTE | 2016-04-15 02:00 | NUR ---
pt.assessed.pt.presents quiescent affect;calm,asleep.call light w/in pt's reach.
--- NOTE | 2016-04-15 04:00 | NUR ---
pt.assessed.pt.repositioned self.pt.refused v/s assessment:0400a.call light w/in pt's reach.
--- NOTE | 2016-04-15 04:00 | NUR ---
pt.assessed.pt.positioned self.pt.refused v/s assessment.call light w/in pt's reach.
--- NOTE | 2016-04-15 06:00 | NUR ---
pt.assessed.pt.refused medication:cocktail:,lidocaine,maalox.pt.presents quiescent affect;calm. call light w/in pt's reach.
--- NOTE | 2016-04-15 07:30 | NUR ---
am rounds: patient awake but not cheerful. no iv access,patient refused,md aware.no distress.
--- NOTE | 2016-04-15 07:30 | NUR ---
added notes: left chest bertha catheter ,dressing dry and intact.
[2016-04-15] MEDS: POTASSIUM CHLORIDE 20 MEQ TAB.PRT.SR PO SCH (09:00)
[2016-04-15] MEDS: chlordiazePOXIDE HCL 25 MG CAPSULE PO SCH ×3 (09:00→20:58)
[2016-04-15] MEDS: PENTOXIFYLLINE 400 MG TABLET.SA (TRENtal) PO SCH (09:00)
[2016-04-15] MEDS: PANTOPRAZOLE SODIUM 40 MG TAB PO SCH (09:00)
[2016-04-15] MEDS: SODIUM BICARBONATE 8.4% JECT 50 MEQ/50 ML SYRINGE IVP SCH ×3 (09:00→20:57)
--- NOTE | 2016-04-15 09:00 | NUR ---
rounds: resting. no distress.jaundice color.with abdominal distention noted.
--- NOTE | 2016-04-15 10:00 | NUR ---
VITAL SIGNS: PATIENT REFUSED VITAL SIGNS TO BE TAKEN THIS TIME. PATIENT WANTS IT LATER DURING DIALYSIS.
--- NOTE | 2016-04-15 10:21 | NUR ---
rounds: went in to checked the patient. offered morning medications but patient refused all morning meds. md aware,patient non compliant.
[2016-04-15] MEDS: LIDOCAINE VISCOUS 2%, 15 ML UDC PO SCH ×3 (12:00→18:00)
[2016-04-15] MEDS: BELLADONNA ALKALOIDS/PHENOBARB 5 ML UDC PO SCH ×3 (12:00→18:00)
[2016-04-15 12:16] VITALS: BP 118/71; PULSE 81; RESP 16; TEMP 98.2; O2SAT 93
--- NOTE | 2016-04-15 12:30 | NUR ---
hemodialysis: dialysis started. patient agreed to have vital signs taken and blood drawn by dialysis nurse as well.
[2016-04-15] MEDS: MAG-AL HYDROX/SIMETH 30 ML UDC PO SCH ×3 (13:10→18:00)
--- NOTE | 2016-04-15 13:18 | NUR ---
blood sample: called crime laboratory analyst 2x and spoke to christina regarding blood sample available to be vegetable picker. kitty from lab came to get the blood sample for blood test that was drawn by dialysis nurse.
[2016-04-15 13:24] LABS: BASOPHILS % (AUTO) 0.5 % (0.0-2.0); EOSINOPHILS # (AUTO) 0.1 K/uL (0.0-0.4); EOSINOPHILS % (AUTO) 2.2 % (0.0-4.0); HEMATOCRIT 24.2 % (36-54); LYMPHOCYTES # (AUTO) 0.8 K/uL (1.0-5.5); LYMPHOCYTES % (AUTO) 14.4 % (20.5-51.5); MEAN CORPUSCULAR HEMOGLOBIN 32 pg (27-31); MEAN CORPUSCULAR HGB CONC 33 % (32-36); MEAN CORPUSCULAR VOLUME 97 fL (79.0-98.0); MONOCYTES # (AUTO) 0.3 K/uL (0.0-1.0); MONOCYTES % (AUTO) 5.8 % (1.7-9.3); NEUTROPHILS # (AUTO) 4.5 K/uL (1.8-7.7); NEUTROPHILS % (AUTO) 77.1 % (40.0-70.0); PLATELET COUNT (AUTO) 118 K/uL (130-430); RED BLOOD CELL COUNT(AUTO) 2.49 MIL/uL (4.2-6.2); RED CELL DISTRIBUTION WIDTH 15.1 % (9.0-15.0); WHITE BLOOD COUNT (AUTO) 5.7 K/uL (4.8-10.8)
[2016-04-15 13:36] LABS: ALBUMIN 1.8 g/dL (3.4-4.8); CALCIUM 7.9 mg/dL (8.4-11.0); CREATININE 2.48 mg/dL (0.55-1.30); TOTAL BILIRUBIN 2.5 mg/dL (0.0-1.0); TOTAL PROTEIN, SERUM 5.9 g/dL (6.4-8.3)
--- NOTE | 2016-04-15 14:39 | NUR ---
rounds: hemodialysis on going. stable.
[2016-04-15 15:30] VITALS: BP 124/79; PULSE 84; RESP 20; TEMP 98.7; O2SAT 94
--- NOTE | 2016-04-15 15:30 | NUR ---
dialysis: dialysis done.hd out=2.2liters.
--- NOTE | 2016-04-15 16:10 | NUR ---
rounds: patient does not want to be disturbed. resting.
[2016-04-15 16:25] VITALS: BP 122/68; PULSE 78; RESP 18; TEMP 98; O2SAT 94
[2016-04-15 17:20] VITALS: PULSE 78; TEMP 98
[2016-04-15] MEDS: HYDROcodone/ACETAMIN 10-325 MG TAB PO PRN (18:30)
--- NOTE | 2016-04-15 18:30 | NUR ---
pain meds: c/o generalized pain and due po pain meds given per request.
--- NOTE | 2016-04-15 19:00 | NUR ---
closing notes: patient resting. patient refused all 6pm meds.will endorsed to night nurse patient in stable condition.
--- NOTE | 2016-04-15 19:15 | NUR ---
change of shift.pt's initial assessment.i introduce self 2 the pt.i inquired if i could proceed w/the assessment of the v/s signs.pt.stated no,he did not need anything.i reiterated to the pt.the 2100p midnight o600 am po medications. pt.stated he did not need anything to let him sleep throughout the night.i will acquiest to the pt's requests,i stated 2 the pt.that i will enter the room to assess @least q-2hrs.pt.presents lt.svc perma cath.pt.submitted 2 hemo dialysis therapy:04/15/16.
--- NOTE | 2016-04-15 20:00 | NUR ---
pt.assessed.pt.viewing tv programing.no request@this hour.call light w/in pt's reach.
--- NOTE | 2016-04-15 21:00 | NUR ---
2100p medication:librium due.pt.refused the administration of the medication.pt.viewing tv programming.conversing via telephone.no request@this hour.call light w/in pt's reach.
--- NOTE | 2016-04-15 22:00 | NUR ---
pt.assessed.pt.viewing tv programming,conversing per telephone.no request@this hour.call light w/in pt's reach.
--- NOTE | 2016-04-16 | NUR ---
pt.assessed.medication cocktail:,lidocaine,maalox po refused.call light w/in pt's reach.no request @this hour.
--- NOTE | 2016-04-16 02:00 | NUR ---
pt.assessed.pt.presents quiescent affect;calm,asleep.call light w/in pt's reach.
--- NOTE | 2016-04-16 04:00 | NUR ---
pt.assessed.pt.repositioned self.pt.presents quiescent affect;calm;asleep.no requests@this hour.call light w/in pt's reach.
[2016-04-16] MEDS: BELLADONNA ALKALOIDS/PHENOBARB 5 ML UDC PO SCH ×5 (06:00→22:51)
[2016-04-16] MEDS: LIDOCAINE VISCOUS 2%, 15 ML UDC PO SCH ×5 (06:00→22:52)
[2016-04-16] MEDS: MAG-AL HYDROX/SIMETH 30 ML UDC PO SCH ×5 (06:00→22:55)
--- NOTE | 2016-04-16 06:00 | NUR ---
pt.assessed.pt.presents quiescent affect;calm,asleep.0600a medications:cocktail:,lidocaine,maalox refused per pt.no request@this hour.call light w/i pt's reach.pt.refused 2 b weighed:2/t hemo-dialysis.call light w/in pt's reach.
--- NOTE | 2016-04-16 08:00 | NUR ---
Patient A/Ox4, ambulatory. Refused IV access. Offered patient to have V/S checked, but patient refuses.
[2016-04-16] MEDS: SODIUM BICARBONATE 8.4% JECT 50 MEQ/50 ML SYRINGE IVP SCH ×3 (08:32→21:00)
[2016-04-16] MEDS: chlordiazePOXIDE HCL 25 MG CAPSULE PO SCH ×3 (08:33→21:00)
[2016-04-16] MEDS: POTASSIUM CHLORIDE 20 MEQ TAB.PRT.SR PO SCH (08:33)
[2016-04-16] MEDS: PANTOPRAZOLE SODIUM 40 MG TAB PO SCH (08:33)
[2016-04-16] MEDS: PENTOXIFYLLINE 400 MG TABLET.SA (TRENtal) PO SCH (08:33)
--- NOTE | 2016-04-16 10:30 | NUR ---
Patient is resting, breathing unlabored and even, no signs of distress noted.
[2016-04-16] MEDS: HYDROcodone/ACETAMIN 10-325 MG TAB PO PRN ×2 (12:31→22:56)
--- NOTE | 2016-04-16 12:40 | NUR ---
Patient finished his lunch, tolerated well, no signs of distress noted.
--- NOTE | 2016-04-16 14:07 | NUR ---
Nutrition F/U Admitting Diagnosis Acute Alcohol Intoxication, Hepatoencephalopathy, Alcoholic Liver Disease Per operative notes 03/12/16: post-op diagnoses: acute renal failure, cirrhosis of the liver, ascites, hyperbilirubinemia 03/28/16 GI Consult MD: Acute alcoholic hepatitis, moderate to severe, ascites s/p paracentesis, renal failure, anemia, abd pain Past Medical History Alcohol dependency, possible depression. Pt also admitted w/ abd pain, N/V, and gastritis per MD notes. Pertinent Medications sodium bicarbonate, mylanta, k-Dur, protonixm, norco, ativan Current Diet Order Regular x11 days Height (Feet) 6 feet Height (Inches) 1.00 inches Weight (Pounds) Admission Weight: 161 lb, 73 kg 03/18/16: No significant weight changes noted 03/23/16: Bedscale weight 158.5 lb (noted 2.5 lb loss - Pt underwent paracentesis on 03/12/16, weight inflated d/t fluids) 04/03/16: No significant weight changes noted (Pt undergoing dialysis) 04/09/16: No significant weight changes noted (pt undergoing dialysis) 04/16/16: No significant weight changes noted, pt reported weight of 159 lb by beam scale this morning Weight (Calculated Kilograms) 73.654362 kilograms Patient Weight 73.028 kg Body Mass Index 21.24 kg/m2 (normal) [place]/Adjusted Body Weight IBW: 184 lb, 84 kg. 87% of IBW Estimated Needs (modified) 2087 kcal/day (BEE x 1.2 for liver cirrhosis) Grams of Protein per Day 101-118 gm/day (1.2-1.4 gm/kg IBW for dialysis) Fluid Intake Goal Per MD for acute renal failure on dialysis Pertinent Labs 04/15/16: Hgb 8.0 L, Hct 24.2 L, BUN 18 WNL (improved), CRE 2.48 H (improving), eGFR 31 L (improving), BG 123 H, ALB 1.8 L, AST 90 H, ALP 170 H (improving), AST 53 H (improving), Tbili 2.5 H Other Subjective Data Physical Assessment: Pt seen resting in bed on cell phone at time of visit. Pt is awake, alert, and oriented. Pt reports he was weighed today using a beam scale at 159 lb - no significant weight change. Abdominal distention noted, edematous. GI Integrity: Per EMR, abdomen is distended with active bowel sounds. BM x3 04/14, pt reports current BMs are normal, no s/s of diarrhea or constipation. PO Intakes: Pt reports very good appetite. PO intakes average 90% x14 records. Pt reports his body is in need of more food but his abdominal distention gives him discomfort and he has to stop eating. Integumentary: Daniel score 22, left upper chest incision and posterior right arm excoriation. Plans/Procedures: Per MD notes, continue HD treatments. Pt has refused paracentesis. Current diet is appropriate and pt is receiving optimal nutritional needs. Pt declined nutrition education at this time. Problem, Etiology, Signs/Symptoms 1. Altered GI function related to liver cirrhosis as evidenced by abnormal Tbili lab values and liver enzymes, post-op diagnosis, and pt reports of loose bowel movements and vomiting -- *Ongoing, liver labs improving 2. Limited adherence to diet/lifestyle related to possible non-compliance to diet and medications as evidenced by pt refusing medications, declining nutrition education Expected Outcomes or Goals Goal: PO intakes to meet at least 75% of estimated needs with tolerance Monitor: PO intakes, tolerance to diet, labs (renal and liver), GI function, skin integrity, weights Dietitian Recommendations * Recommend continuing regular diet per MD. Follow Up Low Risk: F/U in 7 days Addendum: 04/16/16 at [address] CORRECTIONS: Pertinent Labs AST 53 H (improving) RD has read and approved manager internet retails sales's note. TAD, KIARA
--- NOTE | 2016-04-16 15:03 | NUR ---
POC IS REVIEWED WITH PATIENT. SCHEDULED MEDS ARE ALSO OFFERED, BUT PATIENT REFUSES.
--- NOTE | 2016-04-16 16:42 | NUR ---
Patient is resting, no signs of distress noted.
--- NOTE | 2016-04-16 18:55 | NUR ---
Patient is resting; medications and poc are reviewed; patient verbalized understanding.
--- NOTE | 2016-04-16 20:04 | NUR ---
Rounds Received patient lying in bed resting and watching tv, denies of any pain, no acute distress noted. No IV access. Left Perma cath dressing, clean, dry and intact. Instructed patient to call nurse when getting out of bed, call light within reach.
[2016-04-17 00:01] VITALS: BP 129/67; PULSE 53; RESP 17; TEMP 99.5; O2SAT 99
--- NOTE | 2016-04-17 00:18 | NUR ---
Rounds Patient resting and watching tv, patient refused schedule medication, patient only wants Mylanta and [place], patient refused vital sign. Encouraged patient to call nurse when need help. call light within reach.
--- NOTE | 2016-04-17 04:14 | NUR ---
PATIENT RESTING: Patient resting quietly. No acute distress noted. Vital signs within normal range.
[2016-04-17] MEDS: BELLADONNA ALKALOIDS/PHENOBARB 5 ML UDC PO SCH ×3 (05:57→17:35)
[2016-04-17] MEDS: MAG-AL HYDROX/SIMETH 30 ML UDC PO SCH ×3 (05:58→17:35)
[2016-04-17] MEDS: LIDOCAINE VISCOUS 2%, 15 ML UDC PO SCH ×3 (05:58→17:35)
--- NOTE | 2016-04-17 07:45 | NUR ---
Closing notes Frequent rounds made, patient slept most of the night. no other changes noted on patient current condition.
--- NOTE | 2016-04-17 08:00 | NUR ---
NOTE PT AMBULATING TO THE RESTROOM, STATES VITAL SIGNS CAN BE DONE LATER. BREAKFAST TRAY BY BEDSIDE. NO SOB/RESP DISTRESS OR PAIN/DISCOMFORT NOTED AT THIS TIME. CALL LIGHT WITHIN REACH.
[2016-04-17] MEDS: SODIUM BICARBONATE 8.4% JECT 50 MEQ/50 ML SYRINGE IVP SCH ×3 (08:09→21:00)
[2016-04-17 08:25] VITALS: BP 113/76; PULSE 83; RESP 18; TEMP 97; O2SAT 99
[2016-04-17] MEDS: PANTOPRAZOLE SODIUM 40 MG TAB PO SCH (08:41)
[2016-04-17] MEDS: PENTOXIFYLLINE 400 MG TABLET.SA (TRENtal) PO SCH (08:41)
[2016-04-17] MEDS: POTASSIUM CHLORIDE 20 MEQ TAB.PRT.SR PO SCH (08:41)
[2016-04-17] MEDS: chlordiazePOXIDE HCL 25 MG CAPSULE PO SCH ×3 (08:41→21:00)
--- NOTE | 2016-04-17 10:00 | NUR ---
NOTE PT LET THE RN TAKE HIS VITAL SIGNS. REFUSED ALL HIS PO MEDICATIONS, STATES HE NO LONGER NEEDS THEM AT THIS TIME. PT RESTING IN BED WATCHING TELEVISION AND WANTS TO BE LEFT ALONE. INSTRUCTED PT TO CALL IF HE NEEDS ANYTHING. CALL LIGHT WITHIN REACH.
--- NOTE | 2016-04-17 12:15 | NUR ---
NOTE RESIDENCE HALL DIRECTOR AT BEDSIDE FOR DIALYSIS. PT'S BLOOD DRAWS DONE BY RESIDENCE HALL DIRECTOR AT THIS TIME. PT TOOK HIS MYLANTA PO, REFUSES ALL OTHER SCHEDULED MEDICATIONS AT THIS TIME. LEFT PERMA CATH DRESSING CDI AT THIS TIME. PT RESTING IN BED. FINISHED EATING HIS LUNCH AT THIS TIME. NO NEEDS NOTED. CALL LIGHT WITHIN REACH. Addendum: 04/17/16 at 1325 by Adrienne Tiwari RN DRAWN BLOOD WAS TAKEN DOWN TO THE LAB BY RODDY
[2016-04-17] MEDS: HYDROcodone/ACETAMIN 10-325 MG TAB PO PRN ×3 (12:36→22:37)
[2016-04-17 12:41] LABS: BASOPHILS % (AUTO) 0.8 % (0.0-2.0); EOSINOPHILS # (AUTO) 0.1 K/uL (0.0-0.4); EOSINOPHILS % (AUTO) 2.1 % (0.0-4.0); HEMOGLOBIN 8.3 g/dL (14.0-18.0); LYMPHOCYTES # (AUTO) 0.9 K/uL (1.0-5.5); LYMPHOCYTES % (AUTO) 17.1 % (20.5-51.5); MEAN CORPUSCULAR HEMOGLOBIN 32 pg (27-31); MEAN CORPUSCULAR HGB CONC 33 % (32-36); MEAN CORPUSCULAR VOLUME 96 fL (79.0-98.0); MONOCYTES # (AUTO) 0.4 K/uL (0.0-1.0); MONOCYTES % (AUTO) 7.7 % (1.7-9.3); NEUTROPHILS # (AUTO) 3.6 K/uL (1.8-7.7); NEUTROPHILS % (AUTO) 72.3 % (40.0-70.0); PLATELET COUNT (AUTO) 128 K/uL (130-430); RED BLOOD CELL COUNT(AUTO) 2.59 MIL/uL (4.2-6.2); RED CELL DISTRIBUTION WIDTH 14.6 % (9.0-15.0)
[2016-04-17 12:44] LABS: HEMATOCRIT 24.9 % (36-54)
[2016-04-17 12:53] LABS: ALBUMIN 1.9 g/dL (3.4-4.8); CALCIUM 8.2 mg/dL (8.4-11.0); CREATININE 2.47 mg/dL (0.55-1.30); POTASSIUM 4.3 mmol/L (3.5-5.1); TOTAL BILIRUBIN 2.4 mg/dL (0.0-1.0); TOTAL PROTEIN, SERUM 6.2 g/dL (6.4-8.3)
--- NOTE | 2016-04-17 16:00 | NUR ---
NOTE DIALYSIS WAS COMPLETED AND PT NOW SHUT HIS DOOR TO ROOM. NO NEEDS NOTED. CALL LIGHT WITHIN REACH.
[2016-04-17 16:16] VITALS: BP 125/84; PULSE 82; RESP 16; TEMP 97.2; O2SAT 95
--- NOTE | 2016-04-17 18:30 | NUR ---
NOTE PT RESTING IN BED. DENIES ANY NEEDS AT THIS TIME. NO SOB/RESP DISTRESS OR PAIN/DISCOMFORT NOTED AT THIS TIME. PT WAS CHECKED ON Q1' AND PRN FOR NEEDS AND CARE. CALL LIGHT WITHIN REACH. PT STABLE AT THIS TIME. PT MAINTAINED WITH SAFETY PRECAUTIONS ALL SHIFT. PT REFUSED ALL MEDICATIONS ALL SHIFT EXCEPT MYLANTA PO. CALL LIGHT WITHIN REACH.
[2016-04-17 19:30] VITALS: BP 109/63; PULSE 85; RESP 16; TEMP 97.6; O2SAT 96
--- NOTE | 2016-04-17 19:30 | NUR ---
INITIAL NOTE Pt. Received aa0x4, no s/s of acute distress or sob noted. VSS. patient lying in bed listening to music. Pt. states he has head pain 10/10, but states he would not like pain medication at this time. Educated pt. on ways to reduce pain such as minimizing lights, noise, and using relaxation techniques. No IV access noted. Left Perma cath noted, dressing, clean, dry and intact. Plan of care discussed with pt., verbalizes understanding. Instructed patient to call nurse when getting out of bed, call light within reach. Bed alarm on.
--- NOTE | 2016-04-17 20:40 | NUR ---
RN note Pt. has asked for me to keep his bed alarm off. Educated pt. on safety and fall precautions, verbalizes understanding. instructed pt. to use call light for any assistance, verbalizes understanding. Will do frequent rounding to ensure safety. siderails upx3. call light in reach.
--- NOTE | 2016-04-17 22:00 | NUR ---
Rounds Pt. resting in bed with eyes closed. no s/s of sob or distress noted. pt. is complaining of head pain, will medicate for pain as ordered. will continue to monitor for any changes. safety and fall precautions in place. pt. continues to refuse bed alarm. bed in lowest position, will do frequent rounding.
--- NOTE | 2016-04-17 23:50 | NUR ---
NOTES; RECEIVED REPORT FROM SOFIA PEREYRA, PT IS RESTING QUIETLY. NO ACUTE DISTRESS NOTED. SAFETY MEASURES IN PROGRESS Addendum: 04/19/16 at 0123 by Marta Thurman LVN WRONG TIME ENTRY
--- NOTE | 2016-04-18 00:05 | NUR ---
Rounds Pt. resting in bed. no s/s of sob or distress noted. pt. denies pain. pt. has refused all midnight medications. Pt. educated on risks of not taking medications. Verbalizes understanding, continues to refuse. will continue to monitor for any changes. safety and fall precautions in place. call light in reach, bed in lowest position. will do frequent rounding.
--- NOTE | 2016-04-18 02:04 | NUR ---
rounds pt. resting in bed with eyes closed. chest rise and fall noted. no s/s of distress or sob noted. will continue to monitor for any changes. safety and fall precautions in place. call light in reach, bed in lowest position.
[2016-04-18] MEDS: LIDOCAINE VISCOUS 2%, 15 ML UDC PO SCH ×4 (05:48→17:36)
[2016-04-18] MEDS: MAG-AL HYDROX/SIMETH 30 ML UDC PO SCH ×4 (05:48→17:45)
[2016-04-18] MEDS: BELLADONNA ALKALOIDS/PHENOBARB 5 ML UDC PO SCH ×4 (05:48→17:36)
--- NOTE | 2016-04-18 05:49 | NUR ---
MEDICATION REFUSAL PT. has refused all 6 am medications. educated on the risks of refusing meds, verbalizes understanding and does not wish to take them.
--- NOTE | 2016-04-18 07:25 | NUR ---
closing note pt. resting in bed. no s/s of distress noted at this time. pt. refused all AM medications. All necessary needs were met throughout the shift. safety and fall precautions maintained. will endorse care to AM nurse. call light in reach,bed in lowest position.
[2016-04-18 08:00] VITALS: BP 127/76; PULSE 78; RESP 18; TEMP 97.8; O2SAT 99
--- NOTE | 2016-04-18 08:00 | NUR ---
NOTE PT RESTING IN BED. PT ALLOWED RN TO TAKE HIS VITAL SIGNS AT THIS TIME. PT'S BREAKFAST TRAY AT BEDSIDE. PT DENIES ANY SOB/RESP DISTRESS OR PAIN/DISCOMFORT NOTED AT THIS TIME. NO NEEDS NOTED AT THIS TIME. CALL LIGHT WITHIN REACH.
[2016-04-18] MEDS: SODIUM BICARBONATE 8.4% JECT 50 MEQ/50 ML SYRINGE IVP SCH ×3 (08:23→21:00)
[2016-04-18] MEDS: chlordiazePOXIDE HCL 25 MG CAPSULE PO SCH ×3 (08:23→21:00)
[2016-04-18] MEDS: POTASSIUM CHLORIDE 20 MEQ TAB.PRT.SR PO SCH (08:23)
[2016-04-18] MEDS: PANTOPRAZOLE SODIUM 40 MG TAB PO SCH (08:24)
[2016-04-18] MEDS: PENTOXIFYLLINE 400 MG TABLET.SA (TRENtal) PO SCH (08:24)
[2016-04-18 09:52] VITALS: BP 127/76; PULSE 78; RESP 18; TEMP 97.8; O2SAT 99
--- NOTE | 2016-04-18 12:00 | NUR ---
NOTE PT WAS CHECKED ON Q1' AND PRN FOR NEEDS AND CARE. REFUSES ALL AM PO MEDICATIONS EXCEPT MYLANTA AT THIS TIME. CALL LIGHT WITHIN REACH. NO NEEDS NOTED.
[2016-04-18 12:41] VITALS: BP 120/79; PULSE 84; RESP 20; TEMP 98.5; O2SAT 99
--- NOTE | 2016-04-18 14:00 | NUR ---
NOTE PT LEFT THE FLOOR TO WALK OUTSIDE, STATED HE NEEDS SOME FRESH AIR, WANTS TO WALK OUT OF HOSPITAL ALONE AND WITHOUT ANY STAFF BY HIS SIDE. WAS GONE FOR AN HOUR, NOW IS BACK TO FLOOR/ROOM IN BED RESTING.
[2016-04-18] MEDS: HYDROcodone/ACETAMIN 10-325 MG TAB PO PRN ×2 (14:11→20:58)
--- NOTE | 2016-04-18 16:10 | NUR ---
NOTE NO DIALYSIS SCHEDULED FOR TOMORROW PER DR FAJARDO.
--- NOTE | 2016-04-18 18:20 | NUR ---
NOTE PT SITTING ON SIDE OF BED EATING HIS DINNER. NO SOB/RESP OR PAIN/DISCOMFORT NOTED AT THIS TIME. NO NEEDS NOTED. PT MAINTAINED WITH SAFETY PRECAUTIONS ALL SHIFT. PT WAS CHECKED ON Q1' AND PRN FOR NEEDS AND CARE. CALL LIGHT WITHIN REACH.
[2016-04-18 20:00] VITALS: BP 146/78; PULSE 76; RESP 18; TEMP 98.7; O2SAT 100
--- NOTE | 2016-04-18 20:00 | NUR ---
OPENING NOTE RECEIVED PATIENT AWAKE RESTING IN BED. NO S/S DISTRESS. A/OX4. VS STABLE. LEFT CHEST PERMACATH. DRESSING C,D,I. HEMODIALYSIS MWF. NO HD TOMORROW PER MD. POC DISCUSSED WITH PT. COMM BOARD UPDATED.
--- NOTE | 2016-04-18 22:00 | NUR ---
PT RESTING NO S/S DISTRESS. SAFETY PRECAUTIONS IN PLACE.
--- NOTE | 2016-04-18 23:50 | NUR ---
NOTES; RECEIVED REPORT FROM SOFIA PEREYRA, PT IS RESTING QUIETLY. NO ACUTE DISTRESS NOTED. SAFETY MEASURES IN PROGRESS
--- NOTE | 2016-04-18 23:53 | NUR ---
REPORT GIVEN TO NURSE PT CONTINUES TO REST. NO S/S RESP DISTRESS. REPORT GIVEN TO ANNAMARIE FOR CONTINUED CARE.
--- NOTE | 2016-04-19 00:10 | NUR ---
RN ROUNDS: PT IS SLEEPING COMFORTABLY, NOT IN ANY ACUTE DISTRESS; WILL CONTINUE TO MONITOR.
--- NOTE | 2016-04-19 02:00 | NUR ---
NOTES; PT IS RESTING QUIETLY, RESPIRATION EVEN AND UNLABORED. CALL LIGHT WITHIN REACH.
[2016-04-19 04:24] VITALS: BP 114/60; PULSE 81; RESP 20; TEMP 98.9; O2SAT 94
--- NOTE | 2016-04-19 04:30 | NUR ---
NOTES; PT IS RESTING QUIETLY, RESPIRATION EVEN AND UNLABORED. CALL LIGHT WITHIN REACH.
[2016-04-19] MEDS: HYDROcodone/ACETAMIN 10-325 MG TAB PO PRN ×3 (04:43→22:04)
[2016-04-19] MEDS: MAG-AL HYDROX/SIMETH 30 ML UDC PO SCH ×4 (06:00→18:00)
[2016-04-19] MEDS: BELLADONNA ALKALOIDS/PHENOBARB 5 ML UDC PO SCH ×4 (06:00→18:00)
[2016-04-19] MEDS: LIDOCAINE VISCOUS 2%, 15 ML UDC PO SCH ×4 (06:00→18:00)
--- NOTE | 2016-04-19 06:45 | NUR ---
NOTE PT IS RESTING QUIETLY IN BED. NO SOB/RESP OR PAIN/DISCOMFORT NOTED AT THIS TIME. NO NEEDS NOTED. PT MAINTAINED WITH SAFETY PRECAUTIONS ALL SHIFT. REFUSED ALL PO MEDS. REFUSED IV TO BE STARTED. MEDICATED WITH PRN PO MEDS NEEDED. ALL NEEDS ATTENDED. SAFETY MEASURES MAINTAINED. CALL LIGHT WITHIN REACH.
--- NOTE | 2016-04-19 07:25 | NUR ---
rn notes: patient is aaox 4. refused to do vitals signs taken. refused to be assessed the permacath on the left upper chest. stable. no pain noted no distress at this time. verbalized wants to sleep at this time. bed in low position. call ligths within reach. safety measures maintained.. informed patient to call for assistance.
--- NOTE | 2016-04-19 08:00 | NUR ---
still refused to do vital signs taken. wants to sleep.
[2016-04-19] MEDS: SODIUM BICARBONATE 8.4% JECT 50 MEQ/50 ML SYRINGE IVP SCH ×3 (09:00→21:00)
[2016-04-19] MEDS: PENTOXIFYLLINE 400 MG TABLET.SA (TRENtal) PO SCH (09:00)
[2016-04-19] MEDS: PANTOPRAZOLE SODIUM 40 MG TAB PO SCH (09:00)
[2016-04-19] MEDS: POTASSIUM CHLORIDE 20 MEQ TAB.PRT.SR PO SCH (09:00)
[2016-04-19] MEDS: chlordiazePOXIDE HCL 25 MG CAPSULE PO SCH ×3 (09:00→21:00)
--- NOTE | 2016-04-19 09:00 | NUR ---
Dr Ashby came informed Eden PEREYRA no dialysis today.
--- NOTE | 2016-04-19 10:01 | NUR ---
refused medication for this time.
--- NOTE | 2016-04-19 12:00 | NUR ---
still refusing medication at this time. eating food tolerating well. stable
[2016-04-19 12:40] VITALS: BP 121/70; PULSE 81; RESP 16; TEMP 97; O2SAT 97
--- NOTE | 2016-04-19 16:31 | NUR ---
encouraged patient to have po medication but still refused.
--- NOTE | 2016-04-19 16:32 | NUR ---
hAS friends at the bedside. patient watching tv. no pain nor distress noted.
[2016-04-19 17:11] VITALS: BP 127/68; PULSE 84; RESP 17; TEMP 98.9; O2SAT 100
--- NOTE | 2016-04-19 18:46 | NUR ---
tolerating foods for dinner. stable. with friends. watching tv together.
--- NOTE | 2016-04-19 19:25 | NUR ---
sbar report given to incoming nurse Jocelin PEREYRA
--- NOTE | 2016-04-19 20:07 | NUR ---
BEGINNING OF SENIOR FIRMWARE ENGINEER NOTE Patient sitting at the edge of bed eating pizza. He refused vital signs to be taken despite the education about the benefit of it provided by the nurse. Patient stated:"I'm OK". The nurse asked to auscultate his lungs and check the condition if his permacath, the patient refused stating:"Maybe later". No S/S of any distress or pain noted. Report received from day shift nurse.
--- NOTE | 2016-04-19 22:00 | NUR ---
2199 NOTE Patient sitting in bed watching TV accompanied by a friend. The patient stated that he has a back pain "9" and he requested a pain medication [place]. He also walked to the bathroom. No S/S of any other distress noted. The nurse provided the pain medication [place] . Addendum: 04/19/16 at 2258 by Jocelin Rashid RN Earlier the patient repeatedly refused his 21:00 medications despite the education provided by the nurse. He also refused the nursing physical assessment. The patient appears alert & oriented X4; his abdomen is distended and protuberant.
--- NOTE | 2016-04-20 00:15 | NUR ---
0000 NOTE Patient in bed sleeping. No S/S of pain or any distress noted. The nurse woke the patient up to administer the 00:00 medications. Patient refused the medications saying:"I don't want them, I'm OK". Fall precautions in place.
--- NOTE | 2016-04-20 02:17 | NUR ---
0217 NOTE Patient in bed sleeping. No pain or any distress noted. Bed in low position, call light within reach. Patient refused all his scheduled regular medications, he asked and accepted only [place] 10/325 PRN for his back pain. Patient consistently refused all attempts of the nurse to perform full physical nursing assessment, as well as he refused the nurse to take his vital signs. Per management orders, the nurse is being sent home. Report was given to the replacing nurse Ramón PEREYRA.
[2016-04-20 04:00] VITALS: BP 149/92; PULSE 82; RESP 18; TEMP 96.8; O2SAT 92
[2016-04-20] MEDS: HYDROcodone/ACETAMIN 10-325 MG TAB PO PRN ×4 (04:14→23:59)
--- NOTE | 2016-04-20 04:27 | NUR ---
ADMIN NORCO ADMIN NORCO FOR 6/10 BACK PAIN.WILL REASSESS AFTER 1 HOUR.
--- NOTE | 2016-04-20 06:56 | NUR ---
FINAL NOTES PT IS SLEEPING @ THIS TIME.NO S/S OF PAIN AND NO SOB NOTED.V/S ARE WNL.ALL NEEDS MET AND ANTICIPATED BY NOC NURSES.CALL LIGHT WITHIN REACH,ENDORSED.
--- NOTE | 2016-04-20 07:05 | NUR ---
NRSG: LYING ON BED ,AWAKE,ALERT AND ORIENTED X 4. RESPIRATION EVEN AND UNLABORED. YELLOWISH SKIN AND SCLERA. LUNGS CLEAR. ABDOMEN DISTENDED FIRM WITH FAINT BOWEL SOUNDS ON AUSCULTATION. , NO IV ACCESS, REFUSED OFFERED. NO SKIN BREAKDOWN. CALL LIGHT WITHIN REACH.
[2016-04-20 08:00] VITALS: BP 106/72; PULSE 84; RESP 17; TEMP 97.4; O2SAT 97
[2016-04-20] MEDS: PENTOXIFYLLINE 400 MG TABLET.SA (TRENtal) PO SCH (09:00)
[2016-04-20] MEDS: chlordiazePOXIDE HCL 25 MG CAPSULE PO SCH ×3 (09:00→21:00)
[2016-04-20] MEDS: POTASSIUM CHLORIDE 20 MEQ TAB.PRT.SR PO SCH (09:00)
[2016-04-20] MEDS: PANTOPRAZOLE SODIUM 40 MG TAB PO SCH (09:00)
--- NOTE | 2016-04-20 09:15 | NUR ---
REFUSE: REFUSED ALL 0900 MEDS AND CLAIMED "I WILL ASK YOU IF I NEED IT".
--- NOTE | 2016-04-20 10:00 | NUR ---
ACTIVITY: RESTING ON BED AND CALL LIGHT WITHIN REACH.
--- NOTE | 2016-04-20 11:53 | NUR ---
PAIN: C/O OF GENERALIZED PAIN . NORCO 10/325 MG. PO GIVEN AND WILL CONTINUE TO EVALUATE.
[2016-04-20] MEDS: MAG-AL HYDROX/SIMETH 30 ML UDC PO SCH ×2 (12:00→17:53)
[2016-04-20] MEDS: LIDOCAINE VISCOUS 2%, 15 ML UDC PO SCH ×2 (12:00→17:53)
[2016-04-20] MEDS: BELLADONNA ALKALOIDS/PHENOBARB 5 ML UDC PO SCH ×2 (12:00→17:53)
[2016-04-20 12:15] VITALS: BP 179/108; PULSE 93; RESP 16; TEMP 97.4; O2SAT 96
[2016-04-20 12:16] VITALS: BP 119/80; PULSE 91; RESP 16; TEMP 97.4; O2SAT 96
--- NOTE | 2016-04-20 12:30 | NUR ---
LUNCH: SITTING AT THE EDGE OF BED AND WILL START EATING LUNCH.
--- NOTE | 2016-04-20 15:15 | NUR ---
ACTIVITY: RESTING AND SLEEPING COMFORTABLY. CALL LIGHT WITHIN REACH.
--- NOTE | 2016-04-20 16:00 | NUR ---
ACTIVITY: LYING ON BED ,TALKING ON YHE PHONE AND DOES NOT WANT TO BE DISTURBED.
[2016-04-20 17:35] VITALS: BP 127/86; PULSE 89; RESP 16; TEMP 98.1; O2SAT 98
[2016-04-20 19:30] VITALS: BP 130/80; PULSE 91; RESP 18; TEMP 97.6; O2SAT 95
--- NOTE | 2016-04-20 19:30 | NUR ---
INITIAL NOTE Patient resting on the bed comfortable. No acute distress. Respiration even and unlabored. Denied of pain at this time. Skin warm and dry to touch. Perma cath intact to left upper chest, no bleed, covered with transparent dressing. Discussed the safety issue, use call light when need help, and plan of care, verbally understanding. Patient stated "I don't want any medication tonight except pain med." Bed in low position, bed alarm on, side rails up. Call light within reached. Will continue to monitor.
--- NOTE | 2016-04-20 21:39 | NUR ---
ROUND Patient went to bathroom. No acute distress. Safety measure maintained. Friend at bedside. Call light within reached. Continue to monitor.
--- NOTE | 2016-04-20 23:37 | NUR ---
ROUND Patient resting on the bed. Respiration even and unlabored. No acute distress. Safety measure maintained. Call light within reached. Bed alarm on, side rails up, bed in position. Continue to monitor.
--- NOTE | 2016-04-20 23:59 | NUR ---
NORCO GIVEN Patient c/o back pain 08/03, [place] 10/325mg PO given as ordered. No acute distress. Safety measure maintained. Call light within reached. Bed alarm on, bed in low position, side rails up. Continue to monitor.
--- NOTE | 2016-04-21 01:46 | NUR ---
ROUND Patient resting on the bed with eyes closed. No acute distress. No c/o pain at this time. Safety measure maintained. Call light within reached. Bed in low position, bed alarm on, side rails up. Continue to monitor.
--- NOTE | 2016-04-21 03:27 | NUR ---
ROUND Patient sleeping comfortable. Respiration even and unlabored. No acute distress. Bed alarm on, bed in low position, side rails up. Call light within reached. Continue to monitor.
--- NOTE | 2016-04-21 05:03 | NUR ---
ROUND Patient resting on the bed with eyes closed. No acute distress. No c/o pain at this time. Safety measure maintained. Call light within reached. Will continue to monitor.
[2016-04-21] MEDS: LIDOCAINE VISCOUS 2%, 15 ML UDC PO SCH ×3 (06:00→11:40)
--- NOTE | 2016-04-21 06:30 | NUR ---
CLOSING NOTE Patient resting on the bed. No acute distress. Respiration even and unlabored. Perma cath intact to left upper chest, no bleeding, covered with transparent dressing. All need met. Hourly rounding during shift. Refused the routine medication, only took [place] PRN for pain. Safety measure maintained. Side rails up, bed in low position, bed alarm on. Call light within reached. Will endorse to morning shift nurse.
--- NOTE | 2016-04-21 07:45 | NUR ---
COACH TOUR DRIVER AT BEDSIDE
[2016-04-21 07:53] LABS: CALCIUM 8.4 mg/dL (8.4-11.0); CREATININE 2.46 mg/dL (0.55-1.30); POTASSIUM 3.9 mmol/L (3.5-5.1)
--- NOTE | 2016-04-21 08:00 | NUR ---
REFUSED: BP CHECK, ASSESSMENT WILL TRY AGAIN LATER
--- NOTE | 2016-04-21 08:00 | NUR ---
NOTES PATIENT ON BED ASLEEP.BREATHING EVEN AND UNLABORED.NO ACUTE DISTRESS.REFUSED ASSESSMENT.EXPLAINED RISKS AND BENEFITS;STILL REFUSED
[2016-04-21] MEDS: POTASSIUM CHLORIDE 20 MEQ TAB.PRT.SR PO SCH (09:00)
[2016-04-21] MEDS: PENTOXIFYLLINE 400 MG TABLET.SA (TRENtal) PO SCH (09:00)
[2016-04-21] MEDS: PANTOPRAZOLE SODIUM 40 MG TAB PO SCH (09:00)
[2016-04-21] MEDS: SODIUM BICARBONATE 8.4% JECT 50 MEQ/50 ML SYRINGE IVP SCH ×2 (09:00→21:00)
--- NOTE | 2016-04-21 09:46 | NUR ---
REFUSED MORNING MEDS AND BP CHECK PT APPEARS COMFORTABLE..EYES CLOSED...REFUSED BP CK
[2016-04-21] MEDS: BELLADONNA ALKALOIDS/PHENOBARB 5 ML UDC PO SCH ×3 (11:38→11:39)
[2016-04-21] MEDS: MAG-AL HYDROX/SIMETH 30 ML UDC PO SCH ×3 (11:38→11:40)
--- NOTE | 2016-04-21 11:41 | NUR ---
ROUNDS PT LYING IN BED ON CELLPHONE...CONTINUES TO REFUSE MEDICATION...NO IV ACCESS...WILL CONT TO MONITOR
[2016-04-21 12:26] VITALS: BP 105/55; PULSE 97; RESP 16; TEMP 98; O2SAT 97
--- NOTE | 2016-04-21 16:35 | NUR ---
ROUNDS PT STABLE. LYING IN BED WATCHING TV. NO COMPLAINTS..WAITING FOR MD...WILL CONT TO MONITOR
--- NOTE | 2016-04-21 17:41 | NUR ---
PT STABLE..NO CHANGES..COMFORTABLE WILL CONT TO MONITOR
--- NOTE | 2016-04-21 19:15 | NUR ---
change of shift.pt's initial assessment.pt.apprised of the medications scheduled:hour.pt.states he dose not require any thing @night 2 not b bothered.call light w/in pt's reach.
--- NOTE | 2016-04-21 19:30 | NUR ---
notes received the pt from the day nurse ,pt a/a/ox4 watching tv with no complaints.pt refusing vs.call light within reach .continue to monitor.
--- NOTE | 2016-04-21 20:00 | NUR ---
pt.assessed.pt.viewing tv programming.pt.repsotioned self.no request@ this hour.call light w/in pt's reach.anahi benites/[place].pt.had refused the v/s assessment. Addendum: 04/22/16 at 0214 by Terry Regan RN pt.presents no peripheral iv acces:pt.has refused the establishment of peripheral iv access.pt,.presents perma-catheter:location:lt.[facility]. pt.presents hx:hemo dialysis.
--- NOTE | 2016-04-21 21:36 | NUR ---
notes pt sleeping,no distress noted continue to monitor.
--- NOTE | 2016-04-21 22:00 | NUR ---
pt.assessed.pt.repositioned self.pt.viewing tv programing.no request @this hour.call light w/in pt's reach.
--- NOTE | 2016-04-21 22:58 | NUR ---
notes dr mejias here making rounds.
--- NOTE | 2016-04-21 23:25 | NUR ---
notes pt sleeping ,no distress noted ,call light within reach. continue to monitor.
--- NOTE | 2016-04-22 | NUR ---
pt.assessed.convered w/ tata;master carpenter.pt.had refused midnioght dose:cocktail:,lidocaine,maalox.pt. pt.repositioned self.no request@this hour.no distress/discomfort manifested@this hour. Addendum: 04/22/16 at 0206 by Terry Regan RN conferred w/ alyn;shift mechanic.pt.refused v/s@midnight.
--- NOTE | 2016-04-22 00:05 | NUR ---
notes pt awaken for his midnight medication,pt refused.
--- NOTE | 2016-04-22 01:22 | NUR ---
notes pt sleeping ,no distress noted,continue to monitor.
--- NOTE | 2016-04-22 02:00 | NUR ---
pt.assessed.pt.repositioned self.no distress/discomfort manifested.pt.presebnts quiescent affect;calm, asleep.call marni w/in pt's reach.
--- NOTE | 2016-04-22 03:26 | NUR ---
notes pt remains asleep,call light within reach.continue to monitor.
--- NOTE | 2016-04-22 04:00 | NUR ---
pt.assessed.pt.presents quiescent affect;calm;asleep.no distress/discomfort manifested.confered w/analyn;biometrics head. pt.had refused 0400a v/s assessment.
--- NOTE | 2016-04-22 05:29 | NUR ---
notes pt remains asleep,awaken for 6am gi cocktail.meds refused.
[2016-04-22] MEDS: MAG-AL HYDROX/SIMETH 30 ML UDC PO SCH ×3 (05:31→17:51)
[2016-04-22] MEDS: BELLADONNA ALKALOIDS/PHENOBARB 5 ML UDC PO SCH ×4 (05:32→17:50)
--- NOTE | 2016-04-22 06:12 | NUR ---
closing notes pt remains asleep,will endorse the care of the pt to the day nurse.
--- NOTE | 2016-04-22 08:00 | NUR ---
initial notes rec patient awake eating breakfast, perma cath to the l upper chest intact but refused for me to check and to take vital signs. denies pain and stated will go to sleep and turned his back on me. bed in low position and side rails up and locked. call light within reached. stated to him will be available in he needs assistance. will continue to monitor patient.
[2016-04-22] MEDS: POTASSIUM CHLORIDE 20 MEQ TAB.PRT.SR PO SCH (09:00)
[2016-04-22] MEDS: PANTOPRAZOLE SODIUM 40 MG TAB PO SCH (09:00)
[2016-04-22] MEDS: SODIUM BICARBONATE 8.4% JECT 50 MEQ/50 ML SYRINGE IVP SCH ×3 (09:00→21:00)
[2016-04-22] MEDS: PENTOXIFYLLINE 400 MG TABLET.SA (TRENtal) PO SCH (09:00)
--- NOTE | 2016-04-22 10:00 | NUR ---
rounds sleeping soundly at this time. no acute distress noted.
--- NOTE | 2016-04-22 12:20 | NUR ---
rounds endorsed care to sisi gong re patient. no acute distress noted.
[2016-04-22] MEDS: LIDOCAINE VISCOUS 2%, 15 ML UDC PO SCH ×2 (12:30→17:51)
--- NOTE | 2016-04-22 12:30 | NUR ---
Received patient received patient and report from RODDY hoover. patient is resting comfortably. no s/s of distress or sob. patient is alert and oriented, able to express needs, and ask for assistance. call light in reach, bed in lowest position, and will continue to monitor.
[2016-04-22] MEDS: HYDROcodone/ACETAMIN 10-325 MG TAB PO PRN ×2 (16:58→22:45)
--- NOTE | 2016-04-22 20:00 | NUR ---
initial nursing notes: Patient in bed. Patient watching television. Patient refuses to be assessed. Patient declines to have his vital signs taken as well.
--- NOTE | 2016-04-22 22:00 | NUR ---
nursing rounds: Patient calmly resting in bed. Patient watching television.
--- NOTE | 2016-04-23 | NUR ---
nursing rounds: Patient stated that the pain medication that he received was effective. Patient currently denies of having pain.
[2016-04-23 00:15] VITALS: BP 125/76; PULSE 61; RESP 18; TEMP 98.1; O2SAT 99
--- NOTE | 2016-04-23 02:00 | NUR ---
nursing rounds: Patient is sleeping. Patient has no shortness of breath.
--- NOTE | 2016-04-23 04:00 | NUR ---
nursing rounds: Patient calmly resting in bed. Call light within patient's reach.
[2016-04-23] MEDS: LIDOCAINE VISCOUS 2%, 15 ML UDC PO SCH ×4 (06:00→17:27)
[2016-04-23] MEDS: MAG-AL HYDROX/SIMETH 30 ML UDC PO SCH ×4 (06:00→17:28)
[2016-04-23] MEDS: BELLADONNA ALKALOIDS/PHENOBARB 5 ML UDC PO SCH ×4 (06:00→17:27)
--- NOTE | 2016-04-23 06:00 | NUR ---
nursing rounds: Patient ambulates to the bathroom with a steady gait. Patient had no episode of fall and no injuries.
--- NOTE | 2016-04-23 07:46 | NUR ---
closing nursing notes: Patient is awake, alert and oriented X 4. Patient is in no acute respiratory distress. No episodes of fall and no injuries throughout the awake overnight counselor. Provided nursing report to incoming morning shift nurse, RODDY Guzmán, at patient's bedside.
--- NOTE | 2016-04-23 07:56 | NUR ---
AM ROUNDS: No s/s of distress noted. Patient refused assessment. Will continue to monitor.
[2016-04-23] MEDS: PENTOXIFYLLINE 400 MG TABLET.SA (TRENtal) PO SCH (08:17)
[2016-04-23] MEDS: POTASSIUM CHLORIDE 20 MEQ TAB.PRT.SR PO SCH (08:17)
[2016-04-23] MEDS: PANTOPRAZOLE SODIUM 40 MG TAB PO SCH (08:17)
[2016-04-23] MEDS: SODIUM BICARBONATE 8.4% JECT 50 MEQ/50 ML SYRINGE IVP SCH ×3 (08:17→21:00)
--- NOTE | 2016-04-23 09:45 | NUR ---
MD ROUNDS: Dr. Ashby in to see patient.
--- NOTE | 2016-04-23 10:05 | NUR ---
PATIENT RESTING: Patient resting quietly. No acute distress noted. Vital signs within normal range.
--- NOTE | 2016-04-23 12:16 | NUR ---
PATIENT RESTING: Patient resting quietly. No acute distress noted. Vital signs within normal range.
--- NOTE | 2016-04-23 14:10 | NUR ---
ROUNDS: Informed patient that lab work is ordered for tomorrow in the morning. He states he does to agree to that and wants the charge nurse informed. RODDY Ace informed.
[2016-04-23] MEDS: HYDROcodone/ACETAMIN 10-325 MG TAB PO PRN ×2 (14:47→21:44)
--- NOTE | 2016-04-23 15:41 | NUR ---
Nutrition F/U Admitting Diagnosis Acute Alcohol Intoxication, Hepatoencephalopathy, Alcoholic Liver Disease Per operative notes 03/12/16: post-op diagnoses: acute renal failure, cirrhosis of the liver, ascites, hyperbilirubinemia 03/28/16 GI Consult MD: Acute alcoholic hepatitis, moderate to severe, ascites s/p paracentesis, renal failure, anemia, abd pain Past Medical History Alcohol dependency, possible depression. Pt also admitted w/ abd pain, N/V, and gastritis per MD notes. Pertinent Medications sodium bicarbonate, mylanta, k-Dur, protonixm, norco, ativan Current Diet Order Regular x18 days Height (Feet) 6 feet Height (Inches) 1.00 inches Weight (Pounds) Admission Weight: 161 lb, 73 kg 03/18/16: No significant weight changes noted 03/23/16: Bedscale weight 158.5 lb (noted 2.5 lb loss - Pt underwent paracentesis on 03/12/16, weight inflated d/t fluids) 04/03/16: No significant weight changes noted (Pt undergoing dialysis) 04/09/16: No significant weight changes noted (pt undergoing dialysis) 04/16/16: No significant weight changes noted, pt reported weight of 159 lb by beam scale this morning 04/23/16: No significant weight changes noted, pt reported weight of 161 lb by beam scale this morning Weight (Calculated Kilograms) 73.028627 kilograms Patient Weight 73.028 kg Body Mass Index 21.24 kg/m2 (normal) [place]/Adjusted Body Weight IBW: 184 lb, 84 kg. 87% of IBW Estimated Needs (modified) 2087 kcal/day (BEE x 1.2 for liver cirrhosis) Grams of Protein per Day 101-118 gm/day (1.2-1.4 gm/kg IBW for dialysis) Fluid Intake Goal Per MD for acute renal failure on dialysis Pertinent Labs 04/21/16: CRE 2.46 H (improving), eGFR 32 L (improving), BG 126 H 04/17/16: Hgb 8.3 L (improving), Hct 24.9 L (improving), ALB 1.8 L, ALP 165 H (improving), AST 51 H (improving), Tbili 2.4 H (improving) Other Subjective Data Physical Assessment: Pt seen resting in bed on cell phone at time of visit. Pt is awake, alert, and oriented. Pt reports he was weighed today using a beam scale at 161lb - no significant weight change. Abdominal distention noted, edematous. GI Integrity: Per EMR, abdomen is distended with active bowel sounds. BM x1 04/22, pt reports current BMs are normal, no s/s of diarrhea or constipation. PO Intakes: Pt reports good appetite. PO intakes average 77% x18 records. Pt reports that he wants to eat more because he is still hungry, but he holds back because he thinks that he shouldn't be eating that much. Integumentary: Daniel score 21, left upper chest incision from perma cath placement. Plans/Procedures: Per RN, lab work to be performed tomorrow morning. Patient refusing paracentesis. Current diet is appropriate and pt is receiving optimal nutritional needs. Pt declined nutrition education at this time. Problem, Etiology, Signs/Symptoms 1. Altered GI function related to liver cirrhosis as evidenced by abnormal Tbili lab values and liver enzymes, post-op diagnosis, and pt reports of loose bowel movements and vomiting -- *Ongoing, liver labs improving 2. Limited adherence to diet/lifestyle related to possible non-compliance to diet and medications as evidenced by pt refusing medications, declining nutrition education Expected Outcomes or Goals Goal: PO intakes to meet at least 75% of estimated needs with tolerance Monitor: PO intakes, tolerance to diet, labs (renal and liver), GI function, skin integrity, weights Dietitian Recommendations * Recommend continuing regular diet per MD. Follow Up Low Risk: F/U in 7 days Addendum: 04/24/16 at [address] RD reviewed/approved manager internship's note. TAD, RD
--- NOTE | 2016-04-23 16:09 | NUR ---
PATIENT RESTING: Patient resting quietly. No acute distress noted. Vital signs within normal range.
--- NOTE | 2016-04-23 18:06 | NUR ---
CLOSING NOTE: All needs met. Patient continues to refuse assessment. Will endorse to NOC shift nurse.
[2016-04-23 20:00] VITALS: BP 120/57; PULSE 79; RESP 19; TEMP 97.6; O2SAT 99
--- NOTE | 2016-04-23 20:00 | NUR ---
PM Shift Assessment Received patient lying in bed, no acute distress noted. Patient allowed for partial assessment and refused full assessment, vital signs stable, states pain is tolerable at this time. Plan of care discussed with patient and updated on board, patient verbalized understanding. Pain management education provided, encouraged patient to call for assistance as needed, he verbalized understanding. Call light is within reach, all fall and safety precautions in place, will continue to monitor.
--- NOTE | 2016-04-23 22:21 | NUR ---
RN Rounds Patient is resting quietly in bed, no acute distress noted. Complained of abdominal pain earlier, PRN pain medication was administered per MD order, will reassess for relief of pain. Ice water provided per request, no other needs at this time. Encouraged patient to call for assistance as needed, he verbalized understanding. Call light is within reach, all fall and safety precautions in place, will continue to monitor.
--- NOTE | 2016-04-24 00:24 | NUR ---
RN Rounds Patient is sleeping but easily arousable, no acute distress noted. Refused vital signs at this time, stated we can take morning vital signs. Call light is within reach, all fall and safety precautions in place, will continue to monitor.
--- NOTE | 2016-04-24 02:32 | NUR ---
RN Rounds Patient is sleeping, respirations are even and unlabored, no acute distress noted. Call light is within reach, all fall and safety precautions in place, will continue to monitor.
--- NOTE | 2016-04-24 04:29 | NUR ---
RN Rounds Patient is resting quietly in bed, no acute distress noted. Denies any needs at this time. Call light is within reach, all fall and safety precautions in place, will continue to monitor.
[2016-04-24 05:00] VITALS: BP 108/71; PULSE 77; RESP 18; TEMP 96.8; O2SAT 92
[2016-04-24] MEDS: LIDOCAINE VISCOUS 2%, 15 ML UDC PO SCH ×2 (05:02)
[2016-04-24] MEDS: BELLADONNA ALKALOIDS/PHENOBARB 5 ML UDC PO SCH ×4 (05:02→18:00)
[2016-04-24] MEDS: MAG-AL HYDROX/SIMETH 30 ML UDC PO SCH ×2 (05:03)
--- NOTE | 2016-04-24 06:39 | NUR ---
Closing Notes Patient is sleeping but easily arousable, no acute distress noted or complain of pain. Patient is stable, all needs met throughout shift. Will continue to monitor until SBAR report is endorsed to AM nurse at bedside.
--- NOTE | 2016-04-24 07:50 | NUR ---
INITIAL NOTES RECEIVED PATIENT ON BED AWAKE.BREATHING EVEN AND UNLABORED.NO ACUTE DISTRESS.NO IV LINE;MD AWARE.SAFETY AND FALL PRECAUTIONS IN PLACE.CALL LIGHT WITHIN REACH
[2016-04-24 07:59] LABS: BASOPHILS % (AUTO) 0.5 % (0.0-2.0); EOSINOPHILS # (AUTO) 0.1 K/uL (0.0-0.4); HEMATOCRIT 24.5 % (36-54); LYMPHOCYTES # (AUTO) 0.9 K/uL (1.0-5.5); LYMPHOCYTES % (AUTO) 17.5 % (20.5-51.5); MEAN CORPUSCULAR HEMOGLOBIN 31 pg (27-31); MEAN CORPUSCULAR HGB CONC 33 % (32-36); MEAN CORPUSCULAR VOLUME 96 fL (79.0-98.0); MONOCYTES # (AUTO) 0.4 K/uL (0.0-1.0); MONOCYTES % (AUTO) 7.8 % (1.7-9.3); NEUTROPHILS # (AUTO) 3.5 K/uL (1.8-7.7); NEUTROPHILS % (AUTO) 72.2 % (40.0-70.0); PLATELET COUNT (AUTO) 130 K/uL (130-430); RED BLOOD CELL COUNT(AUTO) 2.57 MIL/uL (4.2-6.2); RED CELL DISTRIBUTION WIDTH 13.7 % (9.0-15.0); WHITE BLOOD COUNT (AUTO) 4.9 K/uL (4.8-10.8)
[2016-04-24 08:04] VITALS: BP 113/64; PULSE 68; RESP 16; TEMP 96.8; O2SAT 98
[2016-04-24 08:15] LABS: ALBUMIN 1.8 g/dL (3.4-4.8); CALCIUM 8.1 mg/dL (8.4-11.0); CREATININE 2.28 mg/dL (0.55-1.30); POTASSIUM 4.3 mmol/L (3.5-5.1); TOTAL BILIRUBIN 1.8 mg/dL (0.0-1.0); TOTAL PROTEIN, SERUM 5.7 g/dL (6.4-8.3)
[2016-04-24] MEDS: PANTOPRAZOLE SODIUM 40 MG TAB PO SCH (08:25)
[2016-04-24] MEDS: PENTOXIFYLLINE 400 MG TABLET.SA (TRENtal) PO SCH (08:25)
[2016-04-24] MEDS: POTASSIUM CHLORIDE 20 MEQ TAB.PRT.SR PO SCH (08:25)
[2016-04-24] MEDS: SODIUM BICARBONATE 8.4% JECT 50 MEQ/50 ML SYRINGE IVP SCH ×3 (08:25→21:00)
--- NOTE | 2016-04-24 08:26 | NUR ---
NOTES PATIENT REFUSED ALL DUE MEDS;EXPLAINED RISKS AND BENEFITS;STILL REFUSED Addendum: 04/24/16 at 5266 by Jesenia Cary RN STATED "NO I DON'T NEED ANY OF THAT CRAP"
--- NOTE | 2016-04-24 10:49 | NUR ---
NOTES PATIENT ON BED AWAKE WATCHING T.V.NO ACUTE DISTRESS.NEEDS ATTENDED TO
[2016-04-24 12:22] VITALS: BP 120/75; PULSE 81; RESP 18; TEMP 98.1; O2SAT 97
--- NOTE | 2016-04-24 12:45 | NUR ---
NOTES DR. OLMSTEAD CAME AND EXPLAINED THE PROCEDURE FOR THE REMOVAL OF PERMA CATH TO THE PATIENT;CONSENT OBTAINED
[2016-04-24] MEDS ORDERED: LIDOCAINE 1%, 20 ML MDV 20 ML ONE (13:00)
[2016-04-24] MEDS: HYDROcodone/ACETAMIN 10-325 MG TAB PO PRN ×2 (13:12→20:28)
--- NOTE | 2016-04-24 15:30 | NUR ---
NOTES PERMA CATH REMOVAL DONE;PATIENT TOLERATED PROCEDURE WELL;CATHETER TIP SENT TO LAB FOR CULTURE
[2016-04-24 16:50] VITALS: BP 119/72; PULSE 79; RESP 18; TEMP 98; O2SAT 98
--- NOTE | 2016-04-24 17:45 | NUR ---
NOTES CHECKED PATIENT;WITH COMPLAIN OF MILD DISCOMFORTS TO S/P PERMA CATH SITE;CHECKED AND ASSESSED SITE;PRESSURE DRESSING DRY,CLEAN AND INTACT;NO SIGNS AND SYMPTOMS OF ACTIVE BLEEDING
--- NOTE | 2016-04-24 18:44 | NUR ---
CLOSING NOTES PATIENT ON BED AWAKE.BREATHING EVEN AND UNLABORED.NO ACUTE DISTRESS.NO IV LINE;REFUSED RE-INSERTION.REFUSED ALL MEDS EXCEPT NORCO;EXPLAINED RISKS AND BENEFITS;STILL REFUSED.SAFETY AND FALL PRECAUTIONS IN PLACE.CALL LIGHT WITHIN REACH.WILL ENDORSE TO NEXT SHIFT ACCORDINGLY
[2016-04-24 19:25] VITALS: BP 128/79; PULSE 71; RESP 18; TEMP 98.5; O2SAT 98
--- NOTE | 2016-04-24 19:25 | NUR ---
INITIAL NOTE Patient resting on the bed. Respiration even and unlabored. No acute distress. Skin warm and dry to touch. Perma cath removed today, no bleeding, covered with clean and dry dressing. Refused physical assessment except VS. Patient stated "I do want my medication tonight except pain med and I will ask when need it." Safety measure maintained. Call light within reached. Bed in low position, side rials up, bed alarm on. Will continue to monitor.
--- NOTE | 2016-04-24 20:28 | NUR ---
NORCO GIVEN Patient c/o abdomen and back pain 08/03, Bent 10/325mg PO given as ordered. No acute distress. Safety measure maintained. Call light within reached. Bed alarm on, bed in low position, side rails up. Will continue to monitor.
--- NOTE | 2016-04-24 22:00 | NUR ---
ROUND Patient resting on the bed with eyes closed. Respiration even and unlabored. Safety measure maintained. Call light within reached. Bed in low position, side rails up, bed alarm on. Continue to monitor.
--- NOTE | 2016-04-25 00:18 | NUR ---
ROUND Patient resting on the bed with eyes closed. Respiration even and unlabored. No acute distress. Safety measure maintained. Bed in low position, bed alarm on, side rails up. Call light within reached. Continue to monitor.
[2016-04-25 00:19] VITALS: BP 109/76; PULSE 72; RESP 16; TEMP 96.7; O2SAT 97
--- NOTE | 2016-04-25 02:18 | NUR ---
ROUND Patient resting on the bed with eyes closed. No acute distress. Respiration even and unlabored. Bed in low position, bed alarm on, side rails up. Call light within reached. Continue to monitor.
--- NOTE | 2016-04-25 04:01 | NUR ---
ROUND Patient resting on the bed comfortable. No c/o pain at this time. Refused VS. No acute distress. Respiration even and unlabored. Bed in low position, bed alarm on, side rails up. Call light within reached. Will continue to monitor.
--- NOTE | 2016-04-25 05:30 | NUR ---
ROUND Patient resting on the abed. No acute distress. Safety measure maintained. Bed in low position, bed alarm on, side rails up. Call light within reached. Continue to monitor.
[2016-04-25] MEDS: BELLADONNA ALKALOIDS/PHENOBARB 5 ML UDC PO SCH ×4 (06:00→18:00)
--- NOTE | 2016-04-25 06:32 | NUR ---
CLOSING NOTE Patient resting on the bed comfortable. Denied of pain at this time. Respiration even and unlabored. No acute distress. No bleeding noted on left upper chest for Perma cath removal, intact with clean and dry dressing. Refused the VS except the initial one at the beginning of the shift. Refused the routine medications during shift. All needs met. Hourly rounding during shift. Safety measure maintained. Call light within reached. Bed in low position, side rails up. Will endorse to morning shift nurse.
--- NOTE | 2016-04-25 07:40 | NUR ---
INITIAL NOTES RECEIVED PATIENT ON BED AWAKE.BREATHING EVEN AND UNLABORED.NO ACUTE DISTRESS.NO IV LINE.SAFETY AND FALL PRECAUTIONS IN PLACE.CALL LIGHT WITHIN REACH
--- NOTE | 2016-04-25 07:43 | NUR ---
INITIAL NOTES RECEIVED PATIENT ON BED AWAKE.BREATHING EVEN AND UNLABORED.NO ACUTE DISTRESS.IVF INFUSING WELL;NO SIGNS AND SYMPTOMS OF INFILTRATION.SAFETY AND FALL PRECAUTIONS IN PLACE.CALL LIGHT WITHIN REACH Addendum: 04/25/16 at 0746 by Jesenia Cary RN WRONG PATIENT
[2016-04-25] MEDS: SODIUM BICARBONATE 8.4% JECT 50 MEQ/50 ML SYRINGE IVP SCH ×3 (08:18→21:00)
[2016-04-25] MEDS: POTASSIUM CHLORIDE 20 MEQ TAB.PRT.SR PO SCH (08:18)
[2016-04-25] MEDS: PANTOPRAZOLE SODIUM 40 MG TAB PO SCH (08:18)
[2016-04-25] MEDS: PENTOXIFYLLINE 400 MG TABLET.SA (TRENtal) PO SCH (08:18)
--- NOTE | 2016-04-25 08:20 | NUR ---
NOTES PATIENT REFUSED DUE MEDS;EXPLAINED RISKS AND BENEFITS;STILL REFUSED
[2016-04-25 08:23] VITALS: BP 105/70; PULSE 73; RESP 19; TEMP 98; O2SAT 94
--- NOTE | 2016-04-25 11:04 | NUR ---
NOTES CHECKED PATIENT;NEEDS ATTENDED TO
[2016-04-25] MEDS: HYDROcodone/ACETAMIN 10-325 MG TAB PO PRN ×2 (13:00→20:47)
--- NOTE | 2016-04-25 14:05 | NUR ---
NOTES PATIENT SITTING AT THE EDGE OF THE BED AWAKE.NO ACUTE DISTRESS
--- NOTE | 2016-04-25 17:09 | NUR ---
NOTES DR. KING CAME AND EXAMINED THE PATIENT;WAITING FOR ORDER
--- NOTE | 2016-04-25 18:56 | NUR ---
CLOSING NOTES PATIENT ON BED ASLEEP.BREATHING EVEN AND UNLABORED.NO ACUTE DISTRESS.NO IV SITE;MD AWARE.SAFETY AND FALL PRECAUTIONS IN PLACE.CALL LIGHT WITHIN REACH.WILL ENDORSE TO NEXT SHIFT ACCORDINGLY
--- NOTE | 2016-04-25 20:01 | NUR ---
Opening Note Patient is currently resting in bed. Is asking to speak with the charge nurse. Stated that he does not want a room in is room. Patient was advised that the hospital staff is doing everything to make is stay as pleasant and comfortable as possible. Call light is within reach. Advised patient to use it whenever in need of assistance especially after receiving pain medication. However, the patient is refusing to use the call light whenever he has to get out of bed and is also refusing to have the bed alarm on. Provided further education on fall prevention to the patient.
[2016-04-25 20:24] VITALS: BP 128/84; PULSE 86; RESP 18; TEMP 99.2; O2SAT 100
--- NOTE | 2016-04-25 22:18 | NUR ---
Rounds patient is currently resting in bed. Call light is within reach. Continue to advise the patient to please use it whenever in need of assistance.
--- NOTE | 2016-04-26 00:21 | NUR ---
Rounds Patient is currently sleeping in bed. Call light is within reach.
--- NOTE | 2016-04-26 02:15 | NUR ---
Rounds Patient is sleeping in bed. Call light is within reach.
--- NOTE | 2016-04-26 04:16 | NUR ---
Rounds Patient is sleeping in bed. Call light is within reach.
[2016-04-26] MEDS: BELLADONNA ALKALOIDS/PHENOBARB 5 ML UDC PO SCH ×3 (05:21→12:00)
--- NOTE | 2016-04-26 07:20 | NUR ---
Rounds Patient is currently sleeping in bed. No complaints at the moment. Call light is within reach. Instructed to use it whenever in need of assistance. Will give report to the oncoming nurse.
--- NOTE | 2016-04-26 08:00 | NUR ---
OPENING NOTE: RECEIVED REPORT FROM NIGHT NURSE. PATIENT IS CURRENTLY SLEEPING. NO S/S OF DISTRESS OR SOB NOTICED. CALL LIGHT IN REACH, BED IN LOWEST POSITION, AND WILL CONTINUE TO MONITOR.
[2016-04-26] MEDS: POTASSIUM CHLORIDE 20 MEQ TAB.PRT.SR PO SCH (09:00)
[2016-04-26] MEDS: PENTOXIFYLLINE 400 MG TABLET.SA (TRENtal) PO SCH (09:00)
[2016-04-26] MEDS: SODIUM BICARBONATE 8.4% JECT 50 MEQ/50 ML SYRINGE IVP SCH ×2 (09:00→15:00)
[2016-04-26] MEDS: PANTOPRAZOLE SODIUM 40 MG TAB PO SCH (09:00)
[2016-04-26 11:46] VITALS: BP 119/54; PULSE 63; RESP 20; TEMP 98; O2SAT 98
[2016-04-26] MEDS: HYDROcodone/ACETAMIN 10-325 MG TAB PO PRN (12:20)
--- NOTE | 2016-04-26 16:17 | NUR ---
Production Gear Cutter Note TRAIN CLERK and patient's nurse Phylicia PEREYRA met with patient at bedside. TRAIN CLERK told patient that there was a snf that had room today but would need to be called before 6pm to arrange a bed and a taxi would take patient there ([facility] in [place] [phone]). Patient stated he would not go to a snf and he was too sick to live on the street. He stated he could not walk enough. If he was discharged, he would go to the ER to be readmitted. Patient is noted to have been walking around the hospital. Patient stated he is waiting for his disability check to come through to find lodging. He believes that will be next week. Patient's friend was at bedside and she stated patient could not live with her. Patient refuses to leave and does not want homeless resources. Notified Nadia Director.
[2016-04-26] MEDS ORDERED: PRO40 PO ×2 (17:03→17:07)
[2016-04-26] MEDS ORDERED: PHEN16.225 PO ×2 (17:06→17:08)
[2016-04-26] MEDS ORDERED: PRO40 (17:07)
--- NOTE | 2016-04-26 17:36 | NUR ---
DISCHARGE PATIENT WAS DISCHARGED TO HOME. PATIENT WAS REFUSING TO LEAVE SINCE DR. KING PUT IN THE DISCHARGE ORDER. INVASIVE PHYSICIAN CAME TO THE ROOM TO INFORM PATIENT THAT HE WAS DISCHARGED AND PROVIDED INFORMATION ON A [facility] THAT HAD A BED AVAILABLE FOR HIM. PATIENT REFUSED TO GO THE FPC. PATIENT STATED THAT IF HE WAS DISCHARGED HE WAS JUST GOING TO [place] AND WOULD BE COMING BACK TO THE ER UNTIL HE WAS ADMITTED ONCE AGAIN. PATIENT STATED THAT HE WOULD DROP HIMSELF ON THE GROUND TO PROVE A POINT AND THAT IF HE DID FALL IT WOULD BE ON [place]. PATIENT HAS HAD A STEADY GAIT HERE, WALKING TO THE [place] AND OUTSIDE WITH OUT ANY ISSUES. STRETCHING PRESS OPERATOR SPOKE WITH THE PATIENT AND HE AGREED THAT HE WOULD LEAVE. PATIENT WAS GIVEN DISCHARGE INSTRUCTIONS AND PRESCRIPTIONS BUT REFUSED TO SIGN THE DISCHARGE PAPERWORK. PATIENT ALSO REFUSED TO GET NOSE SWABBED FOR MRSA ON DISCHARGE PROTOCOL. PATIENT WAS GIVEN THE DISCHARGE PAPERWORK AND EXPLAINED FOLLOW UP CARE. HOSPITAL ID BAND WAS REMOVED. HOSPITAL SECURITY WAS IN THE ROOM AND ESCORTED PATIENT OUT TO THE LOBBY. TAXI VOUCHER WAS GIVEN. STRETCHING PRESS OPERATOR AND CHRIST WERE MADE AWARE OF THE ISSUES AND ALSO THE DISCHARGE. Addendum: 04/26/16 at 1755 by Phylicia West RN PATIENT WALKED ON HIS OWN OFF HOSPITAL PROPERTY. HE WAS AMBULATORY AND WITH A STEADY GAIT. PUT HIM IN THE BACK OF THE [employer] CAR AND HE WAS TAKEN BY THE [employer] DEPARTMENT FOR QUESTIONING BECAUSE HE HAD AN OUTSTANDING WARRANT.
== END 2016-04-26 17:25 | disposition home or self-care (01) | DRG 280 ==
LOC: SED 19:29 → SIC 02-23 03:16 → SMU 02-24 17:10
PROVIDERS: ADMIT Family Medicine; ATTEND Family Medicine
PROC: 0W9G3ZZ Drainage of Peritoneal Cavity, Percutaneous Approach (ICD-10-PCS; 2016-03-07)
PROC: BW40ZZZ Ultrasonography of Abdomen (ICD-10-PCS; 2016-03-07)
PROC: 02HV33Z Insertion of Infusion Device into Superior Vena Cava, Percutaneous Approach (ICD-10-PCS; principal; 2016-03-12)
PROC: B5181ZA Fluoroscopy of Superior Vena Cava using Low Osmolar Contrast, Guidance (ICD-10-PCS; 2016-03-12)
PROC: 30233N1 Transfusion of Nonautologous Red Blood Cells into Peripheral Vein, Percutaneous Approach (ICD-10-PCS; 2016-03-14)
PROC: 5A1D60Z (ICD-10-PCS; 2016-03-14)
PROC: 02PYX3Z Removal of Infusion Device from Great Vessel, External Approach (ICD-10-PCS; 2016-04-11)
PROC: 02HV33Z Insertion of Infusion Device into Superior Vena Cava, Percutaneous Approach (ICD-10-PCS; 2016-04-11)
PROC: B5181ZA Fluoroscopy of Superior Vena Cava using Low Osmolar Contrast, Guidance (ICD-10-PCS; 2016-04-11)
PROC: 02PYX3Z Removal of Infusion Device from Great Vessel, External Approach (ICD-10-PCS; 2016-04-24)
PROC: 02HV33Z Insertion of Infusion Device into Superior Vena Cava, Percutaneous Approach (ICD-10-PCS; 2016-04-24)
PROC: B5181ZA Fluoroscopy of Superior Vena Cava using Low Osmolar Contrast, Guidance (ICD-10-PCS; 2016-04-24)
DX: K70.31 Alcoholic cirrhosis of liver with ascites (principal); K70.11 Alcoholic hepatitis with ascites; K76.7 Hepatorenal syndrome; E43 Unspecified severe protein-calorie malnutrition; N17.9 Acute kidney failure, unspecified; D68.9 Coagulation defect, unspecified; K83.1 Obstruction of bile duct; F10.231 Alcohol dependence with withdrawal delirium; F10.229 Alcohol dependence with intoxication, unspecified; K72.00 Acute and subacute hepatic failure without coma; N18.6 End stage renal disease; D69.6 Thrombocytopenia, unspecified; E86.0 Dehydration; K29.70 Gastritis, unspecified, without bleeding; Y90.5 Blood alcohol level of 100-119 mg/100 ml; E87.6 Hypokalemia; K92.2 Gastrointestinal hemorrhage, unspecified; D72.829 Elevated white blood cell count, unspecified; F17.200 Nicotine dependence, unspecified, uncomplicated; J45.909 Unspecified asthma, uncomplicated; D64.9 Anemia, unspecified; F32.9 Major depressive disorder, single episode, unspecified; E80.6 Other disorders of bilirubin metabolism; Z88.0 Allergy status to penicillin; Z91.19 Patient's noncompliance with other medical treatment and regimen; Z59.0 Homelessness; Z68.21 Body mass index [BMI] 21.0-21.9, adult; Z99.2 Dependence on renal dialysis
CPT/HCPCS: 36415; 49083; 71010; 74000-TC; 76700-TC; 80048; 80053; 80074; 80076; 80170-TC; 82140-TC; 82150-TC; 82248-TC; 82947-TC; 83605; 83690-TC; 83735-TC; 84100-TC; 84157-TC; 84302-TC; 85007; 85025; 85027; 85610-TC; 85730-TC; 86580; 86886; 86900; 86901; 86920; 87040-TC; 87070-TC; 87081; 87230-TC; 88108; 89051-TC; 89060-TC; 90935; 90937; 93005; 94640; 94760; 96365; 96375; 99285; C1729; C1750; C1769; C1894; C9113; G0479; G0480; G0481; G0482; J0690; J0885; J1580; J1644; J1956; J2001; J2060; J2250; J2354; J2704; J2997; J3411; J3430; J3475; J3480; J3490; J7030; J7050; J7060; P9021; P9046; Q9964; Q9967